=== PATIENT | female | born 1950 | race Two or more races ===

== ENCOUNTER → 2017-05-07 | Outpatient (CLI) | payer MEDICARE ==
[~2017-05-07] MED LIST: REGADENOSON 0.4 MG/5 ML DISP.SYRIN. IV ONE
--- NOTE | 2017-05-11 18:24 | RAD ---
APPROVED REPORT Test Type: Pharmacological Stress Nurse/Tech: Erica Jarquin R.N. Test Indications: CP Cardiac History: htn,dm Medications: See Electronic Medical Record Medical History: See Electronic Medical Record Resting ECG: SR w/ BBB -qrs=0.16 Resting Heart Rate: 69 bpm Resting Blood Pressure: 133/69mmHg Pretest Chest Pain: Typical angina Nurse/Tech Notes S1S2, lungs CTA, pt states that she is currently having slight stabbing c/p scale 3/10 Consent: The procedure was explained to the patient in lay terms. Informed consent was witnessed. Albino eout was entered into [facility]. History and Stress Test performed by RT Sabas (Gita) (N) Pharm. Details Pharmacologic stress testing was performed using 0.4mg per 5ml of regadenoson given intravenously ove r 7-10 seconds. Stress Symptoms queasiness, slight SOB, baseline chest pain resolved POST EXERCISE Reason for Termination: Infusion complete Max HR: 96 bpm Max Blood Pressure: 133/69mmHg Blood Pressure response to exercise: Normal blood pressure response during stress. Heart Rate response to exercise: wnl Chest Pain: No. Arrhythmia: No. ST Change: No. Imaging Protocol IMAGE PROTOCOL: Rest Tc-99m/stress Tc-99m 2 days Rest: Stress: Viability: Radiopharm.Tc99m [id number] Sestamibi Qsmr55lSv 33.5mCi Duration 15min. 10min. Img Date 05/07/2017 05/08/2017 Inj-Img [id number]. 60min. Rest Admin Site:IV - Right AntecubitalAdministrator:CURLY Goddard, ARRT (R)(N) Stress Admin Site: IV - Right AntecubitalAdministrator: RT Sabas (Gita)(N) STRESS DATA End Diast. Vol.43.0mlAv. Heart Rate73.0bpm End Syst. Vol.2.0mlCO Index BSA0.0L/min Myocardial Mass91.0gEject. Vumwimgu83.0% Stress Rates Pk. Fill Rate4.18EDV/secLVtime Pk. Fill 196.57msec Pk. Empty Rate6.02ESV/secLVtime Pk. Rznyd723.39msec 08/19 Pk. Fill1.88EDV/sec Stress Scores Regional WT0.00Summed WT2.00 Regional WM0.00Summed WM0.00 LV Perf. Quant 17 Seg. SSS0.00 17 Seg. SRS0.00 17 Seg. SDS0.00 Stress Defect Extent (% LAD)0.00Rest Defect Extent (% LAD)0.00Rev. Defect Extent (% LAD)0.00 Stress Defect Extent (% LCX) 0.00Rest Defect Extent (% LCX)0.00Rev. Defect Extent (% LCX)0.00 Stress Defect Extent (% RCA)0.00Rest Defect Extent (% RCA)0.00Rev. Defect Extent (% RCA)0.00 Stress Defect Extent (% AIMEE)0.00Rest Defect Extent (% AIMEE)0.00Rev. Defect Extent (% AIMEE)0.00 Conclusion 1. No electrocardiographic changes suggestive of myocardial ischemia with pharmacological stress. 2. No perfusion defects to suggest myocardial ischemia or scar. 3. Normal wall motion and wall thickening with an ejection fraction of more than 80%. 4. Scan indicates low risk for future cardiac events.
== END | disposition home or self-care (01) ==
LOC: NM 07:38
PROVIDERS: ATTEND Internal Medicine Cardiovascular Disease
DX: I49.5 Sick sinus syndrome (principal)
CPT/HCPCS: 78452; 96374; 96375; A9500; 93017; 96376; J2785

== ENCOUNTER 2019-03-02 12:33 | Inpatient (IN) | payer OTHER, MEDICARE ==
[~2019-03-02] VITALS: Ht 157.5 cm; Wt 83.1 kg
[2019-03-02 13:28] LABS: BILIRUBIN,URINE NEGATIVE (NEG); CLARITY,URINE CLEAR; COLOR,URINE YELLOW; NITRITE,URINE NEGATIVE (NEG); PH,URINE 6.5; PROTEIN,URINE NEGATIVE (NEG-TRACE)
[2019-03-02 13:48] LABS: BACTERIA,URINE FEW /HPF (0-FEW); SQUAMOUS EPITHELIAL CELL,UR MANY /LPF
[2019-03-02] MEDS ORDERED: IV NORMAL SALINE 1000ML BAG 1,000 ML IV ONE ×2 (14:00→16:30)
[2019-03-02 14:17] LABS: CALCIUM 8.9 mg/dL (8.5-10.1); GFR 55.1; POTASSIUM 3.8 mmol/L (3.5-5.1)
[2019-03-02 14:23] LABS: ALBUMIN 2.8 g/dL (3.4-5.0); ALBUMIN/GLOBULIN RATIO 0.7 (1.0-1.7); TOTAL BILIRUBIN 0.4 mg/dL (0.2-1.0)
[2019-03-02] MEDS ORDERED: ONDANSETRON PF 4 MG/2 ML VIAL. IV ONE (14:30)
[2019-03-02] MEDS ORDERED: MORPHINE SULFATE 4 MG/ML VIAL. IV ONE (14:30)
[2019-03-02 15:02] LABS: BASO % 1 % (0-3); EOS # 0.1 x10^3/uL (0.0-0.7); EOS % 2 % (0-3); HEMATOCRIT 36.7 % (36.0-47.0); HEMOGLOBIN 12.3 g/dL (12.0-15.5); LYMPH # 1.2 x10^3/uL (1.0-4.8); LYMPH % 35 % (24-48); MEAN CORPUSCULAR HEMOGLOBIN 29 pg (25-35); MEAN CORPUSCULAR HGB CONC 34 g/dL (31-37); MEAN CORPUSCULAR VOLUME 86 fL (79-100); MONO # 0.4 x10^3/uL (0.0-1.1); MONO % 12 % (0-9); NEUT # 1.8 x10^3/uL (1.8-7.7); NEUT % 51 % (31-73); PLATELET COUNT 45 x10^3/uL (140-400); RED BLOOD COUNT 4.25 x10^6/uL (3.50-5.40); RED CELL DISTRIBUTION WIDTH 16.6 % (11.5-14.5); WHITE BLOOD COUNT 3.4 x10^3/uL (4.0-11.0)
[2019-03-02] MEDS ORDERED: CONTRAST GIVEN. MC PRN (15:15)
[2019-03-02 15:32] LABS: PROTHROMBIN TIME PATIENT 14.5 SEC (11.7-14.0)
[2019-03-02] MEDS ORDERED: IOHEXOL 300 MG/ML 100ML VIAL. IV ONE (15:45)
[2019-03-02 15:48] LABS: PLT ESTIMATE DECREASED (ADEQUATE)
--- NOTE | 2019-03-02 15:59 | RAD ---
CT study of the abdomen and pelvis with contrast Clinical indications: Abdominal pain. TECHNIQUE: After IV infusion of 60 cc of Omnipaque 300, helical CT scanning of the abdomen and pelvis was performed. No GI contrast was administered. This may decrease the sensitivity to detect GI tract pathology. PQRS compliance Statement One or more of the following individualized dose reduction techniques were utilized for this study: 1. Automated exposure control 2. Adjustment of the mA and/or kV according to patient size 3. Use of iterative reconstruction technique COMPARISON: None available. FINDINGS: The liver is unremarkable. The spleen measures 13.2 cm in length which is at the upper limits of normal. There is diffuse enhancement of the pancreas. No pancreatic mass is seen. However, there is moderate peripancreatic edema around the head and neck and body of the pancreas and to a lesser extent the tail of the pancreas. Edema extends into the root of the mesentery. Edema extends into the anterior pararenal space around Gerota's fascia of both kidneys and into the right and left paracolic gutters. There is a small amount of ascites present within the right upper quadrant of the abdomen. No pseudocyst is seen. Findings are consistent with pancreatitis. The gallbladder is distended. There is mild gallbladder wall thickening. There is a gallstone within the gallbladder measuring 7 mm. Another smaller 3 mm stone is seen within the neck of the gallbladder. No extra hepatic biliary ductal dilatation is seen. No dilatation of the main pancreatic duct is evident. No adrenal mass is evident. Bilateral renal stones are seen. There is scarring of the upper pole of the right kidney consistent with chronic pyelonephritis. No hydronephrosis or hydroureter is evident on either side. Urinary bladder wall is smooth. No uterine mass or fibroid is evident. No dominant ovarian cyst or mass is evident. No focal aneurysmal dilatation of the abdominal aorta is seen. No enlarged abdominal or pelvic lymphadenopathy is seen. Sigmoid diverticulosis is seen without diverticulitis. Terminal ileum is unremarkable. The appendix is unremarkable. No obstructive bowel pattern is evident. There is wall thickening of stomach and duodenum which may be reactive secondary to the pancreatitis. No free air is evident. Mild bibasilar atelectasis is seen. No lytic process is seen. Impression: Pancreatitis. There is moderate amount of peripancreatic edema which extends into the root of the mesentery and extends to both sides of the abdomen. A small amount of pancreatic ascites is seen. The gallbladder is distended. Mild gallbladder wall thickening is seen. This may represent cholecystitis. Cholelithiasis is evident. No dilatation of the extra hepatic biliary duct is seen. Wall thickening of the stomach and duodenum most likely is reactive secondary to the pancreatitis. Electronically signed by: Yohannes Mercer MD (03/02/2019 3:56 PM) [facility]
--- NOTE | 2019-03-02 16:16 | PHYS DOC ---
Past Medical History Past Medical History: Diabetes-Type II, High Cholesterol, Hypertension, Other Additional Past Medical Histor: FATTY LIVER Past Surgical History: No Surgical History Alcohol Use: None Drug Use: None Adult General Chief Complaint Chief Complaint: FLANK PAIN HPI HPI Patient is a 68 year old female presented ER today for evaluation of mid abdominal pain, right flank pain that radiated across into her epigastric area off and on for 3 weeks. She also had problem with constipation. Patient went to [facility] last week for the same problem, they diagnosed her with UTI an d sent home with antibiotics however patient took the medication but did not get better so she came in here for evaluation. She denies any cough or fever, no chest pain, no trouble breathing. Review of Systems Review of Systems Constitutional: Denies fever or chills [] Eyes: Denies change in visual acuity, redness, or eye pain [] HENT: Denies nasal congestion or sore throat [] Respiratory: Denies cough or shortness of breath [] Cardiovascular: No additional information not addressed in HPI [] GI: Positive for abdominal pain, nausea, vomiting, NO bloody stools or diarrhea [] : Denies dysuria or hematuria [] Musculoskeletal: Positive for back pain NO joint pain [] Integument: Denies rash or skin lesions [] Neurologic: Denies headache, focal weakness or sensory changes [] Endocrine: Denies polyuria or polydipsia [] All other systems were reviewed and found to be within normal limits, except as documented in this note. Current Medications Current Medications Current Medications Medications (Trade) Dose Ordered Sig/Trent Start Time Stop Time Status Last Admin Dose Admin Fentanyl Citrate (Fentanyl 2ml Vial) 50 mcg PRN Q2HR PRN 03/02/19 17:00 03/03/19 16:59 Info (CONTRAST GIVEN -- Rx MONITORING) 1 each PRN DAILY PRN 03/02/19 15:15 03/04/19 15:14 Iohexol (Omnipaque 300 Mg/ml) 60 ml 1X ONCE 03/02/19 15:45 03/02/19 15:46 DC 03/02/19 15:24 60 ML Morphine Sulfate (Morphine Sulfate) 4 mg 1X ONCE 03/02/19 14:30 03/02/19 14:31 DC 03/02/19 14:14 4 MG Ondansetron HCl (Zofran) 4 mg PRN Q8HRS PRN 03/02/19 17:00 03/03/19 16:59 Piperacillin Sod/ Tazobactam Sod 3.375 gm/Sodium Chloride 50 ml @ 100 mls/hr 1X ONCE 03/02/19 17:00 03/02/19 17:29 03/02/19 16:26 100 MLS/HR Sodium Chloride 1,000 ml @ 100 mls/hr Q10H 03/02/19 16:48 03/03/19 16:47 Allergies Allergies Allergies Coded Allergies Type Severity Reaction Last Updated Verified No Known Drug Allergies 05/07/17 No Physical Exam Physical Exam Constitutional: Well developed, well nourished, no acute distress, non-toxic appearance. [] HENT: Normocephalic, atraumatic, bilateral external ears normal, oropharynx moist, no oral exudates, nose normal. [] Eyes: PERRLA, EOMI, conjunctiva normal, no discharge. [] Neck: Normal range of motion, no tenderness, supple, no stridor. [] Cardiovascular:Heart rate regular rhythm, no murmur [] Lungs & Thorax: Bilateral breath sounds clear to auscultation [] Abdomen: Bowel sounds normal, soft, There is tenderness in EPIGASTRIC, RUQ AR EA, no masses, no pulsatile masses. [] Skin: Warm, dry, no erythema, no rash. [] Back: No tenderness, no CVA tenderness. [] Extremities: No tenderness, no cyanosis, no clubbing, ROM intact, no edema. [] Neurologic: Alert and oriented X 3, normal motor function, normal sensory function, no focal deficits noted. [] Psychologic: Affect normal, judgement normal, mood normal. [] Current Patient Data Vital Signs Vital Signs Date Time Temp Pulse Resp B/P (MAP) Pulse Ox O2 Delivery O2 Flow Rate FiO2 03/02/19 14:00 18 138/65 (89) 96 Room Air 03/02/19 12:51 97.8 90 97.8 Lab Values Laboratory Tests Test 03/02/19 12:49 03/02/19 13:54 03/02/19 14:47 03/02/19 17:06 Urine Collection Type Unknown Urine Color Yellow Urine Clarity Clear Urine pH 6.5 Urine Specific [place] 1.015 Urine Protein Negative mg/dL (NEG-TRACE) Urine Glucose (UA) 500 mg/dL (NEG) Urine Ketones (Stick) Negative mg/dL (NEG) Urine Blood Trace (NEG) Urine Nitrite Negative (NEG) Urine Bilirubin Negative (NEG) Urine Urobilinogen Dipstick 1.0 mg/dL (0.2 mg/dL) Urine Leukocyte Esterase Small (NEG) Urine RBC 3-5 /HPF (0-2) Urine WBC 11-20 /HPF (0-4) Urine Squamous Epithelial Cells Many /LPF Urine Bacteria Few /HPF (0-FEW) Sodium Level 138 mmol/L (136-145) Potassium Level 3.8 mmol/L (3.5-5.1) Chloride Level 103 mmol/L (98-107) Carbon Dioxide Level 24 mmol/L (21-32) Anion Gap 11 (6-14) Blood Urea Nitrogen 11 mg/dL (7-20) Creatinine 1.0 mg/dL (0.6-1.0) Estimated GFR (Cockcroft-Gault) 55.1 BUN/Creatinine Ratio 11 (6-20) Glucose Level 295 mg/dL (70-99) H Calcium Level 8.9 mg/dL (8.5-10.1) Total Bilirubin 0.4 mg/dL (0.2-1.0) Aspartate Amino Transferase (AST) 61 U/L (15-37) H Alanine Aminotransferase (ALT) 90 U/L (14-59) H Alkaline Phosphatase 190 U/L (46-116) H Total Protein 7.0 g/dL (6.4-8.2) Albumin 2.8 g/dL (3.4-5.0) L Albumin/Globulin Ratio 0.7 (1.0-1.7) L Lipase 245 U/L (73-393) White Blood Count 3.4 x10^3/uL (4.0-11.0) L Red Blood Count 4.25 x10^6/uL (3.50-5.40) Hemoglobin 12.3 g/dL (12.0-15.5) Hematocrit 36.7 % (36.0-47.0) Mean Corpuscular Volume 86 fL (79-100) Mean Corpuscular Hemoglobin 29 pg (25-35) Mean Corpuscular Hemoglobin Concent 34 g/dL (31-37) Red Cell Distribution Width 16.6 % (11.5-14.5) H Platelet Count 45 x10^3/uL (140-400) L Neutrophils (%) (Auto) 51 % (31-73) Lymphocytes (%) (Auto) 35 % (24-48) Monocytes (%) (Auto) 12 % (0-9) H Eosinophils (%) (Auto) 2 % (0-3) Basophils (%) (Auto) 1 % (0-3) Neutrophils # (Auto) 1.8 x10^3/uL (1.8-7.7) Lymphocytes # (Auto) 1.2 x10^3/uL (1.0-4.8) Monocytes # (Auto) 0.4 x10^3/uL (0.0-1.1) Eosinophils # (Auto) 0.1 x10^3/uL (0.0-0.7) Basophils # (Auto) 0.0 x10^3/uL (0.0-0.2) Platelet Estimate Decreased (ADEQUATE) Prothrombin Time 14.5 SEC (11.7-14.0) H Prothrombin Time INR 1.2 (0.8-1.1) H PTT 30 SEC (24-38) Glucose (Fingerstick) 152 mg/dL (70-99) H Laboratory Tests 03/02/19 14:47 Laboratory Tests 03/02/19 13:54 EKG EKG [] Radiology/Procedures Radiology/Procedures [][facility] [address] [place] [address] IMAGING REPORT Signed PATIENT: JUAN LANE ACCOUNT: [id number] : 1950 LOCATION: ER AGE: 68 SEX: F EXAM STATUS: REG ER ORD. PHYSICIAN: LIZZETTE STEWART DO REASON: ABDOMINAL PAIN PROCEDURE: CT ABD PELV W/ IV CONTRST ONLY CT study of the abdomen and pelvis with contrast Clinical indications: Abdominal pain. TECHNIQUE: After IV infusion of 60 cc of Omnipaque 300, helical CT scanning of the abdomen and pelvis was performed. No GI contrast was administered. This may decrease the sensitivity to detect GI tract pathology. PQRS compliance Statement One or more of the following individualized dose reduction techniques were utilized for this study: 1. Automated exposure control 2. Adjustment of the mA and/or kV according to patient size 3. Use of iterative reconstruction technique COMPARISON: None available. FINDINGS: The liver is unremarkable. The spleen measures 13.2 cm in length which is at the upper limits of normal. There is diffuse enhancement of the pancreas. No pancreatic mass is seen. However, there is moderate peripancreatic edema around the head and neck and body of the pancreas and to a lesser extent the tail of the pancreas. Edema extends into the root of the mesentery. Edema extends into the anterior pararenal space around Gerota's fascia of both kidneys and into the right and left paracolic gutters. There is a small amount of ascites present within the right upper quadrant of the abdomen. No pseudocyst is seen. Findings are consistent with pancreatitis. The gallbladder is distended. There is mild gallbladder wall thickening. There is a gallstone within the gallbladder measuring 7 mm. Another smaller 3 mm stone is seen within the neck of the gallbladder. No extra hepatic biliary ductal dilatation is seen. No dilatation of the main pancreatic duct is evident. No adrenal mass is evident. Bilateral renal stones are seen. There is scarring of the upper pole of the right kidney consistent with chronic pyelonephritis. No hydronephrosis or hydroureter is evident on either side. Urinary bladder wall is smooth. No uterine mass or fibroid is evident. No dominant ovarian cyst or mass is evident. No focal aneurysmal dilatation of the abdominal aorta is seen. No enlarged abdominal or pelvic lymphadenopathy is seen. Sigmoid diverticulosis is seen without diverticulitis. Terminal ileum is unremarkable. The appendix is unremarkable. No obstructive bowel pattern is evident. There is wall thickening of stomach and duodenum which may be reactive secondary to the pancreatitis. No free air is evident. Mild bibasilar atelectasis is seen. No lytic process is seen. Impression: Pancreatitis. There is moderate amount of peripancreatic edema which extends into the root of the mesentery and extends to both sides of the abdomen. A small amount of pancreatic ascites is seen. The gallbladder is distended. Mild gallbladder wall thickening is seen. This may represent cholecystitis. Cholelithiasis is evident. No dilatation of the extra hepatic biliary duct is seen. Wall thickening of the stomach and duodenum most likely is reactive secondary to the pancreatitis. Electronically signed by: Smita Mercer MD (03/02/2019 3:56 PM) [place] [id number] DICTATED and SIGNED BY: SMITA MERCER MD DATE: 03/02/19 1556 [facility] [address] [place] [address] IMAGING REPORT Signed PATIENT: JUAN LANE ACCOUNT: [id number] : 1950 LOCATION: ER AGE: 68 SEX: F EXAM STATUS: REG ER ORD. PHYSICIAN: LIZZETTE STEWART DO REASON: RUQ ABDOMINAL PAIN PROCEDURE: ABDOMEN LTD ABDOMEN LTD History: Right upper quadrant abdominal pain. Comparison: CT March 02, 2019.. Technique: Transabdominal ultrasound images are obtained. Findings: Visualized pancreas is not well seen due to overlying bowel gas. See dedicated abdominal pelvic CT for further details. Liver is normal in echogenicity. Right hepatic lobe measures 13.4 cm. Portal flow is hepatopedal. Gallbladder: Cholelithiasis. Mild wall thickening measures 6 mm. No pericholecystic fluid. Common bile duct caliber is normal measuring 5 mm in diameter. The right kidney measures 9.8 x 5.3 x 4.3 cm in length and is without evidence of obstruction or stone. Visualized portions of the aorta and IVC have normal caliber. IMPRESSION: 1. Cholelithiasis with mild gallbladder wall thickening. Findings may represent acute cholecystitis. HIDA scan can further evaluate gallbladder function if clinically indicated. Electronically signed by: Mikey Yoon DO (03/02/2019 4:57 PM) [id number] DICTATED and SIGNED BY: MIKEY YOON DO DATE: 03/02/19 2299 Course & Med Decision Making Course & Med Decision Making Pertinent Labs and Imaging studies reviewed. (See chart for details) [] Dragon Disclaimer Dragon Disclaimer This electronic medical record was generated, in whole or in part, using a voice recognition dictation system. Departure Departure Impression: Primary Impression: Acute gallstone pancreatitis Additional Impressions: Cholecystitis Thrombocytopenia Disposition: 09 ADMITTED INPATIENT Admitting Physician: MARIBETH Condition: STABLE Referrals: KRISTI NARVAEZ MD (PCP) Problem Qualifiers LIZZETTE STEWART DO Mar 02, 2019 16:16
[2019-03-02] MEDS ORDERED: fentaNYL PF VIAL 100 MCG/2 ML VIAL IV ONE (16:45)
[2019-03-02] MEDS ORDERED: IV NORMAL SALINE 1000ML BAG 1,000 ML IV SCH (16:48)
[2019-03-02] MEDS ORDERED: fentaNYL PF VIAL 100 MCG/2 ML VIAL IV PRN (17:00)
[2019-03-02] MEDS ORDERED: PIPERACILLIN/TAZOBACTAM 3.375 GM in IV NORMAL SALINE 50ML 50 ML IV ONE (17:00)
[2019-03-02] MEDS ORDERED: ONDANSETRON PF 4 MG/2 ML VIAL. IV PRN (17:00)
--- NOTE | 2019-03-02 17:00 | RAD ---
ABDOMEN LTD History: Right upper quadrant abdominal pain. Comparison: CT March 02, 2019.. Technique: Transabdominal ultrasound images are obtained. Findings: Visualized pancreas is not well seen due to overlying bowel gas. See dedicated abdominal pelvic CT for further details. Liver is normal in echogenicity. Right hepatic lobe measures 13.4 cm. Portal flow is hepatopedal. Gallbladder: Cholelithiasis. Mild wall thickening measures 6 mm. No pericholecystic fluid. Common bile duct caliber is normal measuring 5 mm in diameter. The right kidney measures 9.8 x 5.3 x 4.3 cm in length and is without evidence of obstruction or stone. Visualized portions of the aorta and IVC have normal caliber. IMPRESSION: 1. Cholelithiasis with mild gallbladder wall thickening. Findings may represent acute cholecystitis. HIDA scan can further evaluate gallbladder function if clinically indicated. Electronically signed by: Mikey Yoon DO (03/02/2019 4:57 PM) [id number]
[2019-03-02] MEDS ORDERED: guaiFENesin ORAL 200 MG/10 ML LIQUID. PO PRN (19:45)
[2019-03-02] MEDS ORDERED: ACETAMINOPHEN 325 MG TABLET. PO PRN (19:45)
[2019-03-02] MEDS ORDERED: 0.9 % SODIUM CHLORIDE 10 ML DISP.SYRIN. IV PRN (19:45)
[2019-03-02] MEDS ORDERED: cloNIDine HCL 0.1 MG TABLET PO PRN (19:45)
[2019-03-02] MEDS ORDERED: LORazepam 0.5 MG TABLET PO PRN (19:45)
[2019-03-02] MEDS: IV NORMAL SALINE 1000ML BAG 1,000 ML IV SCH (20:50)
[2019-03-02 23:00] VITALS: BP 148/76
[2019-03-03] MEDS ORDERED: FERR325T14 PO (02:39)
[2019-03-03] MEDS ORDERED: GLIM2TAB2 PO (02:39)
[2019-03-03] MEDS ORDERED: PANT40TA77 PO (02:39)
[2019-03-03] MEDS ORDERED: CHOL10003 PO (02:39)
[2019-03-03] MEDS ORDERED: LOSA100T14 PO (02:39)
[2019-03-03] MEDS ORDERED: ATOR20TA58 PO (02:39)
[2019-03-03 03:40] VITALS: BP 161/70
[2019-03-03] MEDS: IV NORMAL SALINE 1000ML BAG 1,000 ML IV SCH ×2 (06:13→17:00)
[2019-03-03 07:00] VITALS: BP 139/66
--- NOTE | 2019-03-03 08:33 | PDOC2 ---
JOANNA MACDONALD HEARINGS REPORTER 03/03/19 0833: CONSULT Date of Consult Date of Consult DATE: 03/03/19 TIME: 08:26 Reason for Consult Reason for Consult: gallstone pancreatitis Referring Physician Referring Physician: ER Identification/Chief Complaint Chief Complaint abdominal pain Source Source: Chart review, Patient History of Present Illness Reason for Visit: 3 weeks of abdominal pain, upper abdomen and right flank. Reports some constipation. Treated for UTI, however did not improve. Reports low appetite, but not sure eating contributed to her pain. Denies any emesis. Past Medical History Cardiovascular: HTN, Hyperlipidemia Endocrine: Diabetes Past Surgical History Past Surgical History: No pertinent history Family History Family History: Other (noncontributory to current illness ) Social History No ALCOHOL: none Drugs: None Lives: with Family Current Problem List Problem List Problems Medical Problems: (1) Acute gallstone pancreatitis Status: Acute (2) Cholecystitis Status: Acute (3) Thrombocytopenia Status: Acute Current Medications Current Medications Current Medications Sodium Chloride 1,000 ml @ 1,000 mls/hr 1X ONCE IV Last administered on 03/02/19at 14:15; Start 03/02/19 at 14:00; Stop 03/02/19 at 14:59; Status DC Morphine Sulfate (Morphine Sulfate) 4 mg 1X ONCE IV Last administered on 03/02/19at 14:14; Start 03/02/19 at 14:30; Stop 03/02/19 at 14:31; Status DC Ondansetron HCl (Zofran) 4 mg 1X ONCE IV Last administered on 03/02/19at 14:13; Start 03/02/19 at 14:30; Stop 03/02/19 at 14:31; Status DC Iohexol (Omnipaque 300 Mg/ml) 60 ml 1X ONCE IV Last administered on 03/02/19at 15:24; Start 03/02/19 at 15:45; Stop 03/02/19 at 15:46; Status DC Info (CONTRAST GIVEN -- Rx MONITORING) 1 each PRN DAILY PRN MC SEE COMMENTS; Start 03/02/19 at 15:15; Stop 03/04/19 at 15:14 Fentanyl Citrate (Fentanyl 2ml Vial) 75 mcg 1X ONCE IV Last administered on 03/02/19at 16:19; Start 03/02/19 at 16:45; Stop 03/02/19 at 16:46; Status DC Piperacillin Sod/ Tazobactam Sod 3.375 gm/Sodium Chloride 50 ml @ 100 mls/hr 1X ONCE IV Last administered on 03/02/19at 16:26; Start 03/02/19 at 17:00; Stop 03/02/19 at 17:29; Status DC Sodium Chloride 1,000 ml @ 1,000 mls/hr 1X ONCE IV Last administered on 03/02/19at 16:31; Start 03/02/19 at 16:30; Stop 03/02/19 at 17:29; Status DC Ondansetron HCl (Zofran) 4 mg PRN Q8HRS PRN IV NAUSEA/VOMITING; Start 03/02/19 at 17:00; Stop 03/02/19 at 19:48; Status DC Fentanyl Citrate (Fentanyl 2ml Vial) 50 mcg PRN Q2HR PRN IV PAIN Last administered on 03/02/19at 20:51; Start 03/02/19 at 17:00; Stop 03/03/19 at 16:59 Sodium Chloride 1,000 ml @ 100 mls/hr Q10H IV ; Start 03/02/19 at 16:48; Stop 03/03/19 at 16:47; Status Cancel Sodium Chloride (Normal Saline Flush) 3 ml QSHIFT PRN IV AFTER MEDS AND BLOOD DRAWS; Start 03/02/19 at 19:45 Sodium Chloride 1,000 ml @ 100 mls/hr Q10H IV Last administered on 03/03/19at 06:13; Start 03/02/19 at 21:00 Ondansetron HCl (Zofran) 4 mg PRN Q4HRS PRN IV NAUSEA/VOMITING; Start 03/02/19 at 19:45 Acetaminophen (Tylenol) 650 mg PRN Q4HRS PRN PO TEMP OVER 100.4F OR MILD PAIN; Start 03/02/19 at 19:45 Clonidine HCl (Catapres) 0.1 mg PRN Q6HRS PRN PO SBP>160 OR DBP>90; Start 03/02/19 at 19:45 Guaifenesin (Robitussin) 200 mg PRN Q4HRS PRN PO COUGH; Start 03/02/19 at 19:45 Lorazepam (Ativan) 0.5 mg PRN Q4HRS PRN PO ANXIETY / AGITATION; Start 03/02/19 at 19:45 Hydromorphone HCl (Dilaudid) 1 mg PRN Q2HRS PRN IV SEVERE PAIN 7-10; Start 03/02/19 at 19:45 Enoxaparin Sodium (Lovenox 40mg Syringe) 40 mg DAILY SQ ; Start 03/03/19 at 09:00 Active Scripts Active Reported Vitamin D3 (Cholecalciferol (Vitamin D3)) 1,000 Unit Tablet 2,000 Unit PO DAILY Ferrous Sulfate 325 Mg Tablet 325 Mg PO DAILY Atorvastatin Calcium 20 Mg Tablet 20 Mg PO DAILY Glimepiride 2 Mg Tablet 2 Tab PO BID Losartan Potassium 100 Mg Tablet 100 Mg PO DAILY Protonix (Pantoprazole Sodium) 40 Mg Tablet.dr 40 Mg PO DAILYAC Allergies Allergies: Coded Allergies: No Known Drug Allergies (Unverified , 05/07/17) ROS General: No: Chills, Other (fevers ) PSYCHOLOGICAL ROS: No: Anxiety, Depression Eyes: No Blurry vision, No Double vision HEENT: No: Heacaches, Sore Throat Hematological and Lymphatic: No: Bleeding Problems, Blood Clots Respiratory: No: Cough, Shortness of breath Cardiovascular: No Chest Pain, No Palpitations Gastrointestinal: Yes Other (see hpi) Genitourinary: No Dysuria, No Hematuria Musculoskeletal: No Joint Stiffness, No Muscular Weakness Neurological: No Confusion, No Impaired Coord/balance Skin: No Pruritus, No Rash Physical Exam General: Alert, Oriented X3, Cooperative, No acute distress HEENT: PERRLA, Mucous membr. moist/pink Lungs: Clear to auscultation, Normal air movement Heart: Regular rate, Normal S1, Normal S2 Abdomen: Soft, Other (TTP across upper abdomen) Vitals VITALS Vital Signs Date Time Temp Pulse Resp B/P (MAP) Pulse Ox O2 Delivery O2 Flow Rate FiO2 03/03/19 03:40 98.0 62 17 161/70 (100) 97 Room Air 98.0 Labs Labs Laboratory Tests Test 03/02/19 12:49 03/02/19 13:54 03/02/19 14:47 03/02/19 17:06 Urine Collection Type Unknown Urine Color Yellow Urine Clarity Clear Urine pH 6.5 Urine Specific [place] 1.015 Urine Protein Negative mg/dL (NEG-TRACE) Urine Glucose (UA) 500 mg/dL (NEG) Urine Ketones (Stick) Negative mg/dL (NEG) Urine Blood Trace (NEG) Urine Nitrite Negative (NEG) Urine Bilirubin Negative (NEG) Urine Urobilinogen Dipstick 1.0 mg/dL (0.2 mg/dL) Urine Leukocyte Esterase Small (NEG) Urine RBC 3-5 /HPF (0-2) Urine WBC 11-20 /HPF (0-4) Urine Squamous Epithelial Cells Many /LPF Urine Bacteria Few /HPF (0-FEW) Sodium Level 138 mmol/L (136-145) Potassium Level 3.8 mmol/L (3.5-5.1) Chloride Level 103 mmol/L (98-107) Carbon Dioxide Level 24 mmol/L (21-32) Anion Gap 11 (6-14) Blood Urea Nitrogen 11 mg/dL (7-20) Creatinine 1.0 mg/dL (0.6-1.0) Estimated GFR (Cockcroft-Gault) 55.1 BUN/Creatinine Ratio 11 (6-20) Glucose Level 295 mg/dL (70-99) Calcium Level 8.9 mg/dL (8.5-10.1) Total Bilirubin 0.4 mg/dL (0.2-1.0) Aspartate Amino Transf (AST/SGOT) 61 U/L (15-37) Alanine Aminotransferase (ALT/SGPT) 90 U/L (14-59) Alkaline Phosphatase 190 U/L (46-116) Total Protein 7.0 g/dL (6.4-8.2) Albumin 2.8 g/dL (3.4-5.0) Albumin/Globulin Ratio 0.7 (1.0-1.7) Lipase 245 U/L (73-393) White Blood Count 3.4 x10^3/uL (4.0-11.0) Red Blood Count 4.25 x10^6/uL (3.50-5.40) Hemoglobin 12.3 g/dL (12.0-15.5) Hematocrit 36.7 % (36.0-47.0) Mean Corpuscular Volume 86 fL (79-100) Mean Corpuscular Hemoglobin 29 pg (25-35) Mean Corpuscular Hemoglobin Concent 34 g/dL (31-37) Red Cell Distribution Width 16.6 % (11.5-14.5) Platelet Count 45 x10^3/uL (140-400) Neutrophils (%) (Auto) 51 % (31-73) Lymphocytes (%) (Auto) 35 % (24-48) Monocytes (%) (Auto) 12 % (0-9) Eosinophils (%) (Auto) 2 % (0-3) Basophils (%) (Auto) 1 % (0-3) Neutrophils # (Auto) 1.8 x10^3/uL (1.8-7.7) Lymphocytes # (Auto) 1.2 x10^3/uL (1.0-4.8) Monocytes # (Auto) 0.4 x10^3/uL (0.0-1.1) Eosinophils # (Auto) 0.1 x10^3/uL (0.0-0.7) Basophils # (Auto) 0.0 x10^3/uL (0.0-0.2) Platelet Estimate Decreased (ADEQUATE) Prothrombin Time 14.5 SEC (11.7-14.0) Prothromb Time International Ratio 1.2 (0.8-1.1) Activated Partial Thromboplast Time 30 SEC (24-38) Glucose (Fingerstick) 152 mg/dL (70-99) Laboratory Tests Test 03/02/19 12:49 03/02/19 13:54 03/02/19 14:47 03/02/19 17:06 Urine Collection Type Unknown Urine Color Yellow Urine Clarity Clear Urine pH 6.5 Urine Specific [place] 1.015 Urine Protein Negative mg/dL (NEG-TRACE) Urine Glucose (UA) 500 mg/dL (NEG) Urine Ketones (Stick) Negative mg/dL (NEG) Urine Blood Trace (NEG) Urine Nitrite Negative (NEG) Urine Bilirubin Negative (NEG) Urine Urobilinogen Dipstick 1.0 mg/dL (0.2 mg/dL) Urine Leukocyte Esterase Small (NEG) Urine RBC 3-5 /HPF (0-2) Urine WBC 11-20 /HPF (0-4) Urine Squamous Epithelial Cells Many /LPF Urine Bacteria Few /HPF (0-FEW) Sodium Level 138 mmol/L (136-145) Potassium Level 3.8 mmol/L (3.5-5.1) Chloride Level 103 mmol/L (98-107) Carbon Dioxide Level 24 mmol/L (21-32) Anion Gap 11 (6-14) Blood Urea Nitrogen 11 mg/dL (7-20) Creatinine 1.0 mg/dL (0.6-1.0) Estimated GFR (Cockcroft-Gault) 55.1 BUN/Creatinine Ratio 11 (6-20) Glucose Level 295 mg/dL (70-99) Calcium Level 8.9 mg/dL (8.5-10.1) Total Bilirubin 0.4 mg/dL (0.2-1.0) Aspartate Amino Transf (AST/SGOT) 61 U/L (15-37) Alanine Aminotransferase (ALT/SGPT) 90 U/L (14-59) Alkaline Phosphatase 190 U/L (46-116) Total Protein 7.0 g/dL (6.4-8.2) Albumin 2.8 g/dL (3.4-5.0) Albumin/Globulin Ratio 0.7 (1.0-1.7) Lipase 245 U/L (73-393) White Blood Count 3.4 x10^3/uL (4.0-11.0) Red Blood Count 4.25 x10^6/uL (3.50-5.40) Hemoglobin 12.3 g/dL (12.0-15.5) Hematocrit 36.7 % (36.0-47.0) Mean Corpuscular Volume 86 fL (79-100) Mean Corpuscular Hemoglobin 29 pg (25-35) Mean Corpuscular Hemoglobin Concent 34 g/dL (31-37) Red Cell Distribution Width 16.6 % (11.5-14.5) Platelet Count 45 x10^3/uL (140-400) Neutrophils (%) (Auto) 51 % (31-73) Lymphocytes (%) (Auto) 35 % (24-48) Monocytes (%) (Auto) 12 % (0-9) Eosinophils (%) (Auto) 2 % (0-3) Basophils (%) (Auto) 1 % (0-3) Neutrophils # (Auto) 1.8 x10^3/uL (1.8-7.7) Lymphocytes # (Auto) 1.2 x10^3/uL (1.0-4.8) Monocytes # (Auto) 0.4 x10^3/uL (0.0-1.1) Eosinophils # (Auto) 0.1 x10^3/uL (0.0-0.7) Basophils # (Auto) 0.0 x10^3/uL (0.0-0.2) Platelet Estimate Decreased (ADEQUATE) Prothrombin Time 14.5 SEC (11.7-14.0) Prothromb Time International Ratio 1.2 (0.8-1.1) Activated Partial Thromboplast Time 30 SEC (24-38) Glucose (Fingerstick) 152 mg/dL (70-99) Assessment/Plan Assessment/Plan pancreatitis, cholelithiasis thrombocytopenia--plts 45--would rec holding lovenox bowel rest, hydration, pain control monitor plts? reactive allow resolution of pancreatitis prior to any cholecystectomy GEORGIA CHENG MD 03/03/19 1028: CONSULT Assessment/Plan Assessment/Plan pt seen, examined agree with above expectant treatment for GB follow platelets will follow Thanks for consult JOANNA MACDONALD APRN Mar 03, 2019 08:33 GEORGIA CHENG MD Mar 03, 2019 10:28
[2019-03-03] MEDS: ENOXAPARIN 40 MG/0.4 ML SYRINGE. SQ SCH (09:00)
[2019-03-03] MEDS: HYDROmorphone 2 MG/ML VIAL IV PRN (09:29)
--- NOTE | 2019-03-03 10:32 | PDOC2 ---
GI CONSULT Reason For Consult: Acute moni, gallstones, pancreatitis HPI: HPI: 68 y/o female, history difficult due to being in pain. Tells me abd pain "worse since last Thursday." Describes pain in lower abdomen and lower back. Constant. "Can't eat." H/o GERD on pantoprazole. No dysphagia. No hematemesis, hematochezia, melena, diarrhea, constipation. EGD and colonoscopy at last year w/ polyps. No GB or pancreas history. Re: liver, says "too much greasy." Takes Advil PRN. Chart indicates recent atbx treatment for UTI. PMH: PMH: HTN, HLD, DM, GERD, colon polyps, fatty liver FH: Family History: Other (difficult to obtain) Social History: Smoke: No ALCOHOL: none Drugs: None ROS: Difficult to obtain, per HPI. Vitals: Vitals: Vital Signs Date Time Temp Pulse Resp B/P (MAP) Pulse Ox O2 Delivery O2 Flow Rate FiO2 03/03/19 09:29 Room Air 03/03/19 03:40 98.0 62 17 161/70 (100) 97 98.0 Labs: Labs: Laboratory Tests Test 03/02/19 12:49 03/02/19 13:54 03/02/19 14:47 03/02/19 17:06 Urine Collection Type Unknown Urine Color Yellow Urine Clarity Clear Urine pH 6.5 Urine Specific [place] 1.015 Urine Protein Negative mg/dL (NEG-TRACE) Urine Glucose (UA) 500 mg/dL (NEG) Urine Ketones (Stick) Negative mg/dL (NEG) Urine Blood Trace (NEG) Urine Nitrite Negative (NEG) Urine Bilirubin Negative (NEG) Urine Urobilinogen Dipstick 1.0 mg/dL (0.2 mg/dL) Urine Leukocyte Esterase Small (NEG) Urine RBC 3-5 /HPF (0-2) Urine WBC 11-20 /HPF (0-4) Urine Squamous Epithelial Cells Many /LPF Urine Bacteria Few /HPF (0-FEW) Sodium Level 138 mmol/L (136-145) Potassium Level 3.8 mmol/L (3.5-5.1) Chloride Level 103 mmol/L (98-107) Carbon Dioxide Level 24 mmol/L (21-32) Anion Gap 11 (6-14) Blood Urea Nitrogen 11 mg/dL (7-20) Creatinine 1.0 mg/dL (0.6-1.0) Estimated GFR (Cockcroft-Gault) 55.1 BUN/Creatinine Ratio 11 (6-20) Glucose Level 295 mg/dL (70-99) Calcium Level 8.9 mg/dL (8.5-10.1) Total Bilirubin 0.4 mg/dL (0.2-1.0) Aspartate Amino Transf (AST/SGOT) 61 U/L (15-37) Alanine Aminotransferase (ALT/SGPT) 90 U/L (14-59) Alkaline Phosphatase 190 U/L (46-116) Total Protein 7.0 g/dL (6.4-8.2) Albumin 2.8 g/dL (3.4-5.0) Albumin/Globulin Ratio 0.7 (1.0-1.7) Lipase 245 U/L (73-393) White Blood Count 3.4 x10^3/uL (4.0-11.0) Red Blood Count 4.25 x10^6/uL (3.50-5.40) Hemoglobin 12.3 g/dL (12.0-15.5) Hematocrit 36.7 % (36.0-47.0) Mean Corpuscular Volume 86 fL (79-100) Mean Corpuscular Hemoglobin 29 pg (25-35) Mean Corpuscular Hemoglobin Concent 34 g/dL (31-37) Red Cell Distribution Width 16.6 % (11.5-14.5) Platelet Count 45 x10^3/uL (140-400) Neutrophils (%) (Auto) 51 % (31-73) Lymphocytes (%) (Auto) 35 % (24-48) Monocytes (%) (Auto) 12 % (0-9) Eosinophils (%) (Auto) 2 % (0-3) Basophils (%) (Auto) 1 % (0-3) Neutrophils # (Auto) 1.8 x10^3/uL (1.8-7.7) Lymphocytes # (Auto) 1.2 x10^3/uL (1.0-4.8) Monocytes # (Auto) 0.4 x10^3/uL (0.0-1.1) Eosinophils # (Auto) 0.1 x10^3/uL (0.0-0.7) Basophils # (Auto) 0.0 x10^3/uL (0.0-0.2) Platelet Estimate Decreased (ADEQUATE) Prothrombin Time 14.5 SEC (11.7-14.0) Prothromb Time International Ratio 1.2 (0.8-1.1) Activated Partial Thromboplast Time 30 SEC (24-38) Glucose (Fingerstick) 152 mg/dL (70-99) Allergies: Coded Allergies: No Known Drug Allergies (Unverified , 05/07/17) Medications: Current Medications Medications (Trade) Dose Ordered Sig/Trent Route PRN Reason Start Time Stop Time Status Last Admin Dose Admin Sodium Chloride 1,000 ml @ 1,000 mls/hr 1X ONCE IV 03/02/19 14:00 03/02/19 14:59 DC 03/02/19 14:15 Morphine Sulfate (Morphine Sulfate) 4 mg 1X ONCE IV 03/02/19 14:30 03/02/19 14:31 DC 03/02/19 14:14 Ondansetron HCl (Zofran) 4 mg 1X ONCE IV 03/02/19 14:30 03/02/19 14:31 DC 03/02/19 14:13 Iohexol (Omnipaque 300 Mg/ml) 60 ml 1X ONCE IV 03/02/19 15:45 03/02/19 15:46 DC 03/02/19 15:24 Fentanyl Citrate (Fentanyl 2ml Vial) 75 mcg 1X ONCE IV 03/02/19 16:45 03/02/19 16:46 DC 03/02/19 16:19 Piperacillin Sod/ Tazobactam Sod 3.375 gm/Sodium Chloride 50 ml @ 100 mls/hr 1X ONCE IV 03/02/19 17:00 03/02/19 17:29 DC 03/02/19 16:26 Sodium Chloride 1,000 ml @ 1,000 mls/hr 1X ONCE IV 03/02/19 16:30 03/02/19 17:29 DC 03/02/19 16:31 Fentanyl Citrate (Fentanyl 2ml Vial) 50 mcg PRN Q2HR PRN IV PAIN 03/02/19 17:00 03/03/19 16:59 03/02/19 20:51 Sodium Chloride 1,000 ml @ 100 mls/hr Q10H IV 03/02/19 21:00 03/03/19 06:13 Hydromorphone HCl (Dilaudid) 1 mg PRN Q2HRS PRN IV SEVERE PAIN 7-10 03/02/19 19:45 03/03/19 09:29 Imaging: Imaging: CT A/P Impression: Pancreatitis. There is moderate amount of peripancreatic edema which extends into the root of the mesentery and extends to both sides of the abdomen. A small amount of pancreatic ascites is seen. The gallbladder is distended. Mild gallbladder wall thickening is seen. This may represent cholecystitis. Cholelithiasis is evident. No dilatation of the extra hepatic biliary duct is seen. Wall thickening of the stomach and duodenum most likely is reactive secondary to the pancreatitis. Abd US IMPRESSION: 1. Cholelithiasis with mild gallbladder wall thickening. Findings may represent acute cholecystitis. HIDA scan can further evaluate gallbladder function if clinically indicated. CBD 5mm. PE: GEN: uncomfortable HEENT: Atraumatic LUNGS: CTAB HEART: RRR ABD: quiet, ?distended, tender to light touch EXTREMITY: No edema SKIN: No rashes, no jaundice NEURO/PSYCH: A & O �3 A/P: A/P: Abd pain Thrombocytopenia, mildly abnormal LFTs, h/o fatty liver - normal liver and CBD on US Pancreatitis, cholelithiasis, GB wall thickening GERD - on PPI, reports EGD last year @ [facility], h/o colon polyps - reports colonoscopy last year @ [facility] -- ?hematology consult NPO, supportive care. 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 Continue per surgery. SURJIT PALOMO Mar 03, 2019 10:32
[2019-03-03] MEDS: ONDANSETRON PF 4 MG/2 ML VIAL. IV PRN (10:59)
[2019-03-03 11:00] VITALS: BP 126/31
[2019-03-03] MEDS: METOCLOPRAMIDE HCL 10 MG/2 ML VIAL. IV PRN (12:26)
--- NOTE | 2019-03-03 12:53 | NUR ---
SS following for discharge planning. SS reviewed pt chart. Pt is from home and is currently on room air. No discharge needs noted at this time. SS will continue to follow for discharge planning.
--- NOTE | 2019-03-03 14:23 | HP ---
ADMIT DATE: CHIEF COMPLAINT: Abdominal pain. HISTORY OF PRESENT ILLNESS: The patient is a pleasant middle-aged female, presents with abdominal pain that has been occurring for several weeks. It starts in the epigastric region and goes to the right flank. We did some imaging in the emergency room. It shows gallstones, cholecystitis, and pancreatitis, and she also has incidental finding of leukopenia and thrombocytopenia. We are going to admit the patient and consult Gastroenterology, General Surgery, and Hematology/Oncology. PAST MEDICAL HISTORY: Diabetes, hypertension, hyperlipidemia, fatty liver. ALLERGIES: None. FAMILY HISTORY: Diabetes. SOCIAL HISTORY: She does not drink, smoke, or take drugs. MEDICATIONS: Reviewed, please refer to [facility]. REVIEW OF SYSTEMS: GENERAL: No history of weight change, weakness or fevers. SKIN: No bruising, hair changes or rashes. EYES: No blurred, double or loss of vision. NOSE AND THROAT: No history of nosebleeds, hoarseness or sore throat. HEART: No history of palpitations, chest pain or shortness of breath on exertion. LUNGS: Denies cough, hemoptysis, wheezing or shortness of breath. GASTROINTESTINAL: She complains of abdominal pain. GENITOURINARY: No history of frequency, urgency, hesitancy or nocturia. NEUROLOGIC: Denies history of numbness, tingling, tremor or weakness. PSYCHIATRIC: No history of panic, anxiety or depression. ENDOCRINE: No history of heat or cold intolerance, polyuria or polydipsia. EXTREMITIES: Denies muscle weakness, joint pain, pain on walking or stiffness. PHYSICAL EXAMINATION: VITALS: Within normal limits and are stable. GENERAL: No apparent distress. Alert and oriented. HEENT: Head is normocephalic, atraumatic, pupils were equally round and reactive to light and accommodation. NECK: Supple, no JVD, no thyromegaly was noted. LUNGS: Clear to auscultation in all lung sexton without rhonchi or wheezing. HEART: RRR, S1, S2 present. Peripheral pulses intact, no obvious murmurs were noted. ABDOMEN: Tender to palpation. EXTREMITIES: Without any cyanosis, clubbing, or edema. Pedal pulses intact, Homans sign is negative. NEUROLOGIC: Normal speech, normal tone. A & O x3, moves all extremities, no obvious focal deficits. PSYCHIATRIC: Normal affect, normal mood. Stable. SKIN: No ulcerations or rashes, good skin turgor, no jaundice. VASCULAR: Good capillary refill, neurovascular bundle appears to be intact. LABORATORY DATA: Electrolytes are normal. White count is low at 3.4. Platelets are low at 45. INR is 1.2. Urinalysis: Small amount of leukocyte esterase with 11-20 white cells. ASSESSMENT AND PLAN: Symptomatic gallstones with pancreatitis and cholecystitis and incidental findings of leukopenia, thrombocytopenia, and urinary tract infection. The patient has been admitted. We are consulting Hematology/Oncology, Gastroenterology, and Surgery. We will give her intravenous antibiotics for the urinary tract infection, as-needed narcotics, as-needed Zofran, intravenous fluids, home medications, deep vein thrombosis prophylaxis; full code. JAMEY NAVA DO DR: FIFI/fredrick JOB#: [id number] / [id number]
[2019-03-03 15:00] VITALS: BP 103/34
[2019-03-03 17:28] LABS: BASO % 0 % (0-3); EOS % 1 % (0-3); HEMATOCRIT 40.5 % (36.0-47.0); HEMOGLOBIN 13.3 g/dL (12.0-15.5); LYMPH # 1.1 x10^3/uL (1.0-4.8); LYMPH % 23 % (24-48); MEAN CORPUSCULAR HEMOGLOBIN 29 pg (25-35); MEAN CORPUSCULAR HGB CONC 33 g/dL (31-37); MEAN CORPUSCULAR VOLUME 88 fL (79-100); MONO # 0.4 x10^3/uL (0.0-1.1); MONO % 8 % (0-9); NEUT # 3.2 x10^3/uL (1.8-7.7); NEUT % 68 % (31-73); PLATELET COUNT 44 x10^3/uL (140-400); RED BLOOD COUNT 4.58 x10^6/uL (3.50-5.40); RED CELL DISTRIBUTION WIDTH 17.1 % (11.5-14.5); WHITE BLOOD COUNT 4.7 x10^3/uL (4.0-11.0)
[2019-03-03 19:00] VITALS: BP 123/38
[2019-03-03 23:00] VITALS: BP 149/74
--- NOTE | 2019-03-03 23:48 | CONS ---
DATE OF CONSULTATION: 03/03/2019 HEMATOLOGY-ONCOLOGY CONSULTATION REQUESTING PHYSICIAN: Jasmeet Woody MD REASON FOR CONSULTATION: Thrombocytopenia. HISTORY OF PRESENT ILLNESS: The patient is a 68-year-old female, who has a history of nonalcoholic steatohepatitis, cirrhosis of the liver, portal hypertension, splenomegaly, and chronic thrombocytopenia. She has had thrombocytopenia at least since 2005. CT scan of the abdomen on 09/16/2017 at [facility] revealed cirrhosis and portal hypertension with mild splenomegaly and no ascites. She has been following up with Hepatology for management of liver disease. Her last CBC as outpatient on 02/07/2019 had revealed platelet count of 59,000 with a normal WBC and hemoglobin level. [facility] with complaints of abdominal pain that was worse for about 2 days prior to admission. She denies hematemesis, melena and hematochezia. No hemoptysis or hematuria. She underwent further evaluation with a CT scan of the abdomen and pelvis on 03/02/2019, which revealed pancreatitis, possible cholecystitis. Ultrasound of the abdomen on 03/02/2019 revealed cholelithiasis and findings may represent acute cholecystitis. The patient's platelet count was noted to be worse at 44,000 on 03/03/2018 and hence I was consulted. PAST MEDICAL HISTORY: Diabetes, hypercholesterolemia, hypertension. FAMILY HISTORY: Positive for diabetes. SOCIAL HISTORY: She never smoked. REVIEW OF SYSTEMS: A 12-point review of system was performed. Pertinent positives are mentioned in the history of present illness. Rest of the system review is negative. PHYSICAL EXAMINATION: GENERAL APPEARANCE: The patient is a 68-year-old female, who is in no acute cardiorespiratory distress. VITAL SIGNS: Blood pressure 103/34, temperature 98.7. HEENT: Atraumatic, normocephalic. EYES: No icterus. NECK: Supple. CHEST: Bilaterally symmetrical. HEART: S1, S2 normal. ABDOMEN: Soft. No masses palpable. CENTRAL NERVOUS SYSTEM: No focal deficits. LYMPHATICS: No lymphadenopathy. SKIN: No rashes. PSYCHOLOGIC: Mood and affect are appropriate. LABORATORY DATA: WBC 4.7, hemoglobin 13.3, platelet count 44. IMPRESSION AND PLAN: 1. Thrombocytopenia, chronic, due to cirrhosis of the liver and portal hypertension and splenomegaly. Platelet count was worse at 44,000 on 03/03/2019. No signs of bleeding. I would continue to monitor and transfuse, if there is any evidence of bleeding or if surgical intervention is necessary. 2. Pancreatitis. Management per Gastroenterology. 3. Cholecystitis. Management per Gastroenterology. 4. Leukopenia due to splenomegaly. WBC was 3.4 on 03/02/2019 and it improved to 4.7 on 03/03/2019. Continue to monitor CBC. IONA PAREDES MD DR: FRANK/fredrick JOB#: [id number] / [id number] GENE
[2019-03-04 03:00] VITALS: BP 133/61
[2019-03-04] MEDS: IV NORMAL SALINE 1000ML BAG 1,000 ML IV SCH ×3 (03:00→22:47)
[2019-03-04 07:00] VITALS: BP 137/55
[2019-03-04] MEDS: ENOXAPARIN 40 MG/0.4 ML SYRINGE. SQ SCH (08:09)
--- NOTE | 2019-03-04 09:17 | PDOC ---
Subjective: Subjective: Back pain. Objective: Objective: Reviewed Dr. Wilson's note - h/o VALLE, cirrhosis, portal hypertension, splenomegaly, and chronic thrombocytopenia since at least 2005. Follows w/ Hepatology at . Vital Signs: Vital Signs Date Time Temp Pulse Resp B/P (MAP) Pulse Ox O2 Delivery O2 Flow Rate FiO2 03/04/19 03:00 97.7 76 16 133/61 (85) 98 Room Air 97.7 Labs: Laboratory Tests Test 03/03/19 12:30 White Blood Count 4.7 x10^3/uL Red Blood Count 4.58 x10^6/uL Hemoglobin 13.3 g/dL Hematocrit 40.5 % Mean Corpuscular Volume 88 fL Mean Corpuscular Hemoglobin 29 pg Mean Corpuscular Hemoglobin Concent 33 g/dL Red Cell Distribution Width 17.1 % Platelet Count 44 x10^3/uL Neutrophils (%) (Auto) 68 % Lymphocytes (%) (Auto) 23 % Monocytes (%) (Auto) 8 % Eosinophils (%) (Auto) 1 % Basophils (%) (Auto) 0 % Neutrophils # (Auto) 3.2 x10^3/uL Lymphocytes # (Auto) 1.1 x10^3/uL Monocytes # (Auto) 0.4 x10^3/uL Eosinophils # (Auto) 0.0 x10^3/uL Basophils # (Auto) 0.0 x10^3/uL PE: GEN: NAD, was sleeping LUNGS: room air HEART: RRR ABD: round, epigastric to periumbilical discomfort NEURO/PSYCH: A & O �3 A/P: Gallstone pancreatitis Cirrhosis (VALLE) w/ chronic thrombocytopenia -- Appreciate hematology note. Will recheck basic labs. 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 Continue supportive care. SURJIT PALOMO Mar 04, 2019 09:17
--- NOTE | 2019-03-04 10:00 | PDOC ---
JOANNA MACDONALD MERCHANDISER 03/04/19 1000: SURGICAL PROGRESS NOTE Subjective pain epigastric, LUQ, back Vital Signs Vital Signs Date Time Temp Pulse Resp B/P (MAP) Pulse Ox O2 Delivery O2 Flow Rate FiO2 03/04/19 07:00 99.3 71 17 137/55 (82) 95 Room Air 99.3 I&O l Intake and Output 03/04/19 07:00 # Voids 8 General: Alert, Oriented X3, Cooperative, No acute distress Abdomen: Soft, Other (ttp epigastric, LUQ) Labs Laboratory Tests Test 03/02/19 12:49 03/02/19 13:54 03/02/19 14:47 03/02/19 17:06 Urine Collection Type Unknown Urine Color Yellow Urine Clarity Clear Urine pH 6.5 Urine Specific [place] 1.015 Urine Protein Negative mg/dL (NEG-TRACE) Urine Glucose (UA) 500 mg/dL (NEG) Urine Ketones (Stick) Negative mg/dL (NEG) Urine Blood Trace (NEG) Urine Nitrite Negative (NEG) Urine Bilirubin Negative (NEG) Urine Urobilinogen Dipstick 1.0 mg/dL (0.2 mg/dL) Urine Leukocyte Esterase Small (NEG) Urine RBC 3-5 /HPF (0-2) Urine WBC 11-20 /HPF (0-4) Urine Squamous Epithelial Cells Many /LPF Urine Bacteria Few /HPF (0-FEW) Sodium Level 138 mmol/L (136-145) Potassium Level 3.8 mmol/L (3.5-5.1) Chloride Level 103 mmol/L (98-107) Carbon Dioxide Level 24 mmol/L (21-32) Anion Gap 11 (6-14) Blood Urea Nitrogen 11 mg/dL (7-20) Creatinine 1.0 mg/dL (0.6-1.0) Estimated GFR (Cockcroft-Gault) 55.1 BUN/Creatinine Ratio 11 (6-20) Glucose Level 295 mg/dL (70-99) Calcium Level 8.9 mg/dL (8.5-10.1) Total Bilirubin 0.4 mg/dL (0.2-1.0) Aspartate Amino Transf (AST/SGOT) 61 U/L (15-37) Alanine Aminotransferase (ALT/SGPT) 90 U/L (14-59) Alkaline Phosphatase 190 U/L (46-116) Total Protein 7.0 g/dL (6.4-8.2) Albumin 2.8 g/dL (3.4-5.0) Albumin/Globulin Ratio 0.7 (1.0-1.7) Lipase 245 U/L (73-393) White Blood Count 3.4 x10^3/uL (4.0-11.0) Red Blood Count 4.25 x10^6/uL (3.50-5.40) Hemoglobin 12.3 g/dL (12.0-15.5) Hematocrit 36.7 % (36.0-47.0) Mean Corpuscular Volume 86 fL (79-100) Mean Corpuscular Hemoglobin 29 pg (25-35) Mean Corpuscular Hemoglobin Concent 34 g/dL (31-37) Red Cell Distribution Width 16.6 % (11.5-14.5) Platelet Count 45 x10^3/uL (140-400) Neutrophils (%) (Auto) 51 % (31-73) Lymphocytes (%) (Auto) 35 % (24-48) Monocytes (%) (Auto) 12 % (0-9) Eosinophils (%) (Auto) 2 % (0-3) Basophils (%) (Auto) 1 % (0-3) Neutrophils # (Auto) 1.8 x10^3/uL (1.8-7.7) Lymphocytes # (Auto) 1.2 x10^3/uL (1.0-4.8) Monocytes # (Auto) 0.4 x10^3/uL (0.0-1.1) Eosinophils # (Auto) 0.1 x10^3/uL (0.0-0.7) Basophils # (Auto) 0.0 x10^3/uL (0.0-0.2) Platelet Estimate Decreased (ADEQUATE) Prothrombin Time 14.5 SEC (11.7-14.0) Prothromb Time International Ratio 1.2 (0.8-1.1) Activated Partial Thromboplast Time 30 SEC (24-38) Glucose (Fingerstick) 152 mg/dL (70-99) Test 03/03/19 12:30 White Blood Count 4.7 x10^3/uL (4.0-11.0) Red Blood Count 4.58 x10^6/uL (3.50-5.40) Hemoglobin 13.3 g/dL (12.0-15.5) Hematocrit 40.5 % (36.0-47.0) Mean Corpuscular Volume 88 fL (79-100) Mean Corpuscular Hemoglobin 29 pg (25-35) Mean Corpuscular Hemoglobin Concent 33 g/dL (31-37) Red Cell Distribution Width 17.1 % (11.5-14.5) Platelet Count 44 x10^3/uL (140-400) Neutrophils (%) (Auto) 68 % (31-73) Lymphocytes (%) (Auto) 23 % (24-48) Monocytes (%) (Auto) 8 % (0-9) Eosinophils (%) (Auto) 1 % (0-3) Basophils (%) (Auto) 0 % (0-3) Neutrophils # (Auto) 3.2 x10^3/uL (1.8-7.7) Lymphocytes # (Auto) 1.1 x10^3/uL (1.0-4.8) Monocytes # (Auto) 0.4 x10^3/uL (0.0-1.1) Eosinophils # (Auto) 0.0 x10^3/uL (0.0-0.7) Basophils # (Auto) 0.0 x10^3/uL (0.0-0.2) Laboratory Tests Test 03/03/19 12:30 White Blood Count 4.7 x10^3/uL (4.0-11.0) Red Blood Count 4.58 x10^6/uL (3.50-5.40) Hemoglobin 13.3 g/dL (12.0-15.5) Hematocrit 40.5 % (36.0-47.0) Mean Corpuscular Volume 88 fL (79-100) Mean Corpuscular Hemoglobin 29 pg (25-35) Mean Corpuscular Hemoglobin Concent 33 g/dL (31-37) Red Cell Distribution Width 17.1 % (11.5-14.5) Platelet Count 44 x10^3/uL (140-400) Neutrophils (%) (Auto) 68 % (31-73) Lymphocytes (%) (Auto) 23 % (24-48) Monocytes (%) (Auto) 8 % (0-9) Eosinophils (%) (Auto) 1 % (0-3) Basophils (%) (Auto) 0 % (0-3) Neutrophils # (Auto) 3.2 x10^3/uL (1.8-7.7) Lymphocytes # (Auto) 1.1 x10^3/uL (1.0-4.8) Monocytes # (Auto) 0.4 x10^3/uL (0.0-1.1) Eosinophils # (Auto) 0.0 x10^3/uL (0.0-0.7) Basophils # (Auto) 0.0 x10^3/uL (0.0-0.2) Problem List Problems Medical Problems: (1) Acute gallstone pancreatitis Status: Acute (2) Cholecystitis Status: Acute (3) Thrombocytopenia Status: Acute Assessment/Plan supportive measures for pancreatitis no current surgical plans GEORGIA CHENG MD 03/04/19 1250: SURGICAL PROGRESS NOTE Assessment/Plan pt seen as above Dr Welsh available over the weekend if needed JOANNA MACDONALD APRN Mar 04, 2019 10:00 GEORGIA CHENG MD Mar 04, 2019 12:50
[2019-03-04 10:25] LABS: HEMATOCRIT 39.1 % (36.0-47.0); RED BLOOD COUNT 4.49 x10^6/uL (3.50-5.40); RED CELL DISTRIBUTION WIDTH 16.1 % (11.5-14.5)
[2019-03-04 10:40] LABS: ALBUMIN 2.7 g/dL (3.4-5.0); ALBUMIN/GLOBULIN RATIO 0.7 (1.0-1.7); CALCIUM 8.4 mg/dL (8.5-10.1); CREATININE 0.8 mg/dL (0.6-1.0); GFR 71.3; POTASSIUM 3.8 mmol/L (3.5-5.1); TOTAL BILIRUBIN 0.7 mg/dL (0.2-1.0); TOTAL PROTEIN 6.6 g/dL (6.4-8.2)
[2019-03-04 11:00] VITALS: BP 125/56
[2019-03-04] MEDS: HYDROmorphone 2 MG/ML VIAL IV PRN (11:11)
[2019-03-04] MEDS: PANTOPRAZOLE IV PUSH 40 MG VIAL. IVP SCH (11:19)
[2019-03-04] MEDS: METOCLOPRAMIDE HCL 10 MG/2 ML VIAL. IV PRN (11:25)
--- NOTE | 2019-03-04 11:55 | PDOC ---
PROGRESS NOTES History of Present Illness History of Present Illness ASSESSMENT Symptomatic gallstones with pancreatitis and cholecystitis Mild gallbladder wall thickening is seen. may represent cholecystitis. Cholelithiasis is evident. No dilatation of the extra hepatic biliary duct is seen. Wall thickening of the stomach and duodenum most likely is reactive secondary to pancreatitis. leukopenia, urinary tract infection. Thrombocytopenia, chronic, due to cirrhosis of the liver and portal hypertension and splenomegaly. Platelet count was worse at 44,000 on 03/03/2019. No signs of bleeding. continue to monitor and transfuse, if there is any evidence of bleeding or if surgical intervention is necessary. plan admitted. consult Hematology/Oncology, consult Gastroenterology, consult Surgery. emperic intravenous antibiotics for urinary tract infection, prn iv narcotics, prn Zofran, intravenous fluid support, home medications, deep vein thrombosis prophylaxis; full code. continue to monitor and transfuse, if there is any evidence of bleeding or if surgical intervention is necessary. 39 min pt exam, chart review, > 50% of time spent with exam, chart review, pt care coordination Vitals Vitals Vital Signs Date Time Temp Pulse Resp B/P (MAP) Pulse Ox O2 Delivery O2 Flow Rate FiO2 03/04/19 11:11 Room Air 03/04/19 07:00 99.3 71 17 137/55 (82) 95 99.3 Physical Exam General: Alert, Oriented X3, Cooperative, No acute distress, mild distress Heart: Regular rate, Normal S1, Normal S2, No murmurs Lungs: Clear Abdomen: Normal bowel sounds, Soft, Other (ttp epigastric, LUQ) Extremities: No cyanosis Labs LABS CT study of the abdomen and pelvis with contrast Clinical indications: Abdominal pain. TECHNIQUE: After IV infusion of 60 cc of Omnipaque 300, helical CT scanning of the abdomen and pelvis was performed. No GI contrast was administered. This may decrease the sensitivity to detect GI tract pathology. PQRS compliance Statement One or more of the following individualized dose reduction techniques were utilized for this study: 1. Automated exposure control 2. Adjustment of the mA and/or kV according to patient size 3. Use of iterative reconstruction technique COMPARISON: None available. FINDINGS: The liver is unremarkable. The spleen measures 13.2 cm in length which is at the upper limits of normal. There is diffuse enhancement of the pancreas. No pancreatic mass is seen. However, there is moderate peripancreatic edema around the head and neck and body of the pancreas and to a lesser extent the tail of the pancreas. Edema extends into the root of the mesentery. Edema extends into the anterior pararenal space around Gerota's fascia of both kidneys and into the right and left paracolic gutters. There is a small amount of ascites present within the right upper quadrant of the abdomen. No pseudocyst is seen. Findings are consistent with pancreatitis. The gallbladder is distended. There is mild gallbladder wall thickening. There is a gallstone within the gallbladder measuring 7 mm. Another smaller 3 mm stone is seen within the neck of the gallbladder. No extra hepatic biliary ductal dilatation is seen. No dilatation of the main pancreatic duct is evident. No adrenal mass is evident. Bilateral renal stones are seen. There is scarring of the upper pole of the right kidney consistent with chronic pyelonephritis. No hydronephrosis or hydroureter is evident on either side. Urinary bladder wall is smooth. No uterine mass or fibroid is evident. No dominant ovarian cyst or mass is evident. No focal aneurysmal dilatation of the abdominal aorta is seen. No enlarged abdominal or pelvic lymphadenopathy is seen. Sigmoid diverticulosis is seen without diverticulitis. Terminal ileum is unremarkable. The appendix is unremarkable. No obstructive bowel pattern is evident. There is wall thickening of stomach and duodenum which may be reactive secondary to the pancreatitis. No free air is evident. Mild bibasilar atelectasis is seen. No lytic process is seen. Impression: Pancreatitis. There is moderate amount of peripancreatic edema which extends into the root of the mesentery and extends to both sides of the abdomen. A small amount of pancreatic ascites is seen. The gallbladder is distended. Mild gallbladder wall thickening is seen. This may represent cholecystitis. Cholelithiasis is evident. No dilatation of the extra hepatic biliary duct is seen. Wall thickening of the stomach and duodenum most likely is reactive secondary to the pancreatitis. Electronically signed by: Smita Mercer MD (03/02/2019 3:56 PM) [place] [id number] DICTATED and SIGNED BY: SMITA MERCER MD DATE: 03/02/19 1556 Laboratory Tests Test 03/03/19 12:30 03/04/19 10:13 White Blood Count 4.7 x10^3/uL (4.0-11.0) 5.0 x10^3/uL (4.0-11.0) Red Blood Count 4.58 x10^6/uL (3.50-5.40) 4.49 x10^6/uL (3.50-5.40) Hemoglobin 13.3 g/dL (12.0-15.5) 13.0 g/dL (12.0-15.5) Hematocrit 40.5 % (36.0-47.0) 39.1 % (36.0-47.0) Mean Corpuscular Volume 88 fL (79-100) 87 fL (79-100) Mean Corpuscular Hemoglobin 29 pg (25-35) 29 pg (25-35) Mean Corpuscular Hemoglobin Concent 33 g/dL (31-37) 33 g/dL (31-37) Red Cell Distribution Width 17.1 % (11.5-14.5) 16.1 % (11.5-14.5) Platelet Count 44 x10^3/uL (140-400) 48 x10^3/uL (140-400) Neutrophils (%) (Auto) 68 % (31-73) Lymphocytes (%) (Auto) 23 % (24-48) Monocytes (%) (Auto) 8 % (0-9) Eosinophils (%) (Auto) 1 % (0-3) Basophils (%) (Auto) 0 % (0-3) Neutrophils # (Auto) 3.2 x10^3/uL (1.8-7.7) Lymphocytes # (Auto) 1.1 x10^3/uL (1.0-4.8) Monocytes # (Auto) 0.4 x10^3/uL (0.0-1.1) Eosinophils # (Auto) 0.0 x10^3/uL (0.0-0.7) Basophils # (Auto) 0.0 x10^3/uL (0.0-0.2) Sodium Level 142 mmol/L (136-145) Potassium Level 3.8 mmol/L (3.5-5.1) Chloride Level 108 mmol/L (98-107) Carbon Dioxide Level 23 mmol/L (21-32) Anion Gap 11 (6-14) Blood Urea Nitrogen 12 mg/dL (7-20) Creatinine 0.8 mg/dL (0.6-1.0) Estimated GFR (Cockcroft-Gault) 71.3 BUN/Creatinine Ratio 15 (6-20) Glucose Level 138 mg/dL (70-99) Calcium Level 8.4 mg/dL (8.5-10.1) Total Bilirubin 0.7 mg/dL (0.2-1.0) Aspartate Amino Transf (AST/SGOT) 55 U/L (15-37) Alanine Aminotransferase (ALT/SGPT) 73 U/L (14-59) Alkaline Phosphatase 118 U/L (46-116) Total Protein 6.6 g/dL (6.4-8.2) Albumin 2.7 g/dL (3.4-5.0) Albumin/Globulin Ratio 0.7 (1.0-1.7) Lipase 167 U/L (73-393) Assessment and Plan Assessmemt and Plan Problems Medical Problems: (1) Acute gallstone pancreatitis Status: Acute (2) Cholecystitis Status: Acute (3) Thrombocytopenia Status: Acute Comment Review of Relevant I have reviewed the following items popeye (where applicable) has been applied. Labs Laboratory Tests Test 03/02/19 12:49 03/02/19 13:54 03/02/19 14:47 03/02/19 17:06 Urine Collection Type Unknown Urine Color Yellow Urine Clarity Clear Urine pH 6.5 Urine Specific [place] 1.015 Urine Protein Negative mg/dL (NEG-TRACE) Urine Glucose (UA) 500 mg/dL (NEG) Urine Ketones (Stick) Negative mg/dL (NEG) Urine Blood Trace (NEG) Urine Nitrite Negative (NEG) Urine Bilirubin Negative (NEG) Urine Urobilinogen Dipstick 1.0 mg/dL (0.2 mg/dL) Urine Leukocyte Esterase Small (NEG) Urine RBC 3-5 /HPF (0-2) Urine WBC 11-20 /HPF (0-4) Urine Squamous Epithelial Cells Many /LPF Urine Bacteria Few /HPF (0-FEW) Sodium Level 138 mmol/L (136-145) Potassium Level 3.8 mmol/L (3.5-5.1) Chloride Level 103 mmol/L (98-107) Carbon Dioxide Level 24 mmol/L (21-32) Anion Gap 11 (6-14) Blood Urea Nitrogen 11 mg/dL (7-20) Creatinine 1.0 mg/dL (0.6-1.0) Estimated GFR (Cockcroft-Gault) 55.1 BUN/Creatinine Ratio 11 (6-20) Glucose Level 295 mg/dL (70-99) Calcium Level 8.9 mg/dL (8.5-10.1) Total Bilirubin 0.4 mg/dL (0.2-1.0) Aspartate Amino Transf (AST/SGOT) 61 U/L (15-37) Alanine Aminotransferase (ALT/SGPT) 90 U/L (14-59) Alkaline Phosphatase 190 U/L (46-116) Total Protein 7.0 g/dL (6.4-8.2) Albumin 2.8 g/dL (3.4-5.0) Albumin/Globulin Ratio 0.7 (1.0-1.7) Lipase 245 U/L (73-393) White Blood Count 3.4 x10^3/uL (4.0-11.0) Red Blood Count 4.25 x10^6/uL (3.50-5.40) Hemoglobin 12.3 g/dL (12.0-15.5) Hematocrit 36.7 % (36.0-47.0) Mean Corpuscular Volume 86 fL (79-100) Mean Corpuscular Hemoglobin 29 pg (25-35) Mean Corpuscular Hemoglobin Concent 34 g/dL (31-37) Red Cell Distribution Width 16.6 % (11.5-14.5) Platelet Count 45 x10^3/uL (140-400) Neutrophils (%) (Auto) 51 % (31-73) Lymphocytes (%) (Auto) 35 % (24-48) Monocytes (%) (Auto) 12 % (0-9) Eosinophils (%) (Auto) 2 % (0-3) Basophils (%) (Auto) 1 % (0-3) Neutrophils # (Auto) 1.8 x10^3/uL (1.8-7.7) Lymphocytes # (Auto) 1.2 x10^3/uL (1.0-4.8) Monocytes # (Auto) 0.4 x10^3/uL (0.0-1.1) Eosinophils # (Auto) 0.1 x10^3/uL (0.0-0.7) Basophils # (Auto) 0.0 x10^3/uL (0.0-0.2) Platelet Estimate Decreased (ADEQUATE) Prothrombin Time 14.5 SEC (11.7-14.0) Prothromb Time International Ratio 1.2 (0.8-1.1) Activated Partial Thromboplast Time 30 SEC (24-38) Glucose (Fingerstick) 152 mg/dL (70-99) Test 03/03/19 12:30 03/04/19 10:13 White Blood Count 4.7 x10^3/uL (4.0-11.0) 5.0 x10^3/uL (4.0-11.0) Red Blood Count 4.58 x10^6/uL (3.50-5.40) 4.49 x10^6/uL (3.50-5.40) Hemoglobin 13.3 g/dL (12.0-15.5) 13.0 g/dL (12.0-15.5) Hematocrit 40.5 % (36.0-47.0) 39.1 % (36.0-47.0) Mean Corpuscular Volume 88 fL (79-100) 87 fL (79-100) Mean Corpuscular Hemoglobin 29 pg (25-35) 29 pg (25-35) Mean Corpuscular Hemoglobin Concent 33 g/dL (31-37) 33 g/dL (31-37) Red Cell Distribution Width 17.1 % (11.5-14.5) 16.1 % (11.5-14.5) Platelet Count 44 x10^3/uL (140-400) 48 x10^3/uL (140-400) Neutrophils (%) (Auto) 68 % (31-73) Lymphocytes (%) (Auto) 23 % (24-48) Monocytes (%) (Auto) 8 % (0-9) Eosinophils (%) (Auto) 1 % (0-3) Basophils (%) (Auto) 0 % (0-3) Neutrophils # (Auto) 3.2 x10^3/uL (1.8-7.7) Lymphocytes # (Auto) 1.1 x10^3/uL (1.0-4.8) Monocytes # (Auto) 0.4 x10^3/uL (0.0-1.1) Eosinophils # (Auto) 0.0 x10^3/uL (0.0-0.7) Basophils # (Auto) 0.0 x10^3/uL (0.0-0.2) Sodium Level 142 mmol/L (136-145) Potassium Level 3.8 mmol/L (3.5-5.1) Chloride Level 108 mmol/L (98-107) Carbon Dioxide Level 23 mmol/L (21-32) Anion Gap 11 (6-14) Blood Urea Nitrogen 12 mg/dL (7-20) Creatinine 0.8 mg/dL (0.6-1.0) Estimated GFR (Cockcroft-Gault) 71.3 BUN/Creatinine Ratio 15 (6-20) Glucose Level 138 mg/dL (70-99) Calcium Level 8.4 mg/dL (8.5-10.1) Total Bilirubin 0.7 mg/dL (0.2-1.0) Aspartate Amino Transf (AST/SGOT) 55 U/L (15-37) Alanine Aminotransferase (ALT/SGPT) 73 U/L (14-59) Alkaline Phosphatase 118 U/L (46-116) Total Protein 6.6 g/dL (6.4-8.2) Albumin 2.7 g/dL (3.4-5.0) Albumin/Globulin Ratio 0.7 (1.0-1.7) Lipase 167 U/L (73-393) Laboratory Tests Test 03/03/19 12:30 03/04/19 10:13 White Blood Count 4.7 x10^3/uL (4.0-11.0) 5.0 x10^3/uL (4.0-11.0) Red Blood Count 4.58 x10^6/uL (3.50-5.40) 4.49 x10^6/uL (3.50-5.40) Hemoglobin 13.3 g/dL (12.0-15.5) 13.0 g/dL (12.0-15.5) Hematocrit 40.5 % (36.0-47.0) 39.1 % (36.0-47.0) Mean Corpuscular Volume 88 fL (79-100) 87 fL (79-100) Mean Corpuscular Hemoglobin 29 pg (25-35) 29 pg (25-35) Mean Corpuscular Hemoglobin Concent 33 g/dL (31-37) 33 g/dL (31-37) Red Cell Distribution Width 17.1 % (11.5-14.5) 16.1 % (11.5-14.5) Platelet Count 44 x10^3/uL (140-400) 48 x10^3/uL (140-400) Neutrophils (%) (Auto) 68 % (31-73) Lymphocytes (%) (Auto) 23 % (24-48) Monocytes (%) (Auto) 8 % (0-9) Eosinophils (%) (Auto) 1 % (0-3) Basophils (%) (Auto) 0 % (0-3) Neutrophils # (Auto) 3.2 x10^3/uL (1.8-7.7) Lymphocytes # (Auto) 1.1 x10^3/uL (1.0-4.8) Monocytes # (Auto) 0.4 x10^3/uL (0.0-1.1) Eosinophils # (Auto) 0.0 x10^3/uL (0.0-0.7) Basophils # (Auto) 0.0 x10^3/uL (0.0-0.2) Sodium Level 142 mmol/L (136-145) Potassium Level 3.8 mmol/L (3.5-5.1) Chloride Level 108 mmol/L (98-107) Carbon Dioxide Level 23 mmol/L (21-32) Anion Gap 11 (6-14) Blood Urea Nitrogen 12 mg/dL (7-20) Creatinine 0.8 mg/dL (0.6-1.0) Estimated GFR (Cockcroft-Gault) 71.3 BUN/Creatinine Ratio 15 (6-20) Glucose Level 138 mg/dL (70-99) Calcium Level 8.4 mg/dL (8.5-10.1) Total Bilirubin 0.7 mg/dL (0.2-1.0) Aspartate Amino Transf (AST/SGOT) 55 U/L (15-37) Alanine Aminotransferase (ALT/SGPT) 73 U/L (14-59) Alkaline Phosphatase 118 U/L (46-116) Total Protein 6.6 g/dL (6.4-8.2) Albumin 2.7 g/dL (3.4-5.0) Albumin/Globulin Ratio 0.7 (1.0-1.7) Lipase 167 U/L (73-393) Medications Current Medications Sodium Chloride 1,000 ml @ 1,000 mls/hr 1X ONCE IV Last administered on 03/02/19at 14:15; Start 03/02/19 at 14:00; Stop 03/02/19 at 14:59; Status DC Morphine Sulfate (Morphine Sulfate) 4 mg 1X ONCE IV Last administered on 03/02/19at 14:14; Start 03/02/19 at 14:30; Stop 03/02/19 at 14:31; Status DC Ondansetron HCl (Zofran) 4 mg 1X ONCE IV Last administered on 03/02/19at 14:13; Start 03/02/19 at 14:30; Stop 03/02/19 at 14:31; Status DC Iohexol (Omnipaque 300 Mg/ml) 60 ml 1X ONCE IV Last administered on 03/02/19at 15:24; Start 03/02/19 at 15:45; Stop 03/02/19 at 15:46; Status DC Info (CONTRAST GIVEN -- Rx MONITORING) 1 each PRN DAILY PRN MC SEE COMMENTS; Start 03/02/19 at 15:15; Stop 03/04/19 at 15:14 Fentanyl Citrate (Fentanyl 2ml Vial) 75 mcg 1X ONCE IV Last administered on 03/02/19at 16:19; Start 03/02/19 at 16:45; Stop 03/02/19 at 16:46; Status DC Piperacillin Sod/ Tazobactam Sod 3.375 gm/Sodium Chloride 50 ml @ 100 mls/hr 1X ONCE IV Last administered on 03/02/19at 16:26; Start 03/02/19 at 17:00; Stop 03/02/19 at 17:29; Status DC Sodium Chloride 1,000 ml @ 1,000 mls/hr 1X ONCE IV Last administered on 03/02/19at 16:31; Start 03/02/19 at 16:30; Stop 03/02/19 at 17:29; Status DC Ondansetron HCl (Zofran) 4 mg PRN Q8HRS PRN IV NAUSEA/VOMITING; Start 03/02/19 at 17:00; Stop 03/02/19 at 19:48; Status DC Fentanyl Citrate (Fentanyl 2ml Vial) 50 mcg PRN Q2HR PRN IV PAIN Last administered on 03/02/19at 20:51; Start 03/02/19 at 17:00; Stop 03/03/19 at 16:59; Status DC Sodium Chloride 1,000 ml @ 100 mls/hr Q10H IV ; Start 03/02/19 at 16:48; Stop 03/03/19 at 16:47; Status Cancel Sodium Chloride (Normal Saline Flush) 3 ml QSHIFT PRN IV AFTER MEDS AND BLOOD DRAWS; Start 03/02/19 at 19:45 Sodium Chloride 1,000 ml @ 100 mls/hr Q10H IV Last administered on 03/04/19at 03:00; Start 03/02/19 at 21:00 Ondansetron HCl (Zofran) 4 mg PRN Q4HRS PRN IV NAUSEA/VOMITING, 1st CHOICE Last administered on 03/03/19at 10:59; Start 03/02/19 at 19:45 Acetaminophen (Tylenol) 650 mg PRN Q4HRS PRN PO TEMP OVER 100.4F OR MILD PAIN; Start 03/02/19 at 19:45 Clonidine HCl (Catapres) 0.1 mg PRN Q6HRS PRN PO SBP>160 OR DBP>90; Start 03/02/19 at 19:45 Guaifenesin (Robitussin) 200 mg PRN Q4HRS PRN PO COUGH; Start 03/02/19 at 19:45 Lorazepam (Ativan) 0.5 mg PRN Q4HRS PRN PO ANXIETY / AGITATION; Start 03/02/19 at 19:45 Hydromorphone HCl (Dilaudid) 1 mg PRN Q2HRS PRN IV SEVERE PAIN 7-10 Last administered on 03/04/19at 11:11; Start 03/02/19 at 19:45 Enoxaparin Sodium (Lovenox 40mg Syringe) 40 mg DAILY SQ ; Start 03/03/19 at 09:00 Metoclopramide HCl (Reglan Vial) 10 mg PRN Q6HRS PRN IV NAUSEA/VOMITING, 2nd CHOICE Last administered on 03/04/19at 11:25; Start 03/03/19 at 12:00 Pantoprazole Sodium (PROTONIX VIAL for IV PUSH) 40 mg DAILYAC IVP Last administered on 03/04/19at 11:19; Start 03/04/19 at 09:30 Active Scripts Active Reported Vitamin D3 (Cholecalciferol (Vitamin D3)) 1,000 Unit Tablet 2,000 Unit PO DAILY Ferrous Sulfate 325 Mg Tablet 325 Mg PO DAILY Atorvastatin Calcium 20 Mg Tablet 20 Mg PO DAILY Glimepiride 2 Mg Tablet 2 Tab PO BID Losartan Potassium 100 Mg Tablet 100 Mg PO DAILY Protonix (Pantoprazole Sodium) 40 Mg Tablet.dr 40 Mg PO DAILYAC Vitals/I & O Vital Sign - Last 24 Hours 03/03/19 03/03/19 03/03/19 03/03/19 15:00 19:00 20:00 23:00 Temp 98.7 99.8 99.1 98.7 99.8 99.1 Pulse 71 68 68 Resp 14 16 16 B/P (MAP) 103/34 (57) 123/38 (66) 149/74 (99) Pulse Ox 94 92 96 O2 Delivery Room Air Room Air Room Air Room Air 03/04/19 03/04/19 03/04/19 03:00 07:00 11:11 Temp 97.7 99.3 97.7 99.3 Pulse 76 71 Resp 16 17 B/P (MAP) 133/61 (85) 137/55 (82) Pulse Ox 98 95 O2 Delivery Room Air Room Air Room Air BEBO AARON MD Mar 04, 2019 11:55
--- NOTE | 2019-03-04 14:58 | PDOC ---
PROGRESS NOTES Subjective Subjective HPI - f/u of Thrombocytopenia ROS - had abd pain Objective Objective Vital Signs Date Time Temp Pulse Resp B/P (MAP) Pulse Ox O2 Delivery O2 Flow Rate FiO2 03/04/19 11:41 Room Air 03/04/19 11:00 98.4 76 17 125/56 (79) 95 98.4 Intake and Output 03/04/19 06:59 # Voids 8 Physical Exam Heart: Normal S1, Normal S2 General: Alert, Oriented X3, No acute distress Neuro: Normal speech Psych/Mental Status: Mental status NL Assessment Assessment Problems Medical Problems: (1) Acute gallstone pancreatitis Status: Acute (2) Cholecystitis Status: Acute (3) Thrombocytopenia Status: Acute IMPRESSION AND PLAN: 1. Thrombocytopenia, chronic, due to cirrhosis of the liver and portal hypertension and splenomegaly. Platelet count was worse at 44,000 on 03/03/2019. No signs of bleeding. I would continue to monitor and transfuse, if there is any evidence of bleeding or if surgical intervention is necessary. Plt 48. I d/w RN. 2. Pancreatitis. Management per Gastroenterology. 3. Cholecystitis. Management per Gastroenterology. 4. Leukopenia due to splenomegaly. WBC was 3.4 on 03/02/2019 and it improved to 4.7 on 03/03/2019. Continue to monitor CBC. Comment Review of Relevant I have reviewed the following items popeye (where applicable) has been applied. Labs Laboratory Tests Test 03/02/19 17:06 03/03/19 12:30 03/04/19 10:13 Glucose (Fingerstick) 152 mg/dL (70-99) White Blood Count 4.7 x10^3/uL (4.0-11.0) 5.0 x10^3/uL (4.0-11.0) Red Blood Count 4.58 x10^6/uL (3.50-5.40) 4.49 x10^6/uL (3.50-5.40) Hemoglobin 13.3 g/dL (12.0-15.5) 13.0 g/dL (12.0-15.5) Hematocrit 40.5 % (36.0-47.0) 39.1 % (36.0-47.0) Mean Corpuscular Volume 88 fL (79-100) 87 fL (79-100) Mean Corpuscular Hemoglobin 29 pg (25-35) 29 pg (25-35) Mean Corpuscular Hemoglobin Concent 33 g/dL (31-37) 33 g/dL (31-37) Red Cell Distribution Width 17.1 % (11.5-14.5) 16.1 % (11.5-14.5) Platelet Count 44 x10^3/uL (140-400) 48 x10^3/uL (140-400) Neutrophils (%) (Auto) 68 % (31-73) Lymphocytes (%) (Auto) 23 % (24-48) Monocytes (%) (Auto) 8 % (0-9) Eosinophils (%) (Auto) 1 % (0-3) Basophils (%) (Auto) 0 % (0-3) Neutrophils # (Auto) 3.2 x10^3/uL (1.8-7.7) Lymphocytes # (Auto) 1.1 x10^3/uL (1.0-4.8) Monocytes # (Auto) 0.4 x10^3/uL (0.0-1.1) Eosinophils # (Auto) 0.0 x10^3/uL (0.0-0.7) Basophils # (Auto) 0.0 x10^3/uL (0.0-0.2) Sodium Level 142 mmol/L (136-145) Potassium Level 3.8 mmol/L (3.5-5.1) Chloride Level 108 mmol/L (98-107) Carbon Dioxide Level 23 mmol/L (21-32) Anion Gap 11 (6-14) Blood Urea Nitrogen 12 mg/dL (7-20) Creatinine 0.8 mg/dL (0.6-1.0) Estimated GFR (Cockcroft-Gault) 71.3 BUN/Creatinine Ratio 15 (6-20) Glucose Level 138 mg/dL (70-99) Calcium Level 8.4 mg/dL (8.5-10.1) Total Bilirubin 0.7 mg/dL (0.2-1.0) Aspartate Amino Transf (AST/SGOT) 55 U/L (15-37) Alanine Aminotransferase (ALT/SGPT) 73 U/L (14-59) Alkaline Phosphatase 118 U/L (46-116) Total Protein 6.6 g/dL (6.4-8.2) Albumin 2.7 g/dL (3.4-5.0) Albumin/Globulin Ratio 0.7 (1.0-1.7) Lipase 167 U/L (73-393) Laboratory Tests Test 03/04/19 10:13 White Blood Count 5.0 x10^3/uL (4.0-11.0) Red Blood Count 4.49 x10^6/uL (3.50-5.40) Hemoglobin 13.0 g/dL (12.0-15.5) Hematocrit 39.1 % (36.0-47.0) Mean Corpuscular Volume 87 fL (79-100) Mean Corpuscular Hemoglobin 29 pg (25-35) Mean Corpuscular Hemoglobin Concent 33 g/dL (31-37) Red Cell Distribution Width 16.1 % (11.5-14.5) Platelet Count 48 x10^3/uL (140-400) Sodium Level 142 mmol/L (136-145) Potassium Level 3.8 mmol/L (3.5-5.1) Chloride Level 108 mmol/L (98-107) Carbon Dioxide Level 23 mmol/L (21-32) Anion Gap 11 (6-14) Blood Urea Nitrogen 12 mg/dL (7-20) Creatinine 0.8 mg/dL (0.6-1.0) Estimated GFR (Cockcroft-Gault) 71.3 BUN/Creatinine Ratio 15 (6-20) Glucose Level 138 mg/dL (70-99) Calcium Level 8.4 mg/dL (8.5-10.1) Total Bilirubin 0.7 mg/dL (0.2-1.0) Aspartate Amino Transf (AST/SGOT) 55 U/L (15-37) Alanine Aminotransferase (ALT/SGPT) 73 U/L (14-59) Alkaline Phosphatase 118 U/L (46-116) Total Protein 6.6 g/dL (6.4-8.2) Albumin 2.7 g/dL (3.4-5.0) Albumin/Globulin Ratio 0.7 (1.0-1.7) Lipase 167 U/L (73-393) Medications Current Medications Sodium Chloride 1,000 ml @ 1,000 mls/hr 1X ONCE IV Last administered on 03/02/19at 14:15; Start 03/02/19 at 14:00; Stop 03/02/19 at 14:59; Status DC Morphine Sulfate (Morphine Sulfate) 4 mg 1X ONCE IV Last administered on 03/02/19at 14:14; Start 03/02/19 at 14:30; Stop 03/02/19 at 14:31; Status DC Ondansetron HCl (Zofran) 4 mg 1X ONCE IV Last administered on 03/02/19at 14:13; Start 03/02/19 at 14:30; Stop 03/02/19 at 14:31; Status DC Iohexol (Omnipaque 300 Mg/ml) 60 ml 1X ONCE IV Last administered on 03/02/19at 15:24; Start 03/02/19 at 15:45; Stop 03/02/19 at 15:46; Status DC Info (CONTRAST GIVEN -- Rx MONITORING) 1 each PRN DAILY PRN MC SEE COMMENTS; Start 03/02/19 at 15:15; Stop 03/04/19 at 15:14 Fentanyl Citrate (Fentanyl 2ml Vial) 75 mcg 1X ONCE IV Last administered on 03/02/19at 16:19; Start 03/02/19 at 16:45; Stop 03/02/19 at 16:46; Status DC Piperacillin Sod/ Tazobactam Sod 3.375 gm/Sodium Chloride 50 ml @ 100 mls/hr 1X ONCE IV Last administered on 03/02/19at 16:26; Start 03/02/19 at 17:00; Stop 03/02/19 at 17:29; Status DC Sodium Chloride 1,000 ml @ 1,000 mls/hr 1X ONCE IV Last administered on 03/02/19at 16:31; Start 03/02/19 at 16:30; Stop 03/02/19 at 17:29; Status DC Ondansetron HCl (Zofran) 4 mg PRN Q8HRS PRN IV NAUSEA/VOMITING; Start 03/02/19 at 17:00; Stop 03/02/19 at 19:48; Status DC Fentanyl Citrate (Fentanyl 2ml Vial) 50 mcg PRN Q2HR PRN IV PAIN Last administered on 03/02/19at 20:51; Start 03/02/19 at 17:00; Stop 03/03/19 at 16:59; Status DC Sodium Chloride 1,000 ml @ 100 mls/hr Q10H IV ; Start 03/02/19 at 16:48; Stop 03/03/19 at 16:47; Status Cancel Sodium Chloride (Normal Saline Flush) 3 ml QSHIFT PRN IV AFTER MEDS AND BLOOD DRAWS; Start 03/02/19 at 19:45 Sodium Chloride 1,000 ml @ 100 mls/hr Q10H IV Last administered on 03/04/19at 12:20; Start 03/02/19 at 21:00 Ondansetron HCl (Zofran) 4 mg PRN Q4HRS PRN IV NAUSEA/VOMITING, 1st CHOICE Last administered on 03/03/19at 10:59; Start 03/02/19 at 19:45 Acetaminophen (Tylenol) 650 mg PRN Q4HRS PRN PO TEMP OVER 100.4F OR MILD PAIN; Start 03/02/19 at 19:45 Clonidine HCl (Catapres) 0.1 mg PRN Q6HRS PRN PO SBP>160 OR DBP>90; Start 03/02/19 at 19:45 Guaifenesin (Robitussin) 200 mg PRN Q4HRS PRN PO COUGH; Start 03/02/19 at 19:45 Lorazepam (Ativan) 0.5 mg PRN Q4HRS PRN PO ANXIETY / AGITATION; Start 03/02/19 at 19:45 Hydromorphone HCl (Dilaudid) 1 mg PRN Q2HRS PRN IV SEVERE PAIN 7-10 Last administered on 03/04/19at 11:11; Start 03/02/19 at 19:45 Enoxaparin Sodium (Lovenox 40mg Syringe) 40 mg DAILY SQ ; Start 03/03/19 at 09:00 Metoclopramide HCl (Reglan Vial) 10 mg PRN Q6HRS PRN IV NAUSEA/VOMITING, 2nd CHOICE Last administered on 03/04/19at 11:25; Start 03/03/19 at 12:00 Pantoprazole Sodium (PROTONIX VIAL for IV PUSH) 40 mg DAILYAC IVP Last administered on 03/04/19at 11:19; Start 03/04/19 at 09:30 Active Scripts Active Reported Vitamin D3 (Cholecalciferol (Vitamin D3)) 1,000 Unit Tablet 2,000 Unit PO DAILY Ferrous Sulfate 325 Mg Tablet 325 Mg PO DAILY Atorvastatin Calcium 20 Mg Tablet 20 Mg PO DAILY Glimepiride 2 Mg Tablet 2 Tab PO BID Losartan Potassium 100 Mg Tablet 100 Mg PO DAILY Protonix (Pantoprazole Sodium) 40 Mg Tablet.dr 40 Mg PO DAILYAC Vitals/I & O Vital Sign - Last 24 Hours 03/03/19 03/03/19 03/03/19 03/03/19 15:00 19:00 20:00 23:00 Temp 98.7 99.8 99.1 98.7 99.8 99.1 Pulse 71 68 68 Resp 14 16 16 B/P (MAP) 103/34 (57) 123/38 (66) 149/74 (99) Pulse Ox 94 92 96 O2 Delivery Room Air Room Air Room Air Room Air 03/04/19 03/04/19 03/04/19 03/04/19 03:00 07:00 11:00 11:11 Temp 97.7 99.3 98.4 97.7 99.3 98.4 Pulse 76 71 76 Resp 16 17 17 B/P (MAP) 133/61 (85) 137/55 (82) 125/56 (79) Pulse Ox 98 95 95 O2 Delivery Room Air Room Air Room Air Room Air 03/04/19 11:41 O2 Delivery Room Air IONA PAREDES MD Mar 04, 2019 14:58
[2019-03-04 15:00] VITALS: BP 130/63
[2019-03-04 19:00] VITALS: BP 118/36
[2019-03-04 23:00] VITALS: BP 148/60
[2019-03-05 03:00] VITALS: BP 135/43
[2019-03-05 05:35] LABS: BASO % 0 % (0-3); EOS # 0.1 x10^3/uL (0.0-0.7); EOS % 2 % (0-3); HEMATOCRIT 38.6 % (36.0-47.0); LYMPH # 1.6 x10^3/uL (1.0-4.8); LYMPH % 37 % (24-48); MEAN CORPUSCULAR HEMOGLOBIN 29 pg (25-35); MEAN CORPUSCULAR HGB CONC 34 g/dL (31-37); MEAN CORPUSCULAR VOLUME 87 fL (79-100); MONO # 0.4 x10^3/uL (0.0-1.1); MONO % 11 % (0-9); NEUT # 2.1 x10^3/uL (1.8-7.7); NEUT % 50 % (31-73); PLATELET COUNT 52 x10^3/uL (140-400); RED BLOOD COUNT 4.44 x10^6/uL (3.50-5.40); RED CELL DISTRIBUTION WIDTH 15.7 % (11.5-14.5); WHITE BLOOD COUNT 4.2 x10^3/uL (4.0-11.0)
[2019-03-05 05:58] LABS: ALBUMIN 2.7 g/dL (3.4-5.0); ALBUMIN/GLOBULIN RATIO 0.7 (1.0-1.7); CALCIUM 8.2 mg/dL (8.5-10.1); CREATININE 0.8 mg/dL (0.6-1.0); GFR 71.3; POTASSIUM 3.5 mmol/L (3.5-5.1); TOTAL BILIRUBIN 0.7 mg/dL (0.2-1.0); TOTAL PROTEIN 6.5 g/dL (6.4-8.2)
[2019-03-05 07:00] VITALS: BP 135/72
[2019-03-05] MEDS: IV NORMAL SALINE 1000ML BAG 1,000 ML IV SCH ×2 (09:00→19:00)
[2019-03-05] MEDS: ENOXAPARIN 40 MG/0.4 ML SYRINGE. SQ SCH (10:15)
[2019-03-05] MEDS: PANTOPRAZOLE IV PUSH 40 MG VIAL. IVP SCH (10:16)
--- NOTE | 2019-03-05 10:23 | PDOC ---
PROGRESS NOTES History of Present Illness History of Present Illness ASSESSMENT Symptomatic gallstones with pancreatitis and cholecystitis Mild gallbladder wall thickening is seen. may represent cholecystitis. Cholelithiasis is evident. No dilatation of the extra hepatic biliary duct is seen. Wall thickening of the stomach and duodenum most likely is reactive secondary to pancreatitis. leukopenia, urinary tract infection. Thrombocytopenia, chronic, due to cirrhosis of the liver and portal hypertension and splenomegaly. Platelet count was worse at 44,000 on 03/03/2019. No signs of bleeding. continue to monitor and transfuse, if there is any evidence of bleeding or if surgical intervention is necessary. plan admitted. consult Hematology/Oncology, consult Gastroenterology, consult Surgery. emperic intravenous antibiotics for urinary tract infection, prn iv narcotics, prn Zofran, intravenous fluid support, home medications, deep vein thrombosis prophylaxis; full code. continue to monitor and transfuse, if there is any evidence of bleeding or if surgical intervention is necessary. 27 min pt exam, chart review, > 50% of time spent with exam, chart review, pt care coordination Vitals Vitals Vital Signs Date Time Temp Pulse Resp B/P (MAP) Pulse Ox O2 Delivery O2 Flow Rate FiO2 03/05/19 07:00 97.7 60 18 135/72 (93) 95 Room Air 97.7 Physical Exam General: Alert, Oriented X3, Cooperative, No acute distress, mild distress Heart: Regular rate, Normal S1, Normal S2, No murmurs Lungs: Clear Abdomen: Normal bowel sounds, Soft, Other (ttp epigastric, LUQ) Extremities: No clubbing, No cyanosis, Normal pulses Skin: No significant lesion Labs LABS PEC #: [id number] SHAUNA: 03/02/19 STATUS: COMP REQ #: [id number] RECD: 03/02/[address]: LIZZETTE STEWART DO SOURCE: VOID ENTR: 03/02/[address]: KRISTI NARVAEZ MD [facility]: ORDERED: URINE CULTURE Procedure Result URINE CULTURE Final Final report URINE CULTURE RES 1 Final No growth Performed at: - [facility] [id number] [address], [place], [place] [id number] Nurse Sitter: ANNE Mcgowan MD, Phone: [phone] Clinical indications: Abdominal pain. TECHNIQUE: After IV infusion of 60 cc of Omnipaque 300, helical CT scanning of the abdomen and pelvis was performed. No GI contrast was administered. This may decrease the sensitivity to detect GI tract pathology. PQRS compliance Statement One or more of the following individualized dose reduction techniques were utilized for this study: 1. Automated exposure control 2. Adjustment of the mA and/or kV according to patient size 3. Use of iterative reconstruction technique COMPARISON: None available. FINDINGS: The liver is unremarkable. The spleen measures 13.2 cm in length which is at the upper limits of normal. There is diffuse enhancement of the pancreas. No pancreatic mass is seen. However, there is moderate peripancreatic edema around the head and neck and body of the pancreas and to a lesser extent the tail of the pancreas. Edema extends into the root of the mesentery. Edema extends into the anterior pararenal space around Gerota's fascia of both kidneys and into the right and left paracolic gutters. There is a small amount of ascites present within the right upper quadrant of the abdomen. No pseudocyst is seen. Findings are consistent with pancreatitis. The gallbladder is distended. There is mild gallbladder wall thickening. There is a gallstone within the gallbladder measuring 7 mm. Another smaller 3 mm stone is seen within the neck of the gallbladder. No extra hepatic biliary ductal dilatation is seen. No dilatation of the main pancreatic duct is evident. No adrenal mass is evident. Bilateral renal stones are seen. There is scarring of the upper pole of the right kidney consistent with chronic pyelonephritis. No hydronephrosis or hydroureter is evident on either side. Urinary bladder wall is smooth. No uterine mass or fibroid is evident. No dominant ovarian cyst or mass is evident. No focal aneurysmal dilatation of the abdominal aorta is seen. No enlarged abdominal or pelvic lymphadenopathy is seen. Sigmoid diverticulosis is seen without diverticulitis. Terminal ileum is unremarkable. The appendix is unremarkable. No obstructive bowel pattern is evident. There is wall thickening of stomach and duodenum which may be reactive secondary to the pancreatitis. No free air is evident. Mild bibasilar atelectasis is seen. No lytic process is seen. Impression: Pancreatitis. There is moderate amount of peripancreatic edema which extends into the root of the mesentery and extends to both sides of the abdomen. A small amount of pancreatic ascites is seen. The gallbladder is distended. Mild gallbladder wall thickening is seen. This may represent cholecystitis. Cholelithiasis is evident. No dilatation of the extra hepatic biliary duct is seen. Wall thickening of the stomach and duodenum most likely is reactive secondary to the pancreatitis. Electronically signed by: Smita Mercer MD (03/02/2019 3:56 PM) [place] [id number] DICTATED and SIGNED BY: SMITA MERCER MD DATE: 03/02/19 1556 Laboratory Tests Test 03/05/19 05:05 White Blood Count 4.2 x10^3/uL (4.0-11.0) Red Blood Count 4.44 x10^6/uL (3.50-5.40) Hemoglobin 13.0 g/dL (12.0-15.5) Hematocrit 38.6 % (36.0-47.0) Mean Corpuscular Volume 87 fL (79-100) Mean Corpuscular Hemoglobin 29 pg (25-35) Mean Corpuscular Hemoglobin Concent 34 g/dL (31-37) Red Cell Distribution Width 15.7 % (11.5-14.5) Platelet Count 52 x10^3/uL (140-400) Neutrophils (%) (Auto) 50 % (31-73) Lymphocytes (%) (Auto) 37 % (24-48) Monocytes (%) (Auto) 11 % (0-9) Eosinophils (%) (Auto) 2 % (0-3) Basophils (%) (Auto) 0 % (0-3) Neutrophils # (Auto) 2.1 x10^3/uL (1.8-7.7) Lymphocytes # (Auto) 1.6 x10^3/uL (1.0-4.8) Monocytes # (Auto) 0.4 x10^3/uL (0.0-1.1) Eosinophils # (Auto) 0.1 x10^3/uL (0.0-0.7) Basophils # (Auto) 0.0 x10^3/uL (0.0-0.2) Sodium Level 141 mmol/L (136-145) Potassium Level 3.5 mmol/L (3.5-5.1) Chloride Level 106 mmol/L (98-107) Carbon Dioxide Level 21 mmol/L (21-32) Anion Gap 14 (6-14) Blood Urea Nitrogen 12 mg/dL (7-20) Creatinine 0.8 mg/dL (0.6-1.0) Estimated GFR (Cockcroft-Gault) 71.3 BUN/Creatinine Ratio 15 (6-20) Glucose Level 92 mg/dL (70-99) Calcium Level 8.2 mg/dL (8.5-10.1) Total Bilirubin 0.7 mg/dL (0.2-1.0) Aspartate Amino Transf (AST/SGOT) 51 U/L (15-37) Alanine Aminotransferase (ALT/SGPT) 62 U/L (14-59) Alkaline Phosphatase 100 U/L (46-116) Total Protein 6.5 g/dL (6.4-8.2) Albumin 2.7 g/dL (3.4-5.0) Albumin/Globulin Ratio 0.7 (1.0-1.7) Assessment and Plan Assessmemt and Plan Problems Medical Problems: (1) Acute gallstone pancreatitis Status: Acute (2) Cholecystitis Status: Acute (3) Thrombocytopenia Status: Acute Comment Review of Relevant I have reviewed the following items popeye (where applicable) has been applied. Labs Laboratory Tests Test 03/03/19 12:30 03/04/19 10:13 03/05/19 05:05 White Blood Count 4.7 x10^3/uL (4.0-11.0) 5.0 x10^3/uL (4.0-11.0) 4.2 x10^3/uL (4.0-11.0) Red Blood Count 4.58 x10^6/uL (3.50-5.40) 4.49 x10^6/uL (3.50-5.40) 4.44 x10^6/uL (3.50-5.40) Hemoglobin 13.3 g/dL (12.0-15.5) 13.0 g/dL (12.0-15.5) 13.0 g/dL (12.0-15.5) Hematocrit 40.5 % (36.0-47.0) 39.1 % (36.0-47.0) 38.6 % (36.0-47.0) Mean Corpuscular Volume 88 fL (79-100) 87 fL (79-100) 87 fL (79-100) Mean Corpuscular Hemoglobin 29 pg (25-35) 29 pg (25-35) 29 pg (25-35) Mean Corpuscular Hemoglobin Concent 33 g/dL (31-37) 33 g/dL (31-37) 34 g/dL (31-37) Red Cell Distribution Width 17.1 % (11.5-14.5) 16.1 % (11.5-14.5) 15.7 % (11.5-14.5) Platelet Count 44 x10^3/uL (140-400) 48 x10^3/uL (140-400) 52 x10^3/uL (140-400) Neutrophils (%) (Auto) 68 % (31-73) 50 % (31-73) Lymphocytes (%) (Auto) 23 % (24-48) 37 % (24-48) Monocytes (%) (Auto) 8 % (0-9) 11 % (0-9) Eosinophils (%) (Auto) 1 % (0-3) 2 % (0-3) Basophils (%) (Auto) 0 % (0-3) 0 % (0-3) Neutrophils # (Auto) 3.2 x10^3/uL (1.8-7.7) 2.1 x10^3/uL (1.8-7.7) Lymphocytes # (Auto) 1.1 x10^3/uL (1.0-4.8) 1.6 x10^3/uL (1.0-4.8) Monocytes # (Auto) 0.4 x10^3/uL (0.0-1.1) 0.4 x10^3/uL (0.0-1.1) Eosinophils # (Auto) 0.0 x10^3/uL (0.0-0.7) 0.1 x10^3/uL (0.0-0.7) Basophils # (Auto) 0.0 x10^3/uL (0.0-0.2) 0.0 x10^3/uL (0.0-0.2) Sodium Level 142 mmol/L (136-145) 141 mmol/L (136-145) Potassium Level 3.8 mmol/L (3.5-5.1) 3.5 mmol/L (3.5-5.1) Chloride Level 108 mmol/L (98-107) 106 mmol/L (98-107) Carbon Dioxide Level 23 mmol/L (21-32) 21 mmol/L (21-32) Anion Gap 11 (6-14) 14 (6-14) Blood Urea Nitrogen 12 mg/dL (7-20) 12 mg/dL (7-20) Creatinine 0.8 mg/dL (0.6-1.0) 0.8 mg/dL (0.6-1.0) Estimated GFR (Cockcroft-Gault) 71.3 71.3 BUN/Creatinine Ratio 15 (6-20) 15 (6-20) Glucose Level 138 mg/dL (70-99) 92 mg/dL (70-99) Calcium Level 8.4 mg/dL (8.5-10.1) 8.2 mg/dL (8.5-10.1) Total Bilirubin 0.7 mg/dL (0.2-1.0) 0.7 mg/dL (0.2-1.0) Aspartate Amino Transf (AST/SGOT) 55 U/L (15-37) 51 U/L (15-37) Alanine Aminotransferase (ALT/SGPT) 73 U/L (14-59) 62 U/L (14-59) Alkaline Phosphatase 118 U/L (46-116) 100 U/L (46-116) Total Protein 6.6 g/dL (6.4-8.2) 6.5 g/dL (6.4-8.2) Albumin 2.7 g/dL (3.4-5.0) 2.7 g/dL (3.4-5.0) Albumin/Globulin Ratio 0.7 (1.0-1.7) 0.7 (1.0-1.7) Lipase 167 U/L (73-393) Laboratory Tests Test 03/05/19 05:05 White Blood Count 4.2 x10^3/uL (4.0-11.0) Red Blood Count 4.44 x10^6/uL (3.50-5.40) Hemoglobin 13.0 g/dL (12.0-15.5) Hematocrit 38.6 % (36.0-47.0) Mean Corpuscular Volume 87 fL (79-100) Mean Corpuscular Hemoglobin 29 pg (25-35) Mean Corpuscular Hemoglobin Concent 34 g/dL (31-37) Red Cell Distribution Width 15.7 % (11.5-14.5) Platelet Count 52 x10^3/uL (140-400) Neutrophils (%) (Auto) 50 % (31-73) Lymphocytes (%) (Auto) 37 % (24-48) Monocytes (%) (Auto) 11 % (0-9) Eosinophils (%) (Auto) 2 % (0-3) Basophils (%) (Auto) 0 % (0-3) Neutrophils # (Auto) 2.1 x10^3/uL (1.8-7.7) Lymphocytes # (Auto) 1.6 x10^3/uL (1.0-4.8) Monocytes # (Auto) 0.4 x10^3/uL (0.0-1.1) Eosinophils # (Auto) 0.1 x10^3/uL (0.0-0.7) Basophils # (Auto) 0.0 x10^3/uL (0.0-0.2) Sodium Level 141 mmol/L (136-145) Potassium Level 3.5 mmol/L (3.5-5.1) Chloride Level 106 mmol/L (98-107) Carbon Dioxide Level 21 mmol/L (21-32) Anion Gap 14 (6-14) Blood Urea Nitrogen 12 mg/dL (7-20) Creatinine 0.8 mg/dL (0.6-1.0) Estimated GFR (Cockcroft-Gault) 71.3 BUN/Creatinine Ratio 15 (6-20) Glucose Level 92 mg/dL (70-99) Calcium Level 8.2 mg/dL (8.5-10.1) Total Bilirubin 0.7 mg/dL (0.2-1.0) Aspartate Amino Transf (AST/SGOT) 51 U/L (15-37) Alanine Aminotransferase (ALT/SGPT) 62 U/L (14-59) Alkaline Phosphatase 100 U/L (46-116) Total Protein 6.5 g/dL (6.4-8.2) Albumin 2.7 g/dL (3.4-5.0) Albumin/Globulin Ratio 0.7 (1.0-1.7) Microbiology 03/02/19 Urine Culture - Final, Complete 03/02/19 Urine Culture Result 1 (DONNA) - Final, Complete Medications Current Medications Sodium Chloride 1,000 ml @ 1,000 mls/hr 1X ONCE IV Last administered on 03/02/19at 14:15; Start 03/02/19 at 14:00; Stop 03/02/19 at 14:59; Status DC Morphine Sulfate (Morphine Sulfate) 4 mg 1X ONCE IV Last administered on 03/02/19at 14:14; Start 03/02/19 at 14:30; Stop 03/02/19 at 14:31; Status DC Ondansetron HCl (Zofran) 4 mg 1X ONCE IV Last administered on 03/02/19at 14:13; Start 03/02/19 at 14:30; Stop 03/02/19 at 14:31; Status DC Iohexol (Omnipaque 300 Mg/ml) 60 ml 1X ONCE IV Last administered on 03/02/19at 15:24; Start 03/02/19 at 15:45; Stop 03/02/19 at 15:46; Status DC Info (CONTRAST GIVEN -- Rx MONITORING) 1 each PRN DAILY PRN MC SEE COMMENTS; Start 03/02/19 at 15:15; Stop 03/04/19 at 15:14; Status DC Fentanyl Citrate (Fentanyl 2ml Vial) 75 mcg 1X ONCE IV Last administered on 03/02/19at 16:19; Start 03/02/19 at 16:45; Stop 03/02/19 at 16:46; Status DC Piperacillin Sod/ Tazobactam Sod 3.375 gm/Sodium Chloride 50 ml @ 100 mls/hr 1X ONCE IV Last administered on 03/02/19at 16:26; Start 03/02/19 at 17:00; Stop 03/02/19 at 17:29; Status DC Sodium Chloride 1,000 ml @ 1,000 mls/hr 1X ONCE IV Last administered on 03/02/19at 16:31; Start 03/02/19 at 16:30; Stop 03/02/19 at 17:29; Status DC Ondansetron HCl (Zofran) 4 mg PRN Q8HRS PRN IV NAUSEA/VOMITING; Start 03/02/19 at 17:00; Stop 03/02/19 at 19:48; Status DC Fentanyl Citrate (Fentanyl 2ml Vial) 50 mcg PRN Q2HR PRN IV PAIN Last administered on 03/02/19at 20:51; Start 03/02/19 at 17:00; Stop 03/03/19 at 16:59; Status DC Sodium Chloride 1,000 ml @ 100 mls/hr Q10H IV ; Start 03/02/19 at 16:48; Stop 03/03/19 at 16:47; Status Cancel Sodium Chloride (Normal Saline Flush) 3 ml QSHIFT PRN IV AFTER MEDS AND BLOOD DRAWS; Start 03/02/19 at 19:45 Sodium Chloride 1,000 ml @ 100 mls/hr Q10H IV Last administered on 03/04/19at 22:47; Start 03/02/19 at 21:00 Ondansetron HCl (Zofran) 4 mg PRN Q4HRS PRN IV NAUSEA/VOMITING, 1st CHOICE Last administered on 03/03/19at 10:59; Start 03/02/19 at 19:45 Acetaminophen (Tylenol) 650 mg PRN Q4HRS PRN PO TEMP OVER 100.4F OR MILD PAIN; Start 03/02/19 at 19:45 Clonidine HCl (Catapres) 0.1 mg PRN Q6HRS PRN PO SBP>160 OR DBP>90; Start 03/02/19 at 19:45 Guaifenesin (Robitussin) 200 mg PRN Q4HRS PRN PO COUGH; Start 03/02/19 at 19:45 Lorazepam (Ativan) 0.5 mg PRN Q4HRS PRN PO ANXIETY / AGITATION; Start 03/02/19 at 19:45 Hydromorphone HCl (Dilaudid) 1 mg PRN Q2HRS PRN IV SEVERE PAIN 7-10 Last administered on 03/04/19at 11:11; Start 03/02/19 at 19:45 Enoxaparin Sodium (Lovenox 40mg Syringe) 40 mg DAILY SQ ; Start 03/03/19 at 09:00 Metoclopramide HCl (Reglan Vial) 10 mg PRN Q6HRS PRN IV NAUSEA/VOMITING, 2nd CHOICE Last administered on 03/04/19at 11:25; Start 03/03/19 at 12:00 Pantoprazole Sodium (PROTONIX VIAL for IV PUSH) 40 mg DAILYAC IVP Last administered on 03/04/19at 11:19; Start 03/04/19 at 09:30 Active Scripts Active Reported Vitamin D3 (Cholecalciferol (Vitamin D3)) 1,000 Unit Tablet 2,000 Unit PO DAILY Ferrous Sulfate 325 Mg Tablet 325 Mg PO DAILY Atorvastatin Calcium 20 Mg Tablet 20 Mg PO DAILY Glimepiride 2 Mg Tablet 2 Tab PO BID Losartan Potassium 100 Mg Tablet 100 Mg PO DAILY Protonix (Pantoprazole Sodium) 40 Mg Tablet.dr 40 Mg PO DAILYAC Vitals/I & O Vital Sign - Last 24 Hours 03/04/19 03/04/19 03/04/19 03/04/19 11:00 11:11 11:41 15:00 Temp 98.4 97.8 98.4 97.8 Pulse 76 62 Resp 17 17 B/P (MAP) 125/56 (79) 130/63 (85) Pulse Ox 95 94 O2 Delivery Room Air Room Air Room Air Room Air 03/04/19 03/04/19 03/04/19 03/05/19 19:00 20:00 23:00 03:00 Temp 98.8 98.4 98.1 98.8 98.4 98.1 Pulse 67 70 63 Resp 17 17 18 B/P (MAP) 118/36 (63) 148/60 (89) 135/43 (73) Pulse Ox 96 96 93 O2 Delivery Room Air Room Air Room Air Room Air 03/05/19 07:00 Temp 97.7 97.7 Pulse 60 Resp 18 B/P (MAP) 135/72 (93) Pulse Ox 95 O2 Delivery Room Air Intake and Output 03/04/19 03/04/19 03/05/19 14:59 22:59 06:59 Intake Total 120 ml Balance 120 ml BEBO AARON MD Mar 05, 2019 10:23
[2019-03-05 11:00] VITALS: BP 150/58
[2019-03-05] MEDS: HYDROmorphone 2 MG/ML VIAL IV PRN ×2 (12:42→13:55)
[2019-03-05 15:00] VITALS: BP 138/52
[2019-03-05] MEDS: ONDANSETRON PF 4 MG/2 ML VIAL. IV PRN (15:27)
[2019-03-05 19:00] VITALS: BP 169/60
[2019-03-05 23:00] VITALS: BP 130/50
[2019-03-06 03:00] VITALS: BP 115/64
[2019-03-06 05:29] LABS: BASO % 0 % (0-3); EOS # 0.1 x10^3/uL (0.0-0.7); EOS % 2 % (0-3); HEMATOCRIT 38.5 % (36.0-47.0); HEMOGLOBIN 12.7 g/dL (12.0-15.5); LYMPH # 1.4 x10^3/uL (1.0-4.8); LYMPH % 38 % (24-48); MEAN CORPUSCULAR HEMOGLOBIN 29 pg (25-35); MEAN CORPUSCULAR HGB CONC 33 g/dL (31-37); MEAN CORPUSCULAR VOLUME 87 fL (79-100); MONO # 0.4 x10^3/uL (0.0-1.1); MONO % 10 % (0-9); NEUT # 1.9 x10^3/uL (1.8-7.7); NEUT % 50 % (31-73); PLATELET COUNT 54 x10^3/uL (140-400); RED BLOOD COUNT 4.43 x10^6/uL (3.50-5.40); RED CELL DISTRIBUTION WIDTH 16.1 % (11.5-14.5); WHITE BLOOD COUNT 3.7 x10^3/uL (4.0-11.0)
[2019-03-06 05:43] LABS: ALBUMIN 2.5 g/dL (3.4-5.0); ALBUMIN/GLOBULIN RATIO 0.7 (1.0-1.7); CALCIUM 8.1 mg/dL (8.5-10.1); CREATININE 0.7 mg/dL (0.6-1.0); GFR 83.2; POTASSIUM 3.4 mmol/L (3.5-5.1); TOTAL BILIRUBIN 0.7 mg/dL (0.2-1.0); TOTAL PROTEIN 6.2 g/dL (6.4-8.2)
[2019-03-06] MEDS: IV NORMAL SALINE 1000ML BAG 1,000 ML IV SCH ×2 (06:10→15:00)
[2019-03-06] MEDS: PANTOPRAZOLE IV PUSH 40 MG VIAL. IVP SCH (06:10)
[2019-03-06 07:00] VITALS: BP 153/59
[2019-03-06] MEDS: ENOXAPARIN 40 MG/0.4 ML SYRINGE. SQ SCH (08:13)
--- NOTE | 2019-03-06 10:53 | PDOC ---
PROGRESS NOTES History of Present Illness History of Present Illness ASSESSMENT Symptomatic gallstones with pancreatitis and cholecystitis Mild gallbladder wall thickening is seen. may represent cholecystitis. Cholelithiasis is evident. No dilatation of the extra hepatic biliary duct is seen. Wall thickening of the stomach and duodenum most likely is reactive secondary to pancreatitis. leukopenia, urinary tract infection. Thrombocytopenia, chronic, due to cirrhosis of the liver and portal hypertension and splenomegaly. Platelet count was worse at 44,000 on 03/03/2019. No signs of bleeding. continue to monitor and transfuse, if there is any evidence of bleeding or if surgical intervention is necessary. hypokalemia 03/06 plan admitted. consult Hematology/Oncology, consult Gastroenterology, consult Surgery. emperic intravenous antibiotics for urinary tract infection, prn iv narcotics, prn Zofran, intravenous fluid support, home medications, deep vein thrombosis prophylaxis; full code. replete k iv continue to monitor and transfuse, if there is any evidence of bleeding or if surgical intervention is necessary. 27 min pt exam, chart review, > 50% of time spent with exam, chart review, pt care coordination Vitals Vitals Vital Signs Date Time Temp Pulse Resp B/P (MAP) Pulse Ox O2 Delivery O2 Flow Rate FiO2 03/06/19 08:00 Room Air 03/06/19 07:00 97.8 60 16 153/59 (90) 98 97.8 Physical Exam General: Alert, Oriented X3, Cooperative, No acute distress, mild distress Heart: Regular rate, Normal S1, Normal S2, No murmurs Lungs: Clear Abdomen: Normal bowel sounds, Soft, Other (ttp epigastric, LUQ) Extremities: No clubbing, No cyanosis, Normal pulses Skin: No significant lesion Labs LABS Laboratory Tests Test 03/05/19 15:52 03/05/19 20:21 03/06/19 04:35 03/06/19 08:09 Glucose (Fingerstick) 90 mg/dL (70-99) 117 mg/dL (70-99) 100 mg/dL (70-99) White Blood Count 3.7 x10^3/uL (4.0-11.0) Red Blood Count 4.43 x10^6/uL (3.50-5.40) Hemoglobin 12.7 g/dL (12.0-15.5) Hematocrit 38.5 % (36.0-47.0) Mean Corpuscular Volume 87 fL (79-100) Mean Corpuscular Hemoglobin 29 pg (25-35) Mean Corpuscular Hemoglobin Concent 33 g/dL (31-37) Red Cell Distribution Width 16.1 % (11.5-14.5) Platelet Count 54 x10^3/uL (140-400) Neutrophils (%) (Auto) 50 % (31-73) Lymphocytes (%) (Auto) 38 % (24-48) Monocytes (%) (Auto) 10 % (0-9) Eosinophils (%) (Auto) 2 % (0-3) Basophils (%) (Auto) 0 % (0-3) Neutrophils # (Auto) 1.9 x10^3/uL (1.8-7.7) Lymphocytes # (Auto) 1.4 x10^3/uL (1.0-4.8) Monocytes # (Auto) 0.4 x10^3/uL (0.0-1.1) Eosinophils # (Auto) 0.1 x10^3/uL (0.0-0.7) Basophils # (Auto) 0.0 x10^3/uL (0.0-0.2) Sodium Level 139 mmol/L (136-145) Potassium Level 3.4 mmol/L (3.5-5.1) Chloride Level 106 mmol/L (98-107) Carbon Dioxide Level 22 mmol/L (21-32) Anion Gap 11 (6-14) Blood Urea Nitrogen 10 mg/dL (7-20) Creatinine 0.7 mg/dL (0.6-1.0) Estimated GFR (Cockcroft-Gault) 83.2 BUN/Creatinine Ratio 14 (6-20) Glucose Level 95 mg/dL (70-99) Calcium Level 8.1 mg/dL (8.5-10.1) Total Bilirubin 0.7 mg/dL (0.2-1.0) Aspartate Amino Transf (AST/SGOT) 47 U/L (15-37) Alanine Aminotransferase (ALT/SGPT) 57 U/L (14-59) Alkaline Phosphatase 95 U/L (46-116) Total Protein 6.2 g/dL (6.4-8.2) Albumin 2.5 g/dL (3.4-5.0) Albumin/Globulin Ratio 0.7 (1.0-1.7) Assessment and Plan Assessmemt and Plan Problems Medical Problems: (1) Acute gallstone pancreatitis Status: Acute (2) Cholecystitis Status: Acute (3) Thrombocytopenia Status: Acute Comment Review of Relevant I have reviewed the following items popeye (where applicable) has been applied. Labs Laboratory Tests Test 03/05/19 05:05 03/05/19 15:52 03/05/19 20:21 03/06/19 04:35 White Blood Count 4.2 x10^3/uL (4.0-11.0) 3.7 x10^3/uL (4.0-11.0) Red Blood Count 4.44 x10^6/uL (3.50-5.40) 4.43 x10^6/uL (3.50-5.40) Hemoglobin 13.0 g/dL (12.0-15.5) 12.7 g/dL (12.0-15.5) Hematocrit 38.6 % (36.0-47.0) 38.5 % (36.0-47.0) Mean Corpuscular Volume 87 fL (79-100) 87 fL (79-100) Mean Corpuscular Hemoglobin 29 pg (25-35) 29 pg (25-35) Mean Corpuscular Hemoglobin Concent 34 g/dL (31-37) 33 g/dL (31-37) Red Cell Distribution Width 15.7 % (11.5-14.5) 16.1 % (11.5-14.5) Platelet Count 52 x10^3/uL (140-400) 54 x10^3/uL (140-400) Neutrophils (%) (Auto) 50 % (31-73) 50 % (31-73) Lymphocytes (%) (Auto) 37 % (24-48) 38 % (24-48) Monocytes (%) (Auto) 11 % (0-9) 10 % (0-9) Eosinophils (%) (Auto) 2 % (0-3) 2 % (0-3) Basophils (%) (Auto) 0 % (0-3) 0 % (0-3) Neutrophils # (Auto) 2.1 x10^3/uL (1.8-7.7) 1.9 x10^3/uL (1.8-7.7) Lymphocytes # (Auto) 1.6 x10^3/uL (1.0-4.8) 1.4 x10^3/uL (1.0-4.8) Monocytes # (Auto) 0.4 x10^3/uL (0.0-1.1) 0.4 x10^3/uL (0.0-1.1) Eosinophils # (Auto) 0.1 x10^3/uL (0.0-0.7) 0.1 x10^3/uL (0.0-0.7) Basophils # (Auto) 0.0 x10^3/uL (0.0-0.2) 0.0 x10^3/uL (0.0-0.2) Sodium Level 141 mmol/L (136-145) 139 mmol/L (136-145) Potassium Level 3.5 mmol/L (3.5-5.1) 3.4 mmol/L (3.5-5.1) Chloride Level 106 mmol/L (98-107) 106 mmol/L (98-107) Carbon Dioxide Level 21 mmol/L (21-32) 22 mmol/L (21-32) Anion Gap 14 (6-14) 11 (6-14) Blood Urea Nitrogen 12 mg/dL (7-20) 10 mg/dL (7-20) Creatinine 0.8 mg/dL (0.6-1.0) 0.7 mg/dL (0.6-1.0) Estimated GFR (Cockcroft-Gault) 71.3 83.2 BUN/Creatinine Ratio 15 (6-20) 14 (6-20) Glucose Level 92 mg/dL (70-99) 95 mg/dL (70-99) Calcium Level 8.2 mg/dL (8.5-10.1) 8.1 mg/dL (8.5-10.1) Total Bilirubin 0.7 mg/dL (0.2-1.0) 0.7 mg/dL (0.2-1.0) Aspartate Amino Transf (AST/SGOT) 51 U/L (15-37) 47 U/L (15-37) Alanine Aminotransferase (ALT/SGPT) 62 U/L (14-59) 57 U/L (14-59) Alkaline Phosphatase 100 U/L (46-116) 95 U/L (46-116) Total Protein 6.5 g/dL (6.4-8.2) 6.2 g/dL (6.4-8.2) Albumin 2.7 g/dL (3.4-5.0) 2.5 g/dL (3.4-5.0) Albumin/Globulin Ratio 0.7 (1.0-1.7) 0.7 (1.0-1.7) Glucose (Fingerstick) 90 mg/dL (70-99) 117 mg/dL (70-99) Test 03/06/19 08:09 Glucose (Fingerstick) 100 mg/dL (70-99) Laboratory Tests Test 03/05/19 15:52 03/05/19 20:21 03/06/19 04:35 03/06/19 08:09 Glucose (Fingerstick) 90 mg/dL (70-99) 117 mg/dL (70-99) 100 mg/dL (70-99) White Blood Count 3.7 x10^3/uL (4.0-11.0) Red Blood Count 4.43 x10^6/uL (3.50-5.40) Hemoglobin 12.7 g/dL (12.0-15.5) Hematocrit 38.5 % (36.0-47.0) Mean Corpuscular Volume 87 fL (79-100) Mean Corpuscular Hemoglobin 29 pg (25-35) Mean Corpuscular Hemoglobin Concent 33 g/dL (31-37) Red Cell Distribution Width 16.1 % (11.5-14.5) Platelet Count 54 x10^3/uL (140-400) Neutrophils (%) (Auto) 50 % (31-73) Lymphocytes (%) (Auto) 38 % (24-48) Monocytes (%) (Auto) 10 % (0-9) Eosinophils (%) (Auto) 2 % (0-3) Basophils (%) (Auto) 0 % (0-3) Neutrophils # (Auto) 1.9 x10^3/uL (1.8-7.7) Lymphocytes # (Auto) 1.4 x10^3/uL (1.0-4.8) Monocytes # (Auto) 0.4 x10^3/uL (0.0-1.1) Eosinophils # (Auto) 0.1 x10^3/uL (0.0-0.7) Basophils # (Auto) 0.0 x10^3/uL (0.0-0.2) Sodium Level 139 mmol/L (136-145) Potassium Level 3.4 mmol/L (3.5-5.1) Chloride Level 106 mmol/L (98-107) Carbon Dioxide Level 22 mmol/L (21-32) Anion Gap 11 (6-14) Blood Urea Nitrogen 10 mg/dL (7-20) Creatinine 0.7 mg/dL (0.6-1.0) Estimated GFR (Cockcroft-Gault) 83.2 BUN/Creatinine Ratio 14 (6-20) Glucose Level 95 mg/dL (70-99) Calcium Level 8.1 mg/dL (8.5-10.1) Total Bilirubin 0.7 mg/dL (0.2-1.0) Aspartate Amino Transf (AST/SGOT) 47 U/L (15-37) Alanine Aminotransferase (ALT/SGPT) 57 U/L (14-59) Alkaline Phosphatase 95 U/L (46-116) Total Protein 6.2 g/dL (6.4-8.2) Albumin 2.5 g/dL (3.4-5.0) Albumin/Globulin Ratio 0.7 (1.0-1.7) Microbiology 03/02/19 Urine Culture - Final, Complete 03/02/19 Urine Culture Result 1 (DONNA) - Final, Complete Medications Current Medications Sodium Chloride 1,000 ml @ 1,000 mls/hr 1X ONCE IV Last administered on 03/02/19at 14:15; Start 03/02/19 at 14:00; Stop 03/02/19 at 14:59; Status DC Morphine Sulfate (Morphine Sulfate) 4 mg 1X ONCE IV Last administered on 03/02/19at 14:14; Start 03/02/19 at 14:30; Stop 03/02/19 at 14:31; Status DC Ondansetron HCl (Zofran) 4 mg 1X ONCE IV Last administered on 03/02/19at 14:13; Start 03/02/19 at 14:30; Stop 03/02/19 at 14:31; Status DC Iohexol (Omnipaque 300 Mg/ml) 60 ml 1X ONCE IV Last administered on 03/02/19at 15:24; Start 03/02/19 at 15:45; Stop 03/02/19 at 15:46; Status DC Info (CONTRAST GIVEN -- Rx MONITORING) 1 each PRN DAILY PRN MC SEE COMMENTS; Start 03/02/19 at 15:15; Stop 03/04/19 at 15:14; Status DC Fentanyl Citrate (Fentanyl 2ml Vial) 75 mcg 1X ONCE IV Last administered on 03/02/19at 16:19; Start 03/02/19 at 16:45; Stop 03/02/19 at 16:46; Status DC Piperacillin Sod/ Tazobactam Sod 3.375 gm/Sodium Chloride 50 ml @ 100 mls/hr 1X ONCE IV Last administered on 03/02/19at 16:26; Start 03/02/19 at 17:00; Stop 03/02/19 at 17:29; Status DC Sodium Chloride 1,000 ml @ 1,000 mls/hr 1X ONCE IV Last administered on 03/02/19at 16:31; Start 03/02/19 at 16:30; Stop 03/02/19 at 17:29; Status DC Ondansetron HCl (Zofran) 4 mg PRN Q8HRS PRN IV NAUSEA/VOMITING; Start 03/02/19 at 17:00; Stop 03/02/19 at 19:48; Status DC Fentanyl Citrate (Fentanyl 2ml Vial) 50 mcg PRN Q2HR PRN IV PAIN Last administered on 03/02/19at 20:51; Start 03/02/19 at 17:00; Stop 03/03/19 at 16:59; Status DC Sodium Chloride 1,000 ml @ 100 mls/hr Q10H IV ; Start 03/02/19 at 16:48; Stop 03/03/19 at 16:47; Status Cancel Sodium Chloride (Normal Saline Flush) 3 ml QSHIFT PRN IV AFTER MEDS AND BLOOD DRAWS; Start 03/02/19 at 19:45 Sodium Chloride 1,000 ml @ 100 mls/hr Q10H IV Last administered on 03/06/19at 06:10; Start 03/02/19 at 21:00 Ondansetron HCl (Zofran) 4 mg PRN Q4HRS PRN IV NAUSEA/VOMITING, 1st CHOICE Last administered on 03/05/19at 15:27; Start 03/02/19 at 19:45 Acetaminophen (Tylenol) 650 mg PRN Q4HRS PRN PO TEMP OVER 100.4F OR MILD PAIN; Start 03/02/19 at 19:45 Clonidine HCl (Catapres) 0.1 mg PRN Q6HRS PRN PO SBP>160 OR DBP>90; Start 03/02/19 at 19:45 Guaifenesin (Robitussin) 200 mg PRN Q4HRS PRN PO COUGH; Start 03/02/19 at 19:45 Lorazepam (Ativan) 0.5 mg PRN Q4HRS PRN PO ANXIETY / AGITATION; Start 03/02/19 at 19:45 Hydromorphone HCl (Dilaudid) 1 mg PRN Q2HRS PRN IV SEVERE PAIN 7-10 Last administered on 03/05/19at 13:55; Start 03/02/19 at 19:45 Enoxaparin Sodium (Lovenox 40mg Syringe) 40 mg DAILY SQ Last administered on 03/06/19at 08:13; Start 03/03/19 at 09:00 Metoclopramide HCl (Reglan Vial) 10 mg PRN Q6HRS PRN IV NAUSEA/VOMITING, 2nd CHOICE Last administered on 03/04/19at 11:25; Start 03/03/19 at 12:00 Pantoprazole Sodium (PROTONIX VIAL for IV PUSH) 40 mg DAILYAC IVP Last administered on 03/06/19at 06:10; Start 03/04/19 at 09:30 Active Scripts Active Reported Vitamin D3 (Cholecalciferol (Vitamin D3)) 1,000 Unit Tablet 2,000 Unit PO DAILY Ferrous Sulfate 325 Mg Tablet 325 Mg PO DAILY Atorvastatin Calcium 20 Mg Tablet 20 Mg PO DAILY Glimepiride 2 Mg Tablet 2 Tab PO BID Losartan Potassium 100 Mg Tablet 100 Mg PO DAILY Protonix (Pantoprazole Sodium) 40 Mg Tablet.dr 40 Mg PO DAILYAC Vitals/I & O Vital Sign - Last 24 Hours 03/05/19 03/05/19 03/05/19 03/05/19 11:00 12:42 13:55 15:00 Temp 98.1 97.8 98.1 97.8 Pulse 66 67 Resp 18 18 B/P (MAP) 150/58 (88) 138/52 (80) Pulse Ox 96 96 96 94 O2 Delivery Room Air Room Air Room Air Room Air 03/05/19 03/05/19 03/05/19 03/05/19 15:27 19:00 19:35 23:00 Temp 98.0 98.7 98.0 98.7 Pulse 68 63 Resp 18 20 B/P (MAP) 169/60 (96) 130/50 (76) Pulse Ox 90 93 O2 Delivery Room Air Room Air Room Air Room Air 03/06/19 03/06/19 03/06/19 03:00 07:00 08:00 Temp 98.7 97.8 98.7 97.8 Pulse 63 60 Resp 18 16 B/P (MAP) 115/64 (81) 153/59 (90) Pulse Ox 94 98 O2 Delivery Room Air Room Air Room Air Intake and Output 03/05/19 03/05/19 03/06/19 15:00 23:00 07:00 Intake Total 200 ml Balance 200 ml BEBO AARON MD Mar 06, 2019 10:53
[2019-03-06 11:00] VITALS: BP 167/67
[2019-03-06] MEDS: HYDROmorphone 2 MG/ML VIAL IV PRN ×2 (13:00→17:53)
[2019-03-06] MEDS: POTASSIUM CHLORIDE 10MEQ 100 ML IV SCH ×4 (13:00→16:00)
[2019-03-06 15:00] VITALS: BP 142/82
[2019-03-06 19:00] VITALS: BP 155/53
[2019-03-06] MEDS: AMINO AC 3%/ELECTROLYTE/GLYCER 1,000 ML IV SCH (21:05)
[2019-03-06 23:00] VITALS: BP 159/47
[2019-03-06] MEDS: ONDANSETRON PF 4 MG/2 ML VIAL. IV PRN (23:37)
--- NOTE | 2019-03-06 23:42 | NUR ---
Pt has been feeling nauseous and vomited a small amount one time, pt was refusing zofran because she thought it was PO. RN informed patient that it would be through her IV and then pt accepted zofran at that time. RN will continue to monitor patient closely.
[2019-03-07] MEDS: IV NORMAL SALINE 1000ML BAG 1,000 ML IV SCH ×3 (01:00→21:00)
[2019-03-07 03:00] VITALS: BP 124/57
[2019-03-07] MEDS: PANTOPRAZOLE IV PUSH 40 MG VIAL. IVP SCH (06:12)
[2019-03-07 07:00] VITALS: BP 143/35
[2019-03-07 07:08] LABS: BASO % 0 % (0-3); EOS % 1 % (0-3); HEMATOCRIT 38.2 % (36.0-47.0); HEMOGLOBIN 12.7 g/dL (12.0-15.5); LYMPH # 1.3 x10^3/uL (1.0-4.8); LYMPH % 32 % (24-48); MEAN CORPUSCULAR HEMOGLOBIN 29 pg (25-35); MEAN CORPUSCULAR HGB CONC 33 g/dL (31-37); MEAN CORPUSCULAR VOLUME 87 fL (79-100); MONO # 0.4 x10^3/uL (0.0-1.1); MONO % 9 % (0-9); NEUT # 2.3 x10^3/uL (1.8-7.7); NEUT % 58 % (31-73); PLATELET COUNT 57 x10^3/uL (140-400); RED CELL DISTRIBUTION WIDTH 16.2 % (11.5-14.5)
[2019-03-07 07:24] LABS: ALBUMIN 2.6 g/dL (3.4-5.0); ALBUMIN/GLOBULIN RATIO 0.7 (1.0-1.7); CALCIUM 8.4 mg/dL (8.5-10.1); CREATININE 0.7 mg/dL (0.6-1.0); MAGNESIUM 1.7 mg/dL (1.8-2.4); POTASSIUM 4.1 mmol/L (3.5-5.1); TOTAL BILIRUBIN 0.6 mg/dL (0.2-1.0); TOTAL PROTEIN 6.2 g/dL (6.4-8.2)
--- NOTE | 2019-03-07 08:03 | PDOC ---
PROGRESS NOTES Chief Complaint Chief Complaint Symptomatic gallstones with pancreatitis and cholecystitis - Mild gallbladder wall thickening is seen. may represent cholecystitis. Cholelithiasis is evident. No dilatation of the extra hepatic biliary duct is seen. Wall thickening of the stomach and duodenum most likely is reactive secondary to pancreatitis. leukopenia, urinary tract infection. Thrombocytopenia, chronic, due to cirrhosis of the liver and portal hypertension and splenomegaly. Platelet count was worse at 44,000 on 03/03/2019. No signs of bleeding. continue to monitor and transfuse, if there is any evidence of bleeding or if surgical intervention is necessary. hypokalemia 03/06 UTI History of Present Illness History of Present Illness Admitted for intractable abdominal pain with pancreatitis consulted Hematology/Oncology for thrombocytopenia, consulted Gastroenterology and Surgery for pancreatitis She still c/o bilateral lower quadrant and LUQ pain today, nausea. Has been on PPN. It has been discussed with her a plan for central line placement and TPN. Plan: prn iv narcotics, prn Zofran, intravenous fluid support, home medications, deep vein thrombosis prophylaxis; full code. replete k iv and mag IV continue to monitor and transfuse, if there is any evidence of bleeding or if surgical intervention is necessary. Ok for PICC, IJ for TPN 27 min pt exam, chart review, > 50% of time spent with exam, chart review, pt care coordination Vitals Vitals Vital Signs Date Time Temp Pulse Resp B/P (MAP) Pulse Ox O2 Delivery O2 Flow Rate FiO2 03/07/19 03:00 98.1 77 18 124/57 (79) 94 Room Air 98.1 Physical Exam General: Alert, Oriented X3, Cooperative, No acute distress, mild distress Heart: Regular rate, Normal S1, Normal S2, No murmurs Lungs: Clear Abdomen: Normal bowel sounds, Soft, Other (ttp epigastric, LUQ) Extremities: No clubbing, No cyanosis, Normal pulses Skin: No significant lesion Labs LABS Laboratory Tests Test 03/06/19 08:09 03/06/19 15:59 03/06/19 20:52 03/07/19 05:30 Glucose (Fingerstick) 100 mg/dL (70-99) 109 mg/dL (70-99) 82 mg/dL (70-99) White Blood Count 4.0 x10^3/uL (4.0-11.0) Red Blood Count 4.40 x10^6/uL (3.50-5.40) Hemoglobin 12.7 g/dL (12.0-15.5) Hematocrit 38.2 % (36.0-47.0) Mean Corpuscular Volume 87 fL (79-100) Mean Corpuscular Hemoglobin 29 pg (25-35) Mean Corpuscular Hemoglobin Concent 33 g/dL (31-37) Red Cell Distribution Width 16.2 % (11.5-14.5) Platelet Count 57 x10^3/uL (140-400) Neutrophils (%) (Auto) 58 % (31-73) Lymphocytes (%) (Auto) 32 % (24-48) Monocytes (%) (Auto) 9 % (0-9) Eosinophils (%) (Auto) 1 % (0-3) Basophils (%) (Auto) 0 % (0-3) Neutrophils # (Auto) 2.3 x10^3/uL (1.8-7.7) Lymphocytes # (Auto) 1.3 x10^3/uL (1.0-4.8) Monocytes # (Auto) 0.4 x10^3/uL (0.0-1.1) Eosinophils # (Auto) 0.0 x10^3/uL (0.0-0.7) Basophils # (Auto) 0.0 x10^3/uL (0.0-0.2) Test 03/07/19 05:35 Sodium Level 136 mmol/L (136-145) Potassium Level 4.1 mmol/L (3.5-5.1) Chloride Level 104 mmol/L (98-107) Carbon Dioxide Level 22 mmol/L (21-32) Anion Gap 10 (6-14) Blood Urea Nitrogen 12 mg/dL (7-20) Creatinine 0.7 mg/dL (0.6-1.0) Estimated GFR (Cockcroft-Gault) 83.0 BUN/Creatinine Ratio 17 (6-20) Glucose Level 132 mg/dL (70-99) Calcium Level 8.4 mg/dL (8.5-10.1) Magnesium Level 1.7 mg/dL (1.8-2.4) Total Bilirubin 0.6 mg/dL (0.2-1.0) Aspartate Amino Transf (AST/SGOT) 45 U/L (15-37) Alanine Aminotransferase (ALT/SGPT) 52 U/L (14-59) Alkaline Phosphatase 83 U/L (46-116) Total Protein 6.2 g/dL (6.4-8.2) Albumin 2.6 g/dL (3.4-5.0) Albumin/Globulin Ratio 0.7 (1.0-1.7) Assessment and Plan Assessmemt and Plan Problems Medical Problems: (1) Acute gallstone pancreatitis Status: Acute (2) Cholecystitis Status: Acute (3) Thrombocytopenia Status: Acute Comment Review of Relevant I have reviewed the following items popeye (where applicable) has been applied. Labs Laboratory Tests Test 03/05/19 15:52 03/05/19 20:21 03/06/19 04:35 03/06/19 08:09 Glucose (Fingerstick) 90 mg/dL (70-99) 117 mg/dL (70-99) 100 mg/dL (70-99) White Blood Count 3.7 x10^3/uL (4.0-11.0) Red Blood Count 4.43 x10^6/uL (3.50-5.40) Hemoglobin 12.7 g/dL (12.0-15.5) Hematocrit 38.5 % (36.0-47.0) Mean Corpuscular Volume 87 fL (79-100) Mean Corpuscular Hemoglobin 29 pg (25-35) Mean Corpuscular Hemoglobin Concent 33 g/dL (31-37) Red Cell Distribution Width 16.1 % (11.5-14.5) Platelet Count 54 x10^3/uL (140-400) Neutrophils (%) (Auto) 50 % (31-73) Lymphocytes (%) (Auto) 38 % (24-48) Monocytes (%) (Auto) 10 % (0-9) Eosinophils (%) (Auto) 2 % (0-3) Basophils (%) (Auto) 0 % (0-3) Neutrophils # (Auto) 1.9 x10^3/uL (1.8-7.7) Lymphocytes # (Auto) 1.4 x10^3/uL (1.0-4.8) Monocytes # (Auto) 0.4 x10^3/uL (0.0-1.1) Eosinophils # (Auto) 0.1 x10^3/uL (0.0-0.7) Basophils # (Auto) 0.0 x10^3/uL (0.0-0.2) Sodium Level 139 mmol/L (136-145) Potassium Level 3.4 mmol/L (3.5-5.1) Chloride Level 106 mmol/L (98-107) Carbon Dioxide Level 22 mmol/L (21-32) Anion Gap 11 (6-14) Blood Urea Nitrogen 10 mg/dL (7-20) Creatinine 0.7 mg/dL (0.6-1.0) Estimated GFR (Cockcroft-Gault) 83.2 BUN/Creatinine Ratio 14 (6-20) Glucose Level 95 mg/dL (70-99) Calcium Level 8.1 mg/dL (8.5-10.1) Total Bilirubin 0.7 mg/dL (0.2-1.0) Aspartate Amino Transf (AST/SGOT) 47 U/L (15-37) Alanine Aminotransferase (ALT/SGPT) 57 U/L (14-59) Alkaline Phosphatase 95 U/L (46-116) Total Protein 6.2 g/dL (6.4-8.2) Albumin 2.5 g/dL (3.4-5.0) Albumin/Globulin Ratio 0.7 (1.0-1.7) Test 03/06/19 15:59 03/06/19 20:52 03/07/19 05:30 03/07/19 05:35 Glucose (Fingerstick) 109 mg/dL (70-99) 82 mg/dL (70-99) White Blood Count 4.0 x10^3/uL (4.0-11.0) Red Blood Count 4.40 x10^6/uL (3.50-5.40) Hemoglobin 12.7 g/dL (12.0-15.5) Hematocrit 38.2 % (36.0-47.0) Mean Corpuscular Volume 87 fL (79-100) Mean Corpuscular Hemoglobin 29 pg (25-35) Mean Corpuscular Hemoglobin Concent 33 g/dL (31-37) Red Cell Distribution Width 16.2 % (11.5-14.5) Platelet Count 57 x10^3/uL (140-400) Neutrophils (%) (Auto) 58 % (31-73) Lymphocytes (%) (Auto) 32 % (24-48) Monocytes (%) (Auto) 9 % (0-9) Eosinophils (%) (Auto) 1 % (0-3) Basophils (%) (Auto) 0 % (0-3) Neutrophils # (Auto) 2.3 x10^3/uL (1.8-7.7) Lymphocytes # (Auto) 1.3 x10^3/uL (1.0-4.8) Monocytes # (Auto) 0.4 x10^3/uL (0.0-1.1) Eosinophils # (Auto) 0.0 x10^3/uL (0.0-0.7) Basophils # (Auto) 0.0 x10^3/uL (0.0-0.2) Sodium Level 136 mmol/L (136-145) Potassium Level 4.1 mmol/L (3.5-5.1) Chloride Level 104 mmol/L (98-107) Carbon Dioxide Level 22 mmol/L (21-32) Anion Gap 10 (6-14) Blood Urea Nitrogen 12 mg/dL (7-20) Creatinine 0.7 mg/dL (0.6-1.0) Estimated GFR (Cockcroft-Gault) 83.0 BUN/Creatinine Ratio 17 (6-20) Glucose Level 132 mg/dL (70-99) Calcium Level 8.4 mg/dL (8.5-10.1) Magnesium Level 1.7 mg/dL (1.8-2.4) Total Bilirubin 0.6 mg/dL (0.2-1.0) Aspartate Amino Transf (AST/SGOT) 45 U/L (15-37) Alanine Aminotransferase (ALT/SGPT) 52 U/L (14-59) Alkaline Phosphatase 83 U/L (46-116) Total Protein 6.2 g/dL (6.4-8.2) Albumin 2.6 g/dL (3.4-5.0) Albumin/Globulin Ratio 0.7 (1.0-1.7) Laboratory Tests Test 03/06/19 08:09 03/06/19 15:59 03/06/19 20:52 03/07/19 05:30 Glucose (Fingerstick) 100 mg/dL (70-99) 109 mg/dL (70-99) 82 mg/dL (70-99) White Blood Count 4.0 x10^3/uL (4.0-11.0) Red Blood Count 4.40 x10^6/uL (3.50-5.40) Hemoglobin 12.7 g/dL (12.0-15.5) Hematocrit 38.2 % (36.0-47.0) Mean Corpuscular Volume 87 fL (79-100) Mean Corpuscular Hemoglobin 29 pg (25-35) Mean Corpuscular Hemoglobin Concent 33 g/dL (31-37) Red Cell Distribution Width 16.2 % (11.5-14.5) Platelet Count 57 x10^3/uL (140-400) Neutrophils (%) (Auto) 58 % (31-73) Lymphocytes (%) (Auto) 32 % (24-48) Monocytes (%) (Auto) 9 % (0-9) Eosinophils (%) (Auto) 1 % (0-3) Basophils (%) (Auto) 0 % (0-3) Neutrophils # (Auto) 2.3 x10^3/uL (1.8-7.7) Lymphocytes # (Auto) 1.3 x10^3/uL (1.0-4.8) Monocytes # (Auto) 0.4 x10^3/uL (0.0-1.1) Eosinophils # (Auto) 0.0 x10^3/uL (0.0-0.7) Basophils # (Auto) 0.0 x10^3/uL (0.0-0.2) Test 03/07/19 05:35 Sodium Level 136 mmol/L (136-145) Potassium Level 4.1 mmol/L (3.5-5.1) Chloride Level 104 mmol/L (98-107) Carbon Dioxide Level 22 mmol/L (21-32) Anion Gap 10 (6-14) Blood Urea Nitrogen 12 mg/dL (7-20) Creatinine 0.7 mg/dL (0.6-1.0) Estimated GFR (Cockcroft-Gault) 83.0 BUN/Creatinine Ratio 17 (6-20) Glucose Level 132 mg/dL (70-99) Calcium Level 8.4 mg/dL (8.5-10.1) Magnesium Level 1.7 mg/dL (1.8-2.4) Total Bilirubin 0.6 mg/dL (0.2-1.0) Aspartate Amino Transf (AST/SGOT) 45 U/L (15-37) Alanine Aminotransferase (ALT/SGPT) 52 U/L (14-59) Alkaline Phosphatase 83 U/L (46-116) Total Protein 6.2 g/dL (6.4-8.2) Albumin 2.6 g/dL (3.4-5.0) Albumin/Globulin Ratio 0.7 (1.0-1.7) Microbiology 03/02/19 Urine Culture - Final, Complete 03/02/19 Urine Culture Result 1 (DONNA) - Final, Complete Medications Current Medications Sodium Chloride 1,000 ml @ 1,000 mls/hr 1X ONCE IV Last administered on 03/02/19at 14:15; Start 03/02/19 at 14:00; Stop 03/02/19 at 14:59; Status DC Morphine Sulfate (Morphine Sulfate) 4 mg 1X ONCE IV Last administered on 03/02/19at 14:14; Start 03/02/19 at 14:30; Stop 03/02/19 at 14:31; Status DC Ondansetron HCl (Zofran) 4 mg 1X ONCE IV Last administered on 03/02/19at 14:13; Start 03/02/19 at 14:30; Stop 03/02/19 at 14:31; Status DC Iohexol (Omnipaque 300 Mg/ml) 60 ml 1X ONCE IV Last administered on 03/02/19at 15:24; Start 03/02/19 at 15:45; Stop 03/02/19 at 15:46; Status DC Info (CONTRAST GIVEN -- Rx MONITORING) 1 each PRN DAILY PRN MC SEE COMMENTS; Start 03/02/19 at 15:15; Stop 03/04/19 at 15:14; Status DC Fentanyl Citrate (Fentanyl 2ml Vial) 75 mcg 1X ONCE IV Last administered on 03/02/19at 16:19; Start 03/02/19 at 16:45; Stop 03/02/19 at 16:46; Status DC Piperacillin Sod/ Tazobactam Sod 3.375 gm/Sodium Chloride 50 ml @ 100 mls/hr 1X ONCE IV Last administered on 03/02/19at 16:26; Start 03/02/19 at 17:00; Stop 03/02/19 at 17:29; Status DC Sodium Chloride 1,000 ml @ 1,000 mls/hr 1X ONCE IV Last administered on 03/02/19at 16:31; Start 03/02/19 at 16:30; Stop 03/02/19 at 17:29; Status DC Ondansetron HCl (Zofran) 4 mg PRN Q8HRS PRN IV NAUSEA/VOMITING; Start 03/02/19 at 17:00; Stop 03/02/19 at 19:48; Status DC Fentanyl Citrate (Fentanyl 2ml Vial) 50 mcg PRN Q2HR PRN IV PAIN Last administered on 03/02/19at 20:51; Start 03/02/19 at 17:00; Stop 03/03/19 at 16:59; Status DC Sodium Chloride 1,000 ml @ 100 mls/hr Q10H IV ; Start 03/02/19 at 16:48; Stop 03/03/19 at 16:47; Status Cancel Sodium Chloride (Normal Saline Flush) 3 ml QSHIFT PRN IV AFTER MEDS AND BLOOD DRAWS; Start 03/02/19 at 19:45 Sodium Chloride 1,000 ml @ 100 mls/hr Q10H IV Last administered on 03/06/19at 15:00; Start 03/02/19 at 21:00 Ondansetron HCl (Zofran) 4 mg PRN Q4HRS PRN IV NAUSEA/VOMITING, 1st CHOICE Last administered on 03/06/19at 23:37; Start 03/02/19 at 19:45 Acetaminophen (Tylenol) 650 mg PRN Q4HRS PRN PO TEMP OVER 100.4F OR MILD PAIN; Start 03/02/19 at 19:45 Clonidine HCl (Catapres) 0.1 mg PRN Q6HRS PRN PO SBP>160 OR DBP>90; Start 03/02/19 at 19:45 Guaifenesin (Robitussin) 200 mg PRN Q4HRS PRN PO COUGH; Start 03/02/19 at 19:45 Lorazepam (Ativan) 0.5 mg PRN Q4HRS PRN PO ANXIETY / AGITATION; Start 03/02/19 at 19:45 Hydromorphone HCl (Dilaudid) 1 mg PRN Q2HRS PRN IV SEVERE PAIN 7-10 Last administered on 03/06/19at 17:53; Start 03/02/19 at 19:45 Enoxaparin Sodium (Lovenox 40mg Syringe) 40 mg DAILY SQ Last administered on 03/06/19at 08:13; Start 03/03/19 at 09:00 Metoclopramide HCl (Reglan Vial) 10 mg PRN Q6HRS PRN IV NAUSEA/VOMITING, 2nd CHOICE Last administered on 03/04/19at 11:25; Start 03/03/19 at 12:00 Pantoprazole Sodium (PROTONIX VIAL for IV PUSH) 40 mg DAILYAC IVP Last administered on 03/07/19at 06:12; Start 03/04/19 at 09:30 Potassium Chloride/Water 100 ml @ 100 mls/hr Q1H IV Last administered on 03/06/19at 16:00; Start 03/06/19 at 13:00; Stop 03/06/19 at 16:59; Status DC Amino Acids/ Glycerin/ Electrolytes 1,000 ml @ 80 mls/hr [id number] IV Last administered on 03/06/19at 21:05; Start 03/06/19 at 21:00 Magnesium Sulfate 50 ml @ 25 mls/hr 1X ONCE IV ; Start 03/07/19 at 08:00; Stop 03/07/19 at 09:59; Status UNV Active Scripts Active Reported Vitamin D3 (Cholecalciferol (Vitamin D3)) 1,000 Unit Tablet 2,000 Unit PO DAILY Ferrous Sulfate 325 Mg Tablet 325 Mg PO DAILY Atorvastatin Calcium 20 Mg Tablet 20 Mg PO DAILY Glimepiride 2 Mg Tablet 2 Tab PO BID Losartan Potassium 100 Mg Tablet 100 Mg PO DAILY Protonix (Pantoprazole Sodium) 40 Mg Tablet.dr 40 Mg PO DAILYAC Vitals/I & O Vital Sign - Last 24 Hours 03/06/19 03/06/19 03/06/19 03/06/19 11:00 13:00 14:21 15:00 Temp 97.7 98.1 97.7 98.1 Pulse 64 59 Resp 18 18 B/P (MAP) 167/67 (100) 142/82 (102) Pulse Ox 98 98 98 97 O2 Delivery Room Air Room Air Room Air Room Air 03/06/19 03/06/19 03/06/19 03/06/19 17:53 19:00 19:30 23:00 Temp 98.3 98.5 98.3 98.5 Pulse 67 83 Resp 18 18 B/P (MAP) 155/53 (87) 159/47 (84) Pulse Ox 97 95 95 O2 Delivery Room Air Room Air Room Air Room Air 03/07/19 03:00 Temp 98.1 98.1 Pulse 77 Resp 18 B/P (MAP) 124/57 (79) Pulse Ox 94 O2 Delivery Room Air WALT RM MD Mar 07, 2019 08:03
[2019-03-07] MEDS: ENOXAPARIN 40 MG/0.4 ML SYRINGE. SQ SCH (08:24)
[2019-03-07] MEDS: HYDROmorphone 2 MG/ML VIAL IV PRN (08:25)
[2019-03-07] MEDS: ONDANSETRON PF 4 MG/2 ML VIAL. IV PRN (08:25)
[2019-03-07] MEDS ORDERED: MAGNESIUM SULFATE 2GM 50 ML IV ONE (08:30)
--- NOTE | 2019-03-07 08:51 | PDOC ---
SURGICAL PROGRESS NOTE Subjective mostly pain to lower abdomen, more on right nausea yesterday evening Vital Signs Vital Signs Date Time Temp Pulse Resp B/P (MAP) Pulse Ox O2 Delivery O2 Flow Rate FiO2 03/07/19 08:25 Room Air 03/07/19 07:00 98.2 68 18 143/35 (71) 96 98.2 I&O Intake and Output 03/07/19 07:00 # Voids 6 General: Alert, Oriented X3, Cooperative, No acute distress Abdomen: Soft, Other (mild TTP lower abdomen) Labs Laboratory Tests Test 03/05/19 15:52 03/05/19 20:21 03/06/19 04:35 03/06/19 08:09 Glucose (Fingerstick) 90 mg/dL (70-99) 117 mg/dL (70-99) 100 mg/dL (70-99) White Blood Count 3.7 x10^3/uL (4.0-11.0) Red Blood Count 4.43 x10^6/uL (3.50-5.40) Hemoglobin 12.7 g/dL (12.0-15.5) Hematocrit 38.5 % (36.0-47.0) Mean Corpuscular Volume 87 fL (79-100) Mean Corpuscular Hemoglobin 29 pg (25-35) Mean Corpuscular Hemoglobin Concent 33 g/dL (31-37) Red Cell Distribution Width 16.1 % (11.5-14.5) Platelet Count 54 x10^3/uL (140-400) Neutrophils (%) (Auto) 50 % (31-73) Lymphocytes (%) (Auto) 38 % (24-48) Monocytes (%) (Auto) 10 % (0-9) Eosinophils (%) (Auto) 2 % (0-3) Basophils (%) (Auto) 0 % (0-3) Neutrophils # (Auto) 1.9 x10^3/uL (1.8-7.7) Lymphocytes # (Auto) 1.4 x10^3/uL (1.0-4.8) Monocytes # (Auto) 0.4 x10^3/uL (0.0-1.1) Eosinophils # (Auto) 0.1 x10^3/uL (0.0-0.7) Basophils # (Auto) 0.0 x10^3/uL (0.0-0.2) Sodium Level 139 mmol/L (136-145) Potassium Level 3.4 mmol/L (3.5-5.1) Chloride Level 106 mmol/L (98-107) Carbon Dioxide Level 22 mmol/L (21-32) Anion Gap 11 (6-14) Blood Urea Nitrogen 10 mg/dL (7-20) Creatinine 0.7 mg/dL (0.6-1.0) Estimated GFR (Cockcroft-Gault) 83.2 BUN/Creatinine Ratio 14 (6-20) Glucose Level 95 mg/dL (70-99) Calcium Level 8.1 mg/dL (8.5-10.1) Total Bilirubin 0.7 mg/dL (0.2-1.0) Aspartate Amino Transf (AST/SGOT) 47 U/L (15-37) Alanine Aminotransferase (ALT/SGPT) 57 U/L (14-59) Alkaline Phosphatase 95 U/L (46-116) Total Protein 6.2 g/dL (6.4-8.2) Albumin 2.5 g/dL (3.4-5.0) Albumin/Globulin Ratio 0.7 (1.0-1.7) Test 03/06/19 15:59 03/06/19 20:52 03/07/19 05:30 03/07/19 05:35 Glucose (Fingerstick) 109 mg/dL (70-99) 82 mg/dL (70-99) White Blood Count 4.0 x10^3/uL (4.0-11.0) Red Blood Count 4.40 x10^6/uL (3.50-5.40) Hemoglobin 12.7 g/dL (12.0-15.5) Hematocrit 38.2 % (36.0-47.0) Mean Corpuscular Volume 87 fL (79-100) Mean Corpuscular Hemoglobin 29 pg (25-35) Mean Corpuscular Hemoglobin Concent 33 g/dL (31-37) Red Cell Distribution Width 16.2 % (11.5-14.5) Platelet Count 57 x10^3/uL (140-400) Neutrophils (%) (Auto) 58 % (31-73) Lymphocytes (%) (Auto) 32 % (24-48) Monocytes (%) (Auto) 9 % (0-9) Eosinophils (%) (Auto) 1 % (0-3) Basophils (%) (Auto) 0 % (0-3) Neutrophils # (Auto) 2.3 x10^3/uL (1.8-7.7) Lymphocytes # (Auto) 1.3 x10^3/uL (1.0-4.8) Monocytes # (Auto) 0.4 x10^3/uL (0.0-1.1) Eosinophils # (Auto) 0.0 x10^3/uL (0.0-0.7) Basophils # (Auto) 0.0 x10^3/uL (0.0-0.2) Sodium Level 136 mmol/L (136-145) Potassium Level 4.1 mmol/L (3.5-5.1) Chloride Level 104 mmol/L (98-107) Carbon Dioxide Level 22 mmol/L (21-32) Anion Gap 10 (6-14) Blood Urea Nitrogen 12 mg/dL (7-20) Creatinine 0.7 mg/dL (0.6-1.0) Estimated GFR (Cockcroft-Gault) 83.0 BUN/Creatinine Ratio 17 (6-20) Glucose Level 132 mg/dL (70-99) Calcium Level 8.4 mg/dL (8.5-10.1) Magnesium Level 1.7 mg/dL (1.8-2.4) Total Bilirubin 0.6 mg/dL (0.2-1.0) Aspartate Amino Transf (AST/SGOT) 45 U/L (15-37) Alanine Aminotransferase (ALT/SGPT) 52 U/L (14-59) Alkaline Phosphatase 83 U/L (46-116) Total Protein 6.2 g/dL (6.4-8.2) Albumin 2.6 g/dL (3.4-5.0) Albumin/Globulin Ratio 0.7 (1.0-1.7) Laboratory Tests Test 03/06/19 15:59 03/06/19 20:52 03/07/19 05:30 03/07/19 05:35 Glucose (Fingerstick) 109 mg/dL (70-99) 82 mg/dL (70-99) White Blood Count 4.0 x10^3/uL (4.0-11.0) Red Blood Count 4.40 x10^6/uL (3.50-5.40) Hemoglobin 12.7 g/dL (12.0-15.5) Hematocrit 38.2 % (36.0-47.0) Mean Corpuscular Volume 87 fL (79-100) Mean Corpuscular Hemoglobin 29 pg (25-35) Mean Corpuscular Hemoglobin Concent 33 g/dL (31-37) Red Cell Distribution Width 16.2 % (11.5-14.5) Platelet Count 57 x10^3/uL (140-400) Neutrophils (%) (Auto) 58 % (31-73) Lymphocytes (%) (Auto) 32 % (24-48) Monocytes (%) (Auto) 9 % (0-9) Eosinophils (%) (Auto) 1 % (0-3) Basophils (%) (Auto) 0 % (0-3) Neutrophils # (Auto) 2.3 x10^3/uL (1.8-7.7) Lymphocytes # (Auto) 1.3 x10^3/uL (1.0-4.8) Monocytes # (Auto) 0.4 x10^3/uL (0.0-1.1) Eosinophils # (Auto) 0.0 x10^3/uL (0.0-0.7) Basophils # (Auto) 0.0 x10^3/uL (0.0-0.2) Sodium Level 136 mmol/L (136-145) Potassium Level 4.1 mmol/L (3.5-5.1) Chloride Level 104 mmol/L (98-107) Carbon Dioxide Level 22 mmol/L (21-32) Anion Gap 10 (6-14) Blood Urea Nitrogen 12 mg/dL (7-20) Creatinine 0.7 mg/dL (0.6-1.0) Estimated GFR (Cockcroft-Gault) 83.0 BUN/Creatinine Ratio 17 (6-20) Glucose Level 132 mg/dL (70-99) Calcium Level 8.4 mg/dL (8.5-10.1) Magnesium Level 1.7 mg/dL (1.8-2.4) Total Bilirubin 0.6 mg/dL (0.2-1.0) Aspartate Amino Transf (AST/SGOT) 45 U/L (15-37) Alanine Aminotransferase (ALT/SGPT) 52 U/L (14-59) Alkaline Phosphatase 83 U/L (46-116) Total Protein 6.2 g/dL (6.4-8.2) Albumin 2.6 g/dL (3.4-5.0) Albumin/Globulin Ratio 0.7 (1.0-1.7) Problem List Problems Medical Problems: (1) Acute gallstone pancreatitis Status: Acute (2) Cholecystitis Status: Acute (3) Thrombocytopenia Status: Acute Assessment/Plan supportive measures will review with JOANNA Quiles APRN Mar 07, 2019 08:51
[2019-03-07] MEDS: AMINO AC 3%/ELECTROLYTE/GLYCER 1,000 ML IV SCH ×2 (09:30→11:00)
--- NOTE | 2019-03-07 10:54 | NUR ---
SS following up with discharge planning. PT recommended home with assistance. Pt starting TPN. SS will continue to follow for discharge planning.
[2019-03-07 11:00] VITALS: BP 134/51
--- NOTE | 2019-03-07 12:27 | PDOC ---
PROGRESS NOTES Subjective Subjective HPI -f/u of Thrombocytopenia ROS - has abd pain, stable Objective Objective Vital Signs Date Time Temp Pulse Resp B/P (MAP) Pulse Ox O2 Delivery O2 Flow Rate FiO2 03/07/19 08:55 Room Air 03/07/19 07:00 98.2 68 18 143/35 (71) 96 98.2 Intake and Output 03/07/19 07:00 # Voids 6 Physical Exam Heart: Normal S1, Normal S2 General: Alert, Oriented X3 Lungs: Clear to auscultation Neuro: Normal speech Psych/Mental Status: Mental status NL Assessment Assessment Problems Medical Problems: (1) Acute gallstone pancreatitis Status: Acute (2) Cholecystitis Status: Acute (3) Thrombocytopenia Status: Acute IMPRESSION AND PLAN: 1. Thrombocytopenia, chronic, due to cirrhosis of the liver and portal hypertension and splenomegaly. Platelet count was worse at 44,000 on 03/03/2019. No signs of bleeding. I would continue to monitor and transfuse, if there is any evidence of bleeding or if surgical intervention is necessary. Plt 57. I d/w RN. 2. Pancreatitis. Management per Gastroenterology. 3. Cholecystitis. Management per Gastroenterology. 4. Leukopenia due to splenomegaly. WBC was 3.4 on 03/02/2019 and it improved to 4.7 on 03/03/2019. Continue to monitor CBC. Comment Review of Relevant I have reviewed the following items popeye (where applicable) has been applied. Labs Laboratory Tests Test 03/05/19 15:52 03/05/19 20:21 03/06/19 04:35 03/06/19 08:09 Glucose (Fingerstick) 90 mg/dL (70-99) 117 mg/dL (70-99) 100 mg/dL (70-99) White Blood Count 3.7 x10^3/uL (4.0-11.0) Red Blood Count 4.43 x10^6/uL (3.50-5.40) Hemoglobin 12.7 g/dL (12.0-15.5) Hematocrit 38.5 % (36.0-47.0) Mean Corpuscular Volume 87 fL (79-100) Mean Corpuscular Hemoglobin 29 pg (25-35) Mean Corpuscular Hemoglobin Concent 33 g/dL (31-37) Red Cell Distribution Width 16.1 % (11.5-14.5) Platelet Count 54 x10^3/uL (140-400) Neutrophils (%) (Auto) 50 % (31-73) Lymphocytes (%) (Auto) 38 % (24-48) Monocytes (%) (Auto) 10 % (0-9) Eosinophils (%) (Auto) 2 % (0-3) Basophils (%) (Auto) 0 % (0-3) Neutrophils # (Auto) 1.9 x10^3/uL (1.8-7.7) Lymphocytes # (Auto) 1.4 x10^3/uL (1.0-4.8) Monocytes # (Auto) 0.4 x10^3/uL (0.0-1.1) Eosinophils # (Auto) 0.1 x10^3/uL (0.0-0.7) Basophils # (Auto) 0.0 x10^3/uL (0.0-0.2) Sodium Level 139 mmol/L (136-145) Potassium Level 3.4 mmol/L (3.5-5.1) Chloride Level 106 mmol/L (98-107) Carbon Dioxide Level 22 mmol/L (21-32) Anion Gap 11 (6-14) Blood Urea Nitrogen 10 mg/dL (7-20) Creatinine 0.7 mg/dL (0.6-1.0) Estimated GFR (Cockcroft-Gault) 83.2 BUN/Creatinine Ratio 14 (6-20) Glucose Level 95 mg/dL (70-99) Calcium Level 8.1 mg/dL (8.5-10.1) Total Bilirubin 0.7 mg/dL (0.2-1.0) Aspartate Amino Transf (AST/SGOT) 47 U/L (15-37) Alanine Aminotransferase (ALT/SGPT) 57 U/L (14-59) Alkaline Phosphatase 95 U/L (46-116) Total Protein 6.2 g/dL (6.4-8.2) Albumin 2.5 g/dL (3.4-5.0) Albumin/Globulin Ratio 0.7 (1.0-1.7) Test 03/06/19 15:59 03/06/19 20:52 03/07/19 05:30 03/07/19 05:35 Glucose (Fingerstick) 109 mg/dL (70-99) 82 mg/dL (70-99) White Blood Count 4.0 x10^3/uL (4.0-11.0) Red Blood Count 4.40 x10^6/uL (3.50-5.40) Hemoglobin 12.7 g/dL (12.0-15.5) Hematocrit 38.2 % (36.0-47.0) Mean Corpuscular Volume 87 fL (79-100) Mean Corpuscular Hemoglobin 29 pg (25-35) Mean Corpuscular Hemoglobin Concent 33 g/dL (31-37) Red Cell Distribution Width 16.2 % (11.5-14.5) Platelet Count 57 x10^3/uL (140-400) Neutrophils (%) (Auto) 58 % (31-73) Lymphocytes (%) (Auto) 32 % (24-48) Monocytes (%) (Auto) 9 % (0-9) Eosinophils (%) (Auto) 1 % (0-3) Basophils (%) (Auto) 0 % (0-3) Neutrophils # (Auto) 2.3 x10^3/uL (1.8-7.7) Lymphocytes # (Auto) 1.3 x10^3/uL (1.0-4.8) Monocytes # (Auto) 0.4 x10^3/uL (0.0-1.1) Eosinophils # (Auto) 0.0 x10^3/uL (0.0-0.7) Basophils # (Auto) 0.0 x10^3/uL (0.0-0.2) Sodium Level 136 mmol/L (136-145) Potassium Level 4.1 mmol/L (3.5-5.1) Chloride Level 104 mmol/L (98-107) Carbon Dioxide Level 22 mmol/L (21-32) Anion Gap 10 (6-14) Blood Urea Nitrogen 12 mg/dL (7-20) Creatinine 0.7 mg/dL (0.6-1.0) Estimated GFR (Cockcroft-Gault) 83.0 BUN/Creatinine Ratio 17 (6-20) Glucose Level 132 mg/dL (70-99) Calcium Level 8.4 mg/dL (8.5-10.1) Magnesium Level 1.7 mg/dL (1.8-2.4) Total Bilirubin 0.6 mg/dL (0.2-1.0) Aspartate Amino Transf (AST/SGOT) 45 U/L (15-37) Alanine Aminotransferase (ALT/SGPT) 52 U/L (14-59) Alkaline Phosphatase 83 U/L (46-116) Total Protein 6.2 g/dL (6.4-8.2) Albumin 2.6 g/dL (3.4-5.0) Albumin/Globulin Ratio 0.7 (1.0-1.7) Test 03/07/19 07:35 03/07/19 11:02 Glucose (Fingerstick) 131 mg/dL (70-99) 131 mg/dL (70-99) Laboratory Tests Test 03/06/19 15:59 03/06/19 20:52 03/07/19 05:30 03/07/19 05:35 Glucose (Fingerstick) 109 mg/dL (70-99) 82 mg/dL (70-99) White Blood Count 4.0 x10^3/uL (4.0-11.0) Red Blood Count 4.40 x10^6/uL (3.50-5.40) Hemoglobin 12.7 g/dL (12.0-15.5) Hematocrit 38.2 % (36.0-47.0) Mean Corpuscular Volume 87 fL (79-100) Mean Corpuscular Hemoglobin 29 pg (25-35) Mean Corpuscular Hemoglobin Concent 33 g/dL (31-37) Red Cell Distribution Width 16.2 % (11.5-14.5) Platelet Count 57 x10^3/uL (140-400) Neutrophils (%) (Auto) 58 % (31-73) Lymphocytes (%) (Auto) 32 % (24-48) Monocytes (%) (Auto) 9 % (0-9) Eosinophils (%) (Auto) 1 % (0-3) Basophils (%) (Auto) 0 % (0-3) Neutrophils # (Auto) 2.3 x10^3/uL (1.8-7.7) Lymphocytes # (Auto) 1.3 x10^3/uL (1.0-4.8) Monocytes # (Auto) 0.4 x10^3/uL (0.0-1.1) Eosinophils # (Auto) 0.0 x10^3/uL (0.0-0.7) Basophils # (Auto) 0.0 x10^3/uL (0.0-0.2) Sodium Level 136 mmol/L (136-145) Potassium Level 4.1 mmol/L (3.5-5.1) Chloride Level 104 mmol/L (98-107) Carbon Dioxide Level 22 mmol/L (21-32) Anion Gap 10 (6-14) Blood Urea Nitrogen 12 mg/dL (7-20) Creatinine 0.7 mg/dL (0.6-1.0) Estimated GFR (Cockcroft-Gault) 83.0 BUN/Creatinine Ratio 17 (6-20) Glucose Level 132 mg/dL (70-99) Calcium Level 8.4 mg/dL (8.5-10.1) Magnesium Level 1.7 mg/dL (1.8-2.4) Total Bilirubin 0.6 mg/dL (0.2-1.0) Aspartate Amino Transf (AST/SGOT) 45 U/L (15-37) Alanine Aminotransferase (ALT/SGPT) 52 U/L (14-59) Alkaline Phosphatase 83 U/L (46-116) Total Protein 6.2 g/dL (6.4-8.2) Albumin 2.6 g/dL (3.4-5.0) Albumin/Globulin Ratio 0.7 (1.0-1.7) Test 03/07/19 07:35 03/07/19 11:02 Glucose (Fingerstick) 131 mg/dL (70-99) 131 mg/dL (70-99) Microbiology 03/02/19 Urine Culture - Final, Complete 03/02/19 Urine Culture Result 1 (DONNA) - Final, Complete Medications Current Medications Sodium Chloride 1,000 ml @ 1,000 mls/hr 1X ONCE IV Last administered on 03/02/19at 14:15; Start 03/02/19 at 14:00; Stop 03/02/19 at 14:59; Status DC Morphine Sulfate (Morphine Sulfate) 4 mg 1X ONCE IV Last administered on 03/02/19at 14:14; Start 03/02/19 at 14:30; Stop 03/02/19 at 14:31; Status DC Ondansetron HCl (Zofran) 4 mg 1X ONCE IV Last administered on 03/02/19at 14:13; Start 03/02/19 at 14:30; Stop 03/02/19 at 14:31; Status DC Iohexol (Omnipaque 300 Mg/ml) 60 ml 1X ONCE IV Last administered on 03/02/19at 15:24; Start 03/02/19 at 15:45; Stop 03/02/19 at 15:46; Status DC Info (CONTRAST GIVEN -- Rx MONITORING) 1 each PRN DAILY PRN MC SEE COMMENTS; Start 03/02/19 at 15:15; Stop 03/04/19 at 15:14; Status DC Fentanyl Citrate (Fentanyl 2ml Vial) 75 mcg 1X ONCE IV Last administered on 03/02/19at 16:19; Start 03/02/19 at 16:45; Stop 03/02/19 at 16:46; Status DC Piperacillin Sod/ Tazobactam Sod 3.375 gm/Sodium Chloride 50 ml @ 100 mls/hr 1X ONCE IV Last administered on 03/02/19at 16:26; Start 03/02/19 at 17:00; Stop 03/02/19 at 17:29; Status DC Sodium Chloride 1,000 ml @ 1,000 mls/hr 1X ONCE IV Last administered on 03/02/19at 16:31; Start 03/02/19 at 16:30; Stop 03/02/19 at 17:29; Status DC Ondansetron HCl (Zofran) 4 mg PRN Q8HRS PRN IV NAUSEA/VOMITING; Start 03/02/19 at 17:00; Stop 03/02/19 at 19:48; Status DC Fentanyl Citrate (Fentanyl 2ml Vial) 50 mcg PRN Q2HR PRN IV PAIN Last administered on 03/02/19at 20:51; Start 03/02/19 at 17:00; Stop 03/03/19 at 16:59; Status DC Sodium Chloride 1,000 ml @ 100 mls/hr Q10H IV ; Start 03/02/19 at 16:48; Stop 03/03/19 at 16:47; Status Cancel Sodium Chloride (Normal Saline Flush) 3 ml QSHIFT PRN IV AFTER MEDS AND BLOOD DRAWS; Start 03/02/19 at 19:45 Sodium Chloride 1,000 ml @ 100 mls/hr Q10H IV Last administered on 03/06/19at 15:00; Start 03/02/19 at 21:00 Ondansetron HCl (Zofran) 4 mg PRN Q4HRS PRN IV NAUSEA/VOMITING, 1st CHOICE Last administered on 03/07/19 08:25; Start 03/02/19 at 19:45 Acetaminophen (Tylenol) 650 mg PRN Q4HRS PRN PO TEMP OVER 100.4F OR MILD PAIN; Start 03/02/19 at 19:45 Clonidine HCl (Catapres) 0.1 mg PRN Q6HRS PRN PO SBP>160 OR DBP>90; Start 03/02/19 at 19:45 Guaifenesin (Robitussin) 200 mg PRN Q4HRS PRN PO COUGH; Start 03/02/19 at 19:45 Lorazepam (Ativan) 0.5 mg PRN Q4HRS PRN PO ANXIETY / AGITATION; Start 03/02/19 at 19:45 Hydromorphone HCl (Dilaudid) 1 mg PRN Q2HRS PRN IV SEVERE PAIN 7-10 Last administered on 03/07/19at 08:25; Start 03/02/19 at 19:45 Enoxaparin Sodium (Lovenox 40mg Syringe) 40 mg DAILY SQ Last administered on 03/07/19 08:24; Start 03/03/19 at 09:00 Metoclopramide HCl (Reglan Vial) 10 mg PRN Q6HRS PRN IV NAUSEA/VOMITING, 2nd CHOICE Last administered on 03/04/19at 11:25; Start 03/03/19 at 12:00 Pantoprazole Sodium (PROTONIX VIAL for IV PUSH) 40 mg DAILYAC IVP Last administered on 03/07/19at 06:12; Start 03/04/19 at 09:30 Potassium Chloride/Water 100 ml @ 100 mls/hr Q1H IV Last administered on 03/06/19at 16:00; Start 03/06/19 at 13:00; Stop 03/06/19 at 16:59; Status DC Amino Acids/ Glycerin/ Electrolytes 1,000 ml @ 80 mls/hr [id number] IV Last administered on 03/06/19at 21:05; Start 03/06/19 at 21:00 Magnesium Sulfate 50 ml @ 25 mls/hr 1X ONCE IV Last administered on 03/07/19at 08:24; Start 03/07/19 at 08:30; Stop 03/07/19 at 10:29; Status DC Active Scripts Active Reported Vitamin D3 (Cholecalciferol (Vitamin D3)) 1,000 Unit Tablet 2,000 Unit PO DAILY Ferrous Sulfate 325 Mg Tablet 325 Mg PO DAILY Atorvastatin Calcium 20 Mg Tablet 20 Mg PO DAILY Glimepiride 2 Mg Tablet 2 Tab PO BID Losartan Potassium 100 Mg Tablet 100 Mg PO DAILY Protonix (Pantoprazole Sodium) 40 Mg Tablet.dr 40 Mg PO DAILYAC Vitals/I & O Vital Sign - Last 24 Hours 03/06/19 03/06/19 03/06/19 03/06/19 13:00 14:21 15:00 17:53 Temp 98.1 98.1 Pulse 59 Resp 18 B/P (MAP) 142/82 (102) Pulse Ox 98 98 97 97 O2 Delivery Room Air Room Air Room Air 03/06/19 03/06/19 03/06/19 03/07/19 19:00 19:30 23:00 03:00 Temp 98.3 98.5 98.1 98.3 98.5 98.1 Pulse 67 83 77 Resp 18 18 18 B/P (MAP) 155/53 (87) 159/47 (84) 124/57 (79) Pulse Ox 95 95 94 O2 Delivery Room Air Room Air Room Air Room Air 03/07/19 03/07/19 03/07/19 03/07/19 07:00 08:00 08:25 08:55 Temp 98.2 98.2 Pulse 68 Resp 18 B/P (MAP) 143/35 (71) Pulse Ox 96 O2 Delivery Room Air Room Air Room Air Room Air IONA PAREDES MD Mar 07, 2019 12:27
--- NOTE | 2019-03-07 12:30 | PDOC ---
Subjective: Subjective: Lower abd pain, bloating, back pain. Family present with questions - they want to know if she's having surgery today or if there is a pill for gallstones. [birth year] today. Objective: Objective: D/w nurse - tried clears yesterday and vomited. ?plan for central line Family always has many questions. Has IV PPI and PPN, also IV Reglan. Vital Signs: Vital Signs Date Time Temp Pulse Resp B/P (MAP) Pulse Ox O2 Delivery O2 Flow Rate FiO2 03/07/19 08:55 Room Air 03/07/19 07:00 98.2 68 18 143/35 (71) 96 98.2 Labs: Laboratory Tests Test 03/06/19 15:59 03/06/19 20:52 03/07/19 05:30 03/07/19 05:35 Glucose (Fingerstick) 109 mg/dL 82 mg/dL White Blood Count 4.0 x10^3/uL Red Blood Count 4.40 x10^6/uL Hemoglobin 12.7 g/dL Hematocrit 38.2 % Mean Corpuscular Volume 87 fL Mean Corpuscular Hemoglobin 29 pg Mean Corpuscular Hemoglobin Concent 33 g/dL Red Cell Distribution Width 16.2 % Platelet Count 57 x10^3/uL Neutrophils (%) (Auto) 58 % Lymphocytes (%) (Auto) 32 % Monocytes (%) (Auto) 9 % Eosinophils (%) (Auto) 1 % Basophils (%) (Auto) 0 % Neutrophils # (Auto) 2.3 x10^3/uL Lymphocytes # (Auto) 1.3 x10^3/uL Monocytes # (Auto) 0.4 x10^3/uL Eosinophils # (Auto) 0.0 x10^3/uL Basophils # (Auto) 0.0 x10^3/uL Sodium Level 136 mmol/L Potassium Level 4.1 mmol/L Chloride Level 104 mmol/L Carbon Dioxide Level 22 mmol/L Anion Gap 10 Blood Urea Nitrogen 12 mg/dL Creatinine 0.7 mg/dL Estimated GFR (Cockcroft-Gault) 83.0 BUN/Creatinine Ratio 17 Glucose Level 132 mg/dL Calcium Level 8.4 mg/dL Magnesium Level 1.7 mg/dL Total Bilirubin 0.6 mg/dL Aspartate Amino Transf (AST/SGOT) 45 U/L Alanine Aminotransferase (ALT/SGPT) 52 U/L Alkaline Phosphatase 83 U/L Total Protein 6.2 g/dL Albumin 2.6 g/dL Albumin/Globulin Ratio 0.7 Test 03/07/19 07:35 03/07/19 11:02 Glucose (Fingerstick) 131 mg/dL 131 mg/dL PE: GEN: NAD LUNGS: CTAB HEART: RRR ABD: round, soft, not particularly tender NEURO/PSYCH: A & O �3 A/P: Gallstone pancreatitis Cirrhosis (VALLE) w/ chronic thrombocytopenia (stable) -- Spent significant time, answered family's questions to their satisfaction. Continue per surgery and hematology. SURJIT PALOMO Mar 07, 2019 12:30
[2019-03-07 15:00] VITALS: BP 136/56
[2019-03-07 19:00] VITALS: BP 133/67
[2019-03-07 23:00] VITALS: BP 135/82
[2019-03-08 03:00] VITALS: BP 133/66
[2019-03-08] MEDS: PANTOPRAZOLE IV PUSH 40 MG VIAL. IVP SCH (06:27)
[2019-03-08] MEDS: HYDROmorphone 2 MG/ML VIAL IV PRN ×2 (06:29→19:11)
[2019-03-08 07:00] VITALS: BP 160/70
[2019-03-08] MEDS: IV NORMAL SALINE 1000ML BAG 1,000 ML IV SCH (07:00)
--- NOTE | 2019-03-08 07:46 | PDOC ---
PROGRESS NOTES Chief Complaint Chief Complaint Symptomatic gallstones with pancreatitis and cholecystitis - Mild gallbladder wall thickening is seen. may represent cholecystitis. Cholelithiasis is evident. No dilatation of the extra hepatic biliary duct is seen. Wall thickening of the stomach and duodenum most likely is reactive secondary to pancreatitis. Leukopenia, Thrombocytopenia, chronic, due to cirrhosis of the liver and portal hypertension and splenomegaly. Platelet count was worse at 44,000 on 03/03/2019. No signs of bleeding. continue to monitor and transfuse, if there is any evidence of bleeding or if surgical intervention is necessary. Hypokalemia 03/06 History of Present Illness History of Present Illness Admitted for intractable abdominal pain with pancreatitis Consulted Hematology/Oncology for thrombocytopenia, consulted Gastroenterology and Surgery for pancreatitis She still c/o bilateral lower quadrant and LUQ pain today, nausea. Advanced to clear liquid diet yesterday evening. PICC inserted per IR this morning. Has been on PPN. TPN per surgery Plan: prn iv narcotics, prn Zofran, intravenous fluid support, home medications, deep vein thrombosis prophylaxis; full code. replete k iv and mag IV continue to monitor and transfuse, if there is any evidence of bleeding or if surgical intervention is necessary. Ok for PICC, IJ for TPN 27 min pt exam, chart review, > 50% of time spent with exam, chart review, pt care coordination Vitals Vitals Vital Signs Date Time Temp Pulse Resp B/P (MAP) Pulse Ox O2 Delivery O2 Flow Rate FiO2 03/08/19 06:29 96 Room Air 03/08/19 03:00 99.1 72 18 133/66 (88) 99.1 Physical Exam General: Alert, Oriented X3 Heart: Normal S1, Normal S2 Lungs: Clear Abdomen: Soft, Other (mild TTP lower abdomen) Extremities: No clubbing, No cyanosis, Normal pulses Skin: No significant lesion Labs LABS Laboratory Tests Test 03/07/19 11:02 03/07/19 15:32 03/07/19 20:42 Glucose (Fingerstick) 131 mg/dL (70-99) 128 mg/dL (70-99) 135 mg/dL (70-99) Assessment and Plan Assessmemt and Plan Problems Medical Problems: (1) Acute gallstone pancreatitis Status: Acute (2) Cholecystitis Status: Acute (3) Thrombocytopenia Status: Acute Comment Review of Relevant I have reviewed the following items popeye (where applicable) has been applied. Labs Laboratory Tests Test 03/06/19 08:09 03/06/19 15:59 03/06/19 20:52 03/07/19 05:30 Glucose (Fingerstick) 100 mg/dL (70-99) 109 mg/dL (70-99) 82 mg/dL (70-99) White Blood Count 4.0 x10^3/uL (4.0-11.0) Red Blood Count 4.40 x10^6/uL (3.50-5.40) Hemoglobin 12.7 g/dL (12.0-15.5) Hematocrit 38.2 % (36.0-47.0) Mean Corpuscular Volume 87 fL (79-100) Mean Corpuscular Hemoglobin 29 pg (25-35) Mean Corpuscular Hemoglobin Concent 33 g/dL (31-37) Red Cell Distribution Width 16.2 % (11.5-14.5) Platelet Count 57 x10^3/uL (140-400) Neutrophils (%) (Auto) 58 % (31-73) Lymphocytes (%) (Auto) 32 % (24-48) Monocytes (%) (Auto) 9 % (0-9) Eosinophils (%) (Auto) 1 % (0-3) Basophils (%) (Auto) 0 % (0-3) Neutrophils # (Auto) 2.3 x10^3/uL (1.8-7.7) Lymphocytes # (Auto) 1.3 x10^3/uL (1.0-4.8) Monocytes # (Auto) 0.4 x10^3/uL (0.0-1.1) Eosinophils # (Auto) 0.0 x10^3/uL (0.0-0.7) Basophils # (Auto) 0.0 x10^3/uL (0.0-0.2) Test 03/07/19 05:35 03/07/19 07:35 03/07/19 11:02 03/07/19 15:32 Sodium Level 136 mmol/L (136-145) Potassium Level 4.1 mmol/L (3.5-5.1) Chloride Level 104 mmol/L (98-107) Carbon Dioxide Level 22 mmol/L (21-32) Anion Gap 10 (6-14) Blood Urea Nitrogen 12 mg/dL (7-20) Creatinine 0.7 mg/dL (0.6-1.0) Estimated GFR (Cockcroft-Gault) 83.0 BUN/Creatinine Ratio 17 (6-20) Glucose Level 132 mg/dL (70-99) Calcium Level 8.4 mg/dL (8.5-10.1) Magnesium Level 1.7 mg/dL (1.8-2.4) Total Bilirubin 0.6 mg/dL (0.2-1.0) Aspartate Amino Transf (AST/SGOT) 45 U/L (15-37) Alanine Aminotransferase (ALT/SGPT) 52 U/L (14-59) Alkaline Phosphatase 83 U/L (46-116) Total Protein 6.2 g/dL (6.4-8.2) Albumin 2.6 g/dL (3.4-5.0) Albumin/Globulin Ratio 0.7 (1.0-1.7) Glucose (Fingerstick) 131 mg/dL (70-99) 131 mg/dL (70-99) 128 mg/dL (70-99) Test 03/07/19 20:42 Glucose (Fingerstick) 135 mg/dL (70-99) Laboratory Tests Test 03/07/19 11:02 03/07/19 15:32 03/07/19 20:42 Glucose (Fingerstick) 131 mg/dL (70-99) 128 mg/dL (70-99) 135 mg/dL (70-99) Microbiology 03/02/19 Urine Culture - Final, Complete 03/02/19 Urine Culture Result 1 (DONNA) - Final, Complete Medications Current Medications Sodium Chloride 1,000 ml @ 1,000 mls/hr 1X ONCE IV Last administered on 03/02/19at 14:15; Start 03/02/19 at 14:00; Stop 03/02/19 at 14:59; Status DC Morphine Sulfate (Morphine Sulfate) 4 mg 1X ONCE IV Last administered on 03/02/19at 14:14; Start 03/02/19 at 14:30; Stop 03/02/19 at 14:31; Status DC Ondansetron HCl (Zofran) 4 mg 1X ONCE IV Last administered on 03/02/19at 14:13; Start 03/02/19 at 14:30; Stop 03/02/19 at 14:31; Status DC Iohexol (Omnipaque 300 Mg/ml) 60 ml 1X ONCE IV Last administered on 03/02/19at 15:24; Start 03/02/19 at 15:45; Stop 03/02/19 at 15:46; Status DC Info (CONTRAST GIVEN -- Rx MONITORING) 1 each PRN DAILY PRN MC SEE COMMENTS; Start 03/02/19 at 15:15; Stop 03/04/19 at 15:14; Status DC Fentanyl Citrate (Fentanyl 2ml Vial) 75 mcg 1X ONCE IV Last administered on 03/02/19at 16:19; Start 03/02/19 at 16:45; Stop 03/02/19 at 16:46; Status DC Piperacillin Sod/ Tazobactam Sod 3.375 gm/Sodium Chloride 50 ml @ 100 mls/hr 1X ONCE IV Last administered on 03/02/19at 16:26; Start 03/02/19 at 17:00; Stop 03/02/19 at 17:29; Status DC Sodium Chloride 1,000 ml @ 1,000 mls/hr 1X ONCE IV Last administered on 03/02/19at 16:31; Start 03/02/19 at 16:30; Stop 03/02/19 at 17:29; Status DC Ondansetron HCl (Zofran) 4 mg PRN Q8HRS PRN IV NAUSEA/VOMITING; Start 03/02/19 at 17:00; Stop 03/02/19 at 19:48; Status DC Fentanyl Citrate (Fentanyl 2ml Vial) 50 mcg PRN Q2HR PRN IV PAIN Last administered on 03/02/19at 20:51; Start 03/02/19 at 17:00; Stop 03/03/19 at 16:59; Status DC Sodium Chloride 1,000 ml @ 100 mls/hr Q10H IV ; Start 03/02/19 at 16:48; Stop 03/03/19 at 16:47; Status Cancel Sodium Chloride (Normal Saline Flush) 3 ml QSHIFT PRN IV AFTER MEDS AND BLOOD DRAWS; Start 03/02/19 at 19:45 Sodium Chloride 1,000 ml @ 100 mls/hr Q10H IV Last administered on 03/06/19at 15:00; Start 03/02/19 at 21:00 Ondansetron HCl (Zofran) 4 mg PRN Q4HRS PRN IV NAUSEA/VOMITING, 1st CHOICE Last administered on 03/07/19 08:25; Start 03/02/19 at 19:45 Acetaminophen (Tylenol) 650 mg PRN Q4HRS PRN PO TEMP OVER 100.4F OR MILD PAIN; Start 03/02/19 at 19:45 Clonidine HCl (Catapres) 0.1 mg PRN Q6HRS PRN PO SBP>160 OR DBP>90; Start 03/02/19 at 19:45 Guaifenesin (Robitussin) 200 mg PRN Q4HRS PRN PO COUGH; Start 03/02/19 at 19:45 Lorazepam (Ativan) 0.5 mg PRN Q4HRS PRN PO ANXIETY / AGITATION; Start 03/02/19 at 19:45 Hydromorphone HCl (Dilaudid) 1 mg PRN Q2HRS PRN IV SEVERE PAIN 7-10 Last administered on 03/08/19at 06:29; Start 03/02/19 at 19:45 Enoxaparin Sodium (Lovenox 40mg Syringe) 40 mg DAILY SQ Last administered on 03/07/19 08:24; Start 03/03/19 at 09:00 Metoclopramide HCl (Reglan Vial) 10 mg PRN Q6HRS PRN IV NAUSEA/VOMITING, 2nd CHOICE Last administered on 03/04/19at 11:25; Start 03/03/19 at 12:00 Pantoprazole Sodium (PROTONIX VIAL for IV PUSH) 40 mg DAILYAC IVP Last administered on 03/08/19at 06:27; Start 03/04/19 at 09:30 Potassium Chloride/Water 100 ml @ 100 mls/hr Q1H IV Last administered on 03/06/19at 16:00; Start 03/06/19 at 13:00; Stop 03/06/19 at 16:59; Status DC Amino Acids/ Glycerin/ Electrolytes 1,000 ml @ 80 mls/hr [id number] IV Last administered on 03/06/19at 21:05; Start 03/06/19 at 21:00 Magnesium Sulfate 50 ml @ 25 mls/hr 1X ONCE IV Last administered on 03/07/19at 08:24; Start 03/07/19 at 08:30; Stop 03/07/19 at 10:29; Status DC Active Scripts Active Reported Vitamin D3 (Cholecalciferol (Vitamin D3)) 1,000 Unit Tablet 2,000 Unit PO DAILY Ferrous Sulfate 325 Mg Tablet 325 Mg PO DAILY Atorvastatin Calcium 20 Mg Tablet 20 Mg PO DAILY Glimepiride 2 Mg Tablet 2 Tab PO BID Losartan Potassium 100 Mg Tablet 100 Mg PO DAILY Protonix (Pantoprazole Sodium) 40 Mg Tablet.dr 40 Mg PO DAILYAC Vitals/I & O Vital Sign - Last 24 Hours 03/07/19 03/07/19 03/07/19 03/07/19 08:00 08:25 08:55 11:00 Temp 97.5 97.5 Pulse 64 Resp 18 B/P (MAP) 134/51 (78) Pulse Ox 93 O2 Delivery Room Air Room Air Room Air Room Air 03/07/19 03/07/19 03/07/19 03/07/19 15:00 19:00 19:30 23:00 Temp 98.2 98.6 98.9 98.2 98.6 98.9 Pulse 73 75 80 Resp 18 18 18 B/P (MAP) 136/56 (82) 133/67 (89) 135/82 (99) Pulse Ox 93 95 95 O2 Delivery Room Air Room Air Room Air Room Air 03/08/19 03/08/19 03:00 06:29 Temp 99.1 99.1 Pulse 72 Resp 18 B/P (MAP) 133/66 (88) Pulse Ox 96 96 O2 Delivery Room Air Room Air WALT RM MD Mar 08, 2019 07:45
--- NOTE | 2019-03-08 08:47 | PDOC ---
JOANNA MACDONALD SAFETY TRAINER 03/08/19 0847: SURGICAL PROGRESS NOTE Subjective some nausea asking about surgery pain is low back and rlq Vital Signs Vital Signs Date Time Temp Pulse Resp B/P (MAP) Pulse Ox O2 Delivery O2 Flow Rate FiO2 03/08/19 06:29 96 Room Air 03/08/19 03:00 99.1 72 18 133/66 (88) 99.1 General: Alert, Oriented X3, Cooperative, No acute distress Abdomen: Soft, Other (ND,NTTP on exam) Labs Laboratory Tests Test 03/06/19 15:59 03/06/19 20:52 03/07/19 05:30 03/07/19 05:35 Glucose (Fingerstick) 109 mg/dL (70-99) 82 mg/dL (70-99) White Blood Count 4.0 x10^3/uL (4.0-11.0) Red Blood Count 4.40 x10^6/uL (3.50-5.40) Hemoglobin 12.7 g/dL (12.0-15.5) Hematocrit 38.2 % (36.0-47.0) Mean Corpuscular Volume 87 fL (79-100) Mean Corpuscular Hemoglobin 29 pg (25-35) Mean Corpuscular Hemoglobin Concent 33 g/dL (31-37) Red Cell Distribution Width 16.2 % (11.5-14.5) Platelet Count 57 x10^3/uL (140-400) Neutrophils (%) (Auto) 58 % (31-73) Lymphocytes (%) (Auto) 32 % (24-48) Monocytes (%) (Auto) 9 % (0-9) Eosinophils (%) (Auto) 1 % (0-3) Basophils (%) (Auto) 0 % (0-3) Neutrophils # (Auto) 2.3 x10^3/uL (1.8-7.7) Lymphocytes # (Auto) 1.3 x10^3/uL (1.0-4.8) Monocytes # (Auto) 0.4 x10^3/uL (0.0-1.1) Eosinophils # (Auto) 0.0 x10^3/uL (0.0-0.7) Basophils # (Auto) 0.0 x10^3/uL (0.0-0.2) Sodium Level 136 mmol/L (136-145) Potassium Level 4.1 mmol/L (3.5-5.1) Chloride Level 104 mmol/L (98-107) Carbon Dioxide Level 22 mmol/L (21-32) Anion Gap 10 (6-14) Blood Urea Nitrogen 12 mg/dL (7-20) Creatinine 0.7 mg/dL (0.6-1.0) Estimated GFR (Cockcroft-Gault) 83.0 BUN/Creatinine Ratio 17 (6-20) Glucose Level 132 mg/dL (70-99) Calcium Level 8.4 mg/dL (8.5-10.1) Magnesium Level 1.7 mg/dL (1.8-2.4) Total Bilirubin 0.6 mg/dL (0.2-1.0) Aspartate Amino Transf (AST/SGOT) 45 U/L (15-37) Alanine Aminotransferase (ALT/SGPT) 52 U/L (14-59) Alkaline Phosphatase 83 U/L (46-116) Total Protein 6.2 g/dL (6.4-8.2) Albumin 2.6 g/dL (3.4-5.0) Albumin/Globulin Ratio 0.7 (1.0-1.7) Test 03/07/19 07:35 03/07/19 11:02 03/07/19 15:32 03/07/19 20:42 Glucose (Fingerstick) 131 mg/dL (70-99) 131 mg/dL (70-99) 128 mg/dL (70-99) 135 mg/dL (70-99) Test 03/08/19 07:36 Glucose (Fingerstick) 123 mg/dL (70-99) Laboratory Tests Test 03/07/19 11:02 03/07/19 15:32 03/07/19 20:42 03/08/19 07:36 Glucose (Fingerstick) 131 mg/dL (70-99) 128 mg/dL (70-99) 135 mg/dL (70-99) 123 mg/dL (70-99) Problem List Problems Medical Problems: (1) Acute gallstone pancreatitis Status: Acute (2) Cholecystitis Status: Acute (3) Thrombocytopenia Status: Acute Assessment/Plan poor surgical candidate with cirrhosis, thrombocytopenia clears today no current surgical plans--will review with GEORGIA Mejía MD 03/08/19 1330: SURGICAL PROGRESS NOTE Assessment/Plan pt seen and examined daughter at bedside explained to them the significant risk of surgery with her cirrhosis and thrombocytopenia should be managed non operatively questions answered JOANNA MACDONALD APRN Mar 08, 2019 08:47 GEORGIA CHENG MD Mar 08, 2019 13:30
[2019-03-08 08:57] LABS: CALCIUM 8.1 mg/dL (8.5-10.1); CREATININE 0.8 mg/dL (0.6-1.0); GFR 71.1; MAGNESIUM 1.8 mg/dL (1.8-2.4); PHOSPHORUS 3.5 mg/dL (2.6-4.7); POTASSIUM 3.8 mmol/L (3.5-5.1)
[2019-03-08] MEDS ORDERED: LIDOCAINE WITH 8.4% SOD BICARB 3 ML DISP.SYRIN. INJ ONE (09:30)
--- NOTE | 2019-03-08 09:52 | PDOC ---
PROGRESS NOTES Subjective Subjective HPI - f/u of Thrombocytopenia ROS - has abd pain Objective Objective Vital Signs Date Time Temp Pulse Resp B/P (MAP) Pulse Ox O2 Delivery O2 Flow Rate FiO2 03/08/19 07:00 97.9 75 14 160/70 (100) 97 Room Air 97.9 Intake and Output 03/08/19 06:59 # Voids 3 Physical Exam Heart: Normal S1, Normal S2 General: Alert, Oriented X3, No acute distress Lungs: Clear to auscultation Neuro: Normal speech Psych/Mental Status: Mental status NL Assessment Assessment Problems Medical Problems: (1) Acute gallstone pancreatitis Status: Acute (2) Cholecystitis Status: Acute (3) Thrombocytopenia Status: Acute IMPRESSION AND PLAN: 1. Thrombocytopenia, chronic, due to cirrhosis of the liver and portal hypertension and splenomegaly. Platelet count was worse at 44,000 on 03/03/2019. No signs of bleeding. I would continue to monitor and transfuse, if there is any evidence of bleeding or if surgical intervention is necessary. Plt 57. I d/w RN. 2. Pancreatitis. Management per Gastroenterology. 3. Cholecystitis. Management per Gastroenterology. 4. Leukopenia due to splenomegaly. WBC was 3.4 on 03/02/2019 and it improved to 4.7 on 03/03/2019. Continue to monitor CBC. wbc now 4.0. Comment Review of Relevant I have reviewed the following items popeye (where applicable) has been applied. Labs Laboratory Tests Test 03/06/19 15:59 03/06/19 20:52 03/07/19 05:30 03/07/19 05:35 Glucose (Fingerstick) 109 mg/dL (70-99) 82 mg/dL (70-99) White Blood Count 4.0 x10^3/uL (4.0-11.0) Red Blood Count 4.40 x10^6/uL (3.50-5.40) Hemoglobin 12.7 g/dL (12.0-15.5) Hematocrit 38.2 % (36.0-47.0) Mean Corpuscular Volume 87 fL (79-100) Mean Corpuscular Hemoglobin 29 pg (25-35) Mean Corpuscular Hemoglobin Concent 33 g/dL (31-37) Red Cell Distribution Width 16.2 % (11.5-14.5) Platelet Count 57 x10^3/uL (140-400) Neutrophils (%) (Auto) 58 % (31-73) Lymphocytes (%) (Auto) 32 % (24-48) Monocytes (%) (Auto) 9 % (0-9) Eosinophils (%) (Auto) 1 % (0-3) Basophils (%) (Auto) 0 % (0-3) Neutrophils # (Auto) 2.3 x10^3/uL (1.8-7.7) Lymphocytes # (Auto) 1.3 x10^3/uL (1.0-4.8) Monocytes # (Auto) 0.4 x10^3/uL (0.0-1.1) Eosinophils # (Auto) 0.0 x10^3/uL (0.0-0.7) Basophils # (Auto) 0.0 x10^3/uL (0.0-0.2) Sodium Level 136 mmol/L (136-145) Potassium Level 4.1 mmol/L (3.5-5.1) Chloride Level 104 mmol/L (98-107) Carbon Dioxide Level 22 mmol/L (21-32) Anion Gap 10 (6-14) Blood Urea Nitrogen 12 mg/dL (7-20) Creatinine 0.7 mg/dL (0.6-1.0) Estimated GFR (Cockcroft-Gault) 83.0 BUN/Creatinine Ratio 17 (6-20) Glucose Level 132 mg/dL (70-99) Calcium Level 8.4 mg/dL (8.5-10.1) Magnesium Level 1.7 mg/dL (1.8-2.4) Total Bilirubin 0.6 mg/dL (0.2-1.0) Aspartate Amino Transf (AST/SGOT) 45 U/L (15-37) Alanine Aminotransferase (ALT/SGPT) 52 U/L (14-59) Alkaline Phosphatase 83 U/L (46-116) Total Protein 6.2 g/dL (6.4-8.2) Albumin 2.6 g/dL (3.4-5.0) Albumin/Globulin Ratio 0.7 (1.0-1.7) Test 03/07/19 07:35 03/07/19 11:02 03/07/19 15:32 03/07/19 20:42 Glucose (Fingerstick) 131 mg/dL (70-99) 131 mg/dL (70-99) 128 mg/dL (70-99) 135 mg/dL (70-99) Test 03/08/19 07:36 03/08/19 08:30 Glucose (Fingerstick) 123 mg/dL (70-99) Sodium Level 142 mmol/L (136-145) Potassium Level 3.8 mmol/L (3.5-5.1) Chloride Level 106 mmol/L (98-107) Carbon Dioxide Level 24 mmol/L (21-32) Anion Gap 12 (6-14) Blood Urea Nitrogen 10 mg/dL (7-20) Creatinine 0.8 mg/dL (0.6-1.0) Estimated GFR (Cockcroft-Gault) 71.1 Glucose Level 126 mg/dL (70-99) Calcium Level 8.1 mg/dL (8.5-10.1) Phosphorus Level 3.5 mg/dL (2.6-4.7) Magnesium Level 1.8 mg/dL (1.8-2.4) Laboratory Tests Test 03/07/19 11:02 03/07/19 15:32 03/07/19 20:42 03/08/19 07:36 Glucose (Fingerstick) 131 mg/dL (70-99) 128 mg/dL (70-99) 135 mg/dL (70-99) 123 mg/dL (70-99) Test 03/08/19 08:30 Sodium Level 142 mmol/L (136-145) Potassium Level 3.8 mmol/L (3.5-5.1) Chloride Level 106 mmol/L (98-107) Carbon Dioxide Level 24 mmol/L (21-32) Anion Gap 12 (6-14) Blood Urea Nitrogen 10 mg/dL (7-20) Creatinine 0.8 mg/dL (0.6-1.0) Estimated GFR (Cockcroft-Gault) 71.1 Glucose Level 126 mg/dL (70-99) Calcium Level 8.1 mg/dL (8.5-10.1) Phosphorus Level 3.5 mg/dL (2.6-4.7) Magnesium Level 1.8 mg/dL (1.8-2.4) Microbiology 03/02/19 Urine Culture - Final, Complete 03/02/19 Urine Culture Result 1 (DONNA) - Final, Complete Medications Current Medications Sodium Chloride 1,000 ml @ 1,000 mls/hr 1X ONCE IV Last administered on 03/02/19at 14:15; Start 03/02/19 at 14:00; Stop 03/02/19 at 14:59; Status DC Morphine Sulfate (Morphine Sulfate) 4 mg 1X ONCE IV Last administered on 03/02/19at 14:14; Start 03/02/19 at 14:30; Stop 03/02/19 at 14:31; Status DC Ondansetron HCl (Zofran) 4 mg 1X ONCE IV Last administered on 03/02/19at 14:13; Start 03/02/19 at 14:30; Stop 03/02/19 at 14:31; Status DC Iohexol (Omnipaque 300 Mg/ml) 60 ml 1X ONCE IV Last administered on 03/02/19at 15:24; Start 03/02/19 at 15:45; Stop 03/02/19 at 15:46; Status DC Info (CONTRAST GIVEN -- Rx MONITORING) 1 each PRN DAILY PRN MC SEE COMMENTS; Start 03/02/19 at 15:15; Stop 03/04/19 at 15:14; Status DC Fentanyl Citrate (Fentanyl 2ml Vial) 75 mcg 1X ONCE IV Last administered on 03/02/19at 16:19; Start 03/02/19 at 16:45; Stop 03/02/19 at 16:46; Status DC Piperacillin Sod/ Tazobactam Sod 3.375 gm/Sodium Chloride 50 ml @ 100 mls/hr 1X ONCE IV Last administered on 03/02/19at 16:26; Start 03/02/19 at 17:00; Stop 03/02/19 at 17:29; Status DC Sodium Chloride 1,000 ml @ 1,000 mls/hr 1X ONCE IV Last administered on 03/02/19at 16:31; Start 03/02/19 at 16:30; Stop 03/02/19 at 17:29; Status DC Ondansetron HCl (Zofran) 4 mg PRN Q8HRS PRN IV NAUSEA/VOMITING; Start 03/02/19 at 17:00; Stop 03/02/19 at 19:48; Status DC Fentanyl Citrate (Fentanyl 2ml Vial) 50 mcg PRN Q2HR PRN IV PAIN Last administered on 03/02/19at 20:51; Start 03/02/19 at 17:00; Stop 03/03/19 at 16:5 9; Status DC Sodium Chloride 1,000 ml @ 100 mls/hr Q10H IV ; Start 03/02/19 at 16:48; Stop 03/03/19 at 16:47; Status Cancel Sodium Chloride (Normal Saline Flush) 3 ml QSHIFT PRN IV AFTER MEDS AND BLOOD DRAWS; Start 03/02/19 at 19:45 Sodium Chloride 1,000 ml @ 100 mls/hr Q10H IV Last administered on 03/06/19at 15:00; Start 03/02/19 at 21:00 Ondansetron HCl (Zofran) 4 mg PRN Q4HRS PRN IV NAUSEA/VOMITING, 1st CHOICE Last administered on 03/07/19at 08:25; Start 03/02/19 at 19:45 Acetaminophen (Tylenol) 650 mg PRN Q4HRS PRN PO TEMP OVER 100.4F OR MILD PAIN; Start 03/02/19 at 19:45 Clonidine HCl (Catapres) 0.1 mg PRN Q6HRS PRN PO SBP>160 OR DBP>90; Start 03/02/19 at 19:45 Guaifenesin (Robitussin) 200 mg PRN Q4HRS PRN PO COUGH; Start 03/02/19 at 19:45 Lorazepam (Ativan) 0.5 mg PRN Q4HRS PRN PO ANXIETY / AGITATION; Start 03/02/19 at 19:45 Hydromorphone HCl (Dilaudid) 1 mg PRN Q2HRS PRN IV SEVERE PAIN 7-10 Last administered on 03/08/19at 06:29; Start 03/02/19 at 19:45 Enoxaparin Sodium (Lovenox 40mg Syringe) 40 mg DAILY SQ Last administered on 03/07/19at 08:24; Start 03/03/19 at 09:00 Metoclopramide HCl (Reglan Vial) 10 mg PRN Q6HRS PRN IV NAUSEA/VOMITING, 2nd CHOICE Last administered on 03/04/19at 11:25; Start 03/03/19 at 12:00 Pantoprazole Sodium (PROTONIX VIAL for IV PUSH) 40 mg DAILYAC IVP Last administered on 7/23/19at 06:27; Start 03/04/19 at 09:30 Potassium Chloride/Water 100 ml @ 100 mls/hr Q1H IV Last administered on 03/06/19at 16:00; Start 03/06/19 at 13:00; Stop 03/06/19 at 16:59; Status DC Amino Acids/ Glycerin/ Electrolytes 1,000 ml @ 80 mls/hr [id number] IV Last administered on 03/06/19at 21:05; Start 03/06/19 at 21:00 Magnesium Sulfate 50 ml @ 25 mls/hr 1X ONCE IV Last administered on 03/07/19at 08:24; Start 03/07/19 at 08:30; Stop 03/07/19 at 10:29; Status DC Lidocaine/Sodium Bicarbonate (Buffered Lidocaine 1%) 3 ml 1X ONCE INJ ; Start 03/08/19 at 09:30; Stop 03/08/19 at 09:34; Status DC Active Scripts Active Reported Vitamin D3 (Cholecalciferol (Vitamin D3)) 1,000 Unit Tablet 2,000 Unit PO DAILY Ferrous Sulfate 325 Mg Tablet 325 Mg PO DAILY Atorvastatin Calcium 20 Mg Tablet 20 Mg PO DAILY Glimepiride 2 Mg Tablet 2 Tab PO BID Losartan Potassium 100 Mg Tablet 100 Mg PO DAILY Protonix (Pantoprazole Sodium) 40 Mg Tablet.dr 40 Mg PO DAILYAC Vitals/I & O Vital Sign - Last 24 Hours 03/07/19 03/07/19 03/07/19 03/07/19 11:00 15:00 19:00 19:30 Temp 97.5 98.2 98.6 97.5 98.2 98.6 Pulse 64 73 75 Resp 18 18 18 B/P (MAP) 134/51 (78) 136/56 (82) 133/67 (89) Pulse Ox 93 93 95 O2 Delivery Room Air Room Air Room Air Room Air 03/07/19 03/08/19 03/08/19 03/08/19 23:00 03:00 06:29 07:00 Temp 98.9 99.1 97.9 98.9 99.1 97.9 Pulse 80 72 75 Resp 18 18 14 B/P (MAP) 135/82 (99) 133/66 (88) 160/70 (100) Pulse Ox 95 96 96 97 O2 Delivery Room Air Room Air Room Air Room Air IONA PAREDES MD Mar 08, 2019 09:52
--- NOTE | 2019-03-08 09:59 | PDOC ---
Subjective: Subjective: Not good today, doesn't want to try clears. Back ache and headache. Objective: Vital Signs: Vital Signs Date Time Temp Pulse Resp B/P (MAP) Pulse Ox O2 Delivery O2 Flow Rate FiO2 03/08/19 07:00 97.9 75 14 160/70 (100) 97 Room Air 97.9 Labs: Laboratory Tests Test 03/07/19 11:02 03/07/19 15:32 03/07/19 20:42 03/08/19 07:36 Glucose (Fingerstick) 131 mg/dL (70-99) 128 mg/dL (70-99) 135 mg/dL (70-99) 123 mg/dL (70-99) PE: GEN: NAD - was asleep LUNGS: room air ABD: round, quiet BS, non-specifically uncomfortable NEURO/PSYCH: A & O �3 A/P: Gallstone pancreatitis Cirrhosis (VALLE) w/ chronic thrombocytopenia -- Not wanting to drink today. To have PICC placed? Follow surgical recs. SURJIT PALOMO Mar 08, 2019 09:59
--- NOTE | 2019-03-08 10:09 | RAD ---
Exam: Fluoroscopic and ultrasound guided right percutaneous inserted central venous catheter placement 03/08/2019 10:04 AM .Indication: TPN and fluids Technique: Informed oral and written consent were obtained. The right upper extremity was prepped and draped using sterile barrier technique. All elements of maximal sterile barrier technique including the use of a cap, mask, sterile gown, sterile gloves, large sterile sheet, appropriate hand hygiene, and 2% chlorhexidine for cutaneous antisepsis (or acceptable alternative antiseptic per current guidelines) were followed for this procedure.. Real-time ultrasound demonstrated a patent right basilic vein. The right upper extremity was prepped and draped in usual sterile fashion. 1% lidocaine used for local anesthesia. Using real-time ultrasound guidance the access needle percutaneously punctured the selected vein. Reference ultrasound images were saved to the medical record. A guidewire was advanced through the needle to the cavoatrial junction, and a peel-away sheath placed. The catheter was cut to length and inserted through the peel-away sheath. The final position of the catheter was confirmed by fluoroscopy, with tip at the cavoatrial junction. The wire and sheath were removed, and the catheter secured in place, and a sterile dressing was applied. Catheter was found to flush and aspirate normally. No immediate complications are identified. FLUORO TIME: 0.5 min DOSE AREA PRODUCT: 1 Gycm2 Impression: Ultrasound and fluoroscopically guided placement of a right upper extremity PICC line.
[2019-03-08] MEDS: AMINO AC 3%/ELECTROLYTE/GLYCER 1,000 ML IV SCH (10:30)
[2019-03-08 11:00] VITALS: BP 167/67
[2019-03-08] MEDS ORDERED: DEXTROSE 50% 25 GM / 50ML DISP.SYRIN. IV PRN (12:45)
[2019-03-08] MEDS: TPN PER PHARMACY MC PRN (13:42)
--- NOTE | 2019-03-08 13:44 | NUR ---
Pharmacy TPN Dosing Note S: JUAN LANE is a 68 year old F Currently receiving Central Continuous TPN started 03/08/19 B:Pertinent PMH: poor PO intake Height: 5 feet, 2 inches Weight: 83.1 kg Current diet: CLD LABS: Sodium: 142 Potassium: 3.8 Chloride: 106 Calcium: 8.1 Corrected Calcium: 9.22 Magnesium: 1.8 CO2: 24 SCr: 0.8 Glucose: 126, 219 Albumin: 2.6 AST: 45 ALT: 52 TPN FORMULA: TPN TYPE: Central Continuous AMINO ACIDS: 60 gm DEXTROSE: 195 gm LIPIDS: 20 gm SODIUM CHLORIDE: 90 mEq POTASSIUM CHLORIDE: 50 mEq POTASSIUM PHOSPHATE: 13.6 mmol MAGNESIUM: 10 mEq CALCIUM: 10 mEq MULTIPLE VITAMIN: 10 ml TRACE ELEMENTS: 1 ml TPN PLAN: -Start TPN with standard macros and electrolytes. -BMP, mag, phos, triglyceride tomorrow. R: Begin TPN @ 63 ml/hr and above formula. Will monitor electrolytes, glucose, and tolerance to TPN. SAMANTHA GILLETTE [facility], 03/08/19 [id number]
[2019-03-08] MEDS: ENOXAPARIN 40 MG/0.4 ML SYRINGE. SQ SCH (14:36)
[2019-03-08] MEDS: INSULIN LISPRO 300 UNITS/3 ML INSULN.PEN. SQ SCH ×2 (14:38→17:19)
[2019-03-08 15:00] VITALS: BP 150/77
[2019-03-08 19:25] VITALS: BP 153/72
[2019-03-08] MEDS ORDERED: HYDROmorphone 2 MG/ML VIAL IVP ONE (19:45)
[2019-03-08] MEDS ORDERED: LOPERAMIDE 2 MG CAPSULE PO ONE (19:45)
[2019-03-08] MEDS ORDERED: ACETAMINOPHEN 325 MG TABLET. PO ONE (19:45)
[2019-03-08] MEDS: ATORVASTATIN CALCIUM 20 MG TABLET PO SCH (21:06)
[2019-03-08] MEDS ORDERED: TOTAL PARENTERAL NUTRITION 1,424.9987 ML, AMINO ACID 15% 60 GM, DEXTROSE 70 % IN WATER ... IV SCH ×10 (22:00)
[2019-03-08 23:11] VITALS: BP 153/63
[2019-03-09 03:07] VITALS: BP 152/64
[2019-03-09 07:00] VITALS: BP 149/75
[2019-03-09] MEDS: PANTOPRAZOLE IV PUSH 40 MG VIAL. IVP SCH (08:23)
[2019-03-09] MEDS: LOSARTAN POTASSIUM 50 MG TABLET. PO SCH (08:24)
[2019-03-09] MEDS: INSULIN LISPRO 300 UNITS/3 ML INSULN.PEN. SQ SCH ×3 (08:32→18:01)
[2019-03-09] MEDS: ENOXAPARIN 40 MG/0.4 ML SYRINGE. SQ SCH (09:00)
--- NOTE | 2019-03-09 09:25 | PDOC ---
Subjective: Subjective: Lower back pain. No abd pain. Taking some clears. Objective: Objective: On TPN. Vital Signs: Vital Signs Date Time Temp Pulse Resp B/P (MAP) Pulse Ox O2 Delivery O2 Flow Rate FiO2 03/09/19 08:24 69 144/75 03/09/19 07:00 97.9 17 96 Room Air 97.9 Labs: Laboratory Tests Test 03/08/19 11:54 03/08/19 16:57 03/08/19 21:19 03/09/19 07:30 Glucose (Fingerstick) 219 mg/dL 182 mg/dL 174 mg/dL 240 mg/dL PE: GEN: NAD - talking on the phone, looks better today LUNGS: room air HEART: RRR ABD: NABS, round, non-tender NEURO/PSYCH: A & O �3 A/P: Gallstone pancreatitis - plans for non-operative management w/ h/o chronic thrombocytopenia (2/2 VALLE/cirrhosis) -- Continue same per GI. SURJIT PALOMO Mar 09, 2019 09:24
[2019-03-09] MEDS: HYDROmorphone 2 MG/ML VIAL IV PRN (10:10)
--- NOTE | 2019-03-09 10:28 | NUR ---
SS following up with discharge planning. Pt is currently on room air. PT/OT recommending home with home healthcare. Pt is currently requiring TPN. SS will continue to follow for discharge planning.
[2019-03-09 11:00] VITALS: BP 135/63
[2019-03-09 11:46] LABS: CALCIUM 8.4 mg/dL (8.5-10.1); CREATININE 0.8 mg/dL (0.6-1.0); GFR 71.1; MAGNESIUM 1.7 mg/dL (1.8-2.4); POTASSIUM 3.6 mmol/L (3.5-5.1)
--- NOTE | 2019-03-09 11:58 | PDOC ---
SURGICAL PROGRESS NOTE Subjective having a low fat full liquid lunch feels better Vital Signs Vital Signs Date Time Temp Pulse Resp B/P (MAP) Pulse Ox O2 Delivery O2 Flow Rate FiO2 03/09/19 10:10 18 96 Room Air 03/09/19 08:24 69 144/75 03/09/19 07:00 97.9 97.9 I&O Intake and Output 03/09/19 06:59 Intake Total 2820 ml Balance 2820 ml Intake Oral 820 ml IV Total 2000 ml # Voids 5 PATIENT HAS A ALBERT: No General: Alert Abdomen: Soft Labs Laboratory Tests Test 03/07/19 15:32 03/07/19 20:42 03/08/19 07:36 03/08/19 08:30 Glucose (Fingerstick) 128 mg/dL (70-99) 135 mg/dL (70-99) 123 mg/dL (70-99) Sodium Level 142 mmol/L (136-145) Potassium Level 3.8 mmol/L (3.5-5.1) Chloride Level 106 mmol/L (98-107) Carbon Dioxide Level 24 mmol/L (21-32) Anion Gap 12 (6-14) Blood Urea Nitrogen 10 mg/dL (7-20) Creatinine 0.8 mg/dL (0.6-1.0) Estimated GFR (Cockcroft-Gault) 71.1 Glucose Level 126 mg/dL (70-99) Calcium Level 8.1 mg/dL (8.5-10.1) Phosphorus Level 3.5 mg/dL (2.6-4.7) Magnesium Level 1.8 mg/dL (1.8-2.4) Test 03/08/19 11:54 03/08/19 16:57 03/08/19 21:19 03/09/19 07:30 Glucose (Fingerstick) 219 mg/dL (70-99) 182 mg/dL (70-99) 174 mg/dL (70-99) 240 mg/dL (70-99) Test 03/09/19 11:20 Sodium Level 139 mmol/L (136-145) Potassium Level 3.6 mmol/L (3.5-5.1) Chloride Level 104 mmol/L (98-107) Carbon Dioxide Level 28 mmol/L (21-32) Anion Gap 7 (6-14) Blood Urea Nitrogen 8 mg/dL (7-20) Creatinine 0.8 mg/dL (0.6-1.0) Estimated GFR (Cockcroft-Gault) 71.1 Glucose Level 269 mg/dL (70-99) Calcium Level 8.4 mg/dL (8.5-10.1) Phosphorus Level 3.0 mg/dL (2.6-4.7) Magnesium Level 1.7 mg/dL (1.8-2.4) Triglycerides Level 100 mg/dL (0-150) Laboratory Tests Test 03/08/19 16:57 03/08/19 21:19 03/09/19 07:30 03/09/19 11:20 Glucose (Fingerstick) 182 mg/dL (70-99) 174 mg/dL (70-99) 240 mg/dL (70-99) Sodium Level 139 mmol/L (136-145) Potassium Level 3.6 mmol/L (3.5-5.1) Chloride Level 104 mmol/L (98-107) Carbon Dioxide Level 28 mmol/L (21-32) Anion Gap 7 (6-14) Blood Urea Nitrogen 8 mg/dL (7-20) Creatinine 0.8 mg/dL (0.6-1.0) Estimated GFR (Cockcroft-Gault) 71.1 Glucose Level 269 mg/dL (70-99) Calcium Level 8.4 mg/dL (8.5-10.1) Phosphorus Level 3.0 mg/dL (2.6-4.7) Magnesium Level 1.7 mg/dL (1.8-2.4) Triglycerides Level 100 mg/dL (0-150) Problem List Problems Medical Problems: (1) Acute gallstone pancreatitis Status: Acute (2) Cholecystitis Status: Acute (3) Thrombocytopenia Status: Acute Assessment/Plan pancreatitis continue present care GEORGIA CHENG MD Mar 09, 2019 11:58
--- NOTE | 2019-03-09 12:24 | RAD ---
EXAM: Supine AP view of the abdomen DATE: 03/08/2019 8:45 PM INDICATION: Lower abdominal pain COMPARISON: CT abdomen and pelvis 03/02/2019 FINDINGS: Single small bowel loop in the left abdomen is borderline dilated. Otherwise no abnormal small bowel dilatation. Moderate colonic stool content. No abnormal soft tissue mass effect. Rounded calcifications projecting over the right upper quadrant and left upper quadrant are likely renal calculi, confirmed on prior CT. Evaluation for free intraperitoneal gas is limited on this supine exam. IMPRESSION: 1. Single dilated loop of small bowel may represent focal ileus, which may be seen with pancreatitis 2. No evidence for bowel obstruction 3. Renal calculi are seen. Electronically signed by: David Gagnon MD (03/09/2019 12:21 PM) [facility]
--- NOTE | 2019-03-09 12:54 | PDOC ---
[employer] PROGRESS NOTE Chief Complaint Chief Complaint gallstone pancreatitis thrombocytopenia leukopenia pain Diabetes hypertension hyperlipidemia fatty liver History of Present Illness History of Present Illness patient seen and examined DW RN reviewed KUB ordered dilaudid reviewed chart Vitals/I&O Vitals/I&O: Vital Signs Date Time Temp Pulse Resp B/P (MAP) Pulse Ox O2 Delivery O2 Flow Rate FiO2 03/09/19 10:40 96 Room Air 03/09/19 10:10 18 03/09/19 08:24 69 144/75 03/09/19 07:00 97.9 97.9 I & O 03/08/19 03/08/19 03/09/19 14:59 22:59 06:59 Intake Total 340 ml 2480 ml Balance 340 ml 2480 ml Physical Exam General: Alert, Oriented X3, mild distress Heart: Normal S1, Normal S2 Lungs: Clear Abdomen: Soft, Other (distended with hyperactive bowel sounds) Extremities: No clubbing, No cyanosis, Normal pulses Skin: No rashes, No breakdown, No significant lesion Labs Labs: Laboratory Tests Test 03/08/19 16:57 03/08/19 21:19 03/09/19 07:30 03/09/19 11:20 Glucose (Fingerstick) 182 mg/dL (70-99) 174 mg/dL (70-99) 240 mg/dL (70-99) Sodium Level 139 mmol/L (136-145) Potassium Level 3.6 mmol/L (3.5-5.1) Chloride Level 104 mmol/L (98-107) Carbon Dioxide Level 28 mmol/L (21-32) Anion Gap 7 (6-14) Blood Urea Nitrogen 8 mg/dL (7-20) Creatinine 0.8 mg/dL (0.6-1.0) Estimated GFR (Cockcroft-Gault) 71.1 Glucose Level 269 mg/dL (70-99) Calcium Level 8.4 mg/dL (8.5-10.1) Phosphorus Level 3.0 mg/dL (2.6-4.7) Magnesium Level 1.7 mg/dL (1.8-2.4) Triglycerides Level 100 mg/dL (0-150) Test 03/09/19 11:43 Glucose (Fingerstick) 254 mg/dL (70-99) Review of Systems Review of Systems: CO pain CO nausea Assessment and Plan Assessmemt and Plan Problems Medical Problems: (1) Acute gallstone pancreatitis Status: Acute (2) Cholecystitis Status: Acute (3) Thrombocytopenia Status: Acute gallstone pancreatitis thrombocytopenia leukopenia pain Diabetes hypertension hyperlipidemia fatty liver Plan: TPN bowel rest follow labs appreciate subspecialist input prn iv narcotics, prn Zofran, intravenous fluid support, home medications, deep vein thrombosis prophylaxis; full code. replete k iv and mag IV continue to monitor and transfuse, if there is any evidence of bleeding or if surgical intervention is necessary. Ok for PICC, IJ for TPN 27 min pt exam, chart review, > 50% of time spent with exam, chart review, pt care coordination Comment Review of Relevant I have reviewed the following items popeye (where applicable) has been applied. Medications: Current Medications Medications (Trade) Dose Ordered Sig/Trent Route PRN Reason Start Time Stop Time Status Last Admin Dose Admin Atorvastatin Calcium (Lipitor) 20 mg QHS PO 03/08/19 21:00 03/08/19 21:06 Losartan Potassium (Cozaar) 100 mg DAILY PO 03/09/19 09:00 03/09/19 08:24 Insulin Human Lispro (HumaLOG) 0-5 UNITS TIDWMEALS SQ 03/08/19 13:00 03/09/19 12:17 Info (Tpn Per Pharmacy) 1 each PRN DAILY PRN MC SEE COMMENTS 03/08/19 13:45 03/08/19 13:42 Sodium Chloride 90 meq/Potassium Chloride 50 meq/ Potassium Phosphate 13.6 mmol/Magnesium Sulfate 10 meq/ Calcium Gluconate 10 meq/ Multivitamins 10 ml/Chromium/ Copper/Manganese/ Seleni/Zn 1 ml/ Total Parenteral Nutrition/Amino Acids/Dextrose/ Fat Emulsion Intravenous 1,512 ml @ 63 mls/hr TPN CONT IV 03/08/19 22:00 03/09/19 21:59 03/08/19 22:22 Loperamide HCl (Imodium) 2 mg 1X ONCE PO 03/08/19 19:45 03/08/19 19:46 DC 03/08/19 21:06 JAMEY NAVA III DO Mar 09, 2019 12:54
[2019-03-09] MEDS: TPN PER PHARMACY MC PRN (13:47)
--- NOTE | 2019-03-09 13:48 | NUR ---
Pharmacy TPN Dosing Note S: JUAN LANE is a 68 year old F Currently receiving Central Continuous TPN started 03/08/19 B:Pertinent PMH: poor PO intake Height: 5 feet, 2 inches Weight: 83.093103 kg Current diet: CLD LABS: Sodium: 139 Potassium: 3.6 Chloride: 104 Calcium: 8.4 Corrected Calcium: 9.52 Magnesium: 1.7 CO2: 28 SCr: 0.8 Glucose: 254 Albumin: 2.6 AST: 45 ALT: 52 TPN FORMULA: TPN TYPE: Central Continuous AMINO ACIDS: 60 gm DEXTROSE: 195 gm LIPIDS: 20 gm SODIUM CHLORIDE: 90 mEq SODIUM ACETATE: mEq SODIUM PHOSPHATE: mmol POTASSIUM CHLORIDE: 50 mEq POTASSIUM ACETATE: mEq POTASSIUM PHOSPHATE: 13.6 mmol MAGNESIUM: 12 mEq CALCIUM: 10 mEq INSULIN: - units MULTIPLE VITAMIN: 10 ml TRACE ELEMENTS: 1 ml(s) TPN PLAN: pt tolerated full liquid diet today. dr Flores want tpn another day.. R: Continue TPN at 63ml/hr Will monitor electrolytes, glucose, and tolerance to TPN. ZELDA LERMA [facility], 03/09/19 [id number]
[2019-03-09 15:00] VITALS: BP 149/71
[2019-03-09 19:00] VITALS: BP 133/76
[2019-03-09] MEDS ORDERED: TOTAL PARENTERAL NUTRITION IV SCH ×10 (22:00)
[2019-03-09] MEDS ORDERED: [UNRECOGNIZED DRUG - OTHER] IV SCH ×10 (22:00)
[2019-03-09] MEDS ORDERED: DEXTROSE 70% IV SCH ×10 (22:00)
[2019-03-09] MEDS ORDERED: AMINO ACID IV SCH ×10 (22:00)
[2019-03-09] MEDS: ATORVASTATIN CALCIUM 20 MG TABLET PO SCH (22:05)
[2019-03-09 23:00] VITALS: BP 140/61
[2019-03-10 03:00] VITALS: BP 123/43
[2019-03-10 06:38] LABS: CALCIUM 8.6 mg/dL (8.5-10.1); CREATININE 0.8 mg/dL (0.6-1.0); GFR 71.1; MAGNESIUM 1.9 mg/dL (1.8-2.4); POTASSIUM 3.9 mmol/L (3.5-5.1)
[2019-03-10] MEDS: PANTOPRAZOLE 40 MG TABLET.DR. PO SCH (07:22)
[2019-03-10 07:50] VITALS: BP 151/61
[2019-03-10] MEDS: LOSARTAN POTASSIUM 50 MG TABLET. PO SCH (08:39)
[2019-03-10] MEDS: ENOXAPARIN 40 MG/0.4 ML SYRINGE. SQ SCH (09:00)
[2019-03-10] MEDS ORDERED: INSULIN LISPRO 300 UNITS/3 ML INSULN.PEN. SQ STA (09:24)
[2019-03-10] MEDS ORDERED: SIMETHICONE 80 MG TAB.CHEW PO PRN (09:30)
[2019-03-10] MEDS ORDERED: POLYETHYLENE GLYCOL 3350 17 GM PACKET. PO PRN (09:30)
[2019-03-10] MEDS ORDERED: BISACODYL 5 MG TABLET.DR. PO ONE (09:30)
--- NOTE | 2019-03-10 09:33 | PDOC ---
Subjective: Subjective: Gas pains on both sides of abdomen. Had a little stool a couple days ago. Not too hungry this morning but has been eating a little. No n/v. Objective: Objective: On TPN. Vital Signs: Vital Signs Date Time Temp Pulse Resp B/P (MAP) Pulse Ox O2 Delivery O2 Flow Rate FiO2 03/10/19 08:39 69 151/61 03/10/19 07:50 98.0 18 94 Room Air 98.0 Labs: Laboratory Tests Test 03/09/19 11:43 03/09/19 16:37 03/09/19 20:40 03/10/19 03:33 Glucose (Fingerstick) 254 mg/dL (70-99) 335 mg/dL (70-99) 284 mg/dL (70-99) 285 mg/dL (70-99) Test 03/10/19 07:48 Glucose (Fingerstick) 360 mg/dL (70-99) PE: GEN: NAD - looks worse today - has washcloth covering eyes LUNGS: CTAB HEART: RRR ABD: round, vague discomfort, NABS NEURO/PSYCH: A & O �3 A/P: Gallstone pancreatitis Chronic thrombocytopenia (2/2 VALLE/cirrhosis) -- Check hemogram - nurse wonders about Lovenox. Continue PPI. Has bowel sounds but more pain today - will check x-ray. Can try Miralax, etc. SURJIT PALOMO Mar 10, 2019 09:33
--- NOTE | 2019-03-10 09:36 | PDOC ---
[employer] PROGRESS NOTE Chief Complaint Chief Complaint gallstone pancreatitis thrombocytopenia leukopenia pain Diabetes hypertension hyperlipidemia fatty liver History of Present Illness History of Present Illness patient seen and examined DW RN reviewed KUB ordered dilaudid reviewed chart 03/10 patient seen and examined discussed liver test results continue to wait for swelling to reduce Vitals/I&O Vitals/I&O: Vital Signs Date Time Temp Pulse Resp B/P (MAP) Pulse Ox O2 Delivery O2 Flow Rate FiO2 03/10/19 08:39 69 151/61 03/10/19 07:50 98.0 18 94 Room Air 98.0 I & O 03/09/19 03/09/19 03/10/19 15:00 23:00 07:00 Intake Total 540 ml 300 ml Balance 540 ml 300 ml Physical Exam General: Alert, Oriented X3, mild distress Heart: Normal S1, Normal S2 Lungs: Clear Abdomen: Soft, Other (distended with hyperactive bowel sounds) Extremities: No clubbing, No cyanosis, Normal pulses Skin: No rashes, No breakdown, No significant lesion Labs Labs: Laboratory Tests Test 03/09/19 11:20 03/09/19 11:43 03/09/19 16:37 03/09/19 20:40 Sodium Level 139 mmol/L (136-145) Potassium Level 3.6 mmol/L (3.5-5.1) Chloride Level 104 mmol/L (98-107) Carbon Dioxide Level 28 mmol/L (21-32) Anion Gap 7 (6-14) Blood Urea Nitrogen 8 mg/dL (7-20) Creatinine 0.8 mg/dL (0.6-1.0) Estimated GFR (Cockcroft-Gault) 71.1 Glucose Level 269 mg/dL (70-99) Calcium Level 8.4 mg/dL (8.5-10.1) Phosphorus Level 3.0 mg/dL (2.6-4.7) Magnesium Level 1.7 mg/dL (1.8-2.4) Triglycerides Level 100 mg/dL (0-150) Glucose (Fingerstick) 254 mg/dL (70-99) 335 mg/dL (70-99) 284 mg/dL (70-99) Test 03/10/19 03:33 03/10/19 05:55 03/10/19 07:48 Glucose (Fingerstick) 285 mg/dL (70-99) 360 mg/dL (70-99) Sodium Level 139 mmol/L (136-145) Potassium Level 3.9 mmol/L (3.5-5.1) Chloride Level 106 mmol/L (98-107) Carbon Dioxide Level 26 mmol/L (21-32) Anion Gap 7 (6-14) Blood Urea Nitrogen 8 mg/dL (7-20) Creatinine 0.8 mg/dL (0.6-1.0) Estimated GFR (Cockcroft-Gault) 71.1 Glucose Level 341 mg/dL (70-99) Calcium Level 8.6 mg/dL (8.5-10.1) Phosphorus Level 3.0 mg/dL (2.6-4.7) Magnesium Level 1.9 mg/dL (1.8-2.4) Review of Systems Review of Systems: denies headache denies fever or chills co abd pain Assessment and Plan Assessmemt and Plan Problems Medical Problems: (1) Acute gallstone pancreatitis Status: Acute (2) Cholecystitis Status: Acute (3) Thrombocytopenia Status: Acute gallstone pancreatitis thrombocytopenia leukopenia pain Diabetes hypertension hyperlipidemia fatty liver Plan ordered increase in sliding scale insulin TPN Labs full liquid diet DVT prophylaxis PT and OT Comment Review of Relevant I have reviewed the following items popeye (where applicable) has been applied. Medications: Current Medications Medications (Trade) Dose Ordered Sig/Rtent Route PRN Reason Start Time Stop Time Status Last Admin Dose Admin Pantoprazole Sodium (Protonix) 40 mg DAILYAC PO 03/10/19 07:30 03/10/19 07:22 Sodium Chloride 90 meq/Potassium Chloride 50 meq/ Potassium Phosphate 13.6 mmol/Magnesium Sulfate 12 meq/ Calcium Gluconate 10 meq/ Multivitamins 10 ml/Chromium/ Copper/Manganese/ Seleni/Zn 1 ml/ Total Parenteral Nutrition/Amino Acids/Dextrose/ Fat Emulsion Intravenous 1,512 ml @ 63 mls/hr TPN CONT IV 03/09/19 22:00 03/10/19 21:59 03/10/19 03:21 JAMEY NAVA III DO Mar 10, 2019 09:36
--- NOTE | 2019-03-10 09:40 | PDOC ---
JOANNA MACDONALD YARDER BOSS 03/10/19 0940: SURGICAL PROGRESS NOTE Subjective feels full, tight denies nausea no n/v denies any flatus or stool Vital Signs Vital Signs Date Time Temp Pulse Resp B/P (MAP) Pulse Ox O2 Delivery O2 Flow Rate FiO2 03/10/19 08:39 69 151/61 03/10/19 07:50 98.0 18 94 Room Air 98.0 I&O Intake and Output 03/10/19 07:00 Intake Total 840 ml Balance 840 ml Intake Oral 840 ml # Voids 7 General: Alert, Oriented X3, Cooperative, No acute distress Abdomen: Soft, Other (ttp right abdomen, distended ) Labs Laboratory Tests Test 03/08/19 11:54 03/08/19 16:57 03/08/19 21:19 03/09/19 07:30 Glucose (Fingerstick) 219 mg/dL (70-99) 182 mg/dL (70-99) 174 mg/dL (70-99) 240 mg/dL (70-99) Test 03/09/19 11:20 03/09/19 11:43 03/09/19 16:37 03/09/19 20:40 Sodium Level 139 mmol/L (136-145) Potassium Level 3.6 mmol/L (3.5-5.1) Chloride Level 104 mmol/L (98-107) Carbon Dioxide Level 28 mmol/L (21-32) Anion Gap 7 (6-14) Blood Urea Nitrogen 8 mg/dL (7-20) Creatinine 0.8 mg/dL (0.6-1.0) Estimated GFR (Cockcroft-Gault) 71.1 Glucose Level 269 mg/dL (70-99) Calcium Level 8.4 mg/dL (8.5-10.1) Phosphorus Level 3.0 mg/dL (2.6-4.7) Magnesium Level 1.7 mg/dL (1.8-2.4) Triglycerides Level 100 mg/dL (0-150) Glucose (Fingerstick) 254 mg/dL (70-99) 335 mg/dL (70-99) 284 mg/dL (70-99) Test 03/10/19 03:33 03/10/19 05:55 03/10/19 07:48 Glucose (Fingerstick) 285 mg/dL (70-99) 360 mg/dL (70-99) Sodium Level 139 mmol/L (136-145) Potassium Level 3.9 mmol/L (3.5-5.1) Chloride Level 106 mmol/L (98-107) Carbon Dioxide Level 26 mmol/L (21-32) Anion Gap 7 (6-14) Blood Urea Nitrogen 8 mg/dL (7-20) Creatinine 0.8 mg/dL (0.6-1.0) Estimated GFR (Cockcroft-Gault) 71.1 Glucose Level 341 mg/dL (70-99) Calcium Level 8.6 mg/dL (8.5-10.1) Phosphorus Level 3.0 mg/dL (2.6-4.7) Magnesium Level 1.9 mg/dL (1.8-2.4) Laboratory Tests Test 03/09/19 11:20 03/09/19 11:43 03/09/19 16:37 03/09/19 20:40 Sodium Level 139 mmol/L (136-145) Potassium Level 3.6 mmol/L (3.5-5.1) Chloride Level 104 mmol/L (98-107) Carbon Dioxide Level 28 mmol/L (21-32) Anion Gap 7 (6-14) Blood Urea Nitrogen 8 mg/dL (7-20) Creatinine 0.8 mg/dL (0.6-1.0) Estimated GFR (Cockcroft-Gault) 71.1 Glucose Level 269 mg/dL (70-99) Calcium Level 8.4 mg/dL (8.5-10.1) Phosphorus Level 3.0 mg/dL (2.6-4.7) Magnesium Level 1.7 mg/dL (1.8-2.4) Triglycerides Level 100 mg/dL (0-150) Glucose (Fingerstick) 254 mg/dL (70-99) 335 mg/dL (70-99) 284 mg/dL (70-99) Test 03/10/19 03:33 03/10/19 05:55 03/10/19 07:48 Glucose (Fingerstick) 285 mg/dL (70-99) 360 mg/dL (70-99) Sodium Level 139 mmol/L (136-145) Potassium Level 3.9 mmol/L (3.5-5.1) Chloride Level 106 mmol/L (98-107) Carbon Dioxide Level 26 mmol/L (21-32) Anion Gap 7 (6-14) Blood Urea Nitrogen 8 mg/dL (7-20) Creatinine 0.8 mg/dL (0.6-1.0) Estimated GFR (Cockcroft-Gault) 71.1 Glucose Level 341 mg/dL (70-99) Calcium Level 8.6 mg/dL (8.5-10.1) Phosphorus Level 3.0 mg/dL (2.6-4.7) Magnesium Level 1.9 mg/dL (1.8-2.4) Problem List Problems Medical Problems: (1) Acute gallstone pancreatitis Status: Acute (2) Cholecystitis Status: Acute (3) Thrombocytopenia Status: Acute Assessment/Plan xrays from 03/08 with ileus she has some xrays pending today GEORGIA CHENG MD 03/10/19 1555: SURGICAL PROGRESS NOTE Assessment/Plan pt seen up to chair has belly pain on TPN rec gut rest, TPN, follow up CT at some point JOANNA MACDONALD APRN Mar 10, 2019 09:40 GEORGIA CHENG MD Mar 10, 2019 15:55
[2019-03-10 09:49] LABS: HEMATOCRIT 35.7 % (36.0-47.0); HEMOGLOBIN 11.8 g/dL (12.0-15.5); RED BLOOD COUNT 4.06 x10^6/uL (3.50-5.40); RED CELL DISTRIBUTION WIDTH 16.1 % (11.5-14.5); WHITE BLOOD COUNT 5.2 x10^3/uL (4.0-11.0)
[2019-03-10] MEDS ORDERED: ALTEPLASE 1MG SYRINGE. INT CAT ONE (10:30)
[2019-03-10] MEDS ORDERED: ONDANSETRON ODT 4 MG TAB.RAPDIS. PO ONE (10:45)
[2019-03-10 11:12] VITALS: BP 152/83
[2019-03-10] MEDS ORDERED: INSULIN LISPRO 300 UNITS/3 ML INSULN.PEN. SQ SCH ×2 (12:00→17:15)
[2019-03-10] MEDS: TPN PER PHARMACY MC PRN (13:08)
--- NOTE | 2019-03-10 13:12 | NUR ---
Pharmacy TPN Dosing Note S: JUAN LANE is a 68 year old F Currently receiving Central Continuous TPN started 03/08/19 B:Pertinent PMH: poor PO intake Height: 5 feet, 2 inches Weight: 83.704064 kg Current diet: CLD LABS: Sodium: 139 Potassium: 3.9 Chloride: 106 Calcium: 8.4 Corrected Calcium: 9.52 Magnesium: 1.9 CO2: 26 SCr: 0.8 Glucose: 341 Albumin: 2.6 AST: 45 ALT: 52 TPN FORMULA: TPN TYPE: Central Continuous AMINO ACIDS: 60 gm DEXTROSE: 195 gm LIPIDS: 20 gm SODIUM CHLORIDE: 90 mEq SODIUM ACETATE: mEq SODIUM PHOSPHATE: mmol POTASSIUM CHLORIDE: 50 mEq POTASSIUM ACETATE: mEq POTASSIUM PHOSPHATE: 13.6 mmol MAGNESIUM: 12 mEq CALCIUM: 10 mEq INSULIN: - units MULTIPLE VITAMIN: 10 ml TRACE ELEMENTS: 1 ml(s) TPN PLAN: still on full liq diet, not taking enough, 14 units insulin in last 24hrs, start higher insulin ss. R: Continue TPN at 63ml/hr Will monitor electrolytes, glucose, and tolerance to TPN. ZELDA LERMA FORMERLY [facility] [place], 03/10/19 [id number]
--- NOTE | 2019-03-10 13:41 | PDOC ---
PROGRESS NOTES Subjective Subjective HPI - f/u of Thrombocytopenia ROS - no n/v Objective Objective Vital Signs Date Time Temp Pulse Resp B/P (MAP) Pulse Ox O2 Delivery O2 Flow Rate FiO2 03/10/19 08:39 69 151/61 03/10/19 07:50 98.0 18 94 Room Air 98.0 Intake and Output 03/10/19 06:59 Intake Total 840 ml Balance 840 ml Intake Oral 840 ml # Voids 7 Physical Exam Heart: Normal S1, Normal S2 General: Alert, Oriented X3 Lungs: Clear to auscultation Neuro: Normal speech Psych/Mental Status: Mental status NL Assessment Assessment Problems Medical Problems: (1) Acute gallstone pancreatitis Status: Acute (2) Cholecystitis Status: Acute (3) Thrombocytopenia Status: Acute IMPRESSION AND PLAN: 1. Thrombocytopenia, chronic, due to cirrhosis of the liver and portal hypertension and splenomegaly. Platelet count was worse at 44,000 on 03/03/2019. No signs of bleeding. I would continue to monitor and transfuse, if there is any evidence of bleeding or if surgical intervention is necessary. Plt 57. I d/w RN. 2. Pancreatitis. Management per Gastroenterology. 3. Cholecystitis. Management per Gastroenterology. 4. Leukopenia due to splenomegaly. WBC was 3.4 on 03/02/2019 and it improved to 4.7 on 03/03/2019. Continue to monitor CBC. wbc now 5.2. Comment Review of Relevant I have reviewed the following items popeye (where applicable) has been applied. Labs Laboratory Tests Test 03/08/19 16:57 03/08/19 21:19 03/09/19 07:30 03/09/19 11:20 Glucose (Fingerstick) 182 mg/dL (70-99) 174 mg/dL (70-99) 240 mg/dL (70-99) Sodium Level 139 mmol/L (136-145) Potassium Level 3.6 mmol/L (3.5-5.1) Chloride Level 104 mmol/L (98-107) Carbon Dioxide Level 28 mmol/L (21-32) Anion Gap 7 (6-14) Blood Urea Nitrogen 8 mg/dL (7-20) Creatinine 0.8 mg/dL (0.6-1.0) Estimated GFR (Cockcroft-Gault) 71.1 Glucose Level 269 mg/dL (70-99) Calcium Level 8.4 mg/dL (8.5-10.1) Phosphorus Level 3.0 mg/dL (2.6-4.7) Magnesium Level 1.7 mg/dL (1.8-2.4) Triglycerides Level 100 mg/dL (0-150) Test 03/09/19 11:43 03/09/19 16:37 03/09/19 20:40 03/10/19 03:33 Glucose (Fingerstick) 254 mg/dL (70-99) 335 mg/dL (70-99) 284 mg/dL (70-99) 285 mg/dL (70-99) Test 03/10/19 05:55 03/10/19 07:48 03/10/19 11:17 White Blood Count 5.2 x10^3/uL (4.0-11.0) Red Blood Count 4.06 x10^6/uL (3.50-5.40) Hemoglobin 11.8 g/dL (12.0-15.5) Hematocrit 35.7 % (36.0-47.0) Mean Corpuscular Volume 88 fL (79-100) Mean Corpuscular Hemoglobin 29 pg (25-35) Mean Corpuscular Hemoglobin Concent 33 g/dL (31-37) Red Cell Distribution Width 16.1 % (11.5-14.5) Platelet Count 57 x10^3/uL (140-400) Sodium Level 139 mmol/L (136-145) Potassium Level 3.9 mmol/L (3.5-5.1) Chloride Level 106 mmol/L (98-107) Carbon Dioxide Level 26 mmol/L (21-32) Anion Gap 7 (6-14) Blood Urea Nitrogen 8 mg/dL (7-20) Creatinine 0.8 mg/dL (0.6-1.0) Estimated GFR (Cockcroft-Gault) 71.1 Glucose Level 341 mg/dL (70-99) Calcium Level 8.6 mg/dL (8.5-10.1) Phosphorus Level 3.0 mg/dL (2.6-4.7) Magnesium Level 1.9 mg/dL (1.8-2.4) Glucose (Fingerstick) 360 mg/dL (70-99) 333 mg/dL (70-99) Laboratory Tests Test 03/09/19 16:37 03/09/19 20:40 03/10/19 03:33 03/10/19 05:55 Glucose (Fingerstick) 335 mg/dL (70-99) 284 mg/dL (70-99) 285 mg/dL (70-99) White Blood Count 5.2 x10^3/uL (4.0-11.0) Red Blood Count 4.06 x10^6/uL (3.50-5.40) Hemoglobin 11.8 g/dL (12.0-15.5) Hematocrit 35.7 % (36.0-47.0) Mean Corpuscular Volume 88 fL (79-100) Mean Corpuscular Hemoglobin 29 pg (25-35) Mean Corpuscular Hemoglobin Concent 33 g/dL (31-37) Red Cell Distribution Width 16.1 % (11.5-14.5) Platelet Count 57 x10^3/uL (140-400) Sodium Level 139 mmol/L (136-145) Potassium Level 3.9 mmol/L (3.5-5.1) Chloride Level 106 mmol/L (98-107) Carbon Dioxide Level 26 mmol/L (21-32) Anion Gap 7 (6-14) Blood Urea Nitrogen 8 mg/dL (7-20) Creatinine 0.8 mg/dL (0.6-1.0) Estimated GFR (Cockcroft-Gault) 71.1 Glucose Level 341 mg/dL (70-99) Calcium Level 8.6 mg/dL (8.5-10.1) Phosphorus Level 3.0 mg/dL (2.6-4.7) Magnesium Level 1.9 mg/dL (1.8-2.4) Test 03/10/19 07:48 03/10/19 11:17 Glucose (Fingerstick) 360 mg/dL (70-99) 333 mg/dL (70-99) Microbiology 03/02/19 Urine Culture - Final, Complete 03/02/19 Urine Culture Result 1 (DONNA) - Final, Complete Medications Current Medications Sodium Chloride 1,000 ml @ 1,000 mls/hr 1X ONCE IV Last administered on 03/02/19at 14:15; Start 03/02/19 at 14:00; Stop 03/02/19 at 14:59; Status DC Morphine Sulfate (Morphine Sulfate) 4 mg 1X ONCE IV Last administered on 03/02/19at 14:14; Start 03/02/19 at 14:30; Stop 03/02/19 at 14:31; Status DC Ondansetron HCl (Zofran) 4 mg 1X ONCE IV Last administered on 03/02/19at 14:13; Start 03/02/19 at 14:30; Stop 03/02/19 at 14:31; Status DC Iohexol (Omnipaque 300 Mg/ml) 60 ml 1X ONCE IV Last administered on 03/02/19at 15:24; Start 03/02/19 at 15:45; Stop 03/02/19 at 15:46; Status DC Info (CONTRAST GIVEN -- Rx MONITORING) 1 each PRN DAILY PRN MC SEE COMMENTS; Start 03/02/19 at 15:15; Stop 03/04/19 at 15:14; Status DC Fentanyl Citrate (Fentanyl 2ml Vial) 75 mcg 1X ONCE IV Last administered on 03/02/19at 16:19; Start 03/02/19 at 16:45; Stop 03/02/19 at 16:46; Status DC Piperacillin Sod/ Tazobactam Sod 3.375 gm/Sodium Chloride 50 ml @ 100 mls/hr 1X ONCE IV Last administered on 03/02/19at 16:26; Start 03/02/19 at 17:00; Stop 03/02/19 at 17:29; Status DC Sodium Chloride 1,000 ml @ 1,000 mls/hr 1X ONCE IV Last administered on 03/02/19at 16:31; Start 03/02/19 at 16:30; Stop 03/02/19 at 17:29; Status DC Ondansetron HCl (Zofran) 4 mg PRN Q8HRS PRN IV NAUSEA/VOMITING; Start 03/02/19 at 17:00; Stop 03/02/19 at 19:48; Status DC Fentanyl Citrate (Fentanyl 2ml Vial) 50 mcg PRN Q2HR PRN IV PAIN Last administered on 03/02/19at 20:51; Start 03/02/19 at 17:00; Stop 03/03/19 at 16:59; Status DC Sodium Chloride 1,000 ml @ 100 mls/hr Q10H IV ; Start 03/02/19 at 16:48; Stop 03/03/19 at 16:47; Status Cancel Sodium Chloride (Normal Saline Flush) 3 ml QSHIFT PRN IV AFTER MEDS AND BLOOD DRAWS; Start 03/02/19 at 19:45 Sodium Chloride 1,000 ml @ 100 mls/hr Q10H IV Last administered on 03/06/19at 15:00; Start 03/02/19 at 21:00; Stop 03/08/19 at 13:48; Status DC Ondansetron HCl (Zofran) 4 mg PRN Q4HRS PRN IV NAUSEA/VOMITING, 1st CHOICE Last administered on 03/07/19at 08:25; Start 03/02/19 at 19:45 Acetaminophen (Tylenol) 650 mg PRN Q4HRS PRN PO TEMP OVER 100.4F OR MILD PAIN; Start 03/02/19 at 19:45; Stop 03/09/19 at 09:57; Status DC Clonidine HCl (Catapres) 0.1 mg PRN Q6HRS PRN PO SBP>160 OR DBP>90; Start 03/02/19 at 19:45 Guaifenesin (Robitussin) 200 mg PRN Q4HRS PRN PO COUGH; Start 03/02/19 at 19:45 Lorazepam (Ativan) 0.5 mg PRN Q4HRS PRN PO ANXIETY / AGITATION; Start 03/02/19 at 19:45 Hydromorphone HCl (Dilaudid) 1 mg PRN Q2HRS PRN IV SEVERE PAIN 7-10 Last administered on 03/09/19at 10:10; Start 03/02/19 at 19:45 Enoxaparin Sodium (Lovenox 40mg Syringe) 40 mg DAILY SQ Last administered on 03/09/19at 09:00; Start 03/03/19 at 09:00 Metoclopramide HCl (Reglan Vial) 10 mg PRN Q6HRS PRN IV NAUSEA/VOMITING, 2nd CHOICE Last administered on 03/04/19at 11:25; Start 03/03/19 at 12:00 Pantoprazole Sodium (PROTONIX VIAL for IV PUSH) 40 mg DAILYAC IVP Last administered on 03/09/19 08:23; Start 03/04/19 at 09:30; Stop 03/09/19 at 09:26; Status DC Potassium Chloride/Water 100 ml @ 100 mls/hr Q1H IV Last administered on 03/06/19at 16:00; Start 03/06/19 at 13:00; Stop 03/06/19 at 16:59; Status DC Amino Acids/ Glycerin/ Electrolytes 1,000 ml @ 80 mls/hr [id number] IV Last administered on 03/07/19at 11:00; Start 03/06/19 at 21:00; Stop 03/08/19 at 21:59; Status DC Magnesium Sulfate 50 ml @ 25 mls/hr 1X ONCE IV Last administered on 03/07/19at 08:24; Start 03/07/19 at 08:30; Stop 03/07/19 at 10:29; Status DC Lidocaine/Sodium Bicarbonate (Buffered Lidocaine 1%) 3 ml 1X ONCE INJ Last administered on 03/08/19at 09:55; Start 03/08/19 at 09:30; Stop 03/08/19 at 09:34; Status DC Atorvastatin Calcium (Lipitor) 20 mg QHS PO Last administered on 03/09/19at 22:05; Start 03/08/19 at 21:00 Losartan Potassium (Cozaar) 100 mg DAILY PO Last administered on 03/10/19at 08:39; Start 03/09/19 at 09:00 Insulin Human Lispro (HumaLOG) 0-5 UNITS TIDWMEALS SQ Last administered on 03/09/19at 18:01; Start 03/08/19 at 13:00; Stop 03/10/19 at 09:25; Status DC Dextrose (Dextrose 50%-Water Syringe) 12.5 gm PRN Q15MIN PRN IV SEE COMMENTS; Start 03/08/19 at 12:45 Info (Tpn Per Pharmacy) 1 each PRN DAILY PRN MC SEE COMMENTS Last administered on 03/10/19at 13:08; Start 03/08/19 at 13:45 Sodium Chloride 90 meq/Potassium Chloride 50 meq/ Potassium Phosphate 13.6 mmol/Magnesium Sulfate 10 meq/ Calcium Gluconate 10 meq/ Multivitamins 10 ml/Chromium/ Copper/Manganese/ Seleni/Zn 1 ml/ Total Parenteral Nutrition/Amino Acids/Dextrose/ Fat Emulsion Intravenous 1,512 ml @ 63 mls/hr TPN CONT IV Last administered on 03/08/19at 22:22; Start 03/08/19 at 22:00; Stop 03/09/19 at 21:59; Status DC Loperamide HCl (Imodium) 2 mg 1X ONCE PO Last administered on 03/08/19at 21:06; Start 03/08/19 at 19:45; Stop 03/08/19 at 19:46; Status DC Acetaminophen (Tylenol) 650 mg 1X ONCE PO ; Start 03/08/19 at 19:45; Stop 03/08/19 at 19:46; Status DC Hydromorphone HCl (Dilaudid) 1 mg 1X ONCE IVP ; Start 03/08/19 at 19:45; Stop 03/08/19 at 19:46; Status DC Pantoprazole Sodium (Protonix) 40 mg DAILYAC PO Last administered on 03/10/19at 07:22; Start 03/10/19 at 07:30 Sodium Chloride 90 meq/Potassium Chloride 50 meq/ Potassium Phosphate 13.6 mmol/Magnesium Sulfate 12 meq/ Calcium Gluconate 10 meq/ Multivitamins 10 ml/Chromium/ Copper/Manganese/ Seleni/Zn 1 ml/ Total Parenteral Nutrition/Amino Acids/Dextrose/ Fat Emulsion Intravenous 1,512 ml @ 63 mls/hr TPN CONT IV Last administered on 03/10/19at 03:21; Start 03/09/19 at 22:00; Stop 03/10/19 at 21:59 Insulin Human Lispro (HumaLOG) 0-7 UNITS TIDWMEALS SQ Last administered on 03/10/19at 12:32; Start 03/10/19 at 12:00 Insulin Human Lispro (HumaLOG) 10 units 1X STAT SQ Last administered on 03/10/19at 09:50; Start 03/10/19 at 09:24; Stop 03/10/19 at 09:29; Status DC Simethicone (Gas-X) 80 mg PRN AFTMEALHC PRN PO GAS / BLOATING; Start 03/10/19 at 09:30 Polyethylene Glycol (miraLAX PACKET) 17 gm DAILY PO ; Start 03/11/19 at 09:00 Polyethylene Glycol (miraLAX PACKET) 17 gm PRN DAILY PRN PO CONSTIPATION; Start 03/10/19 at 09:30 Bisacodyl (Dulcolax Tab) 5 mg 1X ONCE PO Last administered on 03/10/19at 09:48; Start 03/10/19 at 09:30; Stop 03/10/19 at 09:34; Status DC Alteplase, Recombinant (Cathflo For Central Catheter Clearance) 1 mg 1X ONCE INT CAT Last administered on 03/10/19at 10:29; Start 03/10/19 at 10:30; Stop 03/10/19 at 10:31; Status DC Ondansetron HCl (Zofran Odt) 4 mg 1X ONCE PO Last administered on 03/10/19at 10:47; Start 03/10/19 at 10:45; Stop 03/10/19 at 10:46; Status DC Sodium Chloride 90 meq/Potassium Chloride 50 meq/ Potassium Phosphate 13.6 mmol/Magnesium Sulfate 12 meq/ Calcium Gluconate 10 meq/ Multivitamins 10 ml/Chromium/ Copper/Manganese/ Seleni/Zn 1 ml/ Total Parenteral Nutrition/Amino Acids/Dextrose/ Fat Emulsion Intravenous 1,512 ml @ 63 mls/hr TPN CONT IV ; Start 03/10/19 at 22:00; Stop 03/11/19 at 21:59 Active Scripts Active Reported Vitamin D3 (Cholecalciferol (Vitamin D3)) 1,000 Unit Tablet 2,000 Unit PO DAILY Ferrous Sulfate 325 Mg Tablet 325 Mg PO DAILY Atorvastatin Calcium 20 Mg Tablet 20 Mg PO DAILY Glimepiride 2 Mg Tablet 2 Tab PO BID Losartan Potassium 100 Mg Tablet 100 Mg PO DAILY Protonix (Pantoprazole Sodium) 40 Mg Tablet.dr 40 Mg PO DAILYAC Vitals/I & O Vital Sign - Last 24 Hours 03/09/19 03/09/19 03/09/19 03/09/19 15:00 19:00 20:00 23:00 Temp 98.4 98.8 98.0 98.4 98.8 98.0 Pulse 72 76 78 Resp 16 18 18 B/P (MAP) 149/71 (97) 133/76 (95) 140/61 (87) Pulse Ox 94 95 96 O2 Delivery Room Air Room Air Room Air Room Air 03/10/19 03/10/19 03/10/19 03/10/19 03:00 07:35 07:50 08:39 Temp 98.1 98.0 98.1 98.0 Pulse 79 69 69 Resp 18 18 B/P (MAP) 123/43 (69) 151/61 (91) 151/61 Pulse Ox 92 94 O2 Delivery Room Air Room Air Room Air Intake and Output 03/09/19 03/09/19 03/10/19 14:59 22:59 06:59 Intake Total 540 ml 300 ml Balance 540 ml 300 ml IONA PAREDES MD Mar 10, 2019 13:41
[2019-03-10 15:27] VITALS: BP 140/85
--- NOTE | 2019-03-10 16:18 | RAD ---
EXAM: Frontal view of the chest, AP views of the abdomen in upright and supine positions. CLINICAL INDICATION: Abdominal pain COMPARISON: None. FINDINGS and IMPRESSION: Exam is somewhat limited given suboptimal radiographic penetration. Right upper extremity PICC tip projects over the distal SVC/cavoatrial junction The heart is not enlarged. Mediastinal and hilar contours are normal. No focal parenchymal airspace opacity. No pleural effusion or pneumothorax. No abnormal small or large bowel dilatation. Moderate colonic stool content. No abnormal soft tissue mass effect. Right upper quadrant pain densities may represent calcified gallstones are noted calculi. No free intraperitoneal gas. Electronically signed by: David Gagnon MD (03/10/2019 4:15 PM) [facility]
[2019-03-10] MEDS: INSULIN LISPRO 300 UNITS/3 ML INSULN.PEN. SQ SCH ×2 (17:27→21:33)
[2019-03-10] MEDS ORDERED: INSULIN LISPRO 300 UNITS/3 ML INSULN.PEN. SQ ONE (17:45)
[2019-03-10 19:20] VITALS: BP 145/94
[2019-03-10] MEDS: ATORVASTATIN CALCIUM 20 MG TABLET PO SCH (21:28)
[2019-03-10] MEDS ORDERED: AMINO ACID IV SCH ×10 (22:00)
[2019-03-10] MEDS ORDERED: [UNRECOGNIZED DRUG - OTHER] IV SCH ×10 (22:00)
[2019-03-10] MEDS ORDERED: DEXTROSE 70% IV SCH ×10 (22:00)
[2019-03-10] MEDS ORDERED: TOTAL PARENTERAL NUTRITION IV SCH ×10 (22:00)
[2019-03-10 23:27] VITALS: BP 153/74
[2019-03-11] VITALS (7 sets, daily range): BP systolic 83–171; BP diastolic 56–80
[2019-03-11] MEDS: POLYETHYLENE GLYCOL 3350 17 GM PACKET. PO SCH (08:49)
[2019-03-11] MEDS: PANTOPRAZOLE 40 MG TABLET.DR. PO SCH (08:49)
[2019-03-11] MEDS: LOSARTAN POTASSIUM 50 MG TABLET. PO SCH (08:50)
--- NOTE | 2019-03-11 08:55 | PDOC ---
JOANNA MACDONALD [employer] 03/11/19 0855: SURGICAL PROGRESS NOTE Subjective feels a little better today she had small stool yesterday Vital Signs Vital Signs Date Time Temp Pulse Resp B/P (MAP) Pulse Ox O2 Delivery O2 Flow Rate FiO2 03/11/19 08:50 70 171/79 03/11/19 07:00 98.4 18 98 Room Air 98.4 I&O Intake and Output 03/11/19 06:59 Intake Total 360 ml Balance 360 ml Intake Oral 360 ml # Voids 1 General: Alert, Oriented X3, Cooperative Abdomen: Soft, Other (mild ttp upper abdomen ) Labs Laboratory Tests Test 03/09/19 11:20 03/09/19 11:43 03/09/19 16:37 03/09/19 20:40 Sodium Level 139 mmol/L (136-145) Potassium Level 3.6 mmol/L (3.5-5.1) Chloride Level 104 mmol/L (98-107) Carbon Dioxide Level 28 mmol/L (21-32) Anion Gap 7 (6-14) Blood Urea Nitrogen 8 mg/dL (7-20) Creatinine 0.8 mg/dL (0.6-1.0) Estimated GFR (Cockcroft-Gault) 71.1 Glucose Level 269 mg/dL (70-99) Calcium Level 8.4 mg/dL (8.5-10.1) Phosphorus Level 3.0 mg/dL (2.6-4.7) Magnesium Level 1.7 mg/dL (1.8-2.4) Triglycerides Level 100 mg/dL (0-150) Glucose (Fingerstick) 254 mg/dL (70-99) 335 mg/dL (70-99) 284 mg/dL (70-99) Test 03/10/19 03:33 03/10/19 05:55 03/10/19 07:48 03/10/19 11:17 Glucose (Fingerstick) 285 mg/dL (70-99) 360 mg/dL (70-99) 333 mg/dL (70-99) White Blood Count 5.2 x10^3/uL (4.0-11.0) Red Blood Count 4.06 x10^6/uL (3.50-5.40) Hemoglobin 11.8 g/dL (12.0-15.5) Hematocrit 35.7 % (36.0-47.0) Mean Corpuscular Volume 88 fL (79-100) Mean Corpuscular Hemoglobin 29 pg (25-35) Mean Corpuscular Hemoglobin Concent 33 g/dL (31-37) Red Cell Distribution Width 16.1 % (11.5-14.5) Platelet Count 57 x10^3/uL (140-400) Sodium Level 139 mmol/L (136-145) Potassium Level 3.9 mmol/L (3.5-5.1) Chloride Level 106 mmol/L (98-107) Carbon Dioxide Level 26 mmol/L (21-32) Anion Gap 7 (6-14) Blood Urea Nitrogen 8 mg/dL (7-20) Creatinine 0.8 mg/dL (0.6-1.0) Estimated GFR (Cockcroft-Gault) 71.1 Glucose Level 341 mg/dL (70-99) Calcium Level 8.6 mg/dL (8.5-10.1) Phosphorus Level 3.0 mg/dL (2.6-4.7) Magnesium Level 1.9 mg/dL (1.8-2.4) Test 03/10/19 16:50 03/10/19 20:50 03/11/19 01:13 03/11/19 06:41 Glucose (Fingerstick) 386 mg/dL (70-99) 316 mg/dL (70-99) 262 mg/dL (70-99) 336 mg/dL (70-99) Laboratory Tests Test 03/10/19 11:17 03/10/19 16:50 03/10/19 20:50 03/11/19 01:13 Glucose (Fingerstick) 333 mg/dL (70-99) 386 mg/dL (70-99) 316 mg/dL (70-99) 262 mg/dL (70-99) Test 03/11/19 06:41 Glucose (Fingerstick) 336 mg/dL (70-99) Problem List Problems Medical Problems: (1) Acute gallstone pancreatitis Status: Acute (2) Cholecystitis Status: Acute (3) Thrombocytopenia Status: Acute Assessment/Plan supportive measures GEORGIA CHENG MD 03/11/19 1410: SURGICAL PROGRESS NOTE Assessment/Plan pt seen agree with above would not advance diet yet repeat CT Thursday continue TPN Dr Ascencio available over the weekend if needed JOANNA MACDONALD APRN Mar 11, 2019 08:55 GEORGIA CHENG MD Mar 11, 2019 14:10
[2019-03-11] MEDS: ENOXAPARIN 40 MG/0.4 ML SYRINGE. SQ SCH (09:00)
[2019-03-11 09:01] LABS: BASO % 1 % (0-3); EOS # 0.1 x10^3/uL (0.0-0.7); EOS % 2 % (0-3); HEMATOCRIT 37.1 % (36.0-47.0); HEMOGLOBIN 12.3 g/dL (12.0-15.5); LYMPH # 1.5 x10^3/uL (1.0-4.8); LYMPH % 36 % (24-48); MEAN CORPUSCULAR HEMOGLOBIN 29 pg (25-35); MEAN CORPUSCULAR HGB CONC 33 g/dL (31-37); MEAN CORPUSCULAR VOLUME 87 fL (79-100); MONO # 0.5 x10^3/uL (0.0-1.1); MONO % 12 % (0-9); NEUT % 49 % (31-73); PLATELET COUNT 42 x10^3/uL (140-400); RED BLOOD COUNT 4.24 x10^6/uL (3.50-5.40); RED CELL DISTRIBUTION WIDTH 15.8 % (11.5-14.5)
[2019-03-11 09:19] LABS: CALCIUM 8.6 mg/dL (8.5-10.1); CREATININE 0.8 mg/dL (0.6-1.0); GFR 71.1; MAGNESIUM 1.8 mg/dL (1.8-2.4); POTASSIUM 4.2 mmol/L (3.5-5.1)
[2019-03-11] MEDS: INSULIN LISPRO 300 UNITS/3 ML INSULN.PEN. SQ SCH ×5 (10:25→17:42)
--- NOTE | 2019-03-11 11:44 | PDOC ---
[facility] [facility] PROGRESS NOTE Chief Complaint Chief Complaint Gallstone pancreatitis Thrombocytopenia Leukopenia Pain Diabetes Hypertension Hyperlipidemia Fatty liver History of Present Illness History of Present Illness 03/09/19 Patient seen and examined DW RN Reviewed KUB Ordered dilaudid Reviewed chart 03/10/19 patient seen and examined discussed liver test results continue to wait for swelling to reduce 03/11/19 Patient seen and examined Disussed glucose management with RN Patient was sitting up in bed and appears to improve Vitals/I&O Vitals/I&O: Vital Signs Date Time Temp Pulse Resp B/P (MAP) Pulse Ox O2 Delivery O2 Flow Rate FiO2 03/11/19 10:42 98.7 91 18 83/58 (66) 97 Room Air 98.7 I & O 03/10/19 03/10/19 03/11/19 14:59 22:59 06:59 Intake Total 360 ml Balance 360 ml Physical Exam General: Alert, Oriented X3, Cooperative Heart: Normal S1, Normal S2 Lungs: Clear Abdomen: Soft, Other (mild ttp upper abdomen ) Extremities: No clubbing, No cyanosis, Normal pulses Skin: No rashes, No breakdown, No significant lesion Labs Labs: Laboratory Tests Test 03/10/19 16:50 03/10/19 20:50 03/11/19 01:13 03/11/19 06:41 Glucose (Fingerstick) 386 mg/dL (70-99) 316 mg/dL (70-99) 262 mg/dL (70-99) 336 mg/dL (70-99) Test 03/11/19 08:55 White Blood Count 4.0 x10^3/uL (4.0-11.0) Red Blood Count 4.24 x10^6/uL (3.50-5.40) Hemoglobin 12.3 g/dL (12.0-15.5) Hematocrit 37.1 % (36.0-47.0) Mean Corpuscular Volume 87 fL (79-100) Mean Corpuscular Hemoglobin 29 pg (25-35) Mean Corpuscular Hemoglobin Concent 33 g/dL (31-37) Red Cell Distribution Width 15.8 % (11.5-14.5) Platelet Count 42 x10^3/uL (140-400) Neutrophils (%) (Auto) 49 % (31-73) Lymphocytes (%) (Auto) 36 % (24-48) Monocytes (%) (Auto) 12 % (0-9) Eosinophils (%) (Auto) 2 % (0-3) Basophils (%) (Auto) 1 % (0-3) Neutrophils # (Auto) 2.0 x10^3/uL (1.8-7.7) Lymphocytes # (Auto) 1.5 x10^3/uL (1.0-4.8) Monocytes # (Auto) 0.5 x10^3/uL (0.0-1.1) Eosinophils # (Auto) 0.1 x10^3/uL (0.0-0.7) Basophils # (Auto) 0.0 x10^3/uL (0.0-0.2) Sodium Level 138 mmol/L (136-145) Potassium Level 4.2 mmol/L (3.5-5.1) Chloride Level 106 mmol/L (98-107) Carbon Dioxide Level 26 mmol/L (21-32) Anion Gap 6 (6-14) Blood Urea Nitrogen 9 mg/dL (7-20) Creatinine 0.8 mg/dL (0.6-1.0) Estimated GFR (Cockcroft-Gault) 71.1 Glucose Level 344 mg/dL (70-99) Calcium Level 8.6 mg/dL (8.5-10.1) Phosphorus Level 3.0 mg/dL (2.6-4.7) Magnesium Level 1.8 mg/dL (1.8-2.4) Review of Systems Review of Systems: 03/11 Denies constipation Denies weakness Assessment and Plan Assessmemt and Plan Problems Medical Problems: (1) Acute gallstone pancreatitis Status: Acute (2) Cholecystitis Status: Acute (3) Thrombocytopenia Status: Acute 03/11 Assessment Gallstone pancreatitis Thrombocytopenia Leukopenia Pain Diabetes Hypertension Hyperlipidemia Fatty liver Plan 10 units TID with novalog with meals 20 units of Lantus at night Continue SS insulin TPN Encourage PO intake Meds Labs PTOT DVT prophylaxis Comment Review of Relevant I have reviewed the following items popeye (where applicable) has been applied. Medications: Current Medications Medications (Trade) Dose Ordered Sig/Trent Route PRN Reason Start Time Stop Time Status Last Admin Dose Admin Insulin Human Lispro (HumaLOG) 0-7 UNITS TIDWMEALS SQ 03/10/19 12:00 03/10/19 17:02 DC 7/25/19 12:32 Polyethylene Glycol (miraLAX PACKET) 17 gm DAILY PO 03/11/19 09:00 03/11/19 08:49 Sodium Chloride 90 meq/Potassium Chloride 50 meq/ Potassium Phosphate 13.6 mmol/Magnesium Sulfate 12 meq/ Calcium Gluconate 10 meq/ Multivitamins 10 ml/Chromium/ Copper/Manganese/ Seleni/Zn 1 ml/ Total Parenteral Nutrition/Amino Acids/Dextrose/ Fat Emulsion Intravenous 1,512 ml @ 63 mls/hr TPN CONT IV 03/10/19 22:00 03/11/19 21:59 03/11/19 06:31 Insulin Human Lispro (HumaLOG) 0-9 UNITS TIDWMEALS SQ 03/10/19 17:00 03/10/19 21:33 Insulin Human Lispro (HumaLOG) 4 units 1X ONCE SQ 03/10/19 17:45 03/10/19 17:46 DC 03/10/19 17:27 Insulin Human Lispro (HumaLOG) 10 units TIDAC SQ 03/11/19 09:40 03/11/19 10:25 JAMEY NAVA III DO Mar 11, 2019 11:44
--- NOTE | 2019-03-11 11:45 | PDOC ---
Subjective: Subjective: Less pain today, stooled some. Objective: Objective: D/w nurse - ?discharge plans Vital Signs: Vital Signs Date Time Temp Pulse Resp B/P (MAP) Pulse Ox O2 Delivery O2 Flow Rate FiO2 03/11/19 10:42 98.7 91 18 83/58 (66) 97 Room Air 98.7 Labs: Laboratory Tests Test 03/10/19 16:50 03/10/19 20:50 03/11/19 01:13 03/11/19 06:41 Glucose (Fingerstick) 386 mg/dL 316 mg/dL 262 mg/dL 336 mg/dL Test 03/11/19 08:55 White Blood Count 4.0 x10^3/uL Red Blood Count 4.24 x10^6/uL Hemoglobin 12.3 g/dL Hematocrit 37.1 % Mean Corpuscular Volume 87 fL Mean Corpuscular Hemoglobin 29 pg Mean Corpuscular Hemoglobin Concent 33 g/dL Red Cell Distribution Width 15.8 % Platelet Count 42 x10^3/uL Neutrophils (%) (Auto) 49 % Lymphocytes (%) (Auto) 36 % Monocytes (%) (Auto) 12 % Eosinophils (%) (Auto) 2 % Basophils (%) (Auto) 1 % Neutrophils # (Auto) 2.0 x10^3/uL Lymphocytes # (Auto) 1.5 x10^3/uL Monocytes # (Auto) 0.5 x10^3/uL Eosinophils # (Auto) 0.1 x10^3/uL Basophils # (Auto) 0.0 x10^3/uL Sodium Level 138 mmol/L Potassium Level 4.2 mmol/L Chloride Level 106 mmol/L Carbon Dioxide Level 26 mmol/L Anion Gap 6 Blood Urea Nitrogen 9 mg/dL Creatinine 0.8 mg/dL Estimated GFR (Cockcroft-Gault) 71.1 Glucose Level 344 mg/dL Calcium Level 8.6 mg/dL Phosphorus Level 3.0 mg/dL Magnesium Level 1.8 mg/dL Imaging: AAS 03/10 IMPRESSION: Exam is somewhat limited given suboptimal radiographic penetration.Right upper extremity PICC tip projects over the distal SVC/cavoatrial junction The heart is not enlarged. Mediastinal and hilar contours are normal. No focal parenchymal airspace opacity. No pleural effusion or pneumothorax. No abnormal small or large bowel dilatation. Moderate colonic stool content. No abnormal soft tissue mass effect. Right upper quadrant pain densities may represent calcified gallstones are noted calculi. No free intraperitoneal gas. PE: GEN: NAD LUNGS: CTAB HEART: RRR ABD: round, non-tender NEURO/PSYCH: A & O �3 A/P: Gallstone pancreatitis - no surgery plans Chronic thrombocytopenia, cirrhosis/VALLE -- Better today. Tolerating full liquids, on TPN. Diet per surgery. SURJIT PALOMO Mar 11, 2019 11:45
[2019-03-11] MEDS: TPN PER PHARMACY MC PRN ×2 (12:49→13:58)
[2019-03-11] MEDS ORDERED: INSULIN LISPRO 300 UNITS/3 ML INSULN.PEN. SQ ONE (13:00)
--- NOTE | 2019-03-11 13:35 | PDOC ---
PROGRESS NOTES Subjective Subjective HPI - f/u of Thrombocytopenia ROS - abd pain better Objective Objective Vital Signs Date Time Temp Pulse Resp B/P (MAP) Pulse Ox O2 Delivery O2 Flow Rate FiO2 03/11/19 13:04 71 148/60 (89) 03/11/19 10:42 98.7 18 97 Room Air 98.7 Intake and Output 03/11/19 06:59 Intake Total 360 ml Balance 360 ml Intake Oral 360 ml # Voids 1 Physical Exam General: Alert, No acute distress Neuro: Normal speech Assessment Assessment Problems Medical Problems: (1) Acute gallstone pancreatitis Status: Acute (2) Cholecystitis Status: Acute (3) Thrombocytopenia Status: Acute IMPRESSION AND PLAN: 1. Thrombocytopenia, chronic, due to cirrhosis of the liver and portal hypertension and splenomegaly. Platelet count was worse at 44,000 on 03/03/2019. No signs of bleeding. I would continue to monitor and transfuse, if there is any evidence of bleeding or if surgical intervention is necessary. Plt 42. 2. Pancreatitis. Management per Gastroenterology. 3. Cholecystitis. Management per Gastroenterology. 4. Leukopenia due to splenomegaly. WBC was 3.4 on 03/02/2019 and it improved to 4.7 on 03/03/2019. Continue to monitor CBC. wbc now 5.2. Comment Review of Relevant I have reviewed the following items popeye (where applicable) has been applied. Labs Laboratory Tests Test 03/09/19 16:37 03/09/19 20:40 03/10/19 03:33 03/10/19 05:55 Glucose (Fingerstick) 335 mg/dL (70-99) 284 mg/dL (70-99) 285 mg/dL (70-99) White Blood Count 5.2 x10^3/uL (4.0-11.0) Red Blood Count 4.06 x10^6/uL (3.50-5.40) Hemoglobin 11.8 g/dL (12.0-15.5) Hematocrit 35.7 % (36.0-47.0) Mean Corpuscular Volume 88 fL (79-100) Mean Corpuscular Hemoglobin 29 pg (25-35) Mean Corpuscular Hemoglobin Concent 33 g/dL (31-37) Red Cell Distribution Width 16.1 % (11.5-14.5) Platelet Count 57 x10^3/uL (140-400) Sodium Level 139 mmol/L (136-145) Potassium Level 3.9 mmol/L (3.5-5.1) Chloride Level 106 mmol/L (98-107) Carbon Dioxide Level 26 mmol/L (21-32) Anion Gap 7 (6-14) Blood Urea Nitrogen 8 mg/dL (7-20) Creatinine 0.8 mg/dL (0.6-1.0) Estimated GFR (Cockcroft-Gault) 71.1 Glucose Level 341 mg/dL (70-99) Calcium Level 8.6 mg/dL (8.5-10.1) Phosphorus Level 3.0 mg/dL (2.6-4.7) Magnesium Level 1.9 mg/dL (1.8-2.4) Test 03/10/19 07:48 03/10/19 11:17 03/10/19 16:50 03/10/19 20:50 Glucose (Fingerstick) 360 mg/dL (70-99) 333 mg/dL (70-99) 386 mg/dL (70-99) 316 mg/dL (70-99) Test 03/11/19 01:13 03/11/19 06:41 03/11/19 08:55 03/11/19 12:20 Glucose (Fingerstick) 262 mg/dL (70-99) 336 mg/dL (70-99) 461 mg/dL (70-99) White Blood Count 4.0 x10^3/uL (4.0-11.0) Red Blood Count 4.24 x10^6/uL (3.50-5.40) Hemoglobin 12.3 g/dL (12.0-15.5) Hematocrit 37.1 % (36.0-47.0) Mean Corpuscular Volume 87 fL (79-100) Mean Corpuscular Hemoglobin 29 pg (25-35) Mean Corpuscular Hemoglobin Concent 33 g/dL (31-37) Red Cell Distribution Width 15.8 % (11.5-14.5) Platelet Count 42 x10^3/uL (140-400) Neutrophils (%) (Auto) 49 % (31-73) Lymphocytes (%) (Auto) 36 % (24-48) Monocytes (%) (Auto) 12 % (0-9) Eosinophils (%) (Auto) 2 % (0-3) Basophils (%) (Auto) 1 % (0-3) Neutrophils # (Auto) 2.0 x10^3/uL (1.8-7.7) Lymphocytes # (Auto) 1.5 x10^3/uL (1.0-4.8) Monocytes # (Auto) 0.5 x10^3/uL (0.0-1.1) Eosinophils # (Auto) 0.1 x10^3/uL (0.0-0.7) Basophils # (Auto) 0.0 x10^3/uL (0.0-0.2) Sodium Level 138 mmol/L (136-145) Potassium Level 4.2 mmol/L (3.5-5.1) Chloride Level 106 mmol/L (98-107) Carbon Dioxide Level 26 mmol/L (21-32) Anion Gap 6 (6-14) Blood Urea Nitrogen 9 mg/dL (7-20) Creatinine 0.8 mg/dL (0.6-1.0) Estimated GFR (Cockcroft-Gault) 71.1 Glucose Level 344 mg/dL (70-99) Calcium Level 8.6 mg/dL (8.5-10.1) Phosphorus Level 3.0 mg/dL (2.6-4.7) Magnesium Level 1.8 mg/dL (1.8-2.4) Laboratory Tests Test 03/10/19 16:50 03/10/19 20:50 03/11/19 01:13 03/11/19 06:41 Glucose (Fingerstick) 386 mg/dL (70-99) 316 mg/dL (70-99) 262 mg/dL (70-99) 336 mg/dL (70-99) Test 03/11/19 08:55 03/11/19 12:20 White Blood Count 4.0 x10^3/uL (4.0-11.0) Red Blood Count 4.24 x10^6/uL (3.50-5.40) Hemoglobin 12.3 g/dL (12.0-15.5) Hematocrit 37.1 % (36.0-47.0) Mean Corpuscular Volume 87 fL (79-100) Mean Corpuscular Hemoglobin 29 pg (25-35) Mean Corpuscular Hemoglobin Concent 33 g/dL (31-37) Red Cell Distribution Width 15.8 % (11.5-14.5) Platelet Count 42 x10^3/uL (140-400) Neutrophils (%) (Auto) 49 % (31-73) Lymphocytes (%) (Auto) 36 % (24-48) Monocytes (%) (Auto) 12 % (0-9) Eosinophils (%) (Auto) 2 % (0-3) Basophils (%) (Auto) 1 % (0-3) Neutrophils # (Auto) 2.0 x10^3/uL (1.8-7.7) Lymphocytes # (Auto) 1.5 x10^3/uL (1.0-4.8) Monocytes # (Auto) 0.5 x10^3/uL (0.0-1.1) Eosinophils # (Auto) 0.1 x10^3/uL (0.0-0.7) Basophils # (Auto) 0.0 x10^3/uL (0.0-0.2) Sodium Level 138 mmol/L (136-145) Potassium Level 4.2 mmol/L (3.5-5.1) Chloride Level 106 mmol/L (98-107) Carbon Dioxide Level 26 mmol/L (21-32) Anion Gap 6 (6-14) Blood Urea Nitrogen 9 mg/dL (7-20) Creatinine 0.8 mg/dL (0.6-1.0) Estimated GFR (Cockcroft-Gault) 71.1 Glucose Level 344 mg/dL (70-99) Calcium Level 8.6 mg/dL (8.5-10.1) Phosphorus Level 3.0 mg/dL (2.6-4.7) Magnesium Level 1.8 mg/dL (1.8-2.4) Glucose (Fingerstick) 461 mg/dL (70-99) Microbiology 03/02/19 Urine Culture - Final, Complete 03/02/19 Urine Culture Result 1 (DONNA) - Final, Complete Medications Current Medications Sodium Chloride 1,000 ml @ 1,000 mls/hr 1X ONCE IV Last administered on 03/02/19at 14:15; Start 03/02/19 at 14:00; Stop 03/02/19 at 14:59; Status DC Morphine Sulfate (Morphine Sulfate) 4 mg 1X ONCE IV Last administered on 03/02/19at 14:14; Start 03/02/19 at 14:30; Stop 03/02/19 at 14:31; Status DC Ondansetron HCl (Zofran) 4 mg 1X ONCE IV Last administered on 03/02/19at 14:13; Start 03/02/19 at 14:30; Stop 03/02/19 at 14:31; Status DC Iohexol (Omnipaque 300 Mg/ml) 60 ml 1X ONCE IV Last administered on 03/02/19at 15:24; Start 03/02/19 at 15:45; Stop 03/02/19 at 15:46; Status DC Info (CONTRAST GIVEN -- Rx MONITORING) 1 each PRN DAILY PRN MC SEE COMMENTS; Start 03/02/19 at 15:15; Stop 03/04/19 at 15:14; Status DC Fentanyl Citrate (Fentanyl 2ml Vial) 75 mcg 1X ONCE IV Last administered on 03/02/19at 16:19; Start 03/02/19 at 16:45; Stop 03/02/19 at 16:46; Status DC Piperacillin Sod/ Tazobactam Sod 3.375 gm/Sodium Chloride 50 ml @ 100 mls/hr 1X ONCE IV Last administered on 03/02/19at 16:26; Start 03/02/19 at 17:00; Stop 03/02/19 at 17:29; Status DC Sodium Chloride 1,000 ml @ 1,000 mls/hr 1X ONCE IV Last administered on 03/02/19at 16:31; Start 03/02/19 at 16:30; Stop 03/02/19 at 17:29; Status DC Ondansetron HCl (Zofran) 4 mg PRN Q8HRS PRN IV NAUSEA/VOMITING; Start 03/02/19 at 17:00; Stop 03/02/19 at 19:48; Status DC Fentanyl Citrate (Fentanyl 2ml Vial) 50 mcg PRN Q2HR PRN IV PAIN Last administered on 03/02/19at 20:51; Start 03/02/19 at 17:00; Stop 03/03/19 at 16:59; Status DC Sodium Chloride 1,000 ml @ 100 mls/hr Q10H IV ; Start 03/02/19 at 16:48; Stop 03/03/19 at 16:47; Status Cancel Sodium Chloride (Normal Saline Flush) 3 ml QSHIFT PRN IV AFTER MEDS AND BLOOD DRAWS; Start 03/02/19 at 19:45 Sodium Chloride 1,000 ml @ 100 mls/hr Q10H IV Last administered on 03/06/19at 15:00; Start 03/02/19 at 21:00; Stop 03/08/19 at 13:48; Status DC Ondansetron HCl (Zofran) 4 mg PRN Q4HRS PRN IV NAUSEA/VOMITING, 1st CHOICE Last administered on 03/07/19at 08:25; Start 03/02/19 at 19:45 Acetaminophen (Tylenol) 650 mg PRN Q4HRS PRN PO TEMP OVER 100.4F OR MILD PAIN; Start 03/02/19 at 19:45; Stop 03/09/19 at 09:57; Status DC Clonidine HCl (Catapres) 0.1 mg PRN Q6HRS PRN PO SBP>160 OR DBP>90; Start 03/02/19 at 19:45 Guaifenesin (Robitussin) 200 mg PRN Q4HRS PRN PO COUGH; Start 03/02/19 at 19:45 Lorazepam (Ativan) 0.5 mg PRN Q4HRS PRN PO ANXIETY / AGITATION; Start 03/02/19 at 19:45 Hydromorphone HCl (Dilaudid) 1 mg PRN Q2HRS PRN IV SEVERE PAIN 7-10 Last administered on 03/09/19at 10:10; Start 03/02/19 at 19:45 Enoxaparin Sodium (Lovenox 40mg Syringe) 40 mg DAILY SQ Last administered on 03/09/19at 09:00; Start 03/03/19 at 09:00 Metoclopramide HCl (Reglan Vial) 10 mg PRN Q6HRS PRN IV NAUSEA/VOMITING, 2nd CHOICE Last administered on 03/04/19at 11:25; Start 03/03/19 at 12:00 Pantoprazole Sodium (PROTONIX VIAL for IV PUSH) 40 mg DAILYAC IVP Last adm inistered on 03/09/19at 08:23; Start 03/04/19 at 09:30; Stop 03/09/19 at 09:26; Status DC Potassium Chloride/Water 100 ml @ 100 mls/hr Q1H IV Last administered on 03/06/19 16:00; Start 03/06/19 at 13:00; Stop 03/06/19 at 16:59; Status DC Amino Acids/ Glycerin/ Electrolytes 1,000 ml @ 80 mls/hr [id number] IV Last administered on 03/07/19at 11:00; Start 03/06/19 at 21:00; Stop 03/08/19 at 21:59; Status DC Magnesium Sulfate 50 ml @ 25 mls/hr 1X ONCE IV Last administered on 03/07/19at 08:24; Start 03/07/19 at 08:30; Stop 03/07/19 at 10:29; Status DC Lidocaine/Sodium Bicarbonate (Buffered Lidocaine 1%) 3 ml 1X ONCE INJ Last administered on 03/08/19 09:55; Start 03/08/19 at 09:30; Stop 03/08/19 at 09:34; Status DC Atorvastatin Calcium (Lipitor) 20 mg QHS PO Last administered on 03/10/19at 21:28; Start 03/08/19 at 21:00 Losartan Potassium (Cozaar) 100 mg DAILY PO Last administered on 03/11/19at 08:50; Start 03/09/19 at 09:00 Insulin Human Lispro (HumaLOG) 0-5 UNITS TIDWMEALS SQ Last administered on 03/09/19 18:01; Start 03/08/19 at 13:00; Stop 03/10/19 at 09:25; Status DC Dextrose (Dextrose 50%-Water Syringe) 12.5 gm PRN Q15MIN PRN IV SEE COMMENTS; Start 03/08/19 at 12:45 Info (Tpn Per Pharmacy) 1 each PRN DAILY PRN MC SEE COMMENTS Last administered on 03/11/19at 12:49; Start 03/08/19 at 13:45 Sodium Chloride 90 meq/Potassium Chloride 50 meq/ Potassium Phosphate 13.6 mmol/Magnesium Sulfate 10 meq/ Calcium Gluconate 10 meq/ Multivitamins 10 ml/Chromium/ Copper/Manganese/ Seleni/Zn 1 ml/ Total Parenteral Nutrition/Amino Acids/Dextrose/ Fat Emulsion Intravenous 1,512 ml @ 63 mls/hr TPN CONT IV Last administered on 03/08/19at 22:22; Start 03/08/19 at 22:00; Stop 03/09/19 at 21:59; Status DC Loperamide HCl (Imodium) 2 mg 1X ONCE PO Last administered on 03/08/19at 21:06; Start 03/08/19 at 19:45; Stop 03/08/19 at 19:46; Status DC Acetaminophen (Tylenol) 650 mg 1X ONCE PO ; Start 03/08/19 at 19:45; Stop 03/08/19 at 19:46; Status DC Hydromorphone HCl (Dilaudid) 1 mg 1X ONCE IVP ; Start 03/08/19 at 19:45; Stop 03/08/19 at 19:46; Status DC Pantoprazole Sodium (Protonix) 40 mg DAILYAC PO Last administered on 03/11/19at 08:49; Start 03/10/19 at 07:30 Sodium Chloride 90 meq/Potassium Chloride 50 meq/ Potassium Phosphate 13.6 mmol/Magnesium Sulfate 12 meq/ Calcium Gluconate 10 meq/ Multivitamins 10 ml/Chromium/ Copper/Manganese/ Seleni/Zn 1 ml/ Total Parenteral Nutrition/Amino Acids/Dextrose/ Fat Emulsion Intravenous 1,512 ml @ 63 mls/hr TPN CONT IV Last administered on 03/10/19at 03:21; Start 03/09/19 at 22:00; Stop 03/10/19 at 21:59; Status DC Insulin Human Lispro (HumaLOG) 0-7 UNITS TIDWMEALS SQ Last administered on 03/10/19at 12:32; Start 03/10/19 at 12:00; Stop 03/10/19 at 17:02; Status DC Insulin Human Lispro (HumaLOG) 10 units 1X STAT SQ Last administered on 03/10/19at 09:50; Start 03/10/19 at 09:24; Stop 03/10/19 at 09:29; Status DC Simethicone (Gas-X) 80 mg PRN AFTMEALHC PRN PO GAS / BLOATING; Start 03/10/19 at 09:30 Polyethylene Glycol (miraLAX PACKET) 17 gm DAILY PO Last administered on 03/11/19at 08:49; Start 03/11/19 at 09:00 Polyethylene Glycol (miraLAX PACKET) 17 gm PRN DAILY PRN PO CONSTIPATION; Start 03/10/19 at 09:30 Bisacodyl (Dulcolax Tab) 5 mg 1X ONCE PO Last administered on 03/10/19at 09:48; Start 03/10/19 at 09:30; Stop 03/10/19 at 09:34; Status DC Alteplase, Recombinant (Cathflo For Central Catheter Clearance) 1 mg 1X ONCE INT CAT Last administered on 03/10/19at 10:29; Start 03/10/19 at 10:30; Stop 03/10/19 at 10:31; Status DC Ondansetron HCl (Zofran Odt) 4 mg 1X ONCE PO Last administered on 03/10/19at 10:47; Start 03/10/19 at 10:45; Stop 03/10/19 at 10:46; Status DC Sodium Chloride 90 meq/Potassium Chloride 50 meq/ Potassium Phosphate 13.6 mmol/Magnesium Sulfate 12 meq/ Calcium Gluconate 10 meq/ Multivitamins 10 ml/Chromium/ Copper/Manganese/ Seleni/Zn 1 ml/ Total Parenteral Nutrition/Amino Acids/Dextrose/ Fat Emulsion Intravenous 1,512 ml @ 63 mls/hr TPN CONT IV Last administered on 03/11/19at 06:31; Start 03/10/19 at 22:00; Stop 03/11/19 at 21:59 Insulin Human Lispro (HumaLOG) 0-9 UNITS TIDWMEALS SQ Last administered on 03/11/19at 12:52; Start 03/10/19 at 17:00 Insulin Human Lispro (HumaLOG) 4 units STAT SQ ; Start 03/10/19 at 17:15; Stop 03/10/19 at 17:32; Status DC Insulin Human Lispro (HumaLOG) 4 units 1X ONCE SQ Last administered on 03/10/19at 17:27; Start 03/10/19 at 17:45; Stop 03/10/19 at 17:46; Status DC Insulin Human Lispro (HumaLOG) 10 units TIDAC SQ Last administered on 03/11/19at 12:50; Start 03/11/19 at 09:40 Sodium Chloride 90 meq/Potassium Chloride 50 meq/ Potassium Phosphate 13.6 mmol/Magnesium Sulfate 12 meq/ Calcium Gluconate 10 meq/ Multivitamins 10 ml/Chromium/ Copper/Manganese/ Seleni/Zn 1 ml/ Total Parenteral Nutrition/Amino Acids/Dextrose/ Fat Emulsion Intravenous 1,512 ml @ 63 mls/hr TPN CONT IV ; Start 03/11/19 at 22:00; Stop 03/12/19 at 21:59 Insulin Glargine (Lantus) 20 units QHS SQ ; Start 03/11/19 at 21:00 Insulin Human Lispro (HumaLOG) 6 units 1X ONCE SQ Last administered on 03/11/19at 13:00; Start 03/11/19 at 13:00; Stop 03/11/19 at 13:01; Status DC Active Scripts Active Reported Vitamin D3 (Cholecalciferol (Vitamin D3)) 1,000 Unit Tablet 2,000 Unit PO DAILY Ferrous Sulfate 325 Mg Tablet 325 Mg PO DAILY Atorvastatin Calcium 20 Mg Tablet 20 Mg PO DAILY Glimepiride 2 Mg Tablet 2 Tab PO BID Losartan Potassium 100 Mg Tablet 100 Mg PO DAILY Protonix (Pantoprazole Sodium) 40 Mg Tablet.dr 40 Mg PO DAILYAC Vitals/I & O Vital Sign - Last 24 Hours 03/10/19 03/10/19 03/10/19 03/10/19 15:27 19:20 20:00 23:27 Temp 98.7 98.8 98.9 98.7 98.8 98.9 Pulse 105 77 84 Resp 18 18 18 B/P (MAP) 140/85 (103) 145/94 (111) 153/74 (100) Pulse Ox 95 96 96 O2 Delivery Room Air Room Air Room Air Room Air 03/11/19 03/11/19 03/11/19 03/11/19 03:22 07:00 08:00 08:50 Temp 98.7 98.4 98.7 98.4 Pulse 77 70 70 Resp 18 18 B/P (MAP) 147/80 (102) 171/79 (109) 171/79 Pulse Ox 96 98 O2 Delivery Room Air Room Air Room Air 03/11/19 03/11/19 10:42 13:04 Temp 98.7 98.7 Pulse 91 71 Resp 18 B/P (MAP) 83/58 (66) 148/60 (89) Pulse Ox 97 O2 Delivery Room Air Intake and Output 03/10/19 03/10/19 03/11/19 14:59 22:59 06:59 Intake Total 360 ml Balance 360 ml IONA PAREDES MD Mar 11, 2019 13:35
--- NOTE | 2019-03-11 14:03 | NUR ---
Pharmacy TPN Dosing Note S: JUAN LANE is a 68 year old F Currently receiving Central Continuous TPN started 03/08/19 B:Pertinent PMH: gallstone pancreatitis Height: 5 feet, 2 inches Weight: 83.694078 kg Current diet: FLD LABS: Sodium: 138 Potassium: 4.2 Chloride: 106 Calcium: 8.6 Corrected Calcium: 9.72 Magnesium: 1.8 CO2: 26 SCr: 0.8 Glucose: 262-461 Albumin: 2.6 AST: 45 ALT: 52 TPN FORMULA: TPN TYPE: Central Continuous AMINO ACIDS: 60 gm DEXTROSE: 195 gm LIPIDS: 20 gm SODIUM CHLORIDE: 90 mEq SODIUM ACETATE: mEq SODIUM PHOSPHATE: mmol POTASSIUM CHLORIDE: 50 mEq POTASSIUM ACETATE: mEq POTASSIUM PHOSPHATE: 13.6 mmol MAGNESIUM: 12 mEq CALCIUM: 10 mEq INSULIN: - units MULTIPLE VITAMIN: 10 ml TRACE ELEMENTS: 1 ml(s) TPN PLAN: Pt on FLD. Labs stable except BG excursions, BG 261-461 since last TPN bag hung. Dr. Flores added meal dose insulin 10 units and 20 units long-acting insulin QHS. Per RN pt taking about 50% of meals. BMP in AM. R: Continue TPN ABOVE. Will monitor electrolytes, glucose, and tolerance to TPN. CASI CALIXTO [facility], 03/11/19 [id number]
[2019-03-11] MEDS ORDERED: INSULIN GLARGINE 300 UNITS/3 ML INSULN.PEN. SQ SCH (21:00)
[2019-03-11] MEDS: ATORVASTATIN CALCIUM 20 MG TABLET PO SCH (21:30)
[2019-03-11] MEDS ORDERED: AMINO ACID IV SCH ×10 (22:00)
[2019-03-11] MEDS ORDERED: DEXTROSE 70% IV SCH ×10 (22:00)
[2019-03-11] MEDS ORDERED: TOTAL PARENTERAL NUTRITION IV SCH ×10 (22:00)
[2019-03-11] MEDS ORDERED: [UNRECOGNIZED DRUG - OTHER] IV SCH ×10 (22:00)
[2019-03-12 02:56] VITALS: BP 134/68
[2019-03-12 04:55] LABS: BASO % 0 % (0-3); EOS # 0.1 x10^3/uL (0.0-0.7); EOS % 2 % (0-3); HEMATOCRIT 35.4 % (36.0-47.0); HEMOGLOBIN 11.8 g/dL (12.0-15.5); LYMPH # 1.5 x10^3/uL (1.0-4.8); LYMPH % 37 % (24-48); MEAN CORPUSCULAR HEMOGLOBIN 29 pg (25-35); MEAN CORPUSCULAR HGB CONC 34 g/dL (31-37); MEAN CORPUSCULAR VOLUME 87 fL (79-100); MONO # 0.5 x10^3/uL (0.0-1.1); MONO % 13 % (0-9); NEUT # 1.9 x10^3/uL (1.8-7.7); NEUT % 48 % (31-73); PLATELET COUNT 43 x10^3/uL (140-400); RED BLOOD COUNT 4.06 x10^6/uL (3.50-5.40)
[2019-03-12 05:37] LABS: CALCIUM 8.4 mg/dL (8.5-10.1); CREATININE 0.8 mg/dL (0.6-1.0); GFR 71.1; POTASSIUM 4.3 mmol/L (3.5-5.1)
[2019-03-12 07:00] VITALS: BP 107/47
[2019-03-12] MEDS: ENOXAPARIN 40 MG/0.4 ML SYRINGE. SQ SCH (08:18)
[2019-03-12] MEDS: POLYETHYLENE GLYCOL 3350 17 GM PACKET. PO SCH (08:30)
[2019-03-12] MEDS: PANTOPRAZOLE 40 MG TABLET.DR. PO SCH (08:30)
[2019-03-12] MEDS: LOSARTAN POTASSIUM 50 MG TABLET. PO SCH (08:32)
[2019-03-12] MEDS: INSULIN LISPRO 300 UNITS/3 ML INSULN.PEN. SQ SCH ×6 (08:35→16:46)
--- NOTE | 2019-03-12 08:55 | PDOC ---
PROGRESS NOTES Chief Complaint Chief Complaint Gallstone pancreatitis Thrombocytopenia Leukopenia Pain Diabetes Hypertension Hyperlipidemia Fatty liver History of Present Illness History of Present Illness Seen and examined today, c/o leg cramping, abdominal pain improved. Still with little appetite. Glycemic control has been extremely poor in the 300s and 400s. Plan: Add lantus 20u QAM Mag oxide for cramps, can trial voltaren. 03/09/19 Patient seen and examined DW RN Reviewed KUB Ordered dilaudid Reviewed chart 03/10/19 patient seen and examined discussed liver test results continue to wait for swelling to reduce 03/11/19 Patient seen and examined Disussed glucose management with RN Patient was sitting up in bed and appears to improve Vitals Vitals Vital Signs Date Time Temp Pulse Resp B/P (MAP) Pulse Ox O2 Delivery O2 Flow Rate FiO2 03/12/19 08:32 74 107/47 03/12/19 07:54 Room Air 03/12/19 07:00 98.1 16 95 98.1 Physical Exam General: Alert, No acute distress Heart: Normal S1, Normal S2 Lungs: Clear Abdomen: Soft, Other (mild ttp upper abdomen ) Extremities: No clubbing, No cyanosis, Normal pulses Skin: No rashes, No breakdown, No significant lesion Labs LABS Laboratory Tests Test 03/11/19 08:55 03/11/19 12:20 03/11/19 13:50 03/11/19 16:29 White Blood Count 4.0 x10^3/uL (4.0-11.0) Red Blood Count 4.24 x10^6/uL (3.50-5.40) Hemoglobin 12.3 g/dL (12.0-15.5) Hematocrit 37.1 % (36.0-47.0) Mean Corpuscular Volume 87 fL (79-100) Mean Corpuscular Hemoglobin 29 pg (25-35) Mean Corpuscular Hemoglobin Concent 33 g/dL (31-37) Red Cell Distribution Width 15.8 % (11.5-14.5) Platelet Count 42 x10^3/uL (140-400) Neutrophils (%) (Auto) 49 % (31-73) Lymphocytes (%) (Auto) 36 % (24-48) Monocytes (%) (Auto) 12 % (0-9) Eosinophils (%) (Auto) 2 % (0-3) Basophils (%) (Auto) 1 % (0-3) Neutrophils # (Auto) 2.0 x10^3/uL (1.8-7.7) Lymphocytes # (Auto) 1.5 x10^3/uL (1.0-4.8) Monocytes # (Auto) 0.5 x10^3/uL (0.0-1.1) Eosinophils # (Auto) 0.1 x10^3/uL (0.0-0.7) Basophils # (Auto) 0.0 x10^3/uL (0.0-0.2) Sodium Level 138 mmol/L (136-145) Potassium Level 4.2 mmol/L (3.5-5.1) Chloride Level 106 mmol/L (98-107) Carbon Dioxide Level 26 mmol/L (21-32) Anion Gap 6 (6-14) Blood Urea Nitrogen 9 mg/dL (7-20) Creatinine 0.8 mg/dL (0.6-1.0) Estimated GFR (Cockcroft-Gault) 71.1 Glucose Level 344 mg/dL (70-99) Calcium Level 8.6 mg/dL (8.5-10.1) Phosphorus Level 3.0 mg/dL (2.6-4.7) Magnesium Level 1.8 mg/dL (1.8-2.4) Glucose (Fingerstick) 461 mg/dL (70-99) 399 mg/dL (70-99) 386 mg/dL (70-99) Test 03/11/19 21:23 03/12/19 04:20 03/12/19 07:31 Glucose (Fingerstick) 343 mg/dL (70-99) 402 mg/dL (70-99) White Blood Count 4.0 x10^3/uL (4.0-11.0) Red Blood Count 4.06 x10^6/uL (3.50-5.40) Hemoglobin 11.8 g/dL (12.0-15.5) Hematocrit 35.4 % (36.0-47.0) Mean Corpuscular Volume 87 fL (79-100) Mean Corpuscular Hemoglobin 29 pg (25-35) Mean Corpuscular Hemoglobin Concent 34 g/dL (31-37) Red Cell Distribution Width 16.0 % (11.5-14.5) Platelet Count 43 x10^3/uL (140-400) Neutrophils (%) (Auto) 48 % (31-73) Lymphocytes (%) (Auto) 37 % (24-48) Monocytes (%) (Auto) 13 % (0-9) Eosinophils (%) (Auto) 2 % (0-3) Basophils (%) (Auto) 0 % (0-3) Neutrophils # (Auto) 1.9 x10^3/uL (1.8-7.7) Lymphocytes # (Auto) 1.5 x10^3/uL (1.0-4.8) Monocytes # (Auto) 0.5 x10^3/uL (0.0-1.1) Eosinophils # (Auto) 0.1 x10^3/uL (0.0-0.7) Basophils # (Auto) 0.0 x10^3/uL (0.0-0.2) Sodium Level 138 mmol/L (136-145) Potassium Level 4.3 mmol/L (3.5-5.1) Chloride Level 104 mmol/L (98-107) Carbon Dioxide Level 27 mmol/L (21-32) Anion Gap 7 (6-14) Blood Urea Nitrogen 10 mg/dL (7-20) Creatinine 0.8 mg/dL (0.6-1.0) Estimated GFR (Cockcroft-Gault) 71.1 Glucose Level 368 mg/dL (70-99) Calcium Level 8.4 mg/dL (8.5-10.1) Assessment and Plan Assessmemt and Plan Problems Medical Problems: (1) Acute gallstone pancreatitis Status: Acute (2) Cholecystitis Status: Acute (3) Thrombocytopenia Status: Acute Comment Review of Relevant I have reviewed the following items popeye (where applicable) has been applied. Labs Laboratory Tests Test 03/10/19 11:17 03/10/19 16:50 03/10/19 20:50 03/11/19 01:13 Glucose (Fingerstick) 333 mg/dL (70-99) 386 mg/dL (70-99) 316 mg/dL (70-99) 262 mg/dL (70-99) Test 03/11/19 06:41 03/11/19 08:55 03/11/19 12:20 03/11/19 13:50 Glucose (Fingerstick) 336 mg/dL (70-99) 461 mg/dL (70-99) 399 mg/dL (70-99) White Blood Count 4.0 x10^3/uL (4.0-11.0) Red Blood Count 4.24 x10^6/uL (3.50-5.40) Hemoglobin 12.3 g/dL (12.0-15.5) Hematocrit 37.1 % (36.0-47.0) Mean Corpuscular Volume 87 fL (79-100) Mean Corpuscular Hemoglobin 29 pg (25-35) Mean Corpuscular Hemoglobin Concent 33 g/dL (31-37) Red Cell Distribution Width 15.8 % (11.5-14.5) Platelet Count 42 x10^3/uL (140-400) Neutrophils (%) (Auto) 49 % (31-73) Lymphocytes (%) (Auto) 36 % (24-48) Monocytes (%) (Auto) 12 % (0-9) Eosinophils (%) (Auto) 2 % (0-3) Basophils (%) (Auto) 1 % (0-3) Neutrophils # (Auto) 2.0 x10^3/uL (1.8-7.7) Lymphocytes # (Auto) 1.5 x10^3/uL (1.0-4.8) Monocytes # (Auto) 0.5 x10^3/uL (0.0-1.1) Eosinophils # (Auto) 0.1 x10^3/uL (0.0-0.7) Basophils # (Auto) 0.0 x10^3/uL (0.0-0.2) Sodium Level 138 mmol/L (136-145) Potassium Level 4.2 mmol/L (3.5-5.1) Chloride Level 106 mmol/L (98-107) Carbon Dioxide Level 26 mmol/L (21-32) Anion Gap 6 (6-14) Blood Urea Nitrogen 9 mg/dL (7-20) Creatinine 0.8 mg/dL (0.6-1.0) Estimated GFR (Cockcroft-Gault) 71.1 Glucose Level 344 mg/dL (70-99) Calcium Level 8.6 mg/dL (8.5-10.1) Phosphorus Level 3.0 mg/dL (2.6-4.7) Magnesium Level 1.8 mg/dL (1.8-2.4) Test 03/11/19 16:29 03/11/19 21:23 03/12/19 04:20 03/12/19 07:31 Glucose (Fingerstick) 386 mg/dL (70-99) 343 mg/dL (70-99) 402 mg/dL (70-99) White Blood Count 4.0 x10^3/uL (4.0-11.0) Red Blood Count 4.06 x10^6/uL (3.50-5.40) Hemoglobin 11.8 g/dL (12.0-15.5) Hematocrit 35.4 % (36.0-47.0) Mean Corpuscular Volume 87 fL (79-100) Mean Corpuscular Hemoglobin 29 pg (25-35) Mean Corpuscular Hemoglobin Concent 34 g/dL (31-37) Red Cell Distribution Width 16.0 % (11.5-14.5) Platelet Count 43 x10^3/uL (140-400) Neutrophils (%) (Auto) 48 % (31-73) Lymphocytes (%) (Auto) 37 % (24-48) Monocytes (%) (Auto) 13 % (0-9) Eosinophils (%) (Auto) 2 % (0-3) Basophils (%) (Auto) 0 % (0-3) Neutrophils # (Auto) 1.9 x10^3/uL (1.8-7.7) Lymphocytes # (Auto) 1.5 x10^3/uL (1.0-4.8) Monocytes # (Auto) 0.5 x10^3/uL (0.0-1.1) Eosinophils # (Auto) 0.1 x10^3/uL (0.0-0.7) Basophils # (Auto) 0.0 x10^3/uL (0.0-0.2) Sodium Level 138 mmol/L (136-145) Potassium Level 4.3 mmol/L (3.5-5.1) Chloride Level 104 mmol/L (98-107) Carbon Dioxide Level 27 mmol/L (21-32) Anion Gap 7 (6-14) Blood Urea Nitrogen 10 mg/dL (7-20) Creatinine 0.8 mg/dL (0.6-1.0) Estimated GFR (Cockcroft-Gault) 71.1 Glucose Level 368 mg/dL (70-99) Calcium Level 8.4 mg/dL (8.5-10.1) Laboratory Tests Test 03/11/19 12:20 03/11/19 13:50 03/11/19 16:29 03/11/19 21:23 Glucose (Fingerstick) 461 mg/dL (70-99) 399 mg/dL (70-99) 386 mg/dL (70-99) 343 mg/dL (70-99) Test 03/12/19 04:20 03/12/19 07:31 White Blood Count 4.0 x10^3/uL (4.0-11.0) Red Blood Count 4.06 x10^6/uL (3.50-5.40) Hemoglobin 11.8 g/dL (12.0-15.5) Hematocrit 35.4 % (36.0-47.0) Mean Corpuscular Volume 87 fL (79-100) Mean Corpuscular Hemoglobin 29 pg (25-35) Mean Corpuscular Hemoglobin Concent 34 g/dL (31-37) Red Cell Distribution Width 16.0 % (11.5-14.5) Platelet Count 43 x10^3/uL (140-400) Neutrophils (%) (Auto) 48 % (31-73) Lymphocytes (%) (Auto) 37 % (24-48) Monocytes (%) (Auto) 13 % (0-9) Eosinophils (%) (Auto) 2 % (0-3) Basophils (%) (Auto) 0 % (0-3) Neutrophils # (Auto) 1.9 x10^3/uL (1.8-7.7) Lymphocytes # (Auto) 1.5 x10^3/uL (1.0-4.8) Monocytes # (Auto) 0.5 x10^3/uL (0.0-1.1) Eosinophils # (Auto) 0.1 x10^3/uL (0.0-0.7) Basophils # (Auto) 0.0 x10^3/uL (0.0-0.2) Sodium Level 138 mmol/L (136-145) Potassium Level 4.3 mmol/L (3.5-5.1) Chloride Level 104 mmol/L (98-107) Carbon Dioxide Level 27 mmol/L (21-32) Anion Gap 7 (6-14) Blood Urea Nitrogen 10 mg/dL (7-20) Creatinine 0.8 mg/dL (0.6-1.0) Estimated GFR (Cockcroft-Gault) 71.1 Glucose Level 368 mg/dL (70-99) Calcium Level 8.4 mg/dL (8.5-10.1) Glucose (Fingerstick) 402 mg/dL (70-99) Microbiology 03/02/19 Urine Culture - Final, Complete 03/02/19 Urine Culture Result 1 (DONNA) - Final, Complete Medications Current Medications Sodium Chloride 1,000 ml @ 1,000 mls/hr 1X ONCE IV Last administered on 03/02/19at 14:15; Start 03/02/19 at 14:00; Stop 03/02/19 at 14:59; Status DC Morphine Sulfate (Morphine Sulfate) 4 mg 1X ONCE IV Last administered on 03/02/19at 14:14; Start 03/02/19 at 14:30; Stop 03/02/19 at 14:31; Status DC Ondansetron HCl (Zofran) 4 mg 1X ONCE IV Last administered on 03/02/19at 14:13; Start 03/02/19 at 14:30; Stop 03/02/19 at 14:31; Status DC Iohexol (Omnipaque 300 Mg/ml) 60 ml 1X ONCE IV Last administered on 03/02/19at 15:24; Start 03/02/19 at 15:45; Stop 03/02/19 at 15:46; Status DC Info (CONTRAST GIVEN -- Rx MONITORING) 1 each PRN DAILY PRN MC SEE COMMENTS; Start 03/02/19 at 15:15; Stop 03/04/19 at 15:14; Status DC Fentanyl Citrate (Fentanyl 2ml Vial) 75 mcg 1X ONCE IV Last administered on 03/02/19at 16:19; Start 03/02/19 at 16:45; Stop 03/02/19 at 16:46; Status DC Piperacillin Sod/ Tazobactam Sod 3.375 gm/Sodium Chloride 50 ml @ 100 mls/hr 1X ONCE IV Last administered on 03/02/19at 16:26; Start 03/02/19 at 17:00; Stop 03/02/19 at 17:29; Status DC Sodium Chloride 1,000 ml @ 1,000 mls/hr 1X ONCE IV Last administered on 03/02/19at 16:31; Start 03/02/19 at 16:30; Stop 03/02/19 at 17:29; Status DC Ondansetron HCl (Zofran) 4 mg PRN Q8HRS PRN IV NAUSEA/VOMITING; Start 03/02/19 at 17:00; Stop 03/02/19 at 19:48; Status DC Fentanyl Citrate (Fentanyl 2ml Vial) 50 mcg PRN Q2HR PRN IV PAIN Last administered on 03/02/19at 20:51; Start 03/02/19 at 17:00; Stop 03/03/19 at 16:59; Status DC Sodium Chloride 1,000 ml @ 100 mls/hr Q10H IV ; Start 03/02/19 at 16:48; Stop 03/03/19 at 16:47; Status Cancel Sodium Chloride (Normal Saline Flush) 3 ml QSHIFT PRN IV AFTER MEDS AND BLOOD DRAWS; Start 03/02/19 at 19:45 Sodium Chloride 1,000 ml @ 100 mls/hr Q10H IV Last administered on 03/06/19at 15:00; Start 03/02/19 at 21:00; Stop 03/08/19 at 13:48; Status DC Ondansetron HCl (Zofran) 4 mg PRN Q4HRS PRN IV NAUSEA/VOMITING, 1st CHOICE Last administered on 03/07/19at 08:25; Start 03/02/19 at 19:45 Acetaminophen (Tylenol) 650 mg PRN Q4HRS PRN PO TEMP OVER 100.4F OR MILD PAIN; Start 03/02/19 at 19:45; Stop 03/09/19 at 09:57; Status DC Clonidine HCl (Catapres) 0.1 mg PRN Q6HRS PRN PO SBP>160 OR DBP>90; Start 03/02/19 at 19:45 Guaifenesin (Robitussin) 200 mg PRN Q4HRS PRN PO COUGH; Start 03/02/19 at 19:45 Lorazepam (Ativan) 0.5 mg PRN Q4HRS PRN PO ANXIETY / AGITATION; Start 03/02/19 at 19:45 Hydromorphone HCl (Dilaudid) 1 mg PRN Q2HRS PRN IV SEVERE PAIN 7-10 Last administered on 03/09/19 10:10; Start 03/02/19 at 19:45 Enoxaparin Sodium (Lovenox 40mg Syringe) 40 mg DAILY SQ Last administered on 03/09/19 09:00; Start 03/03/19 at 09:00 Metoclopramide HCl (Reglan Vial) 10 mg PRN Q6HRS PRN IV NAUSEA/VOMITING, 2nd CHOICE Last administered on 03/04/19 11:25; Start 03/03/19 at 12:00 Pantoprazole Sodium (PROTONIX VIAL for IV PUSH) 40 mg DAILYAC IVP Last administered on 03/09/19 08:23; Start 03/04/19 at 09:30; Stop 03/09/19 at 09:26; Status DC Potassium Chloride/Water 100 ml @ 100 mls/hr Q1H IV Last administered on 03/06/19 16:00; Start 03/06/19 at 13:00; Stop 03/06/19 at 16:59; Status DC Amino Acids/ Glycerin/ Electrolytes 1,000 ml @ 80 mls/hr [id number] IV Last administered on 03/07/19 11:00; Start 03/06/19 at 21:00; Stop 03/08/19 at 21:59; Status DC Magnesium Sulfate 50 ml @ 25 mls/hr 1X ONCE IV Last administered on 03/07/19 08:24; Start 03/07/19 at 08:30; Stop 03/07/19 at 10:29; Status DC Lidocaine/Sodium Bicarbonate (Buffered Lidocaine 1%) 3 ml 1X ONCE INJ Last administered on 03/08/19at 09:55; Start 03/08/19 at 09:30; Stop 03/08/19 at 09:34; Status DC Atorvastatin Calcium (Lipitor) 20 mg QHS PO Last administered on 03/11/19at 21:30; Start 03/08/19 at 21:00 Losartan Potassium (Cozaar) 100 mg DAILY PO Last administered on 03/12/19 08:32; Start 03/09/19 at 09:00 Insulin Human Lispro (HumaLOG) 0-5 UNITS TIDWMEALS SQ Last administered on 03/09/19at 18:01; Start 03/08/19 at 13:00; Stop 03/10/19 at 09:25; Status DC Dextrose (Dextrose 50%-Water Syringe) 12.5 gm PRN Q15MIN PRN IV SEE COMMENTS; Start 03/08/19 at 12:45 Info (Tpn Per Pharmacy) 1 each PRN DAILY PRN MC SEE COMMENTS Last administered on 03/11/19at 13:58; Start 03/08/19 at 13:45 Sodium Chloride 90 meq/Potassium Chloride 50 meq/ Potassium Phosphate 13.6 mmol/Magnesium Sulfate 10 meq/ Calcium Gluconate 10 meq/ Multivitamins 10 ml/Chromium/ Copper/Manganese/ Seleni/Zn 1 ml/ Total Parenteral Nutrition/Amino Acids/Dextrose/ Fat Emulsion Intravenous 1,512 ml @ 63 mls/hr TPN CONT IV Last administered on 03/08/19at 22:22; Start 03/08/19 at 22:00; Stop 03/09/19 at 21:59; Status DC Loperamide HCl (Imodium) 2 mg 1X ONCE PO Last administered on 03/08/19at 21:06; Start 03/08/19 at 19:45; Stop 03/08/19 at 19:46; Status DC Acetaminophen (Tylenol) 650 mg 1X ONCE PO ; Start 03/08/19 at 19:45; Stop 03/08/19 at 19:46; Status DC Hydromorphone HCl (Dilaudid) 1 mg 1X ONCE IVP ; Start 03/08/19 at 19:45; Stop 03/08/19 at 19:46; Status DC Pantoprazole Sodium (Protonix) 40 mg DAILYAC PO Last administered on 03/12/19at 08:30; Start 03/10/19 at 07:30 Sodium Chloride 90 meq/Potassium Chloride 50 meq/ Potassium Phosphate 13.6 mmol/Magnesium Sulfate 12 meq/ Calcium Gluconate 10 meq/ Multivitamins 10 ml/Chromium/ Copper/Manganese/ Seleni/Zn 1 ml/ Total Parenteral Nutrition/Amino Acids/Dextrose/ Fat Emulsion Intravenous 1,512 ml @ 63 mls/hr TPN CONT IV Last administered on 03/10/19at 03:21; Start 03/09/19 at 22:00; Stop 03/10/19 at 21:59; Status DC Insulin Human Lispro (HumaLOG) 0-7 UNITS TIDWMEALS SQ Last administered on 03/10/19at 12:32; Start 03/10/19 at 12:00; Stop 03/10/19 at 17:02; Status DC Insulin Human Lispro (HumaLOG) 10 units 1X STAT SQ Last administered on 03/10/19at 09:50; Start 03/10/19 at 09:24; Stop 03/10/19 at 09:29; Status DC Simethicone (Gas-X) 80 mg PRN AFTMEALHC PRN PO GAS / BLOATING; Start 03/10/19 at 09:30 Polyethylene Glycol (miraLAX PACKET) 17 gm DAILY PO Last administered on 03/12/19at 08:30; Start 03/11/19 at 09:00 Polyethylene Glycol (miraLAX PACKET) 17 gm PRN DAILY PRN PO CONSTIPATION; Start 03/10/19 at 09:30 Bisacodyl (Dulcolax Tab) 5 mg 1X ONCE PO Last administered on 03/10/19at 09:48; Start 03/10/19 at 09:30; Stop 03/10/19 at 09:34; Status DC Alteplase, Recombinant (Cathflo For Central Catheter Clearance) 1 mg 1X ONCE INT CAT Last administered on 03/10/19at 10:29; Start 03/10/19 at 10:30; Stop 03/10/19 at 10:31; Status DC Ondansetron HCl (Zofran Odt) 4 mg 1X ONCE PO Last administered on 03/10/19at 10:47; Start 03/10/19 at 10:45; Stop 03/10/19 at 10:46; Status DC Sodium Chloride 90 meq/Potassium Chloride 50 meq/ Potassium Phosphate 13.6 mmol/Magnesium Sulfate 12 meq/ Calcium Gluconate 10 meq/ Multivitamins 10 ml/Chromium/ Copper/Manganese/ Seleni/Zn 1 ml/ Total Parenteral Nutrition/Amino Acids/Dextrose/ Fat Emulsion Intravenous 1,512 ml @ 63 mls/hr TPN CONT IV Last administered on 03/11/19at 06:31; Start 03/10/19 at 22:00; Stop 03/11/19 at 21:59; Status DC Insulin Human Lispro (HumaLOG) 0-9 UNITS TIDWMEALS SQ Last administered on 03/12/19at 08:36; Start 03/10/19 at 17:00 Insulin Human Lispro (HumaLOG) 4 units STAT SQ ; Start 03/10/19 at 17:15; Stop 03/10/19 at 17:32; Status DC Insulin Human Lispro (HumaLOG) 4 units 1X ONCE SQ Last administered on 03/10/19at 17:27; Start 03/10/19 at 17:45; Stop 03/10/19 at 17:46; Status DC Insulin Human Lispro (HumaLOG) 10 units TIDAC SQ Last administered on 03/11/19at 12:50; Start 03/11/19 at 09:40; Stop 03/11/19 at 17:25; Status DC Sodium Chloride 90 meq/Potassium Chloride 50 meq/ Potassium Phosphate 13.6 mmol/Magnesium Sulfate 12 meq/ Calcium Gluconate 10 meq/ Multivitamins 10 ml/Chromium/ Copper/Manganese/ Seleni/Zn 1 ml/ Total Parenteral Nutrition/Amino Acids/Dextrose/ Fat Emulsion Intravenous 1,512 ml @ 63 mls/hr TPN CONT IV Last administered on 03/11/19at 22:00; Start 03/11/19 at 22:00; Stop 03/12/19 at 21:59 Insulin Glargine (Lantus) 20 units QHS SQ Last administered on 03/11/19at 21:33; Start 03/11/19 at 21:00 Insulin Human Lispro (HumaLOG) 6 units 1X ONCE SQ Last administered on 03/11/19at 13:00; Start 03/11/19 at 13:00; Stop 03/11/19 at 13:01; Status DC Insulin Human Lispro (HumaLOG) 15 units TIDAC SQ Last administered on 03/12/19at 08:35; Start 03/11/19 at 17:23 Active Scripts Active Reported Vitamin D3 (Cholecalciferol (Vitamin D3)) 1,000 Unit Tablet 2,000 Unit PO DAILY Ferrous Sulfate 325 Mg Tablet 325 Mg PO DAILY Atorvastatin Calcium 20 Mg Tablet 20 Mg PO DAILY Glimepiride 2 Mg Tablet 2 Tab PO BID Losartan Potassium 100 Mg Tablet 100 Mg PO DAILY Protonix (Pantoprazole Sodium) 40 Mg Tablet.dr 40 Mg PO DAILYAC Vitals/I & O Vital Sign - Last 24 Hours 03/11/19 03/11/19 03/11/19 7/26/19 10:42 13:04 15:00 19:00 Temp 98.7 98.5 98.2 98.7 98.5 98.2 Pulse 91 71 81 94 Resp 18 20 18 B/P (MAP) 83/58 (66) 148/60 (89) 147/56 (86) 145/62 (89) Pulse Ox 97 98 93 O2 Delivery Room Air Room Air Room Air 03/11/19 03/12/19 03/12/19 03/12/19 23:00 02:56 07:00 07:54 Temp 97.7 98.4 98.1 97.7 98.4 98.1 Pulse 86 78 74 Resp 16 16 16 B/P (MAP) 164/80 (108) 134/68 (90) 107/47 (67) Pulse Ox 97 92 95 O2 Delivery Room Air Room Air Room Air Room Air 03/12/19 08:32 Pulse 74 B/P (MAP) 107/47 Intake and Output 03/11/19 03/11/19 03/12/19 15:00 23:00 07:00 Intake Total 180 ml 180 ml 2145 ml Balance 180 ml 180 ml 2145 ml WALT RM MD Mar 12, 2019 08:55
[2019-03-12] MEDS: INSULIN GLARGINE 300 UNITS/3 ML INSULN.PEN. SQ SCH ×2 (09:11→20:59)
[2019-03-12 11:00] VITALS: BP 150/67
--- NOTE | 2019-03-12 12:04 | PDOC ---
PROGRESS NOTES Subjective Subjective HPI - f/u of Thrombocytopenia, ROS - no fever Objective Objective Vital Signs Date Time Temp Pulse Resp B/P (MAP) Pulse Ox O2 Delivery O2 Flow Rate FiO2 03/12/19 11:00 98.2 67 18 150/67 (94) 97 Room Air 98.2 Intake and Output 03/12/19 07:00 Intake Total 2505 ml Balance 2505 ml Intake Oral 560 ml Blood Product IV Normal Saline Flush 1945 ml # Voids 2 Physical Exam General: Alert, No acute distress Neuro: Normal speech Psych/Mental Status: Mental status NL Assessment Assessment Problems Medical Problems: (1) Acute gallstone pancreatitis Status: Acute (2) Cholecystitis Status: Acute (3) Thrombocytopenia Status: Acute IMPRESSION AND PLAN: 1. Thrombocytopenia, chronic, due to cirrhosis of the liver and portal hypertension and splenomegaly. Platelet count was worse at 44,000 on 03/03/2019. No signs of bleeding. I would continue to monitor and transfuse, if there is any evidence of bleeding or if surgical intervention is necessary. Plt 43. 2. Pancreatitis. Management per Gastroenterology. 3. Cholecystitis. Management per Gastroenterology. 4. Leukopenia due to splenomegaly. WBC was 3.4 on 03/02/2019 and it improved to 4.7 on 03/03/2019. Continue to monitor CBC. wbc now 5.2. Comment Review of Relevant I have reviewed the following items popeye (where applicable) has been applied. Labs Laboratory Tests Test 03/10/19 16:50 03/10/19 20:50 03/11/19 01:13 03/11/19 06:41 Glucose (Fingerstick) 386 mg/dL (70-99) 316 mg/dL (70-99) 262 mg/dL (70-99) 336 mg/dL (70-99) Test 03/11/19 08:55 03/11/19 12:20 03/11/19 13:50 03/11/19 16:29 White Blood Count 4.0 x10^3/uL (4.0-11.0) Red Blood Count 4.24 x10^6/uL (3.50-5.40) Hemoglobin 12.3 g/dL (12.0-15.5) Hematocrit 37.1 % (36.0-47.0) Mean Corpuscular Volume 87 fL (79-100) Mean Corpuscular Hemoglobin 29 pg (25-35) Mean Corpuscular Hemoglobin Concent 33 g/dL (31-37) Red Cell Distribution Width 15.8 % (11.5-14.5) Platelet Count 42 x10^3/uL (140-400) Neutrophils (%) (Auto) 49 % (31-73) Lymphocytes (%) (Auto) 36 % (24-48) Monocytes (%) (Auto) 12 % (0-9) Eosinophils (%) (Auto) 2 % (0-3) Basophils (%) (Auto) 1 % (0-3) Neutrophils # (Auto) 2.0 x10^3/uL (1.8-7.7) Lymphocytes # (Auto) 1.5 x10^3/uL (1.0-4.8) Monocytes # (Auto) 0.5 x10^3/uL (0.0-1.1) Eosinophils # (Auto) 0.1 x10^3/uL (0.0-0.7) Basophils # (Auto) 0.0 x10^3/uL (0.0-0.2) Sodium Level 138 mmol/L (136-145) Potassium Level 4.2 mmol/L (3.5-5.1) Chloride Level 106 mmol/L (98-107) Carbon Dioxide Level 26 mmol/L (21-32) Anion Gap 6 (6-14) Blood Urea Nitrogen 9 mg/dL (7-20) Creatinine 0.8 mg/dL (0.6-1.0) Estimated GFR (Cockcroft-Gault) 71.1 Glucose Level 344 mg/dL (70-99) Calcium Level 8.6 mg/dL (8.5-10.1) Phosphorus Level 3.0 mg/dL (2.6-4.7) Magnesium Level 1.8 mg/dL (1.8-2.4) Glucose (Fingerstick) 461 mg/dL (70-99) 399 mg/dL (70-99) 386 mg/dL (70-99) Test 03/11/19 21:23 03/12/19 04:20 03/12/19 07:31 Glucose (Fingerstick) 343 mg/dL (70-99) 402 mg/dL (70-99) White Blood Count 4.0 x10^3/uL (4.0-11.0) Red Blood Count 4.06 x10^6/uL (3.50-5.40) Hemoglobin 11.8 g/dL (12.0-15.5) Hematocrit 35.4 % (36.0-47.0) Mean Corpuscular Volume 87 fL (79-100) Mean Corpuscular Hemoglobin 29 pg (25-35) Mean Corpuscular Hemoglobin Concent 34 g/dL (31-37) Red Cell Distribution Width 16.0 % (11.5-14.5) Platelet Count 43 x10^3/uL (140-400) Neutrophils (%) (Auto) 48 % (31-73) Lymphocytes (%) (Auto) 37 % (24-48) Monocytes (%) (Auto) 13 % (0-9) Eosinophils (%) (Auto) 2 % (0-3) Basophils (%) (Auto) 0 % (0-3) Neutrophils # (Auto) 1.9 x10^3/uL (1.8-7.7) Lymphocytes # (Auto) 1.5 x10^3/uL (1.0-4.8) Monocytes # (Auto) 0.5 x10^3/uL (0.0-1.1) Eosinophils # (Auto) 0.1 x10^3/uL (0.0-0.7) Basophils # (Auto) 0.0 x10^3/uL (0.0-0.2) Sodium Level 138 mmol/L (136-145) Potassium Level 4.3 mmol/L (3.5-5.1) Chloride Level 104 mmol/L (98-107) Carbon Dioxide Level 27 mmol/L (21-32) Anion Gap 7 (6-14) Blood Urea Nitrogen 10 mg/dL (7-20) Creatinine 0.8 mg/dL (0.6-1.0) Estimated GFR (Cockcroft-Gault) 71.1 Glucose Level 368 mg/dL (70-99) Calcium Level 8.4 mg/dL (8.5-10.1) Laboratory Tests Test 03/11/19 12:20 03/11/19 13:50 03/11/19 16:29 03/11/19 21:23 Glucose (Fingerstick) 461 mg/dL (70-99) 399 mg/dL (70-99) 386 mg/dL (70-99) 343 mg/dL (70-99) Test 03/12/19 04:20 03/12/19 07:31 White Blood Count 4.0 x10^3/uL (4.0-11.0) Red Blood Count 4.06 x10^6/uL (3.50-5.40) Hemoglobin 11.8 g/dL (12.0-15.5) Hematocrit 35.4 % (36.0-47.0) Mean Corpuscular Volume 87 fL (79-100) Mean Corpuscular Hemoglobin 29 pg (25-35) Mean Corpuscular Hemoglobin Concent 34 g/dL (31-37) Red Cell Distribution Width 16.0 % (11.5-14.5) Platelet Count 43 x10^3/uL (140-400) Neutrophils (%) (Auto) 48 % (31-73) Lymphocytes (%) (Auto) 37 % (24-48) Monocytes (%) (Auto) 13 % (0-9) Eosinophils (%) (Auto) 2 % (0-3) Basophils (%) (Auto) 0 % (0-3) Neutrophils # (Auto) 1.9 x10^3/uL (1.8-7.7) Lymphocytes # (Auto) 1.5 x10^3/uL (1.0-4.8) Monocytes # (Auto) 0.5 x10^3/uL (0.0-1.1) Eosinophils # (Auto) 0.1 x10^3/uL (0.0-0.7) Basophils # (Auto) 0.0 x10^3/uL (0.0-0.2) Sodium Level 138 mmol/L (136-145) Potassium Level 4.3 mmol/L (3.5-5.1) Chloride Level 104 mmol/L (98-107) Carbon Dioxide Level 27 mmol/L (21-32) Anion Gap 7 (6-14) Blood Urea Nitrogen 10 mg/dL (7-20) Creatinine 0.8 mg/dL (0.6-1.0) Estimated GFR (Cockcroft-Gault) 71.1 Glucose Level 368 mg/dL (70-99) Calcium Level 8.4 mg/dL (8.5-10.1) Glucose (Fingerstick) 402 mg/dL (70-99) Microbiology 03/02/19 Urine Culture - Final, Complete 03/02/19 Urine Culture Result 1 (DONNA) - Final, Complete Medications Current Medications Sodium Chloride 1,000 ml @ 1,000 mls/hr 1X ONCE IV Last administered on 03/02/19at 14:15; Start 03/02/19 at 14:00; Stop 03/02/19 at 14:59; Status DC Morphine Sulfate (Morphine Sulfate) 4 mg 1X ONCE IV Last administered on 03/02/19at 14:14; Start 03/02/19 at 14:30; Stop 03/02/19 at 14:31; Status DC Ondansetron HCl (Zofran) 4 mg 1X ONCE IV Last administered on 03/02/19at 14:13; Start 03/02/19 at 14:30; Stop 03/02/19 at 14:31; Status DC Iohexol (Omnipaque 300 Mg/ml) 60 ml 1X ONCE IV Last administered on 03/02/19at 15:24; Start 03/02/19 at 15:45; Stop 03/02/19 at 15:46; Status DC Info (CONTRAST GIVEN -- Rx MONITORING) 1 each PRN DAILY PRN MC SEE COMMENTS; Start 03/02/19 at 15:15; Stop 03/04/19 at 15:14; Status DC Fentanyl Citrate (Fentanyl 2ml Vial) 75 mcg 1X ONCE IV Last administered on 03/02/19at 16:19; Start 03/02/19 at 16:45; Stop 03/02/19 at 16:46; Status DC Piperacillin Sod/ Tazobactam Sod 3.375 gm/Sodium Chloride 50 ml @ 100 mls/hr 1X ONCE IV Last administered on 03/02/19at 16:26; Start 03/02/19 at 17:00; Stop 03/02/19 at 17:29; Status DC Sodium Chloride 1,000 ml @ 1,000 mls/hr 1X ONCE IV Last administered on 03/02/19at 16:31; Start 03/02/19 at 16:30; Stop 03/02/19 at 17:29; Status DC Ondansetron HCl (Zofran) 4 mg PRN Q8HRS PRN IV NAUSEA/VOMITING; Start 03/02/19 at 17:00; Stop 03/02/19 at 19:48; Status DC Fentanyl Citrate (Fentanyl 2ml Vial) 50 mcg PRN Q2HR PRN IV PAIN Last administered on 03/02/19at 20:51; Start 03/02/19 at 17:00; Stop 03/03/19 at 16:59; Status DC Sodium Chloride 1,000 ml @ 100 mls/hr Q10H IV ; Start 03/02/19 at 16:48; Stop 03/03/19 at 16:47; Status Cancel Sodium Chloride (Normal Saline Flush) 3 ml QSHIFT PRN IV AFTER MEDS AND BLOOD DRAWS; Start 03/02/19 at 19:45 Sodium Chloride 1,000 ml @ 100 mls/hr Q10H IV Last administered on 03/06/19at 15:00; Start 03/02/19 at 21:00; Stop 03/08/19 at 13:48; Status DC Ondansetron HCl (Zofran) 4 mg PRN Q4HRS PRN IV NAUSEA/VOMITING, 1st CHOICE Last administered on 03/07/19at 08:25; Start 03/02/19 at 19:45 Acetaminophen (Tylenol) 650 mg PRN Q4HRS PRN PO TEMP OVER 100.4F OR MILD PAIN; Start 03/02/19 at 19:45; Stop 03/09/19 at 09:57; Status DC Clonidine HCl (Catapres) 0.1 mg PRN Q6HRS PRN PO SBP>160 OR DBP>90; Start 03/02/19 at 19:45 Guaifenesin (Robitussin) 200 mg PRN Q4HRS PRN PO COUGH; Start 03/02/19 at 19:45 Lorazepam (Ativan) 0.5 mg PRN Q4HRS PRN PO ANXIETY / AGITATION; Start 03/02/19 at 19:45 Hydromorphone HCl (Dilaudid) 1 mg PRN Q2HRS PRN IV SEVERE PAIN 7-10 Last administered on 03/09/19at 10:10; Start 03/02/19 at 19:45 Enoxaparin Sodium (Lovenox 40mg Syringe) 40 mg DAILY SQ Last administered on 03/09/19at 09:00; Start 03/03/19 at 09:00 Metoclopramide HCl (Reglan Vial) 10 mg PRN Q6HRS PRN IV NAUSEA/VOMITING, 2nd CHOICE Last administered on 03/04/19 11:25; Start 03/03/19 at 12:00 Pantoprazole Sodium (PROTONIX VIAL for IV PUSH) 40 mg DAILYAC IVP Last administered on 03/09/19 08:23; Start 03/04/19 at 09:30; Stop 03/09/19 at 09:26; Status DC Potassium Chloride/Water 100 ml @ 100 mls/hr Q1H IV Last administered on 03/06/19 16:00; Start 03/06/19 at 13:00; Stop 03/06/19 at 16:59; Status DC Amino Acids/ Glycerin/ Electrolytes 1,000 ml @ 80 mls/hr [id number] IV Last administered on 03/07/19 11:00; Start 03/06/19 at 21:00; Stop 03/08/19 at 21:59; Status DC Magnesium Sulfate 50 ml @ 25 mls/hr 1X ONCE IV Last administered on 03/07/19 08:24; Start 03/07/19 at 08:30; Stop 03/07/19 at 10:29; Status DC Lidocaine/Sodium Bicarbonate (Buffered Lidocaine 1%) 3 ml 1X ONCE INJ Last administered on 03/08/19 09:55; Start 03/08/19 at 09:30; Stop 03/08/19 at 09:34; Status DC Atorvastatin Calcium (Lipitor) 20 mg QHS PO Last administered on 03/11/19 21:30; Start 03/08/19 at 21:00 Losartan Potassium (Cozaar) 100 mg DAILY PO Last administered on 03/12/19 08:32; Start 03/09/19 at 09:00 Insulin Human Lispro (HumaLOG) 0-5 UNITS TIDWMEALS SQ Last administered on 03/09/19 18:01; Start 03/08/19 at 13:00; Stop 03/10/19 at 09:25; Status DC Dextrose (Dextrose 50%-Water Syringe) 12.5 gm PRN Q15MIN PRN IV SEE COMMENTS; Start 03/08/19 at 12:45 Info (Tpn Per Pharmacy) 1 each PRN DAILY PRN MC SEE COMMENTS Last administered on 03/11/19 13:58; Start 03/08/19 at 13:45 Sodium Chloride 90 meq/Potassium Chloride 50 meq/ Potassium Phosphate 13.6 mmol/Magnesium Sulfate 10 meq/ Calcium Gluconate 10 meq/ Multivitamins 10 ml/Chromium/ Copper/Manganese/ Seleni/Zn 1 ml/ Total Parenteral Nutrition/Amino Acids/Dextrose/ Fat Emulsion Intravenous 1,512 ml @ 63 mls/hr TPN CONT IV Last administered on 03/08/19at 22:22; Start 03/08/19 at 22:00; Stop 03/09/19 at 21:59; Status DC Loperamide HCl (Imodium) 2 mg 1X ONCE PO Last administered on 03/08/19at 21:06; Start 03/08/19 at 19:45; Stop 03/08/19 at 19:46; Status DC Acetaminophen (Tylenol) 650 mg 1X ONCE PO ; Start 03/08/19 at 19:45; Stop 03/08/19 at 19:46; Status DC Hydromorphone HCl (Dilaudid) 1 mg 1X ONCE IVP ; Start 03/08/19 at 19:45; Stop 03/08/19 at 19:46; Status DC Pantoprazole Sodium (Protonix) 40 mg DAILYAC PO Last administered on 03/12/19at 08:30; Start 03/10/19 at 07:30 Sodium Chloride 90 meq/Potassium Chloride 50 meq/ Potassium Phosphate 13.6 mmol/Magnesium Sulfate 12 meq/ Calcium Gluconate 10 meq/ Multivitamins 10 ml/Chromium/ Copper/Manganese/ Seleni/Zn 1 ml/ Total Parenteral Nutrition/Amino Acids/Dextrose/ Fat Emulsion Intravenous 1,512 ml @ 63 mls/hr TPN CONT IV Last administered on 03/10/19at 03:21; Start 03/09/19 at 22:00; Stop 03/10/19 at 21:59; Status DC Insulin Human Lispro (HumaLOG) 0-7 UNITS TIDWMEALS SQ Last administered on 03/10/19at 12:32; Start 03/10/19 at 12:00; Stop 03/10/19 at 17:02; Status DC Insulin Human Lispro (HumaLOG) 10 units 1X STAT SQ Last administered on 03/10/19at 09:50; Start 03/10/19 at 09:24; Stop 03/10/19 at 09:29; Status DC Simethicone (Gas-X) 80 mg PRN AFTMEALHC PRN PO GAS / BLOATING; Start 03/10/19 at 09:30 Polyethylene Glycol (miraLAX PACKET) 17 gm DAILY PO Last administered on 03/12/19at 08:30; Start 03/11/19 at 09:00 Polyethylene Glycol (miraLAX PACKET) 17 gm PRN DAILY PRN PO CONSTIPATION; Start 03/10/19 at 09:30 Bisacodyl (Dulcolax Tab) 5 mg 1X ONCE PO Last administered on 03/10/19at 09:48; Start 03/10/19 at 09:30; Stop 03/10/19 at 09:34; Status DC Alteplase, Recombinant (Cathflo For Central Catheter Clearance) 1 mg 1X ONCE INT CAT Last administered on 03/10/19at 10:29; Start 03/10/19 at 10:30; Stop 03/10/19 at 10:31; Status DC Ondansetron HCl (Zofran Odt) 4 mg 1X ONCE PO Last administered on 03/10/19at 10:47; Start 03/10/19 at 10:45; Stop 03/10/19 at 10:46; Status DC Sodium Chloride 90 meq/Potassium Chloride 50 meq/ Potassium Phosphate 13.6 mmol/Magnesium Sulfate 12 meq/ Calcium Gluconate 10 meq/ Multivitamins 10 ml/Chromium/ Copper/Manganese/ Seleni/Zn 1 ml/ Total Parenteral Nutrition/Amino Acids/Dextrose/ Fat Emulsion Intravenous 1,512 ml @ 63 mls/hr TPN CONT IV Last administered on 03/11/19at 06:31; Start 03/10/19 at 22:00; Stop 03/11/19 at 21:59; Status DC Insulin Human Lispro (HumaLOG) 0-9 UNITS TIDWMEALS SQ Last administered on 03/12/19at 11:18; Start 03/10/19 at 17:00 Insulin Human Lispro (HumaLOG) 4 units STAT SQ ; Start 03/10/19 at 17:15; Stop 03/10/19 at 17:32; Status DC Insulin Human Lispro (HumaLOG) 4 units 1X ONCE SQ Last administered on 03/10/19at 17:27; Start 03/10/19 at 17:45; Stop 03/10/19 at 17:46; Status DC Insulin Human Lispro (HumaLOG) 10 units TIDAC SQ Last administered on 03/11/19at 12:50; Start 03/11/19 at 09:40; Stop 03/11/19 at 17:25; Status DC Sodium Chloride 90 meq/Potassium Chloride 50 meq/ Potassium Phosphate 13.6 mmol/Magnesium Sulfate 12 meq/ Calcium Gluconate 10 meq/ Multivitamins 10 ml/Chromium/ Copper/Manganese/ Seleni/Zn 1 ml/ Total Parenteral Nutrition/Amino Acids/Dextrose/ Fat Emulsion Intravenous 1,512 ml @ 63 mls/hr TPN CONT IV Last administered on 03/11/19at 22:00; Start 03/11/19 at 22:00; Stop 03/12/19 at 21:59 Insulin Glargine (Lantus) 20 units QHS SQ Last administered on 03/11/19at 21:33; Start 03/11/19 at 21:00; Stop 03/12/19 at 08:54; Status DC Insulin Human Lispro (HumaLOG) 6 units 1X ONCE SQ Last administered on 03/11/19at 13:00; Start 03/11/19 at 13:00; Stop 03/11/19 at 13:01; Status DC Insulin Human Lispro (HumaLOG) 15 units TIDAC SQ Last administered on 03/12/19at 11:17; Start 03/11/19 at 17:23 Insulin Glargine (Lantus) 20 units BID SQ Last administered on 03/12/19at 09:11; Start 03/12/19 at 09:30 Active Scripts Active Reported Vitamin D3 (Cholecalciferol (Vitamin D3)) 1,000 Unit Tablet 2,000 Unit PO DAILY Ferrous Sulfate 325 Mg Tablet 325 Mg PO DAILY Atorvastatin Calcium 20 Mg Tablet 20 Mg PO DAILY Glimepiride 2 Mg Tablet 2 Tab PO BID Losartan Potassium 100 Mg Tablet 100 Mg PO DAILY Protonix (Pantoprazole Sodium) 40 Mg Tablet.dr 40 Mg PO DAILYAC Vitals/I & O Vital Sign - Last 24 Hours 03/11/19 03/11/19 03/11/19 03/11/19 13:04 15:00 19:00 23:00 Temp 98.5 98.2 97.7 98.5 98.2 97.7 Pulse 71 81 94 86 Resp 20 18 16 B/P (MAP) 148/60 (89) 147/56 (86) 145/62 (89) 164/80 (108) Pulse Ox 98 93 97 O2 Delivery Room Air Room Air Room Air 03/12/19 03/12/19 03/12/19 03/12/19 02:56 07:00 07:54 08:32 Temp 98.4 98.1 98.4 98.1 Pulse 78 74 74 Resp 16 16 B/P (MAP) 134/68 (90) 107/47 (67) 107/47 Pulse Ox 92 95 O2 Delivery Room Air Room Air Room Air 03/12/19 11:00 Temp 98.2 98.2 Pulse 67 Resp 18 B/P (MAP) 150/67 (94) Pulse Ox 97 O2 Delivery Room Air Intake and Output 03/11/19 03/11/19 03/12/19 15:00 23:00 07:00 Intake Total 180 ml 180 ml 2145 ml Balance 180 ml 180 ml 2145 ml IONA PAREDES MD Mar 12, 2019 12:04
[2019-03-12] MEDS: MAGNESIUM OXIDE 400 MG TABLET PO SCH (13:01)
[2019-03-12] MEDS: DICLOFENAC SODIUM 1% TOPICAL GEL 100GM TUBE. TP SCH ×2 (13:02→20:47)
[2019-03-12] MEDS: TPN PER PHARMACY MC PRN (14:36)
--- NOTE | 2019-03-12 14:39 | NUR ---
Pharmacy TPN Dosing Note S: JUAN LANE is a 68 year old F Currently receiving Central Continuous TPN started 03/08/19 B:Pertinent PMH: gallstone pancreatitis Height: 5 feet, 2 inches Weight: 83.1 kg Current diet: FLD LABS: Sodium: 138 Potassium: 4.2 Chloride: 104 Calcium: 8.4 Corrected Calcium: 9.52 Magnesium: 1.8 CO2: 27 SCr: 0.8 Glucose: 343-402 Albumin: 2.6 AST: 45 ALT: 52 TPN FORMULA: TPN TYPE: Central Continuous AMINO ACIDS: 60 gm DEXTROSE: 195 gm LIPIDS: 20 gm SODIUM CHLORIDE: 90 mEq POTASSIUM CHLORIDE: 50 mEq POTASSIUM PHOSPHATE: 13.6 mmol MAGNESIUM: 12 mEq CALCIUM: 10 mEq MULTIPLE VITAMIN: 10 ml TRACE ELEMENTS: 1 ml TPN PLAN: Lantus increased to BID per MD. No changes to TPN. R: Continue TPN Will monitor electrolytes, glucose, and tolerance to TPN. Cortney Oakley [facility], 03/12/19 [id number]
[2019-03-12 14:52] VITALS: BP 143/66
[2019-03-12 19:00] VITALS: BP 143/60
[2019-03-12] MEDS: ATORVASTATIN CALCIUM 20 MG TABLET PO SCH (20:47)
[2019-03-12] MEDS ORDERED: [UNRECOGNIZED DRUG - OTHER] IV SCH ×10 (22:00)
[2019-03-12] MEDS ORDERED: DEXTROSE 70% IV SCH ×10 (22:00)
[2019-03-12] MEDS ORDERED: TOTAL PARENTERAL NUTRITION IV SCH ×10 (22:00)
[2019-03-12] MEDS ORDERED: AMINO ACID IV SCH ×10 (22:00)
[2019-03-12 23:00] VITALS: BP 124/47
[2019-03-13 03:00] VITALS: BP 140/53
[2019-03-13 06:40] LABS: BASO % 1 % (0-3); EOS # 0.1 x10^3/uL (0.0-0.7); EOS % 2 % (0-3); HEMATOCRIT 36.3 % (36.0-47.0); LYMPH # 1.6 x10^3/uL (1.0-4.8); LYMPH % 34 % (24-48); MEAN CORPUSCULAR HEMOGLOBIN 29 pg (25-35); MEAN CORPUSCULAR HGB CONC 33 g/dL (31-37); MEAN CORPUSCULAR VOLUME 88 fL (79-100); MONO # 0.6 x10^3/uL (0.0-1.1); MONO % 12 % (0-9); NEUT # 2.4 x10^3/uL (1.8-7.7); NEUT % 51 % (31-73); PLATELET COUNT 36 x10^3/uL (140-400); RED BLOOD COUNT 4.13 x10^6/uL (3.50-5.40); RED CELL DISTRIBUTION WIDTH 15.7 % (11.5-14.5); WHITE BLOOD COUNT 4.7 x10^3/uL (4.0-11.0)
[2019-03-13 07:00] VITALS: BP 139/73
[2019-03-13 07:09] LABS: MAGNESIUM 1.9 mg/dL (1.8-2.4); PHOSPHORUS 3.9 mg/dL (2.6-4.7)
[2019-03-13 07:24] LABS: CALCIUM 8.6 mg/dL (8.5-10.1); CREATININE 0.8 mg/dL (0.6-1.0); GFR 71.1; POTASSIUM 4.5 mmol/L (3.5-5.1)
[2019-03-13] MEDS: POLYETHYLENE GLYCOL 3350 17 GM PACKET. PO SCH (08:40)
[2019-03-13] MEDS: ENOXAPARIN 40 MG/0.4 ML SYRINGE. SQ SCH (08:40)
[2019-03-13] MEDS: LOSARTAN POTASSIUM 50 MG TABLET. PO SCH (08:40)
[2019-03-13] MEDS: MAGNESIUM OXIDE 400 MG TABLET PO SCH (08:40)
[2019-03-13] MEDS: PANTOPRAZOLE 40 MG TABLET.DR. PO SCH (08:40)
--- NOTE | 2019-03-13 08:44 | PDOC ---
PROGRESS NOTES Chief Complaint Chief Complaint Gallstone pancreatitis - not a great candidate for actigall given radiolucent stone presence and pancreatitis at initial presentation. Not a good surgical candidate given her clinical cirrhosis appearance and unremitting thrombocytopenia Thrombocytopenia Leukopenia Pain Diabetes Hypertension Hyperlipidemia Fatty liver History of Present Illness History of Present Illness Seen and examined today, c/o leg cramping, abdominal pain improved. Still with little appetite. Glycemic control has been extremely poor in the 300s and 400s. Advancing diet today. Unfortunately she does have cookies, butter and gravy with mashed potatoes despite low fat diet. Plan: Add lantus 20u QAM Mag oxide for cramps, can trial voltaren. 03/09/19 Patient seen and examined DW RN Reviewed KUB Ordered dilaudid Reviewed chart 03/10/19 patient seen and examined discussed liver test results continue to wait for swelling to reduce 03/11/19 Patient seen and examined Disussed glucose management with RN Patient was sitting up in bed and appears to improve Vitals Vitals Vital Signs Date Time Temp Pulse Resp B/P (MAP) Pulse Ox O2 Delivery O2 Flow Rate FiO2 03/13/19 07:00 98.1 77 16 139/73 (95) 95 Room Air 98.1 Physical Exam General: Alert, No acute distress Heart: Normal S1, Normal S2 Lungs: Clear Abdomen: Soft, Other (mild ttp upper abdomen ) Extremities: No clubbing, No cyanosis, Normal pulses Skin: No rashes, No breakdown, No significant lesion Labs LABS Laboratory Tests Test 03/12/19 10:58 03/12/19 16:41 03/12/19 20:45 03/13/19 06:25 Glucose (Fingerstick) 342 mg/dL (70-99) 294 mg/dL (70-99) 276 mg/dL (70-99) White Blood Count 4.7 x10^3/uL (4.0-11.0) Red Blood Count 4.13 x10^6/uL (3.50-5.40) Hemoglobin 12.0 g/dL (12.0-15.5) Hematocrit 36.3 % (36.0-47.0) Mean Corpuscular Volume 88 fL (79-100) Mean Corpuscular Hemoglobin 29 pg (25-35) Mean Corpuscular Hemoglobin Concent 33 g/dL (31-37) Red Cell Distribution Width 15.7 % (11.5-14.5) Platelet Count 36 x10^3/uL (140-400) Neutrophils (%) (Auto) 51 % (31-73) Lymphocytes (%) (Auto) 34 % (24-48) Monocytes (%) (Auto) 12 % (0-9) Eosinophils (%) (Auto) 2 % (0-3) Basophils (%) (Auto) 1 % (0-3) Neutrophils # (Auto) 2.4 x10^3/uL (1.8-7.7) Lymphocytes # (Auto) 1.6 x10^3/uL (1.0-4.8) Monocytes # (Auto) 0.6 x10^3/uL (0.0-1.1) Eosinophils # (Auto) 0.1 x10^3/uL (0.0-0.7) Basophils # (Auto) 0.0 x10^3/uL (0.0-0.2) Sodium Level 135 mmol/L (136-145) Potassium Level 4.5 mmol/L (3.5-5.1) Chloride Level 102 mmol/L (98-107) Carbon Dioxide Level 26 mmol/L (21-32) Anion Gap 7 (6-14) Blood Urea Nitrogen 10 mg/dL (7-20) Creatinine 0.8 mg/dL (0.6-1.0) Estimated GFR (Cockcroft-Gault) 71.1 Glucose Level 346 mg/dL (70-99) Calcium Level 8.6 mg/dL (8.5-10.1) Phosphorus Level 3.9 mg/dL (2.6-4.7) Magnesium Level 1.9 mg/dL (1.8-2.4) Test 03/13/19 07:30 Glucose (Fingerstick) 368 mg/dL (70-99) Assessment and Plan Assessmemt and Plan Problems Medical Problems: (1) Acute gallstone pancreatitis Status: Acute (2) Cholecystitis Status: Acute (3) Thrombocytopenia Status: Acute Comment Review of Relevant I have reviewed the following items popeye (where applicable) has been applied. Labs Laboratory Tests Test 03/11/19 08:55 03/11/19 12:20 03/11/19 13:50 03/11/19 16:29 White Blood Count 4.0 x10^3/uL (4.0-11.0) Red Blood Count 4.24 x10^6/uL (3.50-5.40) Hemoglobin 12.3 g/dL (12.0-15.5) Hematocrit 37.1 % (36.0-47.0) Mean Corpuscular Volume 87 fL (79-100) Mean Corpuscular Hemoglobin 29 pg (25-35) Mean Corpuscular Hemoglobin Concent 33 g/dL (31-37) Red Cell Distribution Width 15.8 % (11.5-14.5) Platelet Count 42 x10^3/uL (140-400) Neutrophils (%) (Auto) 49 % (31-73) Lymphocytes (%) (Auto) 36 % (24-48) Monocytes (%) (Auto) 12 % (0-9) Eosinophils (%) (Auto) 2 % (0-3) Basophils (%) (Auto) 1 % (0-3) Neutrophils # (Auto) 2.0 x10^3/uL (1.8-7.7) Lymphocytes # (Auto) 1.5 x10^3/uL (1.0-4.8) Monocytes # (Auto) 0.5 x10^3/uL (0.0-1.1) Eosinophils # (Auto) 0.1 x10^3/uL (0.0-0.7) Basophils # (Auto) 0.0 x10^3/uL (0.0-0.2) Sodium Level 138 mmol/L (136-145) Potassium Level 4.2 mmol/L (3.5-5.1) Chloride Level 106 mmol/L (98-107) Carbon Dioxide Level 26 mmol/L (21-32) Anion Gap 6 (6-14) Blood Urea Nitrogen 9 mg/dL (7-20) Creatinine 0.8 mg/dL (0.6-1.0) Estimated GFR (Cockcroft-Gault) 71.1 Glucose Level 344 mg/dL (70-99) Calcium Level 8.6 mg/dL (8.5-10.1) Phosphorus Level 3.0 mg/dL (2.6-4.7) Magnesium Level 1.8 mg/dL (1.8-2.4) Glucose (Fingerstick) 461 mg/dL (70-99) 399 mg/dL (70-99) 386 mg/dL (70-99) Test 03/11/19 21:23 03/12/19 04:20 03/12/19 07:31 03/12/19 10:58 Glucose (Fingerstick) 343 mg/dL (70-99) 402 mg/dL (70-99) 342 mg/dL (70-99) White Blood Count 4.0 x10^3/uL (4.0-11.0) Red Blood Count 4.06 x10^6/uL (3.50-5.40) Hemoglobin 11.8 g/dL (12.0-15.5) Hematocrit 35.4 % (36.0-47.0) Mean Corpuscular Volume 87 fL (79-100) Mean Corpuscular Hemoglobin 29 pg (25-35) Mean Corpuscular Hemoglobin Concent 34 g/dL (31-37) Red Cell Distribution Width 16.0 % (11.5-14.5) Platelet Count 43 x10^3/uL (140-400) Neutrophils (%) (Auto) 48 % (31-73) Lymphocytes (%) (Auto) 37 % (24-48) Monocytes (%) (Auto) 13 % (0-9) Eosinophils (%) (Auto) 2 % (0-3) Basophils (%) (Auto) 0 % (0-3) Neutrophils # (Auto) 1.9 x10^3/uL (1.8-7.7) Lymphocytes # (Auto) 1.5 x10^3/uL (1.0-4.8) Monocytes # (Auto) 0.5 x10^3/uL (0.0-1.1) Eosinophils # (Auto) 0.1 x10^3/uL (0.0-0.7) Basophils # (Auto) 0.0 x10^3/uL (0.0-0.2) Sodium Level 138 mmol/L (136-145) Potassium Level 4.3 mmol/L (3.5-5.1) Chloride Level 104 mmol/L (98-107) Carbon Dioxide Level 27 mmol/L (21-32) Anion Gap 7 (6-14) Blood Urea Nitrogen 10 mg/dL (7-20) Creatinine 0.8 mg/dL (0.6-1.0) Estimated GFR (Cockcroft-Gault) 71.1 Glucose Level 368 mg/dL (70-99) Calcium Level 8.4 mg/dL (8.5-10.1) Test 03/12/19 16:41 03/12/19 20:45 03/13/19 06:25 03/13/19 07:30 Glucose (Fingerstick) 294 mg/dL (70-99) 276 mg/dL (70-99) 368 mg/dL (70-99) White Blood Count 4.7 x10^3/uL (4.0-11.0) Red Blood Count 4.13 x10^6/uL (3.50-5.40) Hemoglobin 12.0 g/dL (12.0-15.5) Hematocrit 36.3 % (36.0-47.0) Mean Corpuscular Volume 88 fL (79-100) Mean Corpuscular Hemoglobin 29 pg (25-35) Mean Corpuscular Hemoglobin Concent 33 g/dL (31-37) Red Cell Distribution Width 15.7 % (11.5-14.5) Platelet Count 36 x10^3/uL (140-400) Neutrophils (%) (Auto) 51 % (31-73) Lymphocytes (%) (Auto) 34 % (24-48) Monocytes (%) (Auto) 12 % (0-9) Eosinophils (%) (Auto) 2 % (0-3) Basophils (%) (Auto) 1 % (0-3) Neutrophils # (Auto) 2.4 x10^3/uL (1.8-7.7) Lymphocytes # (Auto) 1.6 x10^3/uL (1.0-4.8) Monocytes # (Auto) 0.6 x10^3/uL (0.0-1.1) Eosinophils # (Auto) 0.1 x10^3/uL (0.0-0.7) Basophils # (Auto) 0.0 x10^3/uL (0.0-0.2) Sodium Level 135 mmol/L (136-145) Potassium Level 4.5 mmol/L (3.5-5.1) Chloride Level 102 mmol/L (98-107) Carbon Dioxide Level 26 mmol/L (21-32) Anion Gap 7 (6-14) Blood Urea Nitrogen 10 mg/dL (7-20) Creatinine 0.8 mg/dL (0.6-1.0) Estimated GFR (Cockcroft-Gault) 71.1 Glucose Level 346 mg/dL (70-99) Calcium Level 8.6 mg/dL (8.5-10.1) Phosphorus Level 3.9 mg/dL (2.6-4.7) Magnesium Level 1.9 mg/dL (1.8-2.4) Laboratory Tests Test 03/12/19 10:58 03/12/19 16:41 03/12/19 20:45 03/13/19 06:25 Glucose (Fingerstick) 342 mg/dL (70-99) 294 mg/dL (70-99) 276 mg/dL (70-99) White Blood Count 4.7 x10^3/uL (4.0-11.0) Red Blood Count 4.13 x10^6/uL (3.50-5.40) Hemoglobin 12.0 g/dL (12.0-15.5) Hematocrit 36.3 % (36.0-47.0) Mean Corpuscular Volume 88 fL (79-100) Mean Corpuscular Hemoglobin 29 pg (25-35) Mean Corpuscular Hemoglobin Concent 33 g/dL (31-37) Red Cell Distribution Width 15.7 % (11.5-14.5) Platelet Count 36 x10^3/uL (140-400) Neutrophils (%) (Auto) 51 % (31-73) Lymphocytes (%) (Auto) 34 % (24-48) Monocytes (%) (Auto) 12 % (0-9) Eosinophils (%) (Auto) 2 % (0-3) Basophils (%) (Auto) 1 % (0-3) Neutrophils # (Auto) 2.4 x10^3/uL (1.8-7.7) Lymphocytes # (Auto) 1.6 x10^3/uL (1.0-4.8) Monocytes # (Auto) 0.6 x10^3/uL (0.0-1.1) Eosinophils # (Auto) 0.1 x10^3/uL (0.0-0.7) Basophils # (Auto) 0.0 x10^3/uL (0.0-0.2) Sodium Level 135 mmol/L (136-145) Potassium Level 4.5 mmol/L (3.5-5.1) Chloride Level 102 mmol/L (98-107) Carbon Dioxide Level 26 mmol/L (21-32) Anion Gap 7 (6-14) Blood Urea Nitrogen 10 mg/dL (7-20) Creatinine 0.8 mg/dL (0.6-1.0) Estimated GFR (Cockcroft-Gault) 71.1 Glucose Level 346 mg/dL (70-99) Calcium Level 8.6 mg/dL (8.5-10.1) Phosphorus Level 3.9 mg/dL (2.6-4.7) Magnesium Level 1.9 mg/dL (1.8-2.4) Test 03/13/19 07:30 Glucose (Fingerstick) 368 mg/dL (70-99) Microbiology 03/02/19 Urine Culture - Final, Complete 03/02/19 Urine Culture Result 1 (DONNA) - Final, Complete Medications Current Medications Sodium Chloride 1,000 ml @ 1,000 mls/hr 1X ONCE IV Last administered on 03/02/19at 14:15; Start 03/02/19 at 14:00; Stop 03/02/19 at 14:59; Status DC Morphine Sulfate (Morphine Sulfate) 4 mg 1X ONCE IV Last administered on 03/02/19at 14:14; Start 03/02/19 at 14:30; Stop 03/02/19 at 14:31; Status DC Ondansetron HCl (Zofran) 4 mg 1X ONCE IV Last administered on 03/02/19at 14:13; Start 03/02/19 at 14:30; Stop 03/02/19 at 14:31; Status DC Iohexol (Omnipaque 300 Mg/ml) 60 ml 1X ONCE IV Last administered on 03/02/19at 15:24; Start 03/02/19 at 15:45; Stop 03/02/19 at 15:46; Status DC Info (CONTRAST GIVEN -- Rx MONITORING) 1 each PRN DAILY PRN MC SEE COMMENTS; Start 03/02/19 at 15:15; Stop 03/04/19 at 15:14; Status DC Fentanyl Citrate (Fentanyl 2ml Vial) 75 mcg 1X ONCE IV Last administered on 03/02/19at 16:19; Start 03/02/19 at 16:45; Stop 03/02/19 at 16:46; Status DC Piperacillin Sod/ Tazobactam Sod 3.375 gm/Sodium Chloride 50 ml @ 100 mls/hr 1X ONCE IV Last administered on 03/02/19at 16:26; Start 03/02/19 at 17:00; Stop 03/02/19 at 17:29; Status DC Sodium Chloride 1,000 ml @ 1,000 mls/hr 1X ONCE IV Last administered on 03/02/19at 16:31; Start 03/02/19 at 16:30; Stop 03/02/19 at 17:29; Status DC Ondansetron HCl (Zofran) 4 mg PRN Q8HRS PRN IV NAUSEA/VOMITING; Start 03/02/19 at 17:00; Stop 03/02/19 at 19:48; Status DC Fentanyl Citrate (Fentanyl 2ml Vial) 50 mcg PRN Q2HR PRN IV PAIN Last administered on 03/02/19at 20:51; Start 03/02/19 at 17:00; Stop 03/03/19 at 16:59; Status DC Sodium Chloride 1,000 ml @ 100 mls/hr Q10H IV ; Start 03/02/19 at 16:48; Stop 03/03/19 at 16:47; Status Cancel Sodium Chloride (Normal Saline Flush) 3 ml QSHIFT PRN IV AFTER MEDS AND BLOOD DRAWS; Start 03/02/19 at 19:45 Sodium Chloride 1,000 ml @ 100 mls/hr Q10H IV Last administered on 03/06/19at 15:00; Start 03/02/19 at 21:00; Stop 03/08/19 at 13:48; Status DC Ondansetron HCl (Zofran) 4 mg PRN Q4HRS PRN IV NAUSEA/VOMITING, 1st CHOICE Last administered on 03/07/19at 08:25; Start 03/02/19 at 19:45 Acetaminophen (Tylenol) 650 mg PRN Q4HRS PRN PO TEMP OVER 100.4F OR MILD PAIN; Start 03/02/19 at 19:45; Stop 03/09/19 at 09:57; Status DC Clonidine HCl (Catapres) 0.1 mg PRN Q6HRS PRN PO SBP>160 OR DBP>90; Start 03/02/19 at 19:45 Guaifenesin (Robitussin) 200 mg PRN Q4HRS PRN PO COUGH; Start 03/02/19 at 19:45 Lorazepam (Ativan) 0.5 mg PRN Q4HRS PRN PO ANXIETY / AGITATION; Start 03/02/19 at 19:45 Hydromorphone HCl (Dilaudid) 1 mg PRN Q2HRS PRN IV SEVERE PAIN 7-10 Last administered on 03/09/19at 10:10; Start 03/02/19 at 19:45 Enoxaparin Sodium (Lovenox 40mg Syringe) 40 mg DAILY SQ Last administered on 03/09/19 09:00; Start 03/03/19 at 09:00 Metoclopramide HCl (Reglan Vial) 10 mg PRN Q6HRS PRN IV NAUSEA/VOMITING, 2nd CHOICE Last administered on 03/04/19at 11:25; Start 03/03/19 at 12:00 Pantoprazole Sodium (PROTONIX VIAL for IV PUSH) 40 mg DAILYAC IVP Last administered on 03/09/19 08:23; Start 03/04/19 at 09:30; Stop 03/09/19 at 09:26; Status DC Potassium Chloride/Water 100 ml @ 100 mls/hr Q1H IV Last administered on 03/06/19 16:00; Start 03/06/19 at 13:00; Stop 03/06/19 at 16:59; Status DC Amino Acids/ Glycerin/ Electrolytes 1,000 ml @ 80 mls/hr [id number] IV Last administered on 03/07/19at 11:00; Start 03/06/19 at 21:00; Stop 03/08/19 at 21:59; Status DC Magnesium Sulfate 50 ml @ 25 mls/hr 1X ONCE IV Last administered on 03/07/19 08:24; Start 03/07/19 at 08:30; Stop 03/07/19 at 10:29; Status DC Lidocaine/Sodium Bicarbonate (Buffered Lidocaine 1%) 3 ml 1X ONCE INJ Last administered on 03/08/19at 09:55; Start 03/08/19 at 09:30; Stop 03/08/19 at 09:34; Status DC Atorvastatin Calcium (Lipitor) 20 mg QHS PO Last administered on 03/12/19at 20:47; Start 03/08/19 at 21:00 Losartan Potassium (Cozaar) 100 mg DAILY PO Last administered on 03/12/19at 08:32; Start 03/09/19 at 09:00 Insulin Human Lispro (HumaLOG) 0-5 UNITS TIDWMEALS SQ Last administered on 03/09/19at 18:01; Start 03/08/19 at 13:00; Stop 03/10/19 at 09:25; Status DC Dextrose (Dextrose 50%-Water Syringe) 12.5 gm PRN Q15MIN PRN IV SEE COMMENTS; Start 03/08/19 at 12:45 Info (Tpn Per Pharmacy) 1 each PRN DAILY PRN MC SEE COMMENTS Last administered on 03/12/19at 14:36; Start 03/08/19 at 13:45 Sodium Chloride 90 meq/Potassium Chloride 50 meq/ Potassium Phosphate 13.6 mmol/Magnesium Sulfate 10 meq/ Calcium Gluconate 10 meq/ Multivitamins 10 ml/Chromium/ Copper/Manganese/ Seleni/Zn 1 ml/ Total Parenteral Nutrition/Amino Acids/Dextrose/ Fat Emulsion Intravenous 1,512 ml @ 63 mls/hr TPN CONT IV Last administered on 03/08/19at 22:22; Start 03/08/19 at 22:00; Stop 03/09/19 at 21:59; Status DC Loperamide HCl (Imodium) 2 mg 1X ONCE PO Last administered on 03/08/19at 21:06; Start 03/08/19 at 19:45; Stop 03/08/19 at 19:46; Status DC Acetaminophen (Tylenol) 650 mg 1X ONCE PO ; Start 03/08/19 at 19:45; Stop 03/08/19 at 19:46; Status DC Hydromorphone HCl (Dilaudid) 1 mg 1X ONCE IVP ; Start 03/08/19 at 19:45; Stop 03/08/19 at 19:46; Status DC Pantoprazole Sodium (Protonix) 40 mg DAILYAC PO Last administered on 03/12/19at 08:30; Start 03/10/19 at 07:30 Sodium Chloride 90 meq/Potassium Chloride 50 meq/ Potassium Phosphate 13.6 mmol/Magnesium Sulfate 12 meq/ Calcium Gluconate 10 meq/ Multivitamins 10 ml/Chromium/ Copper/Manganese/ Seleni/Zn 1 ml/ Total Parenteral Nutrition/Amino Acids/Dextrose/ Fat Emulsion Intravenous 1,512 ml @ 63 mls/hr TPN CONT IV Last administered on 03/10/19at 03:21; Start 03/09/19 at 22:00; Stop 03/10/19 at 21:59; Status DC Insulin Human Lispro (HumaLOG) 0-7 UNITS TIDWMEALS SQ Last administered on 03/10/19at 12:32; Start 03/10/19 at 12:00; Stop 03/10/19 at 17:02; Status DC Insulin Human Lispro (HumaLOG) 10 units 1X STAT SQ Last administered on 03/10/19at 09:50; Start 03/10/19 at 09:24; Stop 03/10/19 at 09:29; Status DC Simethicone (Gas-X) 80 mg PRN AFTMEALHC PRN PO GAS / BLOATING; Start 03/10/19 at 09:30 Polyethylene Glycol (miraLAX PACKET) 17 gm DAILY PO Last administered on 03/12/19at 08:30; Start 03/11/19 at 09:00 Polyethylene Glycol (miraLAX PACKET) 17 gm PRN DAILY PRN PO CONSTIPATION; Start 03/10/19 at 09:30 Bisacodyl (Dulcolax Tab) 5 mg 1X ONCE PO Last administered on 03/10/19at 09:48; Start 03/10/19 at 09:30; Stop 03/10/19 at 09:34; Status DC Alteplase, Recombinant (Cathflo For Central Catheter Clearance) 1 mg 1X ONCE INT CAT Last administered on 03/10/19at 10:29; Start 03/10/19 at 10:30; Stop 03/10/19 at 10:31; Status DC Ondansetron HCl (Zofran Odt) 4 mg 1X ONCE PO Last administered on 03/10/19at 10:47; Start 03/10/19 at 10:45; Stop 03/10/19 at 10:46; Status DC Sodium Chloride 90 meq/Potassium Chloride 50 meq/ Potassium Phosphate 13.6 mmol/Magnesium Sulfate 12 meq/ Calcium Gluconate 10 meq/ Multivitamins 10 ml/Chromium/ Copper/Manganese/ Seleni/Zn 1 ml/ Total Parenteral Nutrition/Amino Acids/Dextrose/ Fat Emulsion Intravenous 1,512 ml @ 63 mls/hr TPN CONT IV Last administered on 03/11/19at 06:31; Start 03/10/19 at 22:00; Stop 03/11/19 at 21:59; Status DC Insulin Human Lispro (HumaLOG) 0-9 UNITS TIDWMEALS SQ Last administered on 03/12/19at 16:46; Start 03/10/19 at 17:00 Insulin Human Lispro (HumaLOG) 4 units STAT SQ ; Start 03/10/19 at 17:15; Stop 03/10/19 at 17:32; Status DC Insulin Human Lispro (HumaLOG) 4 units 1X ONCE SQ Last administered on 03/10/19at 17:27; Start 03/10/19 at 17:45; Stop 03/10/19 at 17:46; Status DC Insulin Human Lispro (HumaLOG) 10 units TIDAC SQ Last administered on 03/11/19at 12:50; Start 03/11/19 at 09:40; Stop 03/11/19 at 17:25; Status DC Sodium Chloride 90 meq/Potassium Chloride 50 meq/ Potassium Phosphate 13.6 mmol/Magnesium Sulfate 12 meq/ Calcium Gluconate 10 meq/ Multivitamins 10 ml/Chromium/ Copper/Manganese/ Seleni/Zn 1 ml/ Total Parenteral Nutrition/Amino Acids/Dextrose/ Fat Emulsion Intravenous 1,512 ml @ 63 mls/hr TPN CONT IV Last administered on 03/11/19at 22:00; Start 03/11/19 at 22:00; Stop 03/12/19 at 21:59; Status DC Insulin Glargine (Lantus) 20 units QHS SQ Last administered on 03/11/19at 21:33; Start 03/11/19 at 21:00; Stop 03/12/19 at 08:54; Status DC Insulin Human Lispro (HumaLOG) 6 units 1X ONCE SQ Last administered on 03/11/19at 13:00; Start 03/11/19 at 13:00; Stop 03/11/19 at 13:01; Status DC Insulin Human Lispro (HumaLOG) 15 units TIDAC SQ Last administered on 03/12/19at 16:45; Start 03/11/19 at 17:23 Insulin Glargine (Lantus) 20 units BID SQ Last administered on 03/12/19at 20:59; Start 03/12/19 at 09:30 Diclofenac Sodium (Voltaren) 1 idania BID TP Last administered on 03/12/19at 20:47; Start 03/12/19 at 13:00 Magnesium Oxide (Magnesium Oxide) 400 mg DAILY PO Last administered on 03/12/19at 13:01; Start 03/12/19 at 13:00 Sodium Chloride 90 meq/Potassium Chloride 50 meq/ Potassium Phosphate 13.6 mmol/Magnesium Sulfate 12 meq/ Calcium Gluconate 10 meq/ Multivitamins 10 ml/Chromium/ Copper/Manganese/ Seleni/Zn 1 ml/ Total Parenteral Nutrition/Amino Acids/Dextrose/ Fat Emulsion Intravenous 1,512 ml @ 63 mls/hr TPN CONT IV Last administered on 03/12/19at 20:49; Start 03/12/19 at 22:00; Stop 03/13/19 at 21:59 Active Scripts Active Reported Vitamin D3 (Cholecalciferol (Vitamin D3)) 1,000 Unit Tablet 2,000 Unit PO DAILY Ferrous Sulfate 325 Mg Tablet 325 Mg PO DAILY Atorvastatin Calcium 20 Mg Tablet 20 Mg PO DAILY Glimepiride 2 Mg Tablet 2 Tab PO BID Losartan Potassium 100 Mg Tablet 100 Mg PO DAILY Protonix (Pantoprazole Sodium) 40 Mg Tablet.dr 40 Mg PO DAILYAC Vitals/I & O Vital Sign - Last 24 Hours 03/12/19 03/12/19 03/12/19 03/12/19 11:00 14:52 19:00 20:09 Temp 98.2 98.2 98.1 98.2 98.2 98.1 Pulse 67 89 96 Resp 18 18 18 B/P (MAP) 150/67 (94) 143/66 (91) 143/60 (87) Pulse Ox 97 100 93 O2 Delivery Room Air Room Air Room Air Room Air 03/12/19 03/13/19 03/13/19 23:00 03:00 07:00 Temp 99.1 98.4 98.1 99.1 98.4 98.1 Pulse 96 87 77 Resp 18 18 16 B/P (MAP) 124/47 (72) 140/53 (82) 139/73 (95) Pulse Ox 98 95 95 O2 Delivery Room Air Room Air Room Air Intake and Output 03/12/19 03/12/19 03/13/19 14:59 22:59 06:59 Intake Total 120 ml 240 ml Balance 120 ml 240 ml WALT RM MD Mar 13, 2019 08:44
[2019-03-13] MEDS: INSULIN GLARGINE 300 UNITS/3 ML INSULN.PEN. SQ SCH ×2 (08:45→21:48)
[2019-03-13] MEDS: INSULIN LISPRO 300 UNITS/3 ML INSULN.PEN. SQ SCH ×5 (08:46→18:16)
[2019-03-13] MEDS: DICLOFENAC SODIUM 1% TOPICAL GEL 100GM TUBE. TP SCH ×2 (08:48→21:40)
[2019-03-13 11:00] VITALS: BP 120/55
[2019-03-13] MEDS: TPN PER PHARMACY MC PRN ×2 (11:14→11:15)
--- NOTE | 2019-03-13 11:19 | PDOC ---
PROGRESS NOTES Subjective Subjective HPI - f/u of Thrombocytopenia ROS - abd pain better Objective Objective Vital Signs Date Time Temp Pulse Resp B/P (MAP) Pulse Ox O2 Delivery O2 Flow Rate FiO2 03/13/19 11:00 98.7 81 16 120/55 (76) 96 Room Air 98.7 Intake and Output 03/13/19 06:59 Intake Total 360 ml Balance 360 ml Intake Oral 360 ml # Voids 1 Physical Exam Heart: Normal S1, Normal S2 General: Alert, Oriented X3, No acute distress Lungs: Clear to auscultation, Normal air movement Psych/Mental Status: Mental status NL Assessment Assessment Problems Medical Problems: (1) Acute gallstone pancreatitis Status: Acute (2) Cholecystitis Status: Acute (3) Thrombocytopenia Status: Acute IMPRESSION AND PLAN: 1. Thrombocytopenia, chronic, due to cirrhosis of the liver and portal hypertension and splenomegaly. Platelet count was worse at 44,000 on 03/03/2019. No signs of bleeding. I would continue to monitor and transfuse, if there is any evidence of bleeding or if surgical intervention is necessary. Plt worse at 36 on 03/13/19, plan BM bx to eval for primary bone marrow disorders. I reviwed risks and benefits and she agrees. 2. Pancreatitis. Management per Gastroenterology. 3. Cholecystitis. Management per Gastroenterology. 4. Leukopenia due to splenomegaly. WBC was 3.4 on 03/02/2019 and it improved to 4.7 on 03/03/2019. Continue to monitor CBC. wbc now 5.2. Comment Review of Relevant I have reviewed the following items popeye (where applicable) has been applied. Labs Laboratory Tests Test 03/11/19 12:20 03/11/19 13:50 03/11/19 16:29 03/11/19 21:23 Glucose (Fingerstick) 461 mg/dL (70-99) 399 mg/dL (70-99) 386 mg/dL (70-99) 343 mg/dL (70-99) Test 03/12/19 04:20 03/12/19 07:31 03/12/19 10:58 03/12/19 16:41 White Blood Count 4.0 x10^3/uL (4.0-11.0) Red Blood Count 4.06 x10^6/uL (3.50-5.40) Hemoglobin 11.8 g/dL (12.0-15.5) Hematocrit 35.4 % (36.0-47.0) Mean Corpuscular Volume 87 fL (79-100) Mean Corpuscular Hemoglobin 29 pg (25-35) Mean Corpuscular Hemoglobin Concent 34 g/dL (31-37) Red Cell Distribution Width 16.0 % (11.5-14.5) Platelet Count 43 x10^3/uL (140-400) Neutrophils (%) (Auto) 48 % (31-73) Lymphocytes (%) (Auto) 37 % (24-48) Monocytes (%) (Auto) 13 % (0-9) Eosinophils (%) (Auto) 2 % (0-3) Basophils (%) (Auto) 0 % (0-3) Neutrophils # (Auto) 1.9 x10^3/uL (1.8-7.7) Lymphocytes # (Auto) 1.5 x10^3/uL (1.0-4.8) Monocytes # (Auto) 0.5 x10^3/uL (0.0-1.1) Eosinophils # (Auto) 0.1 x10^3/uL (0.0-0.7) Basophils # (Auto) 0.0 x10^3/uL (0.0-0.2) Sodium Level 138 mmol/L (136-145) Potassium Level 4.3 mmol/L (3.5-5.1) Chloride Level 104 mmol/L (98-107) Carbon Dioxide Level 27 mmol/L (21-32) Anion Gap 7 (6-14) Blood Urea Nitrogen 10 mg/dL (7-20) Creatinine 0.8 mg/dL (0.6-1.0) Estimated GFR (Cockcroft-Gault) 71.1 Glucose Level 368 mg/dL (70-99) Calcium Level 8.4 mg/dL (8.5-10.1) Glucose (Fingerstick) 402 mg/dL (70-99) 342 mg/dL (70-99) 294 mg/dL (70-99) Test 03/12/19 20:45 03/13/19 06:25 03/13/19 07:30 Glucose (Fingerstick) 276 mg/dL (70-99) 368 mg/dL (70-99) White Blood Count 4.7 x10^3/uL (4.0-11.0) Red Blood Count 4.13 x10^6/uL (3.50-5.40) Hemoglobin 12.0 g/dL (12.0-15.5) Hematocrit 36.3 % (36.0-47.0) Mean Corpuscular Volume 88 fL (79-100) Mean Corpuscular Hemoglobin 29 pg (25-35) Mean Corpuscular Hemoglobin Concent 33 g/dL (31-37) Red Cell Distribution Width 15.7 % (11.5-14.5) Platelet Count 36 x10^3/uL (140-400) Neutrophils (%) (Auto) 51 % (31-73) Lymphocytes (%) (Auto) 34 % (24-48) Monocytes (%) (Auto) 12 % (0-9) Eosinophils (%) (Auto) 2 % (0-3) Basophils (%) (Auto) 1 % (0-3) Neutrophils # (Auto) 2.4 x10^3/uL (1.8-7.7) Lymphocytes # (Auto) 1.6 x10^3/uL (1.0-4.8) Monocytes # (Auto) 0.6 x10^3/uL (0.0-1.1) Eosinophils # (Auto) 0.1 x10^3/uL (0.0-0.7) Basophils # (Auto) 0.0 x10^3/uL (0.0-0.2) Sodium Level 135 mmol/L (136-145) Potassium Level 4.5 mmol/L (3.5-5.1) Chloride Level 102 mmol/L (98-107) Carbon Dioxide Level 26 mmol/L (21-32) Anion Gap 7 (6-14) Blood Urea Nitrogen 10 mg/dL (7-20) Creatinine 0.8 mg/dL (0.6-1.0) Estimated GFR (Cockcroft-Gault) 71.1 Glucose Level 346 mg/dL (70-99) Calcium Level 8.6 mg/dL (8.5-10.1) Phosphorus Level 3.9 mg/dL (2.6-4.7) Magnesium Level 1.9 mg/dL (1.8-2.4) Laboratory Tests Test 03/12/19 16:41 03/12/19 20:45 03/13/19 06:25 03/13/19 07:30 Glucose (Fingerstick) 294 mg/dL (70-99) 276 mg/dL (70-99) 368 mg/dL (70-99) White Blood Count 4.7 x10^3/uL (4.0-11.0) Red Blood Count 4.13 x10^6/uL (3.50-5.40) Hemoglobin 12.0 g/dL (12.0-15.5) Hematocrit 36.3 % (36.0-47.0) Mean Corpuscular Volume 88 fL (79-100) Mean Corpuscular Hemoglobin 29 pg (25-35) Mean Corpuscular Hemoglobin Concent 33 g/dL (31-37) Red Cell Distribution Width 15.7 % (11.5-14.5) Platelet Count 36 x10^3/uL (140-400) Neutrophils (%) (Auto) 51 % (31-73) Lymphocytes (%) (Auto) 34 % (24-48) Monocytes (%) (Auto) 12 % (0-9) Eosinophils (%) (Auto) 2 % (0-3) Basophils (%) (Auto) 1 % (0-3) Neutrophils # (Auto) 2.4 x10^3/uL (1.8-7.7) Lymphocytes # (Auto) 1.6 x10^3/uL (1.0-4.8) Monocytes # (Auto) 0.6 x10^3/uL (0.0-1.1) Eosinophils # (Auto) 0.1 x10^3/uL (0.0-0.7) Basophils # (Auto) 0.0 x10^3/uL (0.0-0.2) Sodium Level 135 mmol/L (136-145) Potassium Level 4.5 mmol/L (3.5-5.1) Chloride Level 102 mmol/L (98-107) Carbon Dioxide Level 26 mmol/L (21-32) Anion Gap 7 (6-14) Blood Urea Nitrogen 10 mg/dL (7-20) Creatinine 0.8 mg/dL (0.6-1.0) Estimated GFR (Cockcroft-Gault) 71.1 Glucose Level 346 mg/dL (70-99) Calcium Level 8.6 mg/dL (8.5-10.1) Phosphorus Level 3.9 mg/dL (2.6-4.7) Magnesium Level 1.9 mg/dL (1.8-2.4) Microbiology 03/02/19 Urine Culture - Final, Complete 03/02/19 Urine Culture Result 1 (DONNA) - Final, Complete Medications Current Medications Sodium Chloride 1,000 ml @ 1,000 mls/hr 1X ONCE IV Last administered on 03/02/19at 14:15; Start 03/02/19 at 14:00; Stop 03/02/19 at 14:59; Status DC Morphine Sulfate (Morphine Sulfate) 4 mg 1X ONCE IV Last administered on 03/02/19at 14:14; Start 03/02/19 at 14:30; Stop 03/02/19 at 14:31; Status DC Ondansetron HCl (Zofran) 4 mg 1X ONCE IV Last administered on 03/02/19at 14:13; Start 03/02/19 at 14:30; Stop 03/02/19 at 14:31; Status DC Iohexol (Omnipaque 300 Mg/ml) 60 ml 1X ONCE IV Last administered on 03/02/19at 15:24; Start 03/02/19 at 15:45; Stop 03/02/19 at 15:46; Status DC Info (CONTRAST GIVEN -- Rx MONITORING) 1 each PRN DAILY PRN MC SEE COMMENTS; Start 03/02/19 at 15:15; Stop 03/04/19 at 15:14; Status DC Fentanyl Citrate (Fentanyl 2ml Vial) 75 mcg 1X ONCE IV Last administered on 03/02/19at 16:19; Start 03/02/19 at 16:45; Stop 03/02/19 at 16:46; Status DC Piperacillin Sod/ Tazobactam Sod 3.375 gm/Sodium Chloride 50 ml @ 100 mls/hr 1X ONCE IV Last administered on 03/02/19at 16:26; Start 03/02/19 at 17:00; Stop 03/02/19 at 17:29; Status DC Sodium Chloride 1,000 ml @ 1,000 mls/hr 1X ONCE IV Last administered on 03/02/19at 16:31; Start 03/02/19 at 16:30; Stop 03/02/19 at 17:29; Status DC Ondansetron HCl (Zofran) 4 mg PRN Q8HRS PRN IV NAUSEA/VOMITING; Start 03/02/19 at 17:00; Stop 03/02/19 at 19:48; Status DC Fentanyl Citrate (Fentanyl 2ml Vial) 50 mcg PRN Q2HR PRN IV PAIN Last administered on 03/02/19at 20:51; Start 03/02/19 at 17:00; Stop 03/03/19 at 16:59; Status DC Sodium Chloride 1,000 ml @ 100 mls/hr Q10H IV ; Start 03/02/19 at 16:48; Stop 03/03/19 at 16:47; Status Cancel Sodium Chloride (Normal Saline Flush) 3 ml QSHIFT PRN IV AFTER MEDS AND BLOOD DRAWS; Start 03/02/19 at 19:45 Sodium Chloride 1,000 ml @ 100 mls/hr Q10H IV Last administered on 03/06/19at 15:00; Start 03/02/19 at 21:00; Stop 03/08/19 at 13:48; Status DC Ondansetron HCl (Zofran) 4 mg PRN Q4HRS PRN IV NAUSEA/VOMITING, 1st CHOICE Last administered on 03/07/19at 08:25; Start 03/02/19 at 19:45 Acetaminophen (Tylenol) 650 mg PRN Q4HRS PRN PO TEMP OVER 100.4F OR MILD PAIN; Start 03/02/19 at 19:45; Stop 03/09/19 at 09:57; Status DC Clonidine HCl (Catapres) 0.1 mg PRN Q6HRS PRN PO SBP>160 OR DBP>90; Start 03/02/19 at 19:45 Guaifenesin (Robitussin) 200 mg PRN Q4HRS PRN PO COUGH; Start 03/02/19 at 19:45 Lorazepam (Ativan) 0.5 mg PRN Q4HRS PRN PO ANXIETY / AGITATION; Start 03/02/19 at 19:45 Hydromorphone HCl (Dilaudid) 1 mg PRN Q2HRS PRN IV SEVERE PAIN 7-10 Last administered on 03/09/19at 10:10; Start 03/02/19 at 19:45 Enoxaparin Sodium (Lovenox 40mg Syringe) 40 mg DAILY SQ Last administered on 03/09/19 09:00; Start 03/03/19 at 09:00 Metoclopramide HCl (Reglan Vial) 10 mg PRN Q6HRS PRN IV NAUSEA/VOMITING, 2nd CHOICE Last administered on 03/04/19 11:25; Start 03/03/19 at 12:00 Pantoprazole Sodium (PROTONIX VIAL for IV PUSH) 40 mg DAILYAC IVP Last administered on 03/09/19 08:23; Start 03/04/19 at 09:30; Stop 03/09/19 at 09:26; Status DC Potassium Chloride/Water 100 ml @ 100 mls/hr Q1H IV Last administered on 03/06/19 16:00; Start 03/06/19 at 13:00; Stop 03/06/19 at 16:59; Status DC Amino Acids/ Glycerin/ Electrolytes 1,000 ml @ 80 mls/hr [id number] IV Last administered on 03/07/19 11:00; Start 03/06/19 at 21:00; Stop 03/08/19 at 21:59; Status DC Magnesium Sulfate 50 ml @ 25 mls/hr 1X ONCE IV Last administered on 03/07/19 08:24; Start 03/07/19 at 08:30; Stop 03/07/19 at 10:29; Status DC Lidocaine/Sodium Bicarbonate (Buffered Lidocaine 1%) 3 ml 1X ONCE INJ Last administered on 03/08/19 09:55; Start 03/08/19 at 09:30; Stop 03/08/19 at 09:34; Status DC Atorvastatin Calcium (Lipitor) 20 mg QHS PO Last administered on 03/12/19 20:47; Start 03/08/19 at 21:00 Losartan Potassium (Cozaar) 100 mg DAILY PO Last administered on 03/13/19 08:4 0; Start 03/09/19 at 09:00 Insulin Human Lispro (HumaLOG) 0-5 UNITS TIDWMEALS SQ Last administered on 03/09/19 18:01; Start 03/08/19 at 13:00; Stop 03/10/19 at 09:25; Status DC Dextrose (Dextrose 50%-Water Syringe) 12.5 gm PRN Q15MIN PRN IV SEE COMMENTS; Start 03/08/19 at 12:45 Info (Tpn Per Pharmacy) 1 each PRN DAILY PRN MC SEE COMMENTS Last administered on 03/13/19at 11:15; Start 03/08/19 at 13:45 Sodium Chloride 90 meq/Potassium Chloride 50 meq/ Potassium Phosphate 13.6 mmol/Magnesium Sulfate 10 meq/ Calcium Gluconate 10 meq/ Multivitamins 10 ml/Chromium/ Copper/Manganese/ Seleni/Zn 1 ml/ Total Parenteral Nutrition/Amino Acids/Dextrose/ Fat Emulsion Intravenous 1,512 ml @ 63 mls/hr TPN CONT IV Last administered on 03/08/19at 22:22; Start 03/08/19 at 22:00; Stop 03/09/19 at 21:59; Status DC Loperamide HCl (Imodium) 2 mg 1X ONCE PO Last administered on 03/08/19at 21:06; Start 03/08/19 at 19:45; Stop 03/08/19 at 19:46; Status DC Acetaminophen (Tylenol) 650 mg 1X ONCE PO ; Start 03/08/19 at 19:45; Stop 03/08/19 at 19:46; Status DC Hydromorphone HCl (Dilaudid) 1 mg 1X ONCE IVP ; Start 03/08/19 at 19:45; Stop 03/08/19 at 19:46; Status DC Pantoprazole Sodium (Protonix) 40 mg DAILYAC PO Last administered on 03/13/19at 08:40; Start 03/10/19 at 07:30 Sodium Chloride 90 meq/Potassium Chloride 50 meq/ Potassium Phosphate 13.6 mmol/Magnesium Sulfate 12 meq/ Calcium Gluconate 10 meq/ Multivitamins 10 ml/Chromium/ Copper/Manganese/ Seleni/Zn 1 ml/ Total Parenteral Nutrition/Amino Acids/Dextrose/ Fat Emulsion Intravenous 1,512 ml @ 63 mls/hr TPN CONT IV Last administered on 03/10/19at 03:21; Start 03/09/19 at 22:00; Stop 03/10/19 at 21:59; Status DC Insulin Human Lispro (HumaLOG) 0-7 UNITS TIDWMEALS SQ Last administered on 03/10/19at 12:32; Start 03/10/19 at 12:00; Stop 03/10/19 at 17:02; Status DC Insulin Human Lispro (HumaLOG) 10 units 1X STAT SQ Last administered on 03/10/19at 09:50; Start 03/10/19 at 09:24; Stop 03/10/19 at 09:29; Status DC Simethicone (Gas-X) 80 mg PRN AFTMEALHC PRN PO GAS / BLOATING; Start 03/10/19 at 09:30 Polyethylene Glycol (miraLAX PACKET) 17 gm DAILY PO Last administered on 03/13/19at 08:40; Start 03/11/19 at 09:00 Polyethylene Glycol (miraLAX PACKET) 17 gm PRN DAILY PRN PO CONSTIPATION; Start 03/10/19 at 09:30 Bisacodyl (Dulcolax Tab) 5 mg 1X ONCE PO Last administered on 03/10/19at 09:48; Start 03/10/19 at 09:30; Stop 03/10/19 at 09:34; Status DC Alteplase, Recombinant (Cathflo For Central Catheter Clearance) 1 mg 1X ONCE INT CAT Last administered on 03/10/19at 10:29; Start 03/10/19 at 10:30; Stop 03/10/19 at 10:31; Status DC Ondansetron HCl (Zofran Odt) 4 mg 1X ONCE PO Last administered on 03/10/19at 10:47; Start 03/10/19 at 10:45; Stop 03/10/19 at 10:46; Status DC Sodium Chloride 90 meq/Potassium Chloride 50 meq/ Potassium Phosphate 13.6 mmol/Magnesium Sulfate 12 meq/ Calcium Gluconate 10 meq/ Multivitamins 10 ml/Chromium/ Copper/Manganese/ Seleni/Zn 1 ml/ Total Parenteral Nutrition/Amino Acids/Dextrose/ Fat Emulsion Intravenous 1,512 ml @ 63 mls/hr TPN CONT IV Last administered on 03/11/19at 06:31; Start 03/10/19 at 22:00; Stop 03/11/19 at 21:59; Status DC Insulin Human Lispro (HumaLOG) 0-9 UNITS TIDWMEALS SQ Last administered on 03/13/19at 08:46; Start 03/10/19 at 17:00 Insulin Human Lispro (HumaLOG) 4 units STAT SQ ; Start 03/10/19 at 17:15; Stop 03/10/19 at 17:32; Status DC Insulin Human Lispro (HumaLOG) 4 units 1X ONCE SQ Last administered on 03/10/19at 17:27; Start 03/10/19 at 17:45; Stop 03/10/19 at 17:46; Status DC Insulin Human Lispro (HumaLOG) 10 units TIDAC SQ Last administered on 03/11/19at 12:50; Start 03/11/19 at 09:40; Stop 03/11/19 at 17:25; Status DC Sodium Chloride 90 meq/Potassium Chloride 50 meq/ Potassium Phosphate 13.6 mmol/Magnesium Sulfate 12 meq/ Calcium Gluconate 10 meq/ Multivitamins 10 ml/Ch romium/ Copper/Manganese/ Seleni/Zn 1 ml/ Total Parenteral Nutrition/Amino Acids/Dextrose/ Fat Emulsion Intravenous 1,512 ml @ 63 mls/hr TPN CONT IV Last administered on 03/11/19at 22:00; Start 03/11/19 at 22:00; Stop 03/12/19 at 21:59; Status DC Insulin Glargine (Lantus) 20 units QHS SQ Last administered on 03/11/19at 21:33; Start 03/11/19 at 21:00; Stop 03/12/19 at 08:54; Status DC Insulin Human Lispro (HumaLOG) 6 units 1X ONCE SQ Last administered on 03/11/19at 13:00; Start 03/11/19 at 13:00; Stop 03/11/19 at 13:01; Status DC Insulin Human Lispro (HumaLOG) 15 units TIDAC SQ Last administered on 03/12/19at 16:45; Start 03/11/19 at 17:23; Stop 03/13/19 at 08:44; Status DC Insulin Glargine (Lantus) 20 units BID SQ Last administered on 03/13/19at 08:45; Start 03/12/19 at 09:30 Diclofenac Sodium (Voltaren) 1 idania BID TP Last administered on 03/13/19at 08:48; Start 03/12/19 at 13:00 Magnesium Oxide (Magnesium Oxide) 400 mg DAILY PO Last administered on 03/13/19at 08:40; Start 03/12/19 at 13:00 Sodium Chloride 90 meq/Potassium Chloride 50 meq/ Potassium Phosphate 13.6 mmol/Magnesium Sulfate 12 meq/ Calcium Gluconate 10 meq/ Multivitamins 10 ml/Chromium/ Copper/Manganese/ Seleni/Zn 1 ml/ Total Parenteral Nutrition/Amino Acids/Dextrose/ Fat Emulsion Intravenous 1,512 ml @ 63 mls/hr TPN CONT IV Last administered on 03/12/19at 20:49; Start 03/12/19 at 22:00; Stop 03/13/19 at 21:59 Insulin Human Lispro (HumaLOG) 20 units TIDAC SQ ; Start 03/13/19 at 11:30 Sodium Chloride 90 meq/Potassium Chloride 50 meq/ Potassium Phosphate 13.6 mmol/Magnesium Sulfate 12 meq/ Calcium Gluconate 10 meq/ Multivitamins 10 ml/Chromium/ Copper/Manganese/ Seleni/Zn 1 ml/ Insulin Human Regular 15 unit/ Total Parenteral Nutrition/Amino Acids/Dextrose/ Fat Emuls... 1,512 ml @ 63 mls/hr TPN CONT IV ; Start 03/13/19 at 22:00; Stop 03/14/19 at 21:59 Active Scripts Active Reported Vitamin D3 (Cholecalciferol (Vitamin D3)) 1,000 Unit Tablet 2,000 Unit PO DAILY Ferrous Sulfate 325 Mg Tablet 325 Mg PO DAILY Atorvastatin Calcium 20 Mg Tablet 20 Mg PO DAILY Glimepiride 2 Mg Tablet 2 Tab PO BID Losartan Potassium 100 Mg Tablet 100 Mg PO DAILY Protonix (Pantoprazole Sodium) 40 Mg Tablet.dr 40 Mg PO DAILYAC Vitals/I & O Vital Sign - Last 24 Hours 03/12/19 03/12/19 03/12/19 03/12/19 14:52 19:00 20:09 23:00 Temp 98.2 98.1 99.1 98.2 98.1 99.1 Pulse 89 96 96 Resp 18 18 18 B/P (MAP) 143/66 (91) 143/60 (87) 124/47 (72) Pulse Ox 100 93 98 O2 Delivery Room Air Room Air Room Air Room Air 03/13/19 03/13/19 03/13/19 03/13/19 03:00 07:00 08:00 08:40 Temp 98.4 98.1 98.4 98.1 Pulse 87 77 77 Resp 18 16 B/P (MAP) 140/53 (82) 139/73 (95) 139/73 Pulse Ox 95 95 O2 Delivery Room Air Room Air Room Air 03/13/19 11:00 Temp 98.7 98.7 Pulse 81 Resp 16 B/P (MAP) 120/55 (76) Pulse Ox 96 O2 Delivery Room Air Intake and Output 03/12/19 03/12/19 03/13/19 14:59 22:59 06:59 Intake Total 120 ml 240 ml Balance 120 ml 240 ml IONA PAREDES MD Mar 13, 2019 11:19
--- NOTE | 2019-03-13 11:22 | NUR ---
Pharmacy TPN Dosing Note S: JUAN LANE is a 68 year old F Currently receiving Central Continuous TPN started 03/08/19 B:Pertinent PMH: gallstone pancreatitis Height: 5 feet, 2 inches Weight: 83.148172 kg Current diet: FLD LABS: Sodium: 135 Potassium: 4.5 Chloride: 102 Calcium: 8.6 Corrected Calcium: 9.72 Magnesium: 1.9 CO2: 26 SCr: 0.8 Glucose: 346 Albumin: 2.6 AST: 45 ALT: 52 TPN FORMULA: TPN TYPE: Central Continuous AMINO ACIDS: 60 gm DEXTROSE: 195 gm LIPIDS: 20 gm SODIUM CHLORIDE: 90 mEq SODIUM ACETATE: mEq SODIUM PHOSPHATE: mmol POTASSIUM CHLORIDE: 50 mEq POTASSIUM ACETATE: mEq POTASSIUM PHOSPHATE: 13.6 mmol MAGNESIUM: 12 mEq CALCIUM: 10 mEq INSULIN: - units MULTIPLE VITAMIN: 10 ml TRACE ELEMENTS: 1 ml(s) TPN PLAN: Lantus increased to BID per MD. No changes to TPN. R: Continue TPN at 63ml/hr Will monitor electrolytes, glucose, and tolerance to TPN. ZELDA LERMA [facility], 03/13/19 1127
[2019-03-13 15:00] VITALS: BP 157/77
[2019-03-13 19:00] VITALS: BP 155/74
[2019-03-13] MEDS: ATORVASTATIN CALCIUM 20 MG TABLET PO SCH (21:40)
[2019-03-13] MEDS ORDERED: INSULIN LISPRO 300 UNITS/3 ML INSULN.PEN. SQ ONE (22:00)
[2019-03-13] MEDS ORDERED: [UNRECOGNIZED DRUG - OTHER] IV SCH ×10 (22:00)
[2019-03-13] MEDS ORDERED: TOTAL PARENTERAL NUTRITION IV SCH ×21 (22:00)
[2019-03-13] MEDS ORDERED: [UNRECOGNIZED DRUG - OTHER] IV SCH ×11 (22:00)
[2019-03-13] MEDS ORDERED: AMINO ACID IV SCH ×21 (22:00)
[2019-03-13] MEDS ORDERED: DEXTROSE 70% IV SCH ×21 (22:00)
[2019-03-13 23:00] VITALS: BP 191/83
[2019-03-14] VITALS (17 sets, daily range): BP systolic 110–158; BP diastolic 50–91
[2019-03-14 05:43] LABS: BASO % 1 % (0-3); EOS # 0.1 x10^3/uL (0.0-0.7); EOS % 2 % (0-3); HEMATOCRIT 34.8 % (36.0-47.0); HEMOGLOBIN 11.8 g/dL (12.0-15.5); LYMPH # 1.6 x10^3/uL (1.0-4.8); LYMPH % 35 % (24-48); MEAN CORPUSCULAR HEMOGLOBIN 29 pg (25-35); MEAN CORPUSCULAR HGB CONC 34 g/dL (31-37); MEAN CORPUSCULAR VOLUME 87 fL (79-100); MONO # 0.6 x10^3/uL (0.0-1.1); MONO % 14 % (0-9); NEUT # 2.2 x10^3/uL (1.8-7.7); NEUT % 49 % (31-73); PLATELET COUNT 40 x10^3/uL (140-400); RED BLOOD COUNT 4.01 x10^6/uL (3.50-5.40); WHITE BLOOD COUNT 4.6 x10^3/uL (4.0-11.0)
[2019-03-14 05:57] LABS: CALCIUM 8.8 mg/dL (8.5-10.1); CREATININE 0.8 mg/dL (0.6-1.0); GFR 71.1; POTASSIUM 4.2 mmol/L (3.5-5.1)
[2019-03-14] MEDS ORDERED: LIDOCAINE WITH 8.4% SOD BICARB 3 ML DISP.SYRIN. ONE (07:39)
[2019-03-14] MEDS: INSULIN LISPRO 300 UNITS/3 ML INSULN.PEN. SQ SCH ×6 (08:00→16:57)
[2019-03-14] MEDS ORDERED: NALOXONE 0.4 MG/ML VIAL. ONE (08:05)
[2019-03-14] MEDS ORDERED: MIDAZOLAM HCL/PF 2 MG/2 ML VIAL. ONE (08:05)
[2019-03-14] MEDS ORDERED: FLUMAZENIL 0.5 MG/5 ML VIAL. IV ONE (08:05)
[2019-03-14] MEDS ORDERED: fentaNYL PF VIAL 100 MCG/2 ML VIAL ONE (08:05)
[2019-03-14] MEDS: INSULIN GLARGINE 300 UNITS/3 ML INSULN.PEN. SQ SCH ×2 (08:09→22:21)
[2019-03-14] MEDS ORDERED: fentaNYL PF VIAL 100 MCG/2 ML VIAL IV ONE (08:15)
[2019-03-14] MEDS ORDERED: LIDOCAINE WITH 8.4% SOD BICARB 3 ML DISP.SYRIN. IJ ONE (08:15)
[2019-03-14] MEDS ORDERED: MIDAZOLAM HCL/PF 2 MG/2 ML VIAL. IV ONE (08:15)
[2019-03-14] MEDS: ENOXAPARIN 40 MG/0.4 ML SYRINGE. SQ SCH (08:39)
--- NOTE | 2019-03-14 08:57 | PDOC ---
JOANNA MACDONALD [employer] 03/14/19 0857: SURGICAL PROGRESS NOTE Subjective down for BM bx CT planned will follow Vital Signs Vital Signs Date Time Temp Pulse Resp B/P (MAP) Pulse Ox O2 Delivery O2 Flow Rate FiO2 03/14/19 08:47 85 13 98 Nasal Cannula 2.0 03/14/19 08:43 133/80 (97) 03/14/19 07:00 98.3 98.3 I&O Intake and Output 03/14/19 06:59 Intake Total 845 ml Balance 845 ml Intake Oral 845 ml # Voids 3 # Bowel Movements 1 Labs Laboratory Tests Test 03/12/19 10:58 03/12/19 16:41 03/12/19 20:45 03/13/19 06:25 Glucose (Fingerstick) 342 mg/dL (70-99) 294 mg/dL (70-99) 276 mg/dL (70-99) White Blood Count 4.7 x10^3/uL (4.0-11.0) Red Blood Count 4.13 x10^6/uL (3.50-5.40) Hemoglobin 12.0 g/dL (12.0-15.5) Hematocrit 36.3 % (36.0-47.0) Mean Corpuscular Volume 88 fL (79-100) Mean Corpuscular Hemoglobin 29 pg (25-35) Mean Corpuscular Hemoglobin Concent 33 g/dL (31-37) Red Cell Distribution Width 15.7 % (11.5-14.5) Platelet Count 36 x10^3/uL (140-400) Neutrophils (%) (Auto) 51 % (31-73) Lymphocytes (%) (Auto) 34 % (24-48) Monocytes (%) (Auto) 12 % (0-9) Eosinophils (%) (Auto) 2 % (0-3) Basophils (%) (Auto) 1 % (0-3) Neutrophils # (Auto) 2.4 x10^3/uL (1.8-7.7) Lymphocytes # (Auto) 1.6 x10^3/uL (1.0-4.8) Monocytes # (Auto) 0.6 x10^3/uL (0.0-1.1) Eosinophils # (Auto) 0.1 x10^3/uL (0.0-0.7) Basophils # (Auto) 0.0 x10^3/uL (0.0-0.2) Sodium Level 135 mmol/L (136-145) Potassium Level 4.5 mmol/L (3.5-5.1) Chloride Level 102 mmol/L (98-107) Carbon Dioxide Level 26 mmol/L (21-32) Anion Gap 7 (6-14) Blood Urea Nitrogen 10 mg/dL (7-20) Creatinine 0.8 mg/dL (0.6-1.0) Estimated GFR (Cockcroft-Gault) 71.1 Glucose Level 346 mg/dL (70-99) Calcium Level 8.6 mg/dL (8.5-10.1) Phosphorus Level 3.9 mg/dL (2.6-4.7) Magnesium Level 1.9 mg/dL (1.8-2.4) Test 03/13/19 07:30 03/13/19 11:37 03/13/19 16:46 03/13/19 20:57 Glucose (Fingerstick) 368 mg/dL (70-99) 365 mg/dL (70-99) 410 mg/dL (70-99) 413 mg/dL (70-99) Test 03/14/19 05:30 03/14/19 07:25 White Blood Count 4.6 x10^3/uL (4.0-11.0) Red Blood Count 4.01 x10^6/uL (3.50-5.40) Hemoglobin 11.8 g/dL (12.0-15.5) Hematocrit 34.8 % (36.0-47.0) Mean Corpuscular Volume 87 fL (79-100) Mean Corpuscular Hemoglobin 29 pg (25-35) Mean Corpuscular Hemoglobin Concent 34 g/dL (31-37) Red Cell Distribution Width 15.0 % (11.5-14.5) Platelet Count 40 x10^3/uL (140-400) Neutrophils (%) (Auto) 49 % (31-73) Lymphocytes (%) (Auto) 35 % (24-48) Monocytes (%) (Auto) 14 % (0-9) Eosinophils (%) (Auto) 2 % (0-3) Basophils (%) (Auto) 1 % (0-3) Neutrophils # (Auto) 2.2 x10^3/uL (1.8-7.7) Lymphocytes # (Auto) 1.6 x10^3/uL (1.0-4.8) Monocytes # (Auto) 0.6 x10^3/uL (0.0-1.1) Eosinophils # (Auto) 0.1 x10^3/uL (0.0-0.7) Basophils # (Auto) 0.0 x10^3/uL (0.0-0.2) Sodium Level 138 mmol/L (136-145) Potassium Level 4.2 mmol/L (3.5-5.1) Chloride Level 104 mmol/L (98-107) Carbon Dioxide Level 26 mmol/L (21-32) Anion Gap 8 (6-14) Blood Urea Nitrogen 11 mg/dL (7-20) Creatinine 0.8 mg/dL (0.6-1.0) Estimated GFR (Cockcroft-Gault) 71.1 Glucose Level 245 mg/dL (70-99) Calcium Level 8.8 mg/dL (8.5-10.1) Glucose (Fingerstick) 278 mg/dL (70-99) Laboratory Tests Test 03/13/19 11:37 03/13/19 16:46 03/13/19 20:57 03/14/19 05:30 Glucose (Fingerstick) 365 mg/dL (70-99) 410 mg/dL (70-99) 413 mg/dL (70-99) White Blood Count 4.6 x10^3/uL (4.0-11.0) Red Blood Count 4.01 x10^6/uL (3.50-5.40) Hemoglobin 11.8 g/dL (12.0-15.5) Hematocrit 34.8 % (36.0-47.0) Mean Corpuscular Volume 87 fL (79-100) Mean Corpuscular Hemoglobin 29 pg (25-35) Mean Corpuscular Hemoglobin Concent 34 g/dL (31-37) Red Cell Distribution Width 15.0 % (11.5-14.5) Platelet Count 40 x10^3/uL (140-400) Neutrophils (%) (Auto) 49 % (31-73) Lymphocytes (%) (Auto) 35 % (24-48) Monocytes (%) (Auto) 14 % (0-9) Eosinophils (%) (Auto) 2 % (0-3) Basophils (%) (Auto) 1 % (0-3) Neutrophils # (Auto) 2.2 x10^3/uL (1.8-7.7) Lymphocytes # (Auto) 1.6 x10^3/uL (1.0-4.8) Monocytes # (Auto) 0.6 x10^3/uL (0.0-1.1) Eosinophils # (Auto) 0.1 x10^3/uL (0.0-0.7) Basophils # (Auto) 0.0 x10^3/uL (0.0-0.2) Sodium Level 138 mmol/L (136-145) Potassium Level 4.2 mmol/L (3.5-5.1) Chloride Level 104 mmol/L (98-107) Carbon Dioxide Level 26 mmol/L (21-32) Anion Gap 8 (6-14) Blood Urea Nitrogen 11 mg/dL (7-20) Creatinine 0.8 mg/dL (0.6-1.0) Estimated GFR (Cockcroft-Gault) 71.1 Glucose Level 245 mg/dL (70-99) Calcium Level 8.8 mg/dL (8.5-10.1) Test 03/14/19 07:25 Glucose (Fingerstick) 278 mg/dL (70-99) Problem List Problems Medical Problems: (1) Acute gallstone pancreatitis Status: Acute (2) Cholecystitis Status: Acute (3) Thrombocytopenia Status: Acute GEORGIA CHENG MD 03/14/19 1640: SURGICAL PROGRESS NOTE Assessment/Plan CT shows persistent pancreatitis without pseudocyst or evidence of necrosis no new surgical recs JOANNA MACDONALD B[employer] MANAGER Mar 14, 2019 08:57 GEORGIA CHENG MD Mar 14, 2019 16:40
[2019-03-14] MEDS: POLYETHYLENE GLYCOL 3350 17 GM PACKET. PO SCH (09:00)
[2019-03-14] MEDS: PANTOPRAZOLE 40 MG TABLET.DR. PO SCH (11:42)
[2019-03-14] MEDS: LOSARTAN POTASSIUM 50 MG TABLET. PO SCH (11:43)
[2019-03-14] MEDS: MAGNESIUM OXIDE 400 MG TABLET PO SCH (11:43)
[2019-03-14] MEDS: DICLOFENAC SODIUM 1% TOPICAL GEL 100GM TUBE. TP SCH ×2 (11:43→22:22)
--- NOTE | 2019-03-14 11:50 | PDOC ---
PROGRESS NOTES Subjective Subjective HPI - f/u of Thrombocytopenia ROS - no CP Objective Objective Vital Signs Date Time Temp Pulse Resp B/P (MAP) Pulse Ox O2 Delivery O2 Flow Rate FiO2 03/14/19 08:47 85 13 98 Nasal Cannula 2.0 03/14/19 08:43 133/80 (97) 03/14/19 07:00 98.3 98.3 Intake and Output 03/14/19 07:00 Intake Total 845 ml Balance 845 ml Intake Oral 845 ml # Voids 3 # Bowel Movements 1 Physical Exam Heart: Normal S1, Normal S2 General: No acute distress Lungs: Clear to auscultation Neck: No JVD Assessment Assessment Problems Medical Problems: (1) Acute gallstone pancreatitis Status: Acute (2) Cholecystitis Status: Acute (3) Thrombocytopenia Status: Acute IMPRESSION AND PLAN: 1. Thrombocytopenia, chronic, due to cirrhosis of the liver and portal hypertension and splenomegaly. Platelet count was worse at 44,000 on 03/03/2019. No signs of bleeding. I would continue to monitor and transfuse, if there is any evidence of bleeding or if surgical intervention is necessary. Plt worse at 36 on 03/13/19, Plt 40 on 03/14/19, s/p BM bx 03/14/19 to eval for primary bone marrow disorders. 2. Pancreatitis. Management per Gastroenterology. 3. Cholecystitis. Management per Gastroenterology. 4. Leukopenia due to splenomegaly. WBC was 3.4 on 03/02/2019 and it improved to 4.7 on 03/03/2019. Continue to monitor CBC. wbc now 5.2. Comment Review of Relevant I have reviewed the following items popeye (where applicable) has been applied. Labs Laboratory Tests Test 03/12/19 16:41 03/12/19 20:45 03/13/19 06:25 03/13/19 07:30 Glucose (Fingerstick) 294 mg/dL (70-99) 276 mg/dL (70-99) 368 mg/dL (70-99) White Blood Count 4.7 x10^3/uL (4.0-11.0) Red Blood Count 4.13 x10^6/uL (3.50-5.40) Hemoglobin 12.0 g/dL (12.0-15.5) Hematocrit 36.3 % (36.0-47.0) Mean Corpuscular Volume 88 fL (79-100) Mean Corpuscular Hemoglobin 29 pg (25-35) Mean Corpuscular Hemoglobin Concent 33 g/dL (31-37) Red Cell Distribution Width 15.7 % (11.5-14.5) Platelet Count 36 x10^3/uL (140-400) Neutrophils (%) (Auto) 51 % (31-73) Lymphocytes (%) (Auto) 34 % (24-48) Monocytes (%) (Auto) 12 % (0-9) Eosinophils (%) (Auto) 2 % (0-3) Basophils (%) (Auto) 1 % (0-3) Neutrophils # (Auto) 2.4 x10^3/uL (1.8-7.7) Lymphocytes # (Auto) 1.6 x10^3/uL (1.0-4.8) Monocytes # (Auto) 0.6 x10^3/uL (0.0-1.1) Eosinophils # (Auto) 0.1 x10^3/uL (0.0-0.7) Basophils # (Auto) 0.0 x10^3/uL (0.0-0.2) Sodium Level 135 mmol/L (136-145) Potassium Level 4.5 mmol/L (3.5-5.1) Chloride Level 102 mmol/L (98-107) Carbon Dioxide Level 26 mmol/L (21-32) Anion Gap 7 (6-14) Blood Urea Nitrogen 10 mg/dL (7-20) Creatinine 0.8 mg/dL (0.6-1.0) Estimated GFR (Cockcroft-Gault) 71.1 Glucose Level 346 mg/dL (70-99) Calcium Level 8.6 mg/dL (8.5-10.1) Phosphorus Level 3.9 mg/dL (2.6-4.7) Magnesium Level 1.9 mg/dL (1.8-2.4) Test 03/13/19 11:37 03/13/19 16:46 03/13/19 20:57 03/14/19 05:30 Glucose (Fingerstick) 365 mg/dL (70-99) 410 mg/dL (70-99) 413 mg/dL (70-99) White Blood Count 4.6 x10^3/uL (4.0-11.0) Red Blood Count 4.04 x10^6/uL (3.50-5.70) Hemoglobin 11.8 g/dL (12.0-15.5) Hematocrit 34.8 % (36.0-47.0) Mean Corpuscular Volume 87 fL (79-100) Mean Corpuscular Hemoglobin 29 pg (25-35) Mean Corpuscular Hemoglobin Concent 34 g/dL (31-37) Red Cell Distribution Width 15.0 % (11.5-14.5) Platelet Count 40 x10^3/uL (140-400) Neutrophils (%) (Auto) 49 % (31-73) Lymphocytes (%) (Auto) 35 % (24-48) Monocytes (%) (Auto) 14 % (0-9) Eosinophils (%) (Auto) 2 % (0-3) Basophils (%) (Auto) 1 % (0-3) Neutrophils # (Auto) 2.2 x10^3/uL (1.8-7.7) Lymphocytes # (Auto) 1.6 x10^3/uL (1.0-4.8) Monocytes # (Auto) 0.6 x10^3/uL (0.0-1.1) Eosinophils # (Auto) 0.1 x10^3/uL (0.0-0.7) Basophils # (Auto) 0.0 x10^3/uL (0.0-0.2) Absolute Reticulocyte Count 0.105 x10^6/uL (0.020-0.120) Percent Reticulocyte Count 2.6 % (0.5-2.3) Immature Reticulocyte Fraction 0.34 (0.20-0.60) Sodium Level 138 mmol/L (136-145) Potassium Level 4.2 mmol/L (3.5-5.1) Chloride Level 104 mmol/L (98-107) Carbon Dioxide Level 26 mmol/L (21-32) Anion Gap 8 (6-14) Blood Urea Nitrogen 11 mg/dL (7-20) Creatinine 0.8 mg/dL (0.6-1.0) Estimated GFR (Cockcroft-Gault) 71.1 Glucose Level 245 mg/dL (70-99) Calcium Level 8.8 mg/dL (8.5-10.1) Test 03/14/19 07:25 03/14/19 11:35 Glucose (Fingerstick) 278 mg/dL (70-99) 227 mg/dL (70-99) Laboratory Tests Test 03/13/19 16:46 03/13/19 20:57 03/14/19 05:30 03/14/19 07:25 Glucose (Fingerstick) 410 mg/dL (70-99) 413 mg/dL (70-99) 278 mg/dL (70-99) White Blood Count 4.6 x10^3/uL (4.0-11.0) Red Blood Count 4.04 x10^6/uL (3.50-5.70) Hemoglobin 11.8 g/dL (12.0-15.5) Hematocrit 34.8 % (36.0-47.0) Mean Corpuscular Volume 87 fL (79-100) Mean Corpuscular Hemoglobin 29 pg (25-35) Mean Corpuscular Hemoglobin Concent 34 g/dL (31-37) Red Cell Distribution Width 15.0 % (11.5-14.5) Platelet Count 40 x10^3/uL (140-400) Neutrophils (%) (Auto) 49 % (31-73) Lymphocytes (%) (Auto) 35 % (24-48) Monocytes (%) (Auto) 14 % (0-9) Eosinophils (%) (Auto) 2 % (0-3) Basophils (%) (Auto) 1 % (0-3) Neutrophils # (Auto) 2.2 x10^3/uL (1.8-7.7) Lymphocytes # (Auto) 1.6 x10^3/uL (1.0-4.8) Monocytes # (Auto) 0.6 x10^3/uL (0.0-1.1) Eosinophils # (Auto) 0.1 x10^3/uL (0.0-0.7) Basophils # (Auto) 0.0 x10^3/uL (0.0-0.2) Absolute Reticulocyte Count 0.105 x10^6/uL (0.020-0.120) Percent Reticulocyte Count 2.6 % (0.5-2.3) Immature Reticulocyte Fraction 0.34 (0.20-0.60) Sodium Level 138 mmol/L (136-145) Potassium Level 4.2 mmol/L (3.5-5.1) Chloride Level 104 mmol/L (98-107) Carbon Dioxide Level 26 mmol/L (21-32) Anion Gap 8 (6-14) Blood Urea Nitrogen 11 mg/dL (7-20) Creatinine 0.8 mg/dL (0.6-1.0) Estimated GFR (Cockcroft-Gault) 71.1 Glucose Level 245 mg/dL (70-99) Calcium Level 8.8 mg/dL (8.5-10.1) Test 03/14/19 11:35 Glucose (Fingerstick) 227 mg/dL (70-99) Microbiology 03/02/19 Urine Culture - Final, Complete 03/02/19 Urine Culture Result 1 (DONNA) - Final, Complete Medications Current Medications Sodium Chloride 1,000 ml @ 1,000 mls/hr 1X ONCE IV Last administered on 03/02/19at 14:15; Start 03/02/19 at 14:00; Stop 03/02/19 at 14:59; Status DC Morphine Sulfate (Morphine Sulfate) 4 mg 1X ONCE IV Last administered on 03/02/19at 14:14; Start 03/02/19 at 14:30; Stop 03/02/19 at 14:31; Status DC Ondansetron HCl (Zofran) 4 mg 1X ONCE IV Last administered on 03/02/19at 14:13; Start 03/02/19 at 14:30; Stop 03/02/19 at 14:31; Status DC Iohexol (Omnipaque 300 Mg/ml) 60 ml 1X ONCE IV Last administered on 03/02/19at 15:24; Start 03/02/19 at 15:45; Stop 03/02/19 at 15:46; Status DC Info (CONTRAST GIVEN -- Rx MONITORING) 1 each PRN DAILY PRN MC SEE COMMENTS; Start 03/02/19 at 15:15; Stop 03/04/19 at 15:14; Status DC Fentanyl Citrate (Fentanyl 2ml Vial) 75 mcg 1X ONCE IV Last administered on 03/02/19at 16:19; Start 03/02/19 at 16:45; Stop 03/02/19 at 16:46; Status DC Piperacillin Sod/ Tazobactam Sod 3.375 gm/Sodium Chloride 50 ml @ 100 mls/hr 1X ONCE IV Last administered on 03/02/19at 16:26; Start 03/02/19 at 17:00; Stop 03/02/19 at 17:29; Status DC Sodium Chloride 1,000 ml @ 1,000 mls/hr 1X ONCE IV Last administered on 03/02/19at 16:31; Start 03/02/19 at 16:30; Stop 03/02/19 at 17:29; Status DC Ondansetron HCl (Zofran) 4 mg PRN Q8HRS PRN IV NAUSEA/VOMITING; Start 03/02/19 at 17:00; Stop 03/02/19 at 19:48; Status DC Fentanyl Citrate (Fentanyl 2ml Vial) 50 mcg PRN Q2HR PRN IV PAIN Last administered on 03/02/19at 20:51; Start 03/02/19 at 17:00; Stop 03/03/19 at 16:59; Status DC Sodium Chloride 1,000 ml @ 100 mls/hr Q10H IV ; Start 03/02/19 at 16:48; Stop 03/03/19 at 16:47; Status Cancel Sodium Chloride (Normal Saline Flush) 3 ml QSHIFT PRN IV AFTER MEDS AND BLOOD DRAWS; Start 03/02/19 at 19:45 Sodium Chloride 1,000 ml @ 100 mls/hr Q10H IV Last administered on 03/06/19at 15:00; Start 03/02/19 at 21:00; Stop 03/08/19 at 13:48; Status DC Ondansetron HCl (Zofran) 4 mg PRN Q4HRS PRN IV NAUSEA/VOMITING, 1st CHOICE Last administered on 03/07/19at 08:25; Start 03/02/19 at 19:45 Acetaminophen (Tylenol) 650 mg PRN Q4HRS PRN PO TEMP OVER 100.4F OR MILD PAIN; Start 03/02/19 at 19:45; Stop 03/09/19 at 09:57; Status DC Clonidine HCl (Catapres) 0.1 mg PRN Q6HRS PRN PO SBP>160 OR DBP>90; Start at 19:45 Guaifenesin (Robitussin) 200 mg PRN Q4HRS PRN PO COUGH; Start 03/02/19 at 19:45 Lorazepam (Ativan) 0.5 mg PRN Q4HRS PRN PO ANXIETY / AGITATION; Start 03/02/19 at 19:45 Hydromorphone HCl (Dilaudid) 1 mg PRN Q2HRS PRN IV SEVERE PAIN 7-10 Last administered on 03/09/19 10:10; Start 03/02/19 at 19:45 Enoxaparin Sodium (Lovenox 40mg Syringe) 40 mg DAILY SQ Last administered on 03/09/19 09:00; Start 03/03/19 at 09:00 Metoclopramide HCl (Reglan Vial) 10 mg PRN Q6HRS PRN IV NAUSEA/VOMITING, 2nd CHOICE Last administered on 03/04/19 11:25; Start 03/03/19 at 12:00 Pantoprazole Sodium (PROTONIX VIAL for IV PUSH) 40 mg DAILYAC IVP Last administered on 03/09/19 08:23; Start 03/04/19 at 09:30; Stop 03/09/19 at 09:26; Status DC Potassium Chloride/Water 100 ml @ 100 mls/hr Q1H IV Last administered on 03/06/19 16:00; Start 03/06/19 at 13:00; Stop 03/06/19 at 16:59; Status DC Amino Acids/ Glycerin/ Electrolytes 1,000 ml @ 80 mls/hr [id number] IV Last administered on 03/07/19 11:00; Start 03/06/19 at 21:00; Stop 03/08/19 at 21:59; Status DC Magnesium Sulfate 50 ml @ 25 mls/hr 1X ONCE IV Last administered on 03/07/19 08:24; Start 03/07/19 at 08:30; Stop 03/07/19 at 10:29; Status DC Lidocaine/Sodium Bicarbonate (Buffered Lidocaine 1%) 3 ml 1X ONCE INJ Last administered on 03/08/19 09:55; Start 03/08/19 at 09:30; Stop 03/08/19 at 09:34; Status DC Atorvastatin Calcium (Lipitor) 20 mg QHS PO Last administered on 03/13/19 21:40; Start 03/08/19 at 21:00 Losartan Potassium (Cozaar) 100 mg DAILY PO Last administered on 03/13/19 08:40; Start 03/09/19 at 09:00 Insulin Human Lispro (HumaLOG) 0-5 UNITS TIDWMEALS SQ Last administered on 03/09/19at 18:01; Start 03/08/19 at 13:00; Stop 03/10/19 at 09:25; Status DC Dextrose (Dextrose 50%-Water Syringe) 12.5 gm PRN Q15MIN PRN IV SEE COMMENTS; Start 03/08/19 at 12:45 Info (Tpn Per Pharmacy) 1 each PRN DAILY PRN MC SEE COMMENTS Last administered on 03/13/19at 11:15; Start 03/08/19 at 13:45; Stop 03/14/19 at 10:17; Status DC Sodium Chloride 90 meq/Potassium Chloride 50 meq/ Potassium Phosphate 13.6 mmol/Magnesium Sulfate 10 meq/ Calcium Gluconate 10 meq/ Multivitamins 10 ml/Chromium/ Copper/Manganese/ Seleni/Zn 1 ml/ Total Parenteral Nutrition/Amino Acids/Dextrose/ Fat Emulsion Intravenous 1,512 ml @ 63 mls/hr TPN CONT IV Last administered on 03/08/19at 22:22; Start 03/08/19 at 22:00; Stop 03/09/19 at 21:59; Status DC Loperamide HCl (Imodium) 2 mg 1X ONCE PO Last administered on 03/08/19at 21:06; Start 03/08/19 at 19:45; Stop 03/08/19 at 19:46; Status DC Acetaminophen (Tylenol) 650 mg 1X ONCE PO ; Start 03/08/19 at 19:45; Stop 03/08/19 at 19:46; Status DC Hydromorphone HCl (Dilaudid) 1 mg 1X ONCE IVP ; Start 03/08/19 at 19:45; Stop 03/08/19 at 19:46; Status DC Pantoprazole Sodium (Protonix) 40 mg DAILYAC PO Last administered on 03/13/19at 08:40; Start 03/10/19 at 07:30 Sodium Chloride 90 meq/Potassium Chloride 50 meq/ Potassium Phosphate 13.6 mmol/Magnesium Sulfate 12 meq/ Calcium Gluconate 10 meq/ Multivitamins 10 ml/Chromium/ Copper/Manganese/ Seleni/Zn 1 ml/ Total Parenteral Nutrition/Amino Acids/Dextrose/ Fat Emulsion Intravenous 1,512 ml @ 63 mls/hr TPN CONT IV Last administered on 03/10/19at 03:21; Start 03/09/19 at 22:00; Stop 03/10/19 at 21:59; Status DC Insulin Human Lispro (HumaLOG) 0-7 UNITS TIDWMEALS SQ Last administered on 03/10/19at 12:32; Start 03/10/19 at 12:00; Stop 03/10/19 at 17:02; Status DC Insulin Human Lispro (HumaLOG) 10 units 1X STAT SQ Last administered on 03/10/19at 09:50; Start 03/10/19 at 09:24; Stop 03/10/19 at 09:29; Status DC Simethicone (Gas-X) 80 mg PRN AFTMEALHC PRN PO GAS / BLOATING; Start 03/10/19 at 09:30 Polyethylene Glycol (miraLAX PACKET) 17 gm DAILY PO Last administered on 03/13/19at 08:40; Start 03/11/19 at 09:00 Polyethylene Glycol (miraLAX PACKET) 17 gm PRN DAILY PRN PO CONSTIPATION; Start 03/10/19 at 09:30 Bisacodyl (Dulcolax Tab) 5 mg 1X ONCE PO Last administered on 03/10/19at 09:48; Start 03/10/19 at 09:30; Stop 03/10/19 at 09:34; Status DC Alteplase, Recombinant (Cathflo For Central Catheter Clearance) 1 mg 1X ONCE INT CAT Last administered on 03/10/19at 10:29; Start 03/10/19 at 10:30; Stop 03/10/19 at 10:31; Status DC Ondansetron HCl (Zofran Odt) 4 mg 1X ONCE PO Last administered on 03/10/19at 10:47; Start 03/10/19 at 10:45; Stop 03/10/19 at 10:46; Status DC Sodium Chloride 90 meq/Potassium Chloride 50 meq/ Potassium Phosphate 13.6 mmol/Magnesium Sulfate 12 meq/ Calcium Gluconate 10 meq/ Multivitamins 10 ml/Chromium/ Copper/Manganese/ Seleni/Zn 1 ml/ Total Parenteral Nutrition/Amino Acids/Dextrose/ Fat Emulsion Intravenous 1,512 ml @ 63 mls/hr TPN CONT IV Last administered on 03/11/19at 06:31; Start 03/10/19 at 22:00; Stop 03/11/19 at 21:59; Status DC Insulin Human Lispro (HumaLOG) 0-9 UNITS TIDWMEALS SQ Last administered on 03/13/19at 18:16; Start 03/10/19 at 17:00 Insulin Human Lispro (HumaLOG) 4 units STAT SQ ; Start 03/10/19 at 17:15; Stop 03/10/19 at 17:32; Status DC Insulin Human Lispro (HumaLOG) 4 units 1X ONCE SQ Last administered on 03/10/19at 17:27; Start 03/10/19 at 17:45; Stop 03/10/19 at 17:46; Status DC Insulin Human Lispro (HumaLOG) 10 units TIDAC SQ Last administered on 03/11/19at 12:50; Start 03/11/19 at 09:40; Stop 03/11/19 at 17:25; Status DC Sodium Chloride 90 meq/Potassium Chloride 50 meq/ Potassium Phosphate 13.6 mmol/Magnesium Sulfate 12 meq/ Calcium Gluconate 10 meq/ Multivitamins 10 ml/Chromium/ Copper/Manganese/ Seleni/Zn 1 ml/ Total Parenteral Nutrition/Amino Acids/Dextrose/ Fat Emulsion Intravenous 1,512 ml @ 63 mls/hr TPN CONT IV Last administered on 03/11/19at 22:00; Start 03/11/19 at 22:00; Stop 03/12/19 at 21:59; Status DC Insulin Glargine (Lantus) 20 units QHS SQ Last administered on 03/11/19at 21:33; Start 03/11/19 at 21:00; Stop 03/12/19 at 08:54; Status DC Insulin Human Lispro (HumaLOG) 6 units 1X ONCE SQ Last administered on 03/11/19at 13:00; Start 03/11/19 at 13:00; Stop 03/11/19 at 13:01; Status DC Insulin Human Lispro (HumaLOG) 15 units TIDAC SQ Last administered on 03/12/19at 16:45; Start 03/11/19 at 17:23; Stop 03/13/19 at 08:44; Status DC Insulin Glargine (Lantus) 20 units BID SQ Last administered on 03/14/19at 08:09; Start 03/12/19 at 09:30 Diclofenac Sodium (Voltaren) 1 idania BID TP Last administered on 03/13/19at 21:40; Start 03/12/19 at 13:00 Magnesium Oxide (Magnesium Oxide) 400 mg DAILY PO Last administered on 03/13/19at 08:40; Start 03/12/19 at 13:00 Sodium Chloride 90 meq/Potassium Chloride 50 meq/ Potassium Phosphate 13.6 mmol/Magnesium Sulfate 12 meq/ Calcium Gluconate 10 meq/ Multivitamins 10 ml/Chromium/ Copper/Manganese/ Seleni/Zn 1 ml/ Total Parenteral Nutrition/Amino Acids/Dextrose/ Fat Emulsion Intravenous 1,512 ml @ 63 mls/hr TPN CONT IV Last administered on 03/12/19at 20:49; Start 03/12/19 at 22:00; Stop 03/13/19 at 21:59; Status DC Insulin Human Lispro (HumaLOG) 20 units TIDAC SQ Last administered on 03/14/19at 08:10; Start 03/13/19 at 11:30 Sodium Chloride 90 meq/Potassium Chloride 50 meq/ Potassium Phosphate 13.6 mmol/Magnesium Sulfate 12 meq/ Calcium Gluconate 10 meq/ Multivitamins 10 ml/Chromium/ Copper/Manganese/ Seleni/Zn 1 ml/ Insulin Human Regular 15 unit/ Total Parenteral Nutrition/Amino Acids/Dextrose/ Fat Emuls... 1,512 ml @ 63 mls/hr TPN CONT IV ; Start 03/13/19 at 22:00; Stop 03/13/19 at 22:00; Status DC Sodium Chloride 90 meq/Potassium Chloride 50 meq/ Potassium Phosphate 13.6 mmol/Magnesium Sulfate 12 meq/ Calcium Gluconate 10 meq/ Multivitamins 10 ml/Chromium/ Copper/Manganese/ Seleni/Zn 1 ml/ Total Parenteral Nutrition/Amino Acids/Dextrose/ Fat Emulsion Intravenous 1,512 ml @ 63 mls/hr TPN CONT IV Last administered on 03/13/19at 22:00; Start 03/13/19 at 22:00; Stop 03/14/19 at 21:59 Insulin Human Lispro (HumaLOG) 25 units 1X ONCE SQ Last administered on 03/13/19at 22:01; Start 03/13/19 at 22:00; Stop 03/13/19 at 22:03; Status DC Lidocaine/Sodium Bicarbonate (Buffered Lidocaine 1%) 3 ml STK-MED ONCE .ROUTE ; Start 03/14/19 at 07:39; Stop 03/14/19 at 07:40; Status DC Midazolam HCl (Versed) 2 mg STK-MED ONCE .ROUTE ; Start 03/14/19 at 08:05; Stop 03/14/19 at 08:06; Status DC Fentanyl Citrate (Fentanyl 2ml Vial) 100 mcg STK-MED ONCE .ROUTE ; Start 03/14/19 at 08:05; Stop 03/14/19 at 08:06; Status DC Flumazenil (Romazicon) 0.5 mg STK-MED ONCE IV ; Start 03/14/19 at 08:05; Stop 03/14/19 at 08:06; Status DC Naloxone HCl (Narcan) 0.4 mg STK-MED ONCE .ROUTE ; Start 03/14/19 at 08:05; Stop 03/14/19 at 08:06; Status DC Lidocaine/Sodium Bicarbonate (Buffered Lidocaine 1%) 3 ml 1X ONCE IJ Last administered on 03/14/19at 08:39; Start 03/14/19 at 08:15; Stop 03/14/19 at 08:18; Status DC Midazolam HCl (Versed) 2 mg 1X ONCE IV Last administered on 03/14/19at 08:39; Start 03/14/19 at 08:15; Stop 03/14/19 at 08:18; Status DC Fentanyl Citrate (Fentanyl 2ml Vial) 100 mcg 1X ONCE IV Last administered on 03/14/19at 08:39; Start 03/14/19 at 08:15; Stop 03/14/19 at 08:18; Status DC Active Scripts Active Reported Vitamin D3 (Cholecalciferol (Vitamin D3)) 1,000 Unit Tablet 2,000 Unit PO DAILY Ferrous Sulfate 325 Mg Tablet 325 Mg PO DAILY Atorvastatin Calcium 20 Mg Tablet 20 Mg PO DAILY Glimepiride 2 Mg Tablet 2 Tab PO BID Losartan Potassium 100 Mg Tablet 100 Mg PO DAILY Protonix (Pantoprazole Sodium) 40 Mg Tablet.dr 40 Mg PO DAILYAC Vitals/I & O Vital Sign - Last 24 Hours 03/13/19 03/13/19 03/13/19 03/13/19 15:00 19:00 20:00 23:00 Temp 98.8 99.1 99.3 98.8 99.1 99.3 Pulse 81 91 93 Resp 16 18 18 B/P (MAP) 157/77 (103) 155/74 (101) 191/83 (119) Pulse Ox 97 96 94 O2 Delivery Room Air Room Air Room Air Room Air 03/14/19 03/14/19 03/14/19 03/14/19 03:15 07:00 08:00 08:36 Temp 98.6 98.3 98.6 98.3 Pulse 92 70 78 Resp 20 16 22 B/P (MAP) 158/72 (100) 135/64 (87) Pulse Ox 95 96 99 O2 Delivery Room Air Room Air Room Air Nasal Cannula O2 Flow Rate 2.0 03/14/19 03/14/19 03/14/19 08:39 08:43 08:47 Pulse 84 85 Resp 20 17 13 B/P (MAP) 133/80 (97) Pulse Ox 98 98 O2 Delivery Nasal Cannula Nasal Cannula O2 Flow Rate 2.0 2.0 Intake and Output 03/13/19 03/13/19 03/14/19 15:00 23:00 07:00 Intake Total 195 ml 450 ml 200 ml Balance 195 ml 450 ml 200 ml IONA PAREDES MD Mar 14, 2019 11:50
--- NOTE | 2019-03-14 12:37 | RAD ---
CT-guided bone marrow biopsy. 03/14/2019 12:32 PM Indication: Thrombocytopenia Discussion: The risks and benefits of the procedure, including but not limited to, bleeding and infection were discussed patient. Informed consent was obtained. The patient was brought to the CT scanner and placed in the prone position. A timeout procedure was performed. [employer] CT imaging of the pelvis demonstrated left ilium amenable to bone marrow biopsy. The overlying soft tissues were prepped and draped using maximum sterile barrier technique. 1% lidocaine without epinephrine was administered for local anesthesia. Under intermittent CT guidance, an OncControl needle was advanced into the bone marrow of the left iliac crest. 2 Aspirates and 1 core biopsy samples were obtained. Samples were delivered to pathology was present at the time of procedure. The needle was removed and manual pressure held to achieve hemostasis. No immediate complications were identified. The procedure was performed under conscious sedation including continuous cardiopulmonary monitoring via dedicated sedation nurse. Sedation time: 15 minutes Impression: Successful CT-guided bone marrow biopsy of the left iliac crest . PQRS Compliance Statement: One or more of the following individualized dose reduction techniques were utilized for this examination: 1. Automated exposure control 2. Adjustment of the mA and/or kV according to patient size 3. Use of iterative reconstruction technique
--- NOTE | 2019-03-14 12:47 | PDOC ---
PROGRESS NOTES Chief Complaint Chief Complaint Gallstone pancreatitis - not a great candidate for actigall given radiolucent stone presence and pancreatitis at initial presentation. Not a good surgical candidate given her clinical cirrhosis appearance and unremitting thrombocytopenia Thrombocytopenia Leukopenia Pain Diabetes Hypertension Hyperlipidemia Fatty liver History of Present Illness History of Present Illness Seen and examined today, c/o leg cramping, abdominal pain improved. Still with little appetite. Glycemic control has been extremely poor in the 300s and 400s. Advancing diet today. Unfortunately she does have cookies, butter and gravy with mashed potatoes despite low fat diet. Plan: Add lantus 20u QAM Mag oxide for cramps, can trial voltaren. 03/09/19 Patient seen and examined DW RN Reviewed KUB Ordered dilaudid Reviewed chart 03/10/19 patient seen and examined discussed liver test results continue to wait for swelling to reduce 03/11/19 Patient seen and examined Disussed glucose management with RN Patient was sitting up in bed and appears to improve Vitals Vitals Vital Signs Date Time Temp Pulse Resp B/P (MAP) Pulse Ox O2 Delivery O2 Flow Rate FiO2 03/14/19 11:43 69 140/75 03/14/19 08:47 13 98 Nasal Cannula 2.0 03/14/19 07:00 98.3 98.3 Physical Exam General: No acute distress Heart: Normal S1, Normal S2 Lungs: Clear Abdomen: Soft, Other (mild ttp upper abdomen ) Extremities: No clubbing, No cyanosis, Normal pulses Skin: No rashes, No breakdown, No significant lesion Labs LABS Laboratory Tests Test 03/13/19 16:46 03/13/19 20:57 03/14/19 05:30 03/14/19 07:25 Glucose (Fingerstick) 410 mg/dL (70-99) 413 mg/dL (70-99) 278 mg/dL (70-99) White Blood Count 4.6 x10^3/uL (4.0-11.0) Red Blood Count 4.04 x10^6/uL (3.50-5.70) Hemoglobin 11.8 g/dL (12.0-15.5) Hematocrit 34.8 % (36.0-47.0) Mean Corpuscular Volume 87 fL (79-100) Mean Corpuscular Hemoglobin 29 pg (25-35) Mean Corpuscular Hemoglobin Concent 34 g/dL (31-37) Red Cell Distribution Width 15.0 % (11.5-14.5) Platelet Count 40 x10^3/uL (140-400) Neutrophils (%) (Auto) 49 % (31-73) Lymphocytes (%) (Auto) 35 % (24-48) Monocytes (%) (Auto) 14 % (0-9) Eosinophils (%) (Auto) 2 % (0-3) Basophils (%) (Auto) 1 % (0-3) Neutrophils # (Auto) 2.2 x10^3/uL (1.8-7.7) Lymphocytes # (Auto) 1.6 x10^3/uL (1.0-4.8) Monocytes # (Auto) 0.6 x10^3/uL (0.0-1.1) Eosinophils # (Auto) 0.1 x10^3/uL (0.0-0.7) Basophils # (Auto) 0.0 x10^3/uL (0.0-0.2) Absolute Reticulocyte Count 0.105 x10^6/uL (0.020-0.120) Percent Reticulocyte Count 2.6 % (0.5-2.3) Immature Reticulocyte Fraction 0.34 (0.20-0.60) Sodium Level 138 mmol/L (136-145) Potassium Level 4.2 mmol/L (3.5-5.1) Chloride Level 104 mmol/L (98-107) Carbon Dioxide Level 26 mmol/L (21-32) Anion Gap 8 (6-14) Blood Urea Nitrogen 11 mg/dL (7-20) Creatinine 0.8 mg/dL (0.6-1.0) Estimated GFR (Cockcroft-Gault) 71.1 Glucose Level 245 mg/dL (70-99) Calcium Level 8.8 mg/dL (8.5-10.1) Test 03/14/19 11:35 Glucose (Fingerstick) 227 mg/dL (70-99) Assessment and Plan Assessmemt and Plan Problems Medical Problems: (1) Acute gallstone pancreatitis Status: Acute (2) Cholecystitis Status: Acute (3) Thrombocytopenia Status: Acute Comment Review of Relevant I have reviewed the following items popeye (where applicable) has been applied. Labs Laboratory Tests Test 03/12/19 16:41 03/12/19 20:45 03/13/19 06:25 03/13/19 07:30 Glucose (Fingerstick) 294 mg/dL (70-99) 276 mg/dL (70-99) 368 mg/dL (70-99) White Blood Count 4.7 x10^3/uL (4.0-11.0) Red Blood Count 4.13 x10^6/uL (3.50-5.40) Hemoglobin 12.0 g/dL (12.0-15.5) Hematocrit 36.3 % (36.0-47.0) Mean Corpuscular Volume 88 fL (79-100) Mean Corpuscular Hemoglobin 29 pg (25-35) Mean Corpuscular Hemoglobin Concent 33 g/dL (31-37) Red Cell Distribution Width 15.7 % (11.5-14.5) Platelet Count 36 x10^3/uL (140-400) Neutrophils (%) (Auto) 51 % (31-73) Lymphocytes (%) (Auto) 34 % (24-48) Monocytes (%) (Auto) 12 % (0-9) Eosinophils (%) (Auto) 2 % (0-3) Basophils (%) (Auto) 1 % (0-3) Neutrophils # (Auto) 2.4 x10^3/uL (1.8-7.7) Lymphocytes # (Auto) 1.6 x10^3/uL (1.0-4.8) Monocytes # (Auto) 0.6 x10^3/uL (0.0-1.1) Eosinophils # (Auto) 0.1 x10^3/uL (0.0-0.7) Basophils # (Auto) 0.0 x10^3/uL (0.0-0.2) Sodium Level 135 mmol/L (136-145) Potassium Level 4.5 mmol/L (3.5-5.1) Chloride Level 102 mmol/L (98-107) Carbon Dioxide Level 26 mmol/L (21-32) Anion Gap 7 (6-14) Blood Urea Nitrogen 10 mg/dL (7-20) Creatinine 0.8 mg/dL (0.6-1.0) Estimated GFR (Cockcroft-Gault) 71.1 Glucose Level 346 mg/dL (70-99) Calcium Level 8.6 mg/dL (8.5-10.1) Phosphorus Level 3.9 mg/dL (2.6-4.7) Magnesium Level 1.9 mg/dL (1.8-2.4) Test 03/13/19 11:37 03/13/19 16:46 03/13/19 20:57 03/14/19 05:30 Glucose (Fingerstick) 365 mg/dL (70-99) 410 mg/dL (70-99) 413 mg/dL (70-99) White Blood Count 4.6 x10^3/uL (4.0-11.0) Red Blood Count 4.04 x10^6/uL (3.50-5.70) Hemoglobin 11.8 g/dL (12.0-15.5) Hematocrit 34.8 % (36.0-47.0) Mean Corpuscular Volume 87 fL (79-100) Mean Corpuscular Hemoglobin 29 pg (25-35) Mean Corpuscular Hemoglobin Concent 34 g/dL (31-37) Red Cell Distribution Width 15.0 % (11.5-14.5) Platelet Count 40 x10^3/uL (140-400) Neutrophils (%) (Auto) 49 % (31-73) Lymphocytes (%) (Auto) 35 % (24-48) Monocytes (%) (Auto) 14 % (0-9) Eosinophils (%) (Auto) 2 % (0-3) Basophils (%) (Auto) 1 % (0-3) Neutrophils # (Auto) 2.2 x10^3/uL (1.8-7.7) Lymphocytes # (Auto) 1.6 x10^3/uL (1.0-4.8) Monocytes # (Auto) 0.6 x10^3/uL (0.0-1.1) Eosinophils # (Auto) 0.1 x10^3/uL (0.0-0.7) Basophils # (Auto) 0.0 x10^3/uL (0.0-0.2) Absolute Reticulocyte Count 0.105 x10^6/uL (0.020-0.120) Percent Reticulocyte Count 2.6 % (0.5-2.3) Immature Reticulocyte Fraction 0.34 (0.20-0.60) Sodium Level 138 mmol/L (136-145) Potassium Level 4.2 mmol/L (3.5-5.1) Chloride Level 104 mmol/L (98-107) Carbon Dioxide Level 26 mmol/L (21-32) Anion Gap 8 (6-14) Blood Urea Nitrogen 11 mg/dL (7-20) Creatinine 0.8 mg/dL (0.6-1.0) Estimated GFR (Cockcroft-Gault) 71.1 Glucose Level 245 mg/dL (70-99) Calcium Level 8.8 mg/dL (8.5-10.1) Test 03/14/19 07:25 03/14/19 11:35 Glucose (Fingerstick) 278 mg/dL (70-99) 227 mg/dL (70-99) Laboratory Tests Test 03/13/19 16:46 03/13/19 20:57 03/14/19 05:30 03/14/19 07:25 Glucose (Fingerstick) 410 mg/dL (70-99) 413 mg/dL (70-99) 278 mg/dL (70-99) White Blood Count 4.6 x10^3/uL (4.0-11.0) Red Blood Count 4.04 x10^6/uL (3.50-5.70) Hemoglobin 11.8 g/dL (12.0-15.5) Hematocrit 34.8 % (36.0-47.0) Mean Corpuscular Volume 87 fL (79-100) Mean Corpuscular Hemoglobin 29 pg (25-35) Mean Corpuscular Hemoglobin Concent 34 g/dL (31-37) Red Cell Distribution Width 15.0 % (11.5-14.5) Platelet Count 40 x10^3/uL (140-400) Neutrophils (%) (Auto) 49 % (31-73) Lymphocytes (%) (Auto) 35 % (24-48) Monocytes (%) (Auto) 14 % (0-9) Eosinophils (%) (Auto) 2 % (0-3) Basophils (%) (Auto) 1 % (0-3) Neutrophils # (Auto) 2.2 x10^3/uL (1.8-7.7) Lymphocytes # (Auto) 1.6 x10^3/uL (1.0-4.8) Monocytes # (Auto) 0.6 x10^3/uL (0.0-1.1) Eosinophils # (Auto) 0.1 x10^3/uL (0.0-0.7) Basophils # (Auto) 0.0 x10^3/uL (0.0-0.2) Absolute Reticulocyte Count 0.105 x10^6/uL (0.020-0.120) Percent Reticulocyte Count 2.6 % (0.5-2.3) Immature Reticulocyte Fraction 0.34 (0.20-0.60) Sodium Level 138 mmol/L (136-145) Potassium Level 4.2 mmol/L (3.5-5.1) Chloride Level 104 mmol/L (98-107) Carbon Dioxide Level 26 mmol/L (21-32) Anion Gap 8 (6-14) Blood Urea Nitrogen 11 mg/dL (7-20) Creatinine 0.8 mg/dL (0.6-1.0) Estimated GFR (Cockcroft-Gault) 71.1 Glucose Level 245 mg/dL (70-99) Calcium Level 8.8 mg/dL (8.5-10.1) Test 03/14/19 11:35 Glucose (Fingerstick) 227 mg/dL (70-99) Microbiology 03/02/19 Urine Culture - Final, Complete 03/02/19 Urine Culture Result 1 (DONNA) - Final, Complete Medications Current Medications Sodium Chloride 1,000 ml @ 1,000 mls/hr 1X ONCE IV Last administered on 03/02/19at 14:15; Start 03/02/19 at 14:00; Stop 03/02/19 at 14:59; Status DC Morphine Sulfate (Morphine Sulfate) 4 mg 1X ONCE IV Last administered on 03/02/19at 14:14; Start 03/02/19 at 14:30; Stop 03/02/19 at 14:31; Status DC Ondansetron HCl (Zofran) 4 mg 1X ONCE IV Last administered on 03/02/19at 14:13; Start 03/02/19 at 14:30; Stop 03/02/19 at 14:31; Status DC Iohexol (Omnipaque 300 Mg/ml) 60 ml 1X ONCE IV Last administered on 03/02/19at 15:24; Start 03/02/19 at 15:45; Stop 03/02/19 at 15:46; Status DC Info (CONTRAST GIVEN -- Rx MONITORING) 1 each PRN DAILY PRN MC SEE COMMENTS; Start 03/02/19 at 15:15; Stop 03/04/19 at 15:14; Status DC Fentanyl Citrate (Fentanyl 2ml Vial) 75 mcg 1X ONCE IV Last administered on 03/02/19at 16:19; Start 03/02/19 at 16:45; Stop 03/02/19 at 16:46; Status DC Piperacillin Sod/ Tazobactam Sod 3.375 gm/Sodium Chloride 50 ml @ 100 mls/hr 1X ONCE IV Last administered on 03/02/19at 16:26; Start 03/02/19 at 17:00; Stop 03/02/19 at 17:29; Status DC Sodium Chloride 1,000 ml @ 1,000 mls/hr 1X ONCE IV Last administered on 03/02/19at 16:31; Start 03/02/19 at 16:30; Stop 03/02/19 at 17:29; Status DC Ondansetron HCl (Zofran) 4 mg PRN Q8HRS PRN IV NAUSEA/VOMITING; Start 03/02/19 at 17:00; Stop 03/02/19 at 19:48; Status DC Fentanyl Citrate (Fentanyl 2ml Vial) 50 mcg PRN Q2HR PRN IV PAIN Last administered on 03/02/19at 20:51; Start 03/02/19 at 17:00; Stop 03/03/19 at 16:59; Status DC Sodium Chloride 1,000 ml @ 100 mls/hr Q10H IV ; Start 03/02/19 at 16:48; Stop 03/03/19 at 16:47; Status Cancel Sodium Chloride (Normal Saline Flush) 3 ml QSHIFT PRN IV AFTER MEDS AND BLOOD DRAWS; Start 03/02/19 at 19:45 Sodium Chloride 1,000 ml @ 100 mls/hr Q10H IV Last administered on 03/06/19at 15:00; Start 03/02/19 at 21:00; Stop 03/08/19 at 13:48; Status DC Ondansetron HCl (Zofran) 4 mg PRN Q4HRS PRN IV NAUSEA/VOMITING, 1st CHOICE Last administered on 03/07/19 08:25; Start 03/02/19 at 19:45 Acetaminophen (Tylenol) 650 mg PRN Q4HRS PRN PO TEMP OVER 100.4F OR MILD PAIN; Start 03/02/19 at 19:45; Stop 03/09/19 at 09:57; Status DC Clonidine HCl (Catapres) 0.1 mg PRN Q6HRS PRN PO SBP>160 OR DBP>90; Start 03/02/19 at 19:45 Guaifenesin (Robitussin) 200 mg PRN Q4HRS PRN PO COUGH; Start 03/02/19 at 19:45 Lorazepam (Ativan) 0.5 mg PRN Q4HRS PRN PO ANXIETY / AGITATION; Start 03/02/19 at 19:45 Hydromorphone HCl (Dilaudid) 1 mg PRN Q2HRS PRN IV SEVERE PAIN 7-10 Last administered on 03/09/19at 10:10; Start 03/02/19 at 19:45 Enoxaparin Sodium (Lovenox 40mg Syringe) 40 mg DAILY SQ Last administered on 03/09/19at 09:00; Start 03/03/19 at 09:00 Metoclopramide HCl (Reglan Vial) 10 mg PRN Q6HRS PRN IV NAUSEA/VOMITING, 2nd CHOICE Last administered on 03/04/19 11:25; Start 03/03/19 at 12:00 Pantoprazole Sodium (PROTONIX VIAL for IV PUSH) 40 mg DAILYAC IVP Last administered on 03/09/19 08:23; Start 03/04/19 at 09:30; Stop 03/09/19 at 09:26; Status DC Potassium Chloride/Water 100 ml @ 100 mls/hr Q1H IV Last administered on 03/06/19at 16:00; Start 03/06/19 at 13:00; Stop 03/06/19 at 16:59; Status DC Amino Acids/ Glycerin/ Electrolytes 1,000 ml @ 80 mls/hr [id number] IV Last administered on 03/07/19at 11:00; Start 03/06/19 at 21:00; Stop 03/08/19 at 21:59; Status DC Magnesium Sulfate 50 ml @ 25 mls/hr 1X ONCE IV Last administered on 03/07/19at 08:24; Start 03/07/19 at 08:30; Stop 03/07/19 at 10:29; Status DC Lidocaine/Sodium Bicarbonate (Buffered Lidocaine 1%) 3 ml 1X ONCE INJ Last administered on 03/08/19at 09:55; Start 03/08/19 at 09:30; Stop 03/08/19 at 09:34; Status DC Atorvastatin Calcium (Lipitor) 20 mg QHS PO Last administered on 03/13/19 21:40; Start 03/08/19 at 21:00 Losartan Potassium (Cozaar) 100 mg DAILY PO Last administered on 03/14/19at 11:43; Start 03/09/19 at 09:00 Insulin Human Lispro (HumaLOG) 0-5 UNITS TIDWMEALS SQ Last administered on 03/09/19 18:01; Start 03/08/19 at 13:00; Stop 03/10/19 at 09:25; Status DC Dextrose (Dextrose 50%-Water Syringe) 12.5 gm PRN Q15MIN PRN IV SEE COMMENTS; Start 03/08/19 at 12:45 Info (Tpn Per Pharmacy) 1 each PRN DAILY PRN MC SEE COMMENTS Last administered on 03/13/19at 11:15; Start 03/08/19 at 13:45; Stop 03/14/19 at 10:17; Status DC Sodium Chloride 90 meq/Potassium Chloride 50 meq/ Potassium Phosphate 13.6 mmol/Magnesium Sulfate 10 meq/ Calcium Gluconate 10 meq/ Multivitamins 10 ml/Chromium/ Copper/Manganese/ Seleni/Zn 1 ml/ Total Parenteral Nutrition/Amino Acids/Dextrose/ Fat Emulsion Intravenous 1,512 ml @ 63 mls/hr TPN CONT IV Last administered on 03/08/19at 22:22; Start 03/08/19 at 22:00; Stop 03/09/19 at 21:59; Status DC Loperamide HCl (Imodium) 2 mg 1X ONCE PO Last administered on 03/08/19at 21:06; Start 03/08/19 at 19:45; Stop 03/08/19 at 19:46; Status DC Acetaminophen (Tylenol) 650 mg 1X ONCE PO ; Start 03/08/19 at 19:45; Stop 03/08/19 at 19:46; Status DC Hydromorphone HCl (Dilaudid) 1 mg 1X ONCE IVP ; Start 03/08/19 at 19:45; Stop 03/08/19 at 19:46; Status DC Pantoprazole Sodium (Protonix) 40 mg DAILYAC PO Last administered on 03/14/19at 11:42; Start 03/10/19 at 07:30 Sodium Chloride 90 meq/Potassium Chloride 50 meq/ Potassium Phosphate 13.6 mmol/Magnesium Sulfate 12 meq/ Calcium Gluconate 10 meq/ Multivitamins 10 ml/Chromium/ Copper/Manganese/ Seleni/Zn 1 ml/ Total Parenteral Nutrition/Amino Acids/Dextrose/ Fat Emulsion Intravenous 1,512 ml @ 63 mls/hr TPN CONT IV Last administered on 03/10/19at 03:21; Start 03/09/19 at 22:00; Stop 03/10/19 at 21:59; Status DC Insulin Human Lispro (HumaLOG) 0-7 UNITS TIDWMEALS SQ Last administered on 03/10/19at 12:32; Start 03/10/19 at 12:00; Stop 03/10/19 at 17:02; Status DC Insulin Human Lispro (HumaLOG) 10 units 1X STAT SQ Last administered on 03/10/19at 09:50; Start 03/10/19 at 09:24; Stop 03/10/19 at 09:29; Status DC Simethicone (Gas-X) 80 mg PRN AFTMEALHC PRN PO GAS / BLOATING; Start 03/10/19 at 09:30 Polyethylene Glycol (miraLAX PACKET) 17 gm DAILY PO Last administered on 03/13/19at 08:40; Start 03/11/19 at 09:00 Polyethylene Glycol (miraLAX PACKET) 17 gm PRN DAILY PRN PO CONSTIPATION; Start 03/10/19 at 09:30 Bisacodyl (Dulcolax Tab) 5 mg 1X ONCE PO Last administered on 03/10/19at 09:48; Start 03/10/19 at 09:30; Stop 03/10/19 at 09:34; Status DC Alteplase, Recombinant (Cathflo For Central Catheter Clearance) 1 mg 1X ONCE INT CAT Last administered on 03/10/19at 10:29; Start 03/10/19 at 10:30; Stop 03/10/19 at 10:31; Status DC Ondansetron HCl (Zofran Odt) 4 mg 1X ONCE PO Last administered on 03/10/19at 10:47; Start 03/10/19 at 10:45; Stop 03/10/19 at 10:46; Status DC Sodium Chloride 90 meq/Potassium Chloride 50 meq/ Potassium Phosphate 13.6 mmol/Magnesium Sulfate 12 meq/ Calcium Gluconate 10 meq/ Multivitamins 10 ml/Chromium/ Copper/Manganese/ Seleni/Zn 1 ml/ Total Parenteral Nutrition/Amino Acids/Dextrose/ Fat Emulsion Intravenous 1,512 ml @ 63 mls/hr TPN CONT IV Last administered on 03/11/19at 06:31; Start 03/10/19 at 22:00; Stop 03/11/19 at 21:59; Status DC Insulin Human Lispro (HumaLOG) 0-9 UNITS TIDWMEALS SQ Last administered on 03/14/19at 11:57; Start 03/10/19 at 17:00 Insulin Human Lispro (HumaLOG) 4 units STAT SQ ; Start 03/10/19 at 17:15; Stop 03/10/19 at 17:32; Status DC Insulin Human Lispro (HumaLOG) 4 units 1X ONCE SQ Last administered on 03/10/19at 17:27; Start 03/10/19 at 17:45; Stop 03/10/19 at 17:46; Status DC Insulin Human Lispro (HumaLOG) 10 units TIDAC SQ Last administered on 03/11/19at 12:50; Start 03/11/19 at 09:40; Stop 03/11/19 at 17:25; Status DC Sodium Chloride 90 meq/Potassium Chloride 50 meq/ Potassium Phosphate 13.6 mmol/Magnesium Sulfate 12 meq/ Calcium Gluconate 10 meq/ Multivitamins 10 ml/Chromium/ Copper/Manganese/ Seleni/Zn 1 ml/ Total Parenteral Nutrition/Amino Acids/Dextrose/ Fat Emulsion Intravenous 1,512 ml @ 63 mls/hr TPN CONT IV Last administered on 03/11/19at 22:00; Start 03/11/19 at 22:00; Stop 03/12/19 at 21:59; Status DC Insulin Glargine (Lantus) 20 units QHS SQ Last administered on 03/11/19at 21:33; Start 03/11/19 at 21:00; Stop 03/12/19 at 08:54; Status DC Insulin Human Lispro (HumaLOG) 6 units 1X ONCE SQ Last administered on 03/11/19at 13:00; Start 03/11/19 at 13:00; Stop 03/11/19 at 13:01; Status DC Insulin Human Lispro (HumaLOG) 15 units TIDAC SQ Last administered on 03/12/19at 16:45; Start 03/11/19 at 17:23; Stop 03/13/19 at 08:44; Status DC Insulin Glargine (Lantus) 20 units BID SQ Last administered on 03/14/19at 08:09; Start 03/12/19 at 09:30 Diclofenac Sodium (Voltaren) 1 idania BID TP Last administered on 03/14/19at 11:43; Start 03/12/19 at 13:00 Magnesium Oxide (Magnesium Oxide) 400 mg DAILY PO Last administered on 03/14/19at 11:43; Start 03/12/19 at 13:00 Sodium Chloride 90 meq/Potassium Chloride 50 meq/ Potassium Phosphate 13.6 mmol /Magnesium Sulfate 12 meq/ Calcium Gluconate 10 meq/ Multivitamins 10 ml/Chromium/ Copper/Manganese/ Seleni/Zn 1 ml/ Total Parenteral Nutrition/Amino Acids/Dextrose/ Fat Emulsion Intravenous 1,512 ml @ 63 mls/hr TPN CONT IV Last administered on 03/12/19at 20:49; Start 03/12/19 at 22:00; Stop 03/13/19 at 21:59; Status DC Insulin Human Lispro (HumaLOG) 20 units TIDAC SQ Last administered on 03/14/19at 11:57; Start 03/13/19 at 11:30 Sodium Chloride 90 meq/Potassium Chloride 50 meq/ Potassium Phosphate 13.6 mmol/Magnesium Sulfate 12 meq/ Calcium Gluconate 10 meq/ Multivitamins 10 ml/Chromium/ Copper/Manganese/ Seleni/Zn 1 ml/ Insulin Human Regular 15 unit/ Total Parenteral Nutrition/Amino Acids/Dextrose/ Fat Emuls... 1,512 ml @ 63 mls/hr TPN CONT IV ; Start 03/13/19 at 22:00; Stop 03/13/19 at 22:00; Status DC Sodium Chloride 90 meq/Potassium Chloride 50 meq/ Potassium Phosphate 13.6 mmol/Magnesium Sulfate 12 meq/ Calcium Gluconate 10 meq/ Multivitamins 10 ml/Chromium/ Copper/Manganese/ Seleni/Zn 1 ml/ Total Parenteral Nutrition/Amino Acids/Dextrose/ Fat Emulsion Intravenous 1,512 ml @ 63 mls/hr TPN CONT IV Last administered on 03/13/19at 22:00; Start 03/13/19 at 22:00; Stop 03/14/19 at 21:59 Insulin Human Lispro (HumaLOG) 25 units 1X ONCE SQ Last administered on 03/13/19at 22:01; Start 03/13/19 at 22:00; Stop 03/13/19 at 22:03; Status DC Lidocaine/Sodium Bicarbonate (Buffered Lidocaine 1%) 3 ml STK-MED ONCE .ROUTE ; Start 03/14/19 at 07:39; Stop 03/14/19 at 07:40; Status DC Midazolam HCl (Versed) 2 mg STK-MED ONCE .ROUTE ; Start 03/14/19 at 08:05; Stop 03/14/19 at 08:06; Status DC Fentanyl Citrate (Fentanyl 2ml Vial) 100 mcg STK-MED ONCE .ROUTE ; Start 03/14/19 at 08:05; Stop 03/14/19 at 08:06; Status DC Flumazenil (Romazicon) 0.5 mg STK-MED ONCE IV ; Start 03/14/19 at 08:05; Stop 03/14/19 at 08:06; Status DC Naloxone HCl (Narcan) 0.4 mg STK-MED ONCE .ROUTE ; Start 03/14/19 at 08:05; Stop 03/14/19 at 08:06; Status DC Lidocaine/Sodium Bicarbonate (Buffered Lidocaine 1%) 3 ml 1X ONCE IJ Last administered on 03/14/19at 08:39; Start 03/14/19 at 08:15; Stop 03/14/19 at 08:18; Status DC Midazolam HCl (Versed) 2 mg 1X ONCE IV Last administered on 03/14/19at 08:39; Start 03/14/19 at 08:15; Stop 03/14/19 at 08:18; Status DC Fentanyl Citrate (Fentanyl 2ml Vial) 100 mcg 1X ONCE IV Last administered on 03/14/19at 08:39; Start 03/14/19 at 08:15; Stop 03/14/19 at 08:18; Status DC Active Scripts Active Reported Vitamin D3 (Cholecalciferol (Vitamin D3)) 1,000 Unit Tablet 2,000 Unit PO DAILY Ferrous Sulfate 325 Mg Tablet 325 Mg PO DAILY Atorvastatin Calcium 20 Mg Tablet 20 Mg PO DAILY Glimepiride 2 Mg Tablet 2 Tab PO BID Losartan Potassium 100 Mg Tablet 100 Mg PO DAILY Protonix (Pantoprazole Sodium) 40 Mg Tablet.dr 40 Mg PO DAILYAC Vitals/I & O Vital Sign - Last 24 Hours 03/13/19 03/13/19 03/13/19 03/13/19 15:00 19:00 20:00 23:00 Temp 98.8 99.1 99.3 98.8 99.1 99.3 Pulse 81 91 93 Resp 16 18 18 B/P (MAP) 157/77 (103) 155/74 (101) 191/83 (119) Pulse Ox 97 96 94 O2 Delivery Room Air Room Air Room Air Room Air 03/14/19 03/14/19 03/14/19 03/14/19 03:15 07:00 08:00 08:36 Temp 98.6 98.3 98.6 98.3 Pulse 92 70 78 Resp 20 16 22 B/P (MAP) 158/72 (100) 135/64 (87) Pulse Ox 95 96 99 O2 Delivery Room Air Room Air Room Air Nasal Cannula O2 Flow Rate 2.0 03/14/19 03/14/19 03/14/19 03/14/19 08:39 08:43 08:47 11:43 Pulse 84 85 69 Resp 20 17 13 B/P (MAP) 133/80 (97) 140/75 Pulse Ox 98 98 O2 Delivery Nasal Cannula Nasal Cannula O2 Flow Rate 2.0 2.0 Intake and Output 03/13/19 03/13/19 03/14/19 14:59 22:59 06:59 Intake Total 195 ml 450 ml 200 ml Balance 195 ml 450 ml 200 ml STEVE JONES MD Mar 14, 2019 12:47
--- NOTE | 2019-03-14 13:07 | PDOC ---
G I PROGRESS NOTE Reason for Follow-up Pancreatitis Subjective Pain decreased.Tolerating po Physical Exam Lungs clear CV S1 S1 Abd +BS, soft, distended, nontender Review of Relevant I have reviewed the following items popeye (where applicable) has been applied. Labs Laboratory Tests Test 03/12/19 16:41 03/12/19 20:45 03/13/19 06:25 03/13/19 07:30 Glucose (Fingerstick) 294 mg/dL (70-99) 276 mg/dL (70-99) 368 mg/dL (70-99) White Blood Count 4.7 x10^3/uL (4.0-11.0) Red Blood Count 4.13 x10^6/uL (3.50-5.40) Hemoglobin 12.0 g/dL (12.0-15.5) Hematocrit 36.3 % (36.0-47.0) Mean Corpuscular Volume 88 fL (79-100) Mean Corpuscular Hemoglobin 29 pg (25-35) Mean Corpuscular Hemoglobin Concent 33 g/dL (31-37) Red Cell Distribution Width 15.7 % (11.5-14.5) Platelet Count 36 x10^3/uL (140-400) Neutrophils (%) (Auto) 51 % (31-73) Lymphocytes (%) (Auto) 34 % (24-48) Monocytes (%) (Auto) 12 % (0-9) Eosinophils (%) (Auto) 2 % (0-3) Basophils (%) (Auto) 1 % (0-3) Neutrophils # (Auto) 2.4 x10^3/uL (1.8-7.7) Lymphocytes # (Auto) 1.6 x10^3/uL (1.0-4.8) Monocytes # (Auto) 0.6 x10^3/uL (0.0-1.1) Eosinophils # (Auto) 0.1 x10^3/uL (0.0-0.7) Basophils # (Auto) 0.0 x10^3/uL (0.0-0.2) Sodium Level 135 mmol/L (136-145) Potassium Level 4.5 mmol/L (3.5-5.1) Chloride Level 102 mmol/L (98-107) Carbon Dioxide Level 26 mmol/L (21-32) Anion Gap 7 (6-14) Blood Urea Nitrogen 10 mg/dL (7-20) Creatinine 0.8 mg/dL (0.6-1.0) Estimated GFR (Cockcroft-Gault) 71.1 Glucose Level 346 mg/dL (70-99) Calcium Level 8.6 mg/dL (8.5-10.1) Phosphorus Level 3.9 mg/dL (2.6-4.7) Magnesium Level 1.9 mg/dL (1.8-2.4) Test 03/13/19 11:37 03/13/19 16:46 03/13/19 20:57 03/14/19 05:30 Glucose (Fingerstick) 365 mg/dL (70-99) 410 mg/dL (70-99) 413 mg/dL (70-99) White Blood Count 4.6 x10^3/uL (4.0-11.0) Red Blood Count 4.04 x10^6/uL (3.50-5.70) Hemoglobin 11.8 g/dL (12.0-15.5) Hematocrit 34.8 % (36.0-47.0) Mean Corpuscular Volume 87 fL (79-100) Mean Corpuscular Hemoglobin 29 pg (25-35) Mean Corpuscular Hemoglobin Concent 34 g/dL (31-37) Red Cell Distribution Width 15.0 % (11.5-14.5) Platelet Count 40 x10^3/uL (140-400) Neutrophils (%) (Auto) 49 % (31-73) Lymphocytes (%) (Auto) 35 % (24-48) Monocytes (%) (Auto) 14 % (0-9) Eosinophils (%) (Auto) 2 % (0-3) Basophils (%) (Auto) 1 % (0-3) Neutrophils # (Auto) 2.2 x10^3/uL (1.8-7.7) Lymphocytes # (Auto) 1.6 x10^3/uL (1.0-4.8) Monocytes # (Auto) 0.6 x10^3/uL (0.0-1.1) Eosinophils # (Auto) 0.1 x10^3/uL (0.0-0.7) Basophils # (Auto) 0.0 x10^3/uL (0.0-0.2) Absolute Reticulocyte Count 0.105 x10^6/uL (0.020-0.120) Percent Reticulocyte Count 2.6 % (0.5-2.3) Immature Reticulocyte Fraction 0.34 (0.20-0.60) Sodium Level 138 mmol/L (136-145) Potassium Level 4.2 mmol/L (3.5-5.1) Chloride Level 104 mmol/L (98-107) Carbon Dioxide Level 26 mmol/L (21-32) Anion Gap 8 (6-14) Blood Urea Nitrogen 11 mg/dL (7-20) Creatinine 0.8 mg/dL (0.6-1.0) Estimated GFR (Cockcroft-Gault) 71.1 Glucose Level 245 mg/dL (70-99) Calcium Level 8.8 mg/dL (8.5-10.1) Test 03/14/19 07:25 03/14/19 11:35 Glucose (Fingerstick) 278 mg/dL (70-99) 227 mg/dL (70-99) Laboratory Tests Test 03/13/19 16:46 03/13/19 20:57 03/14/19 05:30 03/14/19 07:25 Glucose (Fingerstick) 410 mg/dL (70-99) 413 mg/dL (70-99) 278 mg/dL (70-99) White Blood Count 4.6 x10^3/uL (4.0-11.0) Red Blood Count 4.04 x10^6/uL (3.50-5.70) Hemoglobin 11.8 g/dL (12.0-15.5) Hematocrit 34.8 % (36.0-47.0) Mean Corpuscular Volume 87 fL (79-100) Mean Corpuscular Hemoglobin 29 pg (25-35) Mean Corpuscular Hemoglobin Concent 34 g/dL (31-37) Red Cell Distribution Width 15.0 % (11.5-14.5) Platelet Count 40 x10^3/uL (140-400) Neutrophils (%) (Auto) 49 % (31-73) Lymphocytes (%) (Auto) 35 % (24-48) Monocytes (%) (Auto) 14 % (0-9) Eosinophils (%) (Auto) 2 % (0-3) Basophils (%) (Auto) 1 % (0-3) Neutrophils # (Auto) 2.2 x10^3/uL (1.8-7.7) Lymphocytes # (Auto) 1.6 x10^3/uL (1.0-4.8) Monocytes # (Auto) 0.6 x10^3/uL (0.0-1.1) Eosinophils # (Auto) 0.1 x10^3/uL (0.0-0.7) Basophils # (Auto) 0.0 x10^3/uL (0.0-0.2) Absolute Reticulocyte Count 0.105 x10^6/uL (0.020-0.120) Percent Reticulocyte Count 2.6 % (0.5-2.3) Immature Reticulocyte Fraction 0.34 (0.20-0.60) Sodium Level 138 mmol/L (136-145) Potassium Level 4.2 mmol/L (3.5-5.1) Chloride Level 104 mmol/L (98-107) Carbon Dioxide Level 26 mmol/L (21-32) Anion Gap 8 (6-14) Blood Urea Nitrogen 11 mg/dL (7-20) Creatinine 0.8 mg/dL (0.6-1.0) Estimated GFR (Cockcroft-Gault) 71.1 Glucose Level 245 mg/dL (70-99) Calcium Level 8.8 mg/dL (8.5-10.1) Test 03/14/19 11:35 Glucose (Fingerstick) 227 mg/dL (70-99) Microbiology 03/02/19 Urine Culture - Final, Complete 03/02/19 Urine Culture Result 1 (DONNA) - Final, Complete Medications Current Medications Sodium Chloride 1,000 ml @ 1,000 mls/hr 1X ONCE IV Last administered on 03/02/19at 14:15; Start 03/02/19 at 14:00; Stop 03/02/19 at 14:59; Status DC Morphine Sulfate (Morphine Sulfate) 4 mg 1X ONCE IV Last administered on 03/02/19at 14:14; Start 03/02/19 at 14:30; Stop 03/02/19 at 14:31; Status DC Ondansetron HCl (Zofran) 4 mg 1X ONCE IV Last administered on 03/02/19at 14:13; Start 03/02/19 at 14:30; Stop 03/02/19 at 14:31; Status DC Iohexol (Omnipaque 300 Mg/ml) 60 ml 1X ONCE IV Last administered on 03/02/19at 15:24; Start 03/02/19 at 15:45; Stop 03/02/19 at 15:46; Status DC Info (CONTRAST GIVEN -- Rx MONITORING) 1 each PRN DAILY PRN MC SEE COMMENTS; Start 03/02/19 at 15:15; Stop 03/04/19 at 15:14; Status DC Fentanyl Citrate (Fentanyl 2ml Vial) 75 mcg 1X ONCE IV Last administered on 03/02/19at 16:19; Start 03/02/19 at 16:45; Stop 03/02/19 at 16:46; Status DC Piperacillin Sod/ Tazobactam Sod 3.375 gm/Sodium Chloride 50 ml @ 100 mls/hr 1X ONCE IV Last administered on 03/02/19at 16:26; Start 03/02/19 at 17:00; Stop 03/02/19 at 17:29; Status DC Sodium Chloride 1,000 ml @ 1,000 mls/hr 1X ONCE IV Last administered on at 16:31; Start 03/02/19 at 16:30; Stop 03/02/19 at 17:29; Status DC Ondansetron HCl (Zofran) 4 mg PRN Q8HRS PRN IV NAUSEA/VOMITING; Start 03/02/19 at 17:00; Stop 03/02/19 at 19:48; Status DC Fentanyl Citrate (Fentanyl 2ml Vial) 50 mcg PRN Q2HR PRN IV PAIN Last administered on 03/02/19at 20:51; Start 03/02/19 at 17:00; Stop 03/03/19 at 16:59; Status DC Sodium Chloride 1,000 ml @ 100 mls/hr Q10H IV ; Start 03/02/19 at 16:48; Stop 03/03/19 at 16:47; Status Cancel Sodium Chloride (Normal Saline Flush) 3 ml QSHIFT PRN IV AFTER MEDS AND BLOOD DRAWS; Start 03/02/19 at 19:45 Sodium Chloride 1,000 ml @ 100 mls/hr Q10H IV Last administered on 03/06/19at 15:00; Start 03/02/19 at 21:00; Stop 03/08/19 at 13:48; Status DC Ondansetron HCl (Zofran) 4 mg PRN Q4HRS PRN IV NAUSEA/VOMITING, 1st CHOICE Last administered on 03/07/19 08:25; Start 03/02/19 at 19:45 Acetaminophen (Tylenol) 650 mg PRN Q4HRS PRN PO TEMP OVER 100.4F OR MILD PAIN; Start 03/02/19 at 19:45; Stop 03/09/19 at 09:57; Status DC Clonidine HCl (Catapres) 0.1 mg PRN Q6HRS PRN PO SBP>160 OR DBP>90; Start 03/02/19 at 19:45 Guaifenesin (Robitussin) 200 mg PRN Q4HRS PRN PO COUGH; Start 03/02/19 at 19:45 Lorazepam (Ativan) 0.5 mg PRN Q4HRS PRN PO ANXIETY / AGITATION; Start 03/02/19 at 19:45 Hydromorphone HCl (Dilaudid) 1 mg PRN Q2HRS PRN IV SEVERE PAIN 7-10 Last administered on 03/09/19at 10:10; Start 03/02/19 at 19:45 Enoxaparin Sodium (Lovenox 40mg Syringe) 40 mg DAILY SQ Last administered on 03/09/19at 09:00; Start 03/03/19 at 09:00 Metoclopramide HCl (Reglan Vial) 10 mg PRN Q6HRS PRN IV NAUSEA/VOMITING, 2nd CHOICE Last administered on 03/04/19 11:25; Start 03/03/19 at 12:00 Pantoprazole Sodium (PROTONIX VIAL for IV PUSH) 40 mg DAILYAC IVP Last administered on 03/09/19 08:23; Start 03/04/19 at 09:30; Stop 03/09/19 at 09:26; Status DC Potassium Chloride/Water 100 ml @ 100 mls/hr Q1H IV Last administered on 03/06/19at 16:00; Start 03/06/19 at 13:00; Stop 03/06/19 at 16:59; Status DC Amino Acids/ Glycerin/ Electrolytes 1,000 ml @ 80 mls/hr [id number] IV Last administered on 03/07/19 11:00; Start 03/06/19 at 21:00; Stop 03/08/19 at 21:59; Status DC Magnesium Sulfate 50 ml @ 25 mls/hr 1X ONCE IV Last administered on 03/07/19 08:24; Start 03/07/19 at 08:30; Stop 03/07/19 at 10:29; Status DC Lidocaine/Sodium Bicarbonate (Buffered Lidocaine 1%) 3 ml 1X ONCE INJ Last administered on 03/08/19at 09:55; Start 03/08/19 at 09:30; Stop 03/08/19 at 09:34; Status DC Atorvastatin Calcium (Lipitor) 20 mg QHS PO Last administered on 03/13/19 21:40; Start 03/08/19 at 21:00 Losartan Potassium (Cozaar) 100 mg DAILY PO Last administered on 03/14/19 11:43; Start 03/09/19 at 09:00 Insulin Human Lispro (HumaLOG) 0-5 UNITS TIDWMEALS SQ Last administered on 03/09/19 18:01; Start 03/08/19 at 13:00; Stop 03/10/19 at 09:25; Status DC Dextrose (Dextrose 50%-Water Syringe) 12.5 gm PRN Q15MIN PRN IV SEE COMMENTS; Start 03/08/19 at 12:45 Info (Tpn Per Pharmacy) 1 each PRN DAILY PRN MC SEE COMMENTS Last administered on 03/13/19at 11:15; Start 03/08/19 at 13:45; Stop 03/14/19 at 10:17; Status DC Sodium Chloride 90 meq/Potassium Chloride 50 meq/ Potassium Phosphate 13.6 mmol/Magnesium Sulfate 10 meq/ Calcium Gluconate 10 meq/ Multivitamins 10 ml/Chromium/ Copper/Manganese/ Seleni/Zn 1 ml/ Total Parenteral Nutrition/Amino Acids/Dextrose/ Fat Emulsion Intravenous 1,512 ml @ 63 mls/hr TPN CONT IV Last administered on 03/08/19at 22:22; Start 03/08/19 at 22:00; Stop 03/09/19 at 21:59; Status DC Loperamide HCl (Imodium) 2 mg 1X ONCE PO Last administered on 03/08/19at 21:06; Start 03/08/19 at 19:45; Stop 03/08/19 at 19:46; Status DC Acetaminophen (Tylenol) 650 mg 1X ONCE PO ; Start 03/08/19 at 19:45; Stop 03/08/19 at 19:46; Status DC Hydromorphone HCl (Dilaudid) 1 mg 1X ONCE IVP ; Start 03/08/19 at 19:45; Stop 03/08/19 at 19:46; Status DC Pantoprazole Sodium (Protonix) 40 mg DAILYAC PO Last administered on 03/14/19at 11:42; Start 03/10/19 at 07:30 Sodium Chloride 90 meq/Potassium Chloride 50 meq/ Potassium Phosphate 13.6 mmol/Magnesium Sulfate 12 meq/ Calcium Gluconate 10 meq/ Multivitamins 10 ml/Chromium/ Copper/Manganese/ Seleni/Zn 1 ml/ Total Parenteral Nutrition/Amino Acids/Dextrose/ Fat Emulsion Intravenous 1,512 ml @ 63 mls/hr TPN CONT IV Last administered on 03/10/19at 03:21; Start 03/09/19 at 22:00; Stop 03/10/19 at 21:59; Status DC Insulin Human Lispro (HumaLOG) 0-7 UNITS TIDWMEALS SQ Last administered on 03/10/19at 12:32; Start 03/10/19 at 12:00; Stop 03/10/19 at 17:02; Status DC Insulin Human Lispro (HumaLOG) 10 units 1X STAT SQ Last administered on 03/10at 09:50; Start 03/10/19 at 09:24; Stop 03/10/19 at 09:29; Status DC Simethicone (Gas-X) 80 mg PRN AFTMEALHC PRN PO GAS / BLOATING; Start 03/10/19 at 09:30 Polyethylene Glycol (miraLAX PACKET) 17 gm DAILY PO Last administered on 03/13/19at 08:40; Start 03/11/19 at 09:00 Polyethylene Glycol (miraLAX PACKET) 17 gm PRN DAILY PRN PO CONSTIPATION; Start 03/10/19 at 09:30 Bisacodyl (Dulcolax Tab) 5 mg 1X ONCE PO Last administered on 03/10/19at 09:48; Start 03/10/19 at 09:30; Stop 03/10/19 at 09:34; Status DC Alteplase, Recombinant (Cathflo For Central Catheter Clearance) 1 mg 1X ONCE INT CAT Last administered on 03/10/19at 10:29; Start 03/10/19 at 10:30; Stop 03/10/19 at 10:31; Status DC Ondansetron HCl (Zofran Odt) 4 mg 1X ONCE PO Last administered on 03/10/19at 10:47; Start 03/10/19 at 10:45; Stop 03/10/19 at 10:46; Status DC Sodium Chloride 90 meq/Potassium Chloride 50 meq/ Potassium Phosphate 13.6 mmol/Magnesium Sulfate 12 meq/ Calcium Gluconate 10 meq/ Multivitamins 10 ml/Chromium/ Copper/Manganese/ Seleni/Zn 1 ml/ Total Parenteral Nutrition/Amino Acids/Dextrose/ Fat Emulsion Intravenous 1,512 ml @ 63 mls/hr TPN CONT IV Last administered on 03/11/19at 06:31; Start 03/10/19 at 22:00; Stop 03/11/19 at 21:59; Status DC Insulin Human Lispro (HumaLOG) 0-9 UNITS TIDWMEALS SQ Last administered on 03/14/19at 11:57; Start 03/10/19 at 17:00 Insulin Human Lispro (HumaLOG) 4 units STAT SQ ; Start 03/10/19 at 17:15; Stop 03/10/19 at 17:32; Status DC Insulin Human Lispro (HumaLOG) 4 units 1X ONCE SQ Last administered on 03/10/19at 17:27; Start 03/10/19 at 17:45; Stop 03/10/19 at 17:46; Status DC Insulin Human Lispro (HumaLOG) 10 units TIDAC SQ Last administered on 03/11/19at 12:50; Start 03/11/19 at 09:40; Stop 03/11/19 at 17:25; Status DC Sodium Chloride 90 meq/Potassium Chloride 50 meq/ Potassium Phosphate 13.6 mmol/Magnesium Sulfate 12 meq/ Calcium Gluconate 10 meq/ Multivitamins 10 ml/Chromium/ Copper/Manganese/ Seleni/Zn 1 ml/ Total Parenteral Nutrition/Amino Acids/Dextrose/ Fat Emulsion Intravenous 1,512 ml @ 63 mls/hr TPN CONT IV Last administered on 03/11/19at 22:00; Start 03/11/19 at 22:00; Stop 03/12/19 at 21:59; Status DC Insulin Glargine (Lantus) 20 units QHS SQ Last administered on 03/11/19at 21:33; Start 03/11/19 at 21:00; Stop 03/12/19 at 08:54; Status DC Insulin Human Lispro (HumaLOG) 6 units 1X ONCE SQ Last administered on 03/11/19at 13:00; Start 03/11/19 at 13:00; Stop 03/11/19 at 13:01; Status DC Insulin Human Lispro (HumaLOG) 15 units TIDAC SQ Last administered on 03/12/19at 16:45; Start 03/11/19 at 17:23; Stop 03/13/19 at 08:44; Status DC Insulin Glargine (Lantus) 20 units BID SQ Last administered on 03/14/19at 08:09; Start 03/12/19 at 09:30 Diclofenac Sodium (Voltaren) 1 idania BID TP Last administered on 03/14/19at 11:43; Start 03/12/19 at 13:00 Magnesium Oxide (Magnesium Oxide) 400 mg DAILY PO Last administered on 03/14/19at 11:43; Start 03/12/19 at 13:00 Sodium Chloride 90 meq/Potassium Chloride 50 meq/ Potassium Phosphate 13.6 mmol/Magnesium Sulfate 12 meq/ Calcium Gluconate 10 meq/ Multivitamins 10 ml/Chromium/ Copper/Manganese/ Seleni/Zn 1 ml/ Total Parenteral Nutrition/Amino Acids/Dextrose/ Fat Emulsion Intravenous 1,512 ml @ 63 mls/hr TPN CONT IV Last administered on 03/12/19at 20:49; Start 03/12/19 at 22:00; Stop 03/13/19 at 21:59; Status DC Insulin Human Lispro (HumaLOG) 20 units TIDAC SQ Last administered on 03/14/19at 11:57; Start 03/13/19 at 11:30 Sodium Chloride 90 meq/Potassium Chloride 50 meq/ Potassium Phosphate 13.6 mmol/Magnesium Sulfate 12 meq/ Calcium Gluconate 10 meq/ Multivitamins 10 ml/Chromium/ Copper/Manganese/ Seleni/Zn 1 ml/ Insulin Human Regular 15 unit/ Total Parenteral Nutrition/Amino Acids/Dextrose/ Fat Emuls... 1,512 ml @ 63 mls/hr TPN CONT IV ; Start 03/13/19 at 22:00; Stop 03/13/19 at 22:00; Status D C Sodium Chloride 90 meq/Potassium Chloride 50 meq/ Potassium Phosphate 13.6 mmol/Magnesium Sulfate 12 meq/ Calcium Gluconate 10 meq/ Multivitamins 10 ml/Chromium/ Copper/Manganese/ Seleni/Zn 1 ml/ Total Parenteral Nutrition/Amino Acids/Dextrose/ Fat Emulsion Intravenous 1,512 ml @ 63 mls/hr TPN CONT IV Last administered on 03/13/19at 22:00; Start 03/13/19 at 22:00; Stop 03/14/19 at 21:59 Insulin Human Lispro (HumaLOG) 25 units 1X ONCE SQ Last administered on 03/13/19at 22:01; Start 03/13/19 at 22:00; Stop 03/13/19 at 22:03; Status DC Lidocaine/Sodium Bicarbonate (Buffered Lidocaine 1%) 3 ml STK-MED ONCE .ROUTE ; Start 03/14/19 at 07:39; Stop 03/14/19 at 07:40; Status DC Midazolam HCl (Versed) 2 mg STK-MED ONCE .ROUTE ; Start 03/14/19 at 08:05; Stop 03/14/19 at 08:06; Status DC Fentanyl Citrate (Fentanyl 2ml Vial) 100 mcg STK-MED ONCE .ROUTE ; Start 03/14/19 at 08:05; Stop 03/14/19 at 08:06; Status DC Flumazenil (Romazicon) 0.5 mg STK-MED ONCE IV ; Start 03/14/19 at 08:05; Stop 03/14/19 at 08:06; Status DC Naloxone HCl (Narcan) 0.4 mg STK-MED ONCE .ROUTE ; Start 03/14/19 at 08:05; Stop 03/14/19 at 08:06; Status DC Lidocaine/Sodium Bicarbonate (Buffered Lidocaine 1%) 3 ml 1X ONCE IJ Last administered on 03/14/19at 08:39; Start 03/14/19 at 08:15; Stop 03/14/19 at 08:18; Status DC Midazolam HCl (Versed) 2 mg 1X ONCE IV Last administered on 03/14/19at 08:39; Start 03/14/19 at 08:15; Stop 03/14/19 at 08:18; Status DC Fentanyl Citrate (Fentanyl 2ml Vial) 100 mcg 1X ONCE IV Last administered on 7/29/19at 08:39; Start 03/14/19 at 08:15; Stop 03/14/19 at 08:18; Status DC Active Scripts Active Reported Vitamin D3 (Cholecalciferol (Vitamin D3)) 1,000 Unit Tablet 2,000 Unit PO DAILY Ferrous Sulfate 325 Mg Tablet 325 Mg PO DAILY Atorvastatin Calcium 20 Mg Tablet 20 Mg PO DAILY Glimepiride 2 Mg Tablet 2 Tab PO BID Losartan Potassium 100 Mg Tablet 100 Mg PO DAILY Protonix (Pantoprazole Sodium) 40 Mg Tablet.dr 40 Mg PO DAILYAC Vitals/I & O Vital Sign - Last 24 Hours 03/13/19 03/13/19 03/13/19 03/13/19 15:00 19:00 20:00 23:00 Temp 98.8 99.1 99.3 98.8 99.1 99.3 Pulse 81 91 93 Resp 16 18 18 B/P (MAP) 157/77 (103) 155/74 (101) 191/83 (119) Pulse Ox 97 96 94 O2 Delivery Room Air Room Air Room Air Room Air 03/14/19 03/14/19 03/14/19 03/14/19 03:15 07:00 08:00 08:36 Temp 98.6 98.3 98.6 98.3 Pulse 92 70 78 Resp 20 16 22 B/P (MAP) 158/72 (100) 135/64 (87) Pulse Ox 95 96 99 O2 Delivery Room Air Room Air Room Air Nasal Cannula O2 Flow Rate 2.0 03/14/19 03/14/19 03/14/19 03/14/19 08:39 08:43 08:47 11:43 Pulse 84 85 69 Resp 20 17 13 B/P (MAP) 133/80 (97) 140/75 Pulse Ox 98 98 O2 Delivery Nasal Cannula Nasal Cannula O2 Flow Rate 2.0 2.0 Intake and Output 03/13/19 03/13/19 03/14/19 15:00 23:00 07:00 Intake Total 195 ml 450 ml 200 ml Balance 195 ml 450 ml 200 ml Problem List Problems Medical Problems: (1) Acute gallstone pancreatitis Status: Acute (2) Cholecystitis Status: Acute (3) Thrombocytopenia Status: Acute Assessment Gallstone pancreatitis- with persistent thrombocytopenia, poor surgical candidate, promacta, doptelet, and/or multipleta are options to stabilize platelet counts prior to surgery if needed. CPM ERIKA DIEHL MD Mar 14, 2019 13:07
[2019-03-14] MEDS ORDERED: CONTRAST GIVEN. MC PRN (14:00)
[2019-03-14] MEDS ORDERED: IOHEXOL 300 MG/ML 100ML VIAL. IV ONE (14:00)
[2019-03-14] MEDS ORDERED: oxyCODONE/APAP 5/325 1 TAB TABLET PO PRN (14:45)
--- NOTE | 2019-03-14 14:52 | RAD ---
Exam performed: CT scan of the abdomen and pelvis with contrast Indication: Follow-up pancreatitis Date of Service: 03/14/2019. Comparison: CT abdomen and pelvis from 01/31/2019 Technique: Contiguous helical acquisitions are obtained through the abdomen and pelvis during intravenous administration of 75 cc of Omnipaque 300. In addition sagittal and coronal reformatted images are obtained and reviewed. CT scan abdomen and pelvis findings: The lung bases are clear. Visualized heart is normal. Increasing perihepatic and perisplenic ascites with increasing fluid in between the stomach and anterior margin of pancreas. There is inferior extension of fluid in bilateral paracolic gutters and into the pelvis. Peripancreatic stranding and fluid is redemonstrated. Pancreas enhances homogeneously. No walled off fluid collection is identified. Normal opacification of the portal vein without filling defect. Gallbladder is normal. Both adrenal glands and bilateral kidneys are symmetric. Nonobstructing bilateral renal calculi are redemonstrated.The aorta is normal in caliber, no aneurysm. No retroperitoneal lymphadenopathy is identified. The small bowel loops are nondilated and unremarkable . No bowel related stranding or mesenteric lymphadenopathy seen. Urinary bladder is decompressed. Uterus is anteverted. No adnexal masses identified. Bones unremarkable. Impression CT Abdomen and pelvis: 1. Ongoing findings consistent with pancreatitis with increasing perihepatic and perisplenic ascites as well as peripancreatic fluid with extension into the paracolic gutters bilaterally and pelvis. No pseudocyst is identified. No evidence of pancreatic necrosis or portal venous thrombosis seen 2. Bilateral nonobstructing renal calculi PQRS Compliance Statement: One or more of the following individualized dose reduction techniques were utilized for this examination: 1. Automated exposure control 2. Adjustment of the mA and/or kV according to patient size 3. Use of iterative reconstruction technique Electronically signed by: Deedee Marino MD (03/14/2019 2:49 PM) [facility]
--- NOTE | 2019-03-14 15:15 | NUR ---
SS following up with discharge planning. PT/OT recommending home healthcare at discharge. Pt is currently on room air and is receiving TPN. SS will continuing to follow for discharge planning.
[2019-03-14] MEDS: ATORVASTATIN CALCIUM 20 MG TABLET PO SCH (22:17)
[2019-03-15 03:00] VITALS: BP 133/55
[2019-03-15 03:16] LABS: BASO % 1 % (0-3); EOS # 0.1 x10^3/uL (0.0-0.7); EOS % 3 % (0-3); HEMOGLOBIN 11.6 g/dL (12.0-15.5); LYMPH # 1.7 x10^3/uL (1.0-4.8); LYMPH % 38 % (24-48); MEAN CORPUSCULAR HEMOGLOBIN 29 pg (25-35); MEAN CORPUSCULAR HGB CONC 33 g/dL (31-37); MEAN CORPUSCULAR VOLUME 88 fL (79-100); MONO # 0.6 x10^3/uL (0.0-1.1); MONO % 14 % (0-9); NEUT % 45 % (31-73); PLATELET COUNT 44 x10^3/uL (140-400); RED BLOOD COUNT 3.99 x10^6/uL (3.50-5.40); RED CELL DISTRIBUTION WIDTH 15.5 % (11.5-14.5); WHITE BLOOD COUNT 4.5 x10^3/uL (4.0-11.0)
[2019-03-15 03:48] LABS: CALCIUM 8.8 mg/dL (8.5-10.1); CREATININE 0.8 mg/dL (0.6-1.0); GFR 71.1; POTASSIUM 4.1 mmol/L (3.5-5.1)
[2019-03-15 07:00] VITALS: BP 117/56
[2019-03-15] MEDS: INSULIN LISPRO 300 UNITS/3 ML INSULN.PEN. SQ SCH ×6 (07:30→17:58)
[2019-03-15] MEDS: PANTOPRAZOLE 40 MG TABLET.DR. PO SCH (07:59)
[2019-03-15] MEDS: MAGNESIUM OXIDE 400 MG TABLET PO SCH (07:59)
[2019-03-15] MEDS: LOSARTAN POTASSIUM 50 MG TABLET. PO SCH (08:00)
[2019-03-15] MEDS: POLYETHYLENE GLYCOL 3350 17 GM PACKET. PO SCH (08:00)
[2019-03-15] MEDS: ENOXAPARIN 40 MG/0.4 ML SYRINGE. SQ SCH (08:02)
--- NOTE | 2019-03-15 09:01 | PDOC ---
PROGRESS NOTES Subjective Subjective HPI - f/u of Thrombocytopenia ROS - abd pain better, has back pain Objective Objective Vital Signs Date Time Temp Pulse Resp B/P (MAP) Pulse Ox O2 Delivery O2 Flow Rate FiO2 03/15/19 08:00 79 117/56 03/15/19 07:38 Room Air 03/15/19 07:00 98.5 18 96 98.5 03/14/19 08:47 2.0 Intake and Output 03/15/19 07:00 Intake Total 360 ml Balance 360 ml Intake Oral 360 ml # Voids 6 Physical Exam Heart: Normal S1, Normal S2 General: Alert, Oriented X3, No acute distress Lungs: Clear to auscultation, Normal air movement Neuro: Normal speech Psych/Mental Status: Mental status NL Assessment Assessment Problems Medical Problems: (1) Acute gallstone pancreatitis Status: Acute (2) Cholecystitis Status: Acute (3) Thrombocytopenia Status: Acute IMPRESSION AND PLAN: 1. Thrombocytopenia, chronic, due to cirrhosis of the liver and portal hypertension and splenomegaly. Platelet count was worse at 44,000 on 03/03/2019. No signs of bleeding. I would continue to monitor and transfuse, if there is any evidence of bleeding or if surgical intervention is necessary. Plt worse at 36 on 03/13/19, Plt 40 on 03/14/19, s/p BM bx 03/14/19 to eval for primary bone marrow disorders. Plt 44 on 03/15/19 2. Pancreatitis. Management per Gastroenterology. 3. Cholecystitis. Management per Gastroenterology. 4. Leukopenia due to splenomegaly. WBC was 3.4 on 03/02/2019 and it improved to 4.7 on 03/03/2019. Continue to monitor CBC. wbc now 4.5. Comment Review of Relevant I have reviewed the following items popeye (where applicable) has been applied. Labs Laboratory Tests Test 03/13/19 11:37 03/13/19 16:46 03/13/19 20:57 03/14/19 05:30 Glucose (Fingerstick) 365 mg/dL (70-99) 410 mg/dL (70-99) 413 mg/dL (70-99) White Blood Count 4.6 x10^3/uL (4.0-11.0) Red Blood Count 4.04 x10^6/uL (3.50-5.70) Hemoglobin 11.8 g/dL (12.0-15.5) Hematocrit 34.8 % (36.0-47.0) Mean Corpuscular Volume 87 fL (79-100) Mean Corpuscular Hemoglobin 29 pg (25-35) Mean Corpuscular Hemoglobin Concent 34 g/dL (31-37) Red Cell Distribution Width 15.0 % (11.5-14.5) Platelet Count 40 x10^3/uL (140-400) Neutrophils (%) (Auto) 49 % (31-73) Lymphocytes (%) (Auto) 35 % (24-48) Monocytes (%) (Auto) 14 % (0-9) Eosinophils (%) (Auto) 2 % (0-3) Basophils (%) (Auto) 1 % (0-3) Neutrophils # (Auto) 2.2 x10^3/uL (1.8-7.7) Lymphocytes # (Auto) 1.6 x10^3/uL (1.0-4.8) Monocytes # (Auto) 0.6 x10^3/uL (0.0-1.1) Eosinophils # (Auto) 0.1 x10^3/uL (0.0-0.7) Basophils # (Auto) 0.0 x10^3/uL (0.0-0.2) Absolute Reticulocyte Count 0.105 x10^6/uL (0.020-0.120) Percent Reticulocyte Count 2.6 % (0.5-2.3) Immature Reticulocyte Fraction 0.34 (0.20-0.60) Sodium Level 138 mmol/L (136-145) Potassium Level 4.2 mmol/L (3.5-5.1) Chloride Level 104 mmol/L (98-107) Carbon Dioxide Level 26 mmol/L (21-32) Anion Gap 8 (6-14) Blood Urea Nitrogen 11 mg/dL (7-20) Creatinine 0.8 mg/dL (0.6-1.0) Estimated GFR (Cockcroft-Gault) 71.1 Glucose Level 245 mg/dL (70-99) Calcium Level 8.8 mg/dL (8.5-10.1) Test 03/14/19 07:25 03/14/19 11:35 03/14/19 16:44 03/14/19 20:57 Glucose (Fingerstick) 278 mg/dL (70-99) 227 mg/dL (70-99) 216 mg/dL (70-99) 195 mg/dL (70-99) Test 03/15/19 03:10 03/15/19 07:27 White Blood Count 4.5 x10^3/uL (4.0-11.0) Red Blood Count 3.99 x10^6/uL (3.50-5.40) Hemoglobin 11.6 g/dL (12.0-15.5) Hematocrit 35.0 % (36.0-47.0) Mean Corpuscular Volume 88 fL (79-100) Mean Corpuscular Hemoglobin 29 pg (25-35) Mean Corpuscular Hemoglobin Concent 33 g/dL (31-37) Red Cell Distribution Width 15.5 % (11.5-14.5) Platelet Count 44 x10^3/uL (140-400) Neutrophils (%) (Auto) 45 % (31-73) Lymphocytes (%) (Auto) 38 % (24-48) Monocytes (%) (Auto) 14 % (0-9) Eosinophils (%) (Auto) 3 % (0-3) Basophils (%) (Auto) 1 % (0-3) Neutrophils # (Auto) 2.0 x10^3/uL (1.8-7.7) Lymphocytes # (Auto) 1.7 x10^3/uL (1.0-4.8) Monocytes # (Auto) 0.6 x10^3/uL (0.0-1.1) Eosinophils # (Auto) 0.1 x10^3/uL (0.0-0.7) Basophils # (Auto) 0.0 x10^3/uL (0.0-0.2) Sodium Level 138 mmol/L (136-145) Potassium Level 4.1 mmol/L (3.5-5.1) Chloride Level 104 mmol/L (98-107) Carbon Dioxide Level 26 mmol/L (21-32) Anion Gap 8 (6-14) Blood Urea Nitrogen 13 mg/dL (7-20) Creatinine 0.8 mg/dL (0.6-1.0) Estimated GFR (Cockcroft-Gault) 71.1 Glucose Level 193 mg/dL (70-99) Calcium Level 8.8 mg/dL (8.5-10.1) Glucose (Fingerstick) 141 mg/dL (70-99) Laboratory Tests Test 03/14/19 11:35 03/14/19 16:44 03/14/19 20:57 03/15/19 03:10 Glucose (Fingerstick) 227 mg/dL (70-99) 216 mg/dL (70-99) 195 mg/dL (70-99) White Blood Count 4.5 x10^3/uL (4.0-11.0) Red Blood Count 3.99 x10^6/uL (3.50-5.40) Hemoglobin 11.6 g/dL (12.0-15.5) Hematocrit 35.0 % (36.0-47.0) Mean Corpuscular Volume 88 fL (79-100) Mean Corpuscular Hemoglobin 29 pg (25-35) Mean Corpuscular Hemoglobin Concent 33 g/dL (31-37) Red Cell Distribution Width 15.5 % (11.5-14.5) Platelet Count 44 x10^3/uL (140-400) Neutrophils (%) (Auto) 45 % (31-73) Lymphocytes (%) (Auto) 38 % (24-48) Monocytes (%) (Auto) 14 % (0-9) Eosinophils (%) (Auto) 3 % (0-3) Basophils (%) (Auto) 1 % (0-3) Neutrophils # (Auto) 2.0 x10^3/uL (1.8-7.7) Lymphocytes # (Auto) 1.7 x10^3/uL (1.0-4.8) Monocytes # (Auto) 0.6 x10^3/uL (0.0-1.1) Eosinophils # (Auto) 0.1 x10^3/uL (0.0-0.7) Basophils # (Auto) 0.0 x10^3/uL (0.0-0.2) Sodium Level 138 mmol/L (136-145) Potassium Level 4.1 mmol/L (3.5-5.1) Chloride Level 104 mmol/L (98-107) Carbon Dioxide Level 26 mmol/L (21-32) Anion Gap 8 (6-14) Blood Urea Nitrogen 13 mg/dL (7-20) Creatinine 0.8 mg/dL (0.6-1.0) Estimated GFR (Cockcroft-Gault) 71.1 Glucose Level 193 mg/dL (70-99) Calcium Level 8.8 mg/dL (8.5-10.1) Test 03/15/19 07:27 Glucose (Fingerstick) 141 mg/dL (70-99) Microbiology 03/02/19 Urine Culture - Final, Complete 03/02/19 Urine Culture Result 1 (DONNA) - Final, Complete Medications Current Medications Sodium Chloride 1,000 ml @ 1,000 mls/hr 1X ONCE IV Last administered on 03/02/19at 14:15; Start 03/02/19 at 14:00; Stop 03/02/19 at 14:59; Status DC Morphine Sulfate (Morphine Sulfate) 4 mg 1X ONCE IV Last administered on 03/02/19at 14:14; Start 03/02/19 at 14:30; Stop 03/02/19 at 14:31; Status DC Ondansetron HCl (Zofran) 4 mg 1X ONCE IV Last administered on 03/02/19at 14:13; Start 03/02/19 at 14:30; Stop 03/02/19 at 14:31; Status DC Iohexol (Omnipaque 300 Mg/ml) 60 ml 1X ONCE IV Last administered on 03/02/19at 15:24; Start 03/02/19 at 15:45; Stop 03/02/19 at 15:46; Status DC Info (CONTRAST GIVEN -- Rx MONITORING) 1 each PRN DAILY PRN MC SEE COMMENTS; Start 03/02/19 at 15:15; Stop 03/04/19 at 15:14; Status DC Fentanyl Citrate (Fentanyl 2ml Vial) 75 mcg 1X ONCE IV Last administered on 03/02/19at 16:19; Start 03/02/19 at 16:45; Stop 03/02/19 at 16:46; Status DC Piperacillin Sod/ Tazobactam Sod 3.375 gm/Sodium Chloride 50 ml @ 100 mls/hr 1X ONCE IV Last administered on 03/02/19at 16:26; Start 03/02/19 at 17:00; Stop 03/02/19 at 17:29; Status DC Sodium Chloride 1,000 ml @ 1,000 mls/hr 1X ONCE IV Last administered on 03/02/19at 16:31; Start 03/02/19 at 16:30; Stop 03/02/19 at 17:29; Status DC Ondansetron HCl (Zofran) 4 mg PRN Q8HRS PRN IV NAUSEA/VOMITING; Start 03/02/19 at 17:00; Stop 03/02/19 at 19:48; Status DC Fentanyl Citrate (Fentanyl 2ml Vial) 50 mcg PRN Q2HR PRN IV PAIN Last administered on 03/02/19at 20:51; Start 03/02/19 at 17:00; Stop 03/03/19 at 16:59; Status DC Sodium Chloride 1,000 ml @ 100 mls/hr Q10H IV ; Start 03/02/19 at 16:48; Stop 03/03/19 at 16:47; Status Cancel Sodium Chloride (Normal Saline Flush) 3 ml QSHIFT PRN IV AFTER MEDS AND BLOOD DRAWS; Start 03/02/19 at 19:45 Sodium Chloride 1,000 ml @ 100 mls/hr Q10H IV Last administered on 03/06/19at 15:00; Start 03/02/19 at 21:00; Stop 03/08/19 at 13:48; Status DC Ondansetron HCl (Zofran) 4 mg PRN Q4HRS PRN IV NAUSEA/VOMITING, 1st CHOICE Last administered on 03/07/19at 08:25; Start 03/02/19 at 19:45 Acetaminophen (Tylenol) 650 mg PRN Q4HRS PRN PO TEMP OVER 100.4F OR MILD PAIN; Start 03/02/19 at 19:45; Stop 03/09/19 at 09:57; Status DC Clonidine HCl (Catapres) 0.1 mg PRN Q6HRS PRN PO SBP>160 OR DBP>90; Start 03/02/19 at 19:45 Guaifenesin (Robitussin) 200 mg PRN Q4HRS PRN PO COUGH; Start 03/02/19 at 19:45 Lorazepam (Ativan) 0.5 mg PRN Q4HRS PRN PO ANXIETY / AGITATION; Start 03/02/19 at 19:45 Hydromorphone HCl (Dilaudid) 1 mg PRN Q2HRS PRN IV SEVERE PAIN 7-10 Last administered on 03/09/19 10:10; Start 03/02/19 at 19:45 Enoxaparin Sodium (Lovenox 40mg Syringe) 40 mg DAILY SQ Last administered on 03/09/19 09:00; Start 03/03/19 at 09:00 Metoclopramide HCl (Reglan Vial) 10 mg PRN Q6HRS PRN IV NAUSEA/VOMITING, 2nd CHOICE Last administered on 03/04/19 11:25; Start 03/03/19 at 12:00 Pantoprazole Sodium (PROTONIX VIAL for IV PUSH) 40 mg DAILYAC IVP Last administered on 03/09/19 08:23; Start 03/04/19 at 09:30; Stop 03/09/19 at 09:26; Status DC Potassium Chloride/Water 100 ml @ 100 mls/hr Q1H IV Last administered on 03/06/19 16:00; Start 03/06/19 at 13:00; Stop 03/06/19 at 16:59; Status DC Amino Acids/ Glycerin/ Electrolytes 1,000 ml @ 80 mls/hr [id number] IV Last administered on 03/07/19 11:00; Start 03/06/19 at 21:00; Stop 03/08/19 at 21:59; Status DC Magnesium Sulfate 50 ml @ 25 mls/hr 1X ONCE IV Last administered on 03/07/19 08:24; Start 03/07/19 at 08:30; Stop 03/07/19 at 10:29; Status DC Lidocaine/Sodium Bicarbonate (Buffered Lidocaine 1%) 3 ml 1X ONCE INJ Last administered on 03/08/19 09:55; Start 03/08/19 at 09:30; Stop 03/08/19 at 09:34; Status DC Atorvastatin Calcium (Lipitor) 20 mg QHS PO Last administered on 03/14/19 22:17; Start 03/08/19 at 21:00 Losartan Potassium (Cozaar) 100 mg DAILY PO Last administered on 03/15/19 08:00; Start 03/09/19 at 09:00 Insulin Human Lispro (HumaLOG) 0-5 UNITS TIDWMEALS SQ Last administered on 03/09/19 18:01; Start 03/08/19 at 13:00; Stop 03/10/19 at 09:25; Status DC Dextrose (Dextrose 50%-Water Syringe) 12.5 gm PRN Q15MIN PRN IV SEE COMMENTS; Start 03/08/19 at 12:45 Info (Tpn Per Pharmacy) 1 each PRN DAILY PRN MC SEE COMMENTS Last administered on 03/13/19at 11:15; Start 03/08/19 at 13:45; Stop 03/14/19 at 10:17; Status DC Sodium Chloride 90 meq/Potassium Chloride 50 meq/ Potassium Phosphate 13.6 mmol/Magnesium Sulfate 10 meq/ Calcium Gluconate 10 meq/ Multivitamins 10 ml/Chromium/ Copper/Manganese/ Seleni/Zn 1 ml/ Total Parenteral Nutrition/Amino Acids/Dextrose/ Fat Emulsion Intravenous 1,512 ml @ 63 mls/hr TPN CONT IV Last administered on 03/08/19at 22:22; Start 03/08/19 at 22:00; Stop 03/09/19 at 21:59; Status DC Loperamide HCl (Imodium) 2 mg 1X ONCE PO Last administered on 03/08/19at 21:06; Start 03/08/19 at 19:45; Stop 03/08/19 at 19:46; Status DC Acetaminophen (Tylenol) 650 mg 1X ONCE PO ; Start 03/08/19 at 19:45; Stop 03/08/19 at 19:46; Status DC Hydromorphone HCl (Dilaudid) 1 mg 1X ONCE IVP ; Start 03/08/19 at 19:45; Stop 03/08/19 at 19:46; Status DC Pantoprazole Sodium (Protonix) 40 mg DAILYAC PO Last administered on 03/15/19at 07:59; Start 03/10/19 at 07:30 Sodium Chloride 90 meq/Potassium Chloride 50 meq/ Potassium Phosphate 13.6 mmol/Magnesium Sulfate 12 meq/ Calcium Gluconate 10 meq/ Multivitamins 10 ml/Chromium/ Copper/Manganese/ Seleni/Zn 1 ml/ Total Parenteral Nutrition/Amino Acids/Dextrose/ Fat Emulsion Intravenous 1,512 ml @ 63 mls/hr TPN CONT IV Last administered on 03/10/19at 03:21; Start 03/09/19 at 22:00; Stop 03/10/19 at 21:59; Status DC Insulin Human Lispro (HumaLOG) 0-7 UNITS TIDWMEALS SQ Last administered on 03/10/19at 12:32; Start 03/10/19 at 12:00; Stop 03/10/19 at 17:02; Status DC Insulin Human Lispro (HumaLOG) 10 units 1X STAT SQ Last administered on 03/10/19at 09:50; Start 03/10/19 at 09:24; Stop 03/10/19 at 09:29; Status DC Simethicone (Gas-X) 80 mg PRN AFTMEALHC PRN PO GAS / BLOATING; Start 03/10/19 at 09:30 Polyethylene Glycol (miraLAX PACKET) 17 gm DAILY PO Last administered on 03/13/19at 08:40; Start 03/11/19 at 09:00 Polyethylene Glycol (miraLAX PACKET) 17 gm PRN DAILY PRN PO CONSTIPATION; Start 03/10/19 at 09:30 Bisacodyl (Dulcolax Tab) 5 mg 1X ONCE PO Last administered on 03/10/19at 09:48; Start 03/10/19 at 09:30; Stop 03/10/19 at 09:34; Status DC Alteplase, Recombinant (Cathflo For Central Catheter Clearance) 1 mg 1X ONCE INT CAT Last administered on 03/10/19at 10:29; Start 03/10/19 at 10:30; Stop 03/10/19 at 10:31; Status DC Ondansetron HCl (Zofran Odt) 4 mg 1X ONCE PO Last administered on 03/10/19at 10:47; Start 03/10/19 at 10:45; Stop 03/10/19 at 10:46; Status DC Sodium Chloride 90 meq/Potassium Chloride 50 meq/ Potassium Phosphate 13.6 mmol/Magnesium Sulfate 12 meq/ Calcium Gluconate 10 meq/ Multivitamins 10 ml/Chromium/ Copper/Manganese/ Seleni/Zn 1 ml/ Total Parenteral Nutrition/Amino Acids/Dextrose/ Fat Emulsion Intravenous 1,512 ml @ 63 mls/hr TPN CONT IV Last administered on 03/11/19at 06:31; Start 03/10/19 at 22:00; Stop 03/11/19 at 21:59; Status DC Insulin Human Lispro (HumaLOG) 0-9 UNITS TIDWMEALS SQ Last administered on 03/14/19at 16:57; Start 03/10/19 at 17:00 Insulin Human Lispro (HumaLOG) 4 units STAT SQ ; Start 03/10/19 at 17:15; Stop 03/10/19 at 17:32; Status DC Insulin Human Lispro (HumaLOG) 4 units 1X ONCE SQ Last administered on 03/10/19at 17:27; Start 03/10/19 at 17:45; Stop 03/10/19 at 17:46; Status DC Insulin Human Lispro (HumaLOG) 10 units TIDAC SQ Last administered on 03/11/19at 12:50; Start 03/11/19 at 09:40; Stop 03/11/19 at 17:25; Status DC Sodium Chloride 90 meq/Potassium Chloride 50 meq/ Potassium Phosphate 13.6 mmo l/Magnesium Sulfate 12 meq/ Calcium Gluconate 10 meq/ Multivitamins 10 ml/Chromium/ Copper/Manganese/ Seleni/Zn 1 ml/ Total Parenteral Nutrition/Amino Acids/Dextrose/ Fat Emulsion Intravenous 1,512 ml @ 63 mls/hr TPN CONT IV Last administered on 03/11/19at 22:00; Start 03/11/19 at 22:00; Stop 03/12/19 at 21:59; Status DC Insulin Glargine (Lantus) 20 units QHS SQ Last administered on 03/11/19at 21:33; Start 03/11/19 at 21:00; Stop 03/12/19 at 08:54; Status DC Insulin Human Lispro (HumaLOG) 6 units 1X ONCE SQ Last administered on 03/11/19at 13:00; Start 03/11/19 at 13:00; Stop 03/11/19 at 13:01; Status DC Insulin Human Lispro (HumaLOG) 15 units TIDAC SQ Last administered on 03/12/19at 16:45; Start 03/11/19 at 17:23; Stop 03/13/19 at 08:44; Status DC Insulin Glargine (Lantus) 20 units BID SQ Last administered on 03/14/19at 22:21; Start 03/12/19 at 09:30 Diclofenac Sodium (Voltaren) 1 idania BID TP Last administered on 03/14/19at 22:22; Start 03/12/19 at 13:00 Magnesium Oxide (Magnesium Oxide) 400 mg DAILY PO Last administered on 03/15/19at 07:59; Start 03/12/19 at 13:00 Sodium Chloride 90 meq/Potassium Chloride 50 meq/ Potassium Phosphate 13.6 mmol/Magnesium Sulfate 12 meq/ Calcium Gluconate 10 meq/ Multivitamins 10 ml/Chromium/ Copper/Manganese/ Seleni/Zn 1 ml/ Total Parenteral Nutrition/Amino Acids/Dextrose/ Fat Emulsion Intravenous 1,512 ml @ 63 mls/hr TPN CONT IV Last administered on 03/12/19at 20:49; Start 03/12/19 at 22:00; Stop 03/13/19 at 21:59; Status DC Insulin Human Lispro (HumaLOG) 20 units TIDAC SQ Last administered on 03/14/19at 16:57; Start 03/13/19 at 11:30 Sodium Chloride 90 meq/Potassium Chloride 50 meq/ Potassium Phosphate 13.6 mmol/Magnesium Sulfate 12 meq/ Calcium Gluconate 10 meq/ Multivitamins 10 ml/Chromium/ Copper/Manganese/ Seleni/Zn 1 ml/ Insulin Human Regular 15 unit/ Total Parenteral Nutrition/Amino Acids/Dextrose/ Fat Emuls... 1,512 ml @ 63 mls/hr TPN CONT IV ; Start 03/13/19 at 22:00; Stop 03/13/19 at 22:00; Status DC Sodium Chloride 90 meq/Potassium Chloride 50 meq/ Potassium Phosphate 13.6 mmol/Magnesium Sulfate 12 meq/ Calcium Gluconate 10 meq/ Multivitamins 10 ml/Chromium/ Copper/Manganese/ Seleni/Zn 1 ml/ Total Parenteral Nutrition/Amino Acids/Dextrose/ Fat Emulsion Intravenous 1,512 ml @ 63 mls/hr TPN CONT IV Last administered on 03/13/19at 22:00; Start 03/13/19 at 22:00; Stop 03/14/19 at 21:59; Status DC Insulin Human Lispro (HumaLOG) 25 units 1X ONCE SQ Last administered on 03/13/19at 22:01; Start 03/13/19 at 22:00; Stop 03/13/19 at 22:03; Status DC Lidocaine/Sodium Bicarbonate (Buffered Lidocaine 1%) 3 ml STK-MED ONCE .ROUTE ; Start 03/14/19 at 07:39; Stop 03/14/19 at 07:40; Status DC Midazolam HCl (Versed) 2 mg STK-MED ONCE .ROUTE ; Start 03/14/19 at 08:05; Stop 03/14/19 at 08:06; Status DC Fentanyl Citrate (Fentanyl 2ml Vial) 100 mcg STK-MED ONCE .ROUTE ; Start 03/14/19 at 08:05; Stop 03/14/19 at 08:06; Status DC Flumazenil (Romazicon) 0.5 mg STK-MED ONCE IV ; Start 03/14/19 at 08:05; Stop 03/14/19 at 08:06; Status DC Naloxone HCl (Narcan) 0.4 mg STK-MED ONCE .ROUTE ; Start 03/14/19 at 08:05; Stop 03/14/19 at 08:06; Status DC Lidocaine/Sodium Bicarbonate (Buffered Lidocaine 1%) 3 ml 1X ONCE IJ Last administered on 03/14/19at 08:39; Start 03/14/19 at 08:15; Stop 03/14/19 at 08:18; Status DC Midazolam HCl (Versed) 2 mg 1X ONCE IV Last administered on 03/14/19at 08:39; Start 03/14/19 at 08:15; Stop 03/14/19 at 08:18; Status DC Fentanyl Citrate (Fentanyl 2ml Vial) 100 mcg 1X ONCE IV Last administered on 03/14/19at 08:39; Start 03/14/19 at 08:15; Stop 03/14/19 at 08:18; Status DC Iohexol (Omnipaque 300 Mg/ml) 75 ml 1X ONCE IV ; Start 03/14/19 at 14:00; Stop 03/14/19 at 14:01; Status DC Info (CONTRAST GIVEN -- Rx MONITORING) 1 each PRN DAILY PRN MC SEE COMMENTS; Start 03/14/19 at 14:00; Stop 03/16/19 at 13:59 Oxycodone/ Acetaminophen (Percocet 5/325) 1 tab PRN Q4HRS PRN PO PAIN Last administered on 03/14/19at 14:42; Start 03/14/19 at 14:45 Active Scripts Active Reported Vitamin D3 (Cholecalciferol (Vitamin D3)) 1,000 Unit Tablet 2,000 Unit PO DAILY Ferrous Sulfate 325 Mg Tablet 325 Mg PO DAILY Atorvastatin Calcium 20 Mg Tablet 20 Mg PO DAILY Glimepiride 2 Mg Tablet 2 Tab PO BID Losartan Potassium 100 Mg Tablet 100 Mg PO DAILY Protonix (Pantoprazole Sodium) 40 Mg Tablet.dr 40 Mg PO DAILYAC Vitals/I & O Vital Sign - Last 24 Hours 03/14/19 03/14/19 03/14/19 03/14/19 09:02 09:17 09:32 09:47 Pulse 81 77 74 69 B/P (MAP) 128/69 (88) 122/66 (84) 127/65 (85) 135/72 (93) Pulse Ox 92 95 95 98 O2 Delivery Room Air 03/14/19 03/14/19 03/14/19 03/14/19 10:02 10:32 11:03 11:43 Pulse 67 67 69 69 B/P (MAP) 120/67 (84) 126/66 (86) 140/75 (96) 140/75 Pulse Ox 94 97 97 O2 Delivery Room Air Room Air Room Air 03/14/19 03/14/19 03/14/19 03/14/19 12:03 13:02 14:42 15:00 Temp 97.9 97.9 Pulse 75 87 84 Resp 16 B/P (MAP) 139/85 (103) 144/84 (104) 122/50 (74) Pulse Ox 97 94 99 O2 Delivery Room Air Room Air Room Air Room Air 03/14/19 03/14/19 03/14/19 03/15/19 19:00 20:20 23:00 03:00 Temp 98.0 98.4 98.4 98.0 98.4 98.4 Pulse 88 75 77 Resp 16 16 16 B/P (MAP) 122/86 (98) 110/54 (72) 133/55 (81) Pulse Ox 94 97 97 O2 Delivery Room Air Room Air Room Air Room Air 03/15/19 03/15/19 03/15/19 07:00 07:38 08:00 Temp 98.5 98.5 Pulse 79 79 Resp 18 B/P (MAP) 117/56 (76) 117/56 Pulse Ox 96 O2 Delivery Room Air Room Air Intake and Output 03/14/19 03/14/19 03/15/19 15:00 23:00 07:00 Intake Total 120 ml 240 ml Balance 120 ml 240 ml IONA PAREDES MD Mar 15, 2019 09:01
--- NOTE | 2019-03-15 10:43 | PDOC ---
JOANNA MACDONALD [employer] 03/15/19 1043: SURGICAL PROGRESS NOTE Subjective some back pain reports some pain above picc line and maybe some swelling Vital Signs Vital Signs Date Time Temp Pulse Resp B/P (MAP) Pulse Ox O2 Delivery O2 Flow Rate FiO2 03/15/19 08:00 79 117/56 03/15/19 07:38 Room Air 03/15/19 07:00 98.5 18 96 98.5 03/14/19 08:47 2.0 I&O Intake and Output 03/15/19 06:59 Intake Total 360 ml Balance 360 ml Intake Oral 360 ml # Voids 6 General: Alert, Oriented X3, Cooperative, No acute distress Abdomen: Soft, No tenderness Labs Laboratory Tests Test 03/13/19 11:37 03/13/19 16:46 03/13/19 20:57 03/14/19 05:30 Glucose (Fingerstick) 365 mg/dL (70-99) 410 mg/dL (70-99) 413 mg/dL (70-99) White Blood Count 4.6 x10^3/uL (4.0-11.0) Red Blood Count 4.04 x10^6/uL (3.50-5.70) Hemoglobin 11.8 g/dL (12.0-15.5) Hematocrit 34.8 % (36.0-47.0) Mean Corpuscular Volume 87 fL (79-100) Mean Corpuscular Hemoglobin 29 pg (25-35) Mean Corpuscular Hemoglobin Concent 34 g/dL (31-37) Red Cell Distribution Width 15.0 % (11.5-14.5) Platelet Count 40 x10^3/uL (140-400) Neutrophils (%) (Auto) 49 % (31-73) Lymphocytes (%) (Auto) 35 % (24-48) Monocytes (%) (Auto) 14 % (0-9) Eosinophils (%) (Auto) 2 % (0-3) Basophils (%) (Auto) 1 % (0-3) Neutrophils # (Auto) 2.2 x10^3/uL (1.8-7.7) Lymphocytes # (Auto) 1.6 x10^3/uL (1.0-4.8) Monocytes # (Auto) 0.6 x10^3/uL (0.0-1.1) Eosinophils # (Auto) 0.1 x10^3/uL (0.0-0.7) Basophils # (Auto) 0.0 x10^3/uL (0.0-0.2) Absolute Reticulocyte Count 0.105 x10^6/uL (0.020-0.120) Percent Reticulocyte Count 2.6 % (0.5-2.3) Immature Reticulocyte Fraction 0.34 (0.20-0.60) Sodium Level 138 mmol/L (136-145) Potassium Level 4.2 mmol/L (3.5-5.1) Chloride Level 104 mmol/L (98-107) Carbon Dioxide Level 26 mmol/L (21-32) Anion Gap 8 (6-14) Blood Urea Nitrogen 11 mg/dL (7-20) Creatinine 0.8 mg/dL (0.6-1.0) Estimated GFR (Cockcroft-Gault) 71.1 Glucose Level 245 mg/dL (70-99) Calcium Level 8.8 mg/dL (8.5-10.1) Test 03/14/19 07:25 03/14/19 11:35 03/14/19 16:44 03/14/19 20:57 Glucose (Fingerstick) 278 mg/dL (70-99) 227 mg/dL (70-99) 216 mg/dL (70-99) 195 mg/dL (70-99) Test 03/15/19 03:10 03/15/19 07:27 White Blood Count 4.5 x10^3/uL (4.0-11.0) Red Blood Count 3.99 x10^6/uL (3.50-5.40) Hemoglobin 11.6 g/dL (12.0-15.5) Hematocrit 35.0 % (36.0-47.0) Mean Corpuscular Volume 88 fL (79-100) Mean Corpuscular Hemoglobin 29 pg (25-35) Mean Corpuscular Hemoglobin Concent 33 g/dL (31-37) Red Cell Distribution Width 15.5 % (11.5-14.5) Platelet Count 44 x10^3/uL (140-400) Neutrophils (%) (Auto) 45 % (31-73) Lymphocytes (%) (Auto) 38 % (24-48) Monocytes (%) (Auto) 14 % (0-9) Eosinophils (%) (Auto) 3 % (0-3) Basophils (%) (Auto) 1 % (0-3) Neutrophils # (Auto) 2.0 x10^3/uL (1.8-7.7) Lymphocytes # (Auto) 1.7 x10^3/uL (1.0-4.8) Monocytes # (Auto) 0.6 x10^3/uL (0.0-1.1) Eosinophils # (Auto) 0.1 x10^3/uL (0.0-0.7) Basophils # (Auto) 0.0 x10^3/uL (0.0-0.2) Sodium Level 138 mmol/L (136-145) Potassium Level 4.1 mmol/L (3.5-5.1) Chloride Level 104 mmol/L (98-107) Carbon Dioxide Level 26 mmol/L (21-32) Anion Gap 8 (6-14) Blood Urea Nitrogen 13 mg/dL (7-20) Creatinine 0.8 mg/dL (0.6-1.0) Estimated GFR (Cockcroft-Gault) 71.1 Glucose Level 193 mg/dL (70-99) Calcium Level 8.8 mg/dL (8.5-10.1) Glucose (Fingerstick) 141 mg/dL (70-99) Laboratory Tests Test 03/14/19 11:35 03/14/19 16:44 03/14/19 20:57 03/15/19 03:10 Glucose (Fingerstick) 227 mg/dL (70-99) 216 mg/dL (70-99) 195 mg/dL (70-99) White Blood Count 4.5 x10^3/uL (4.0-11.0) Red Blood Count 3.99 x10^6/uL (3.50-5.40) Hemoglobin 11.6 g/dL (12.0-15.5) Hematocrit 35.0 % (36.0-47.0) Mean Corpuscular Volume 88 fL (79-100) Mean Corpuscular Hemoglobin 29 pg (25-35) Mean Corpuscular Hemoglobin Concent 33 g/dL (31-37) Red Cell Distribution Width 15.5 % (11.5-14.5) Platelet Count 44 x10^3/uL (140-400) Neutrophils (%) (Auto) 45 % (31-73) Lymphocytes (%) (Auto) 38 % (24-48) Monocytes (%) (Auto) 14 % (0-9) Eosinophils (%) (Auto) 3 % (0-3) Basophils (%) (Auto) 1 % (0-3) Neutrophils # (Auto) 2.0 x10^3/uL (1.8-7.7) Lymphocytes # (Auto) 1.7 x10^3/uL (1.0-4.8) Monocytes # (Auto) 0.6 x10^3/uL (0.0-1.1) Eosinophils # (Auto) 0.1 x10^3/uL (0.0-0.7) Basophils # (Auto) 0.0 x10^3/uL (0.0-0.2) Sodium Level 138 mmol/L (136-145) Potassium Level 4.1 mmol/L (3.5-5.1) Chloride Level 104 mmol/L (98-107) Carbon Dioxide Level 26 mmol/L (21-32) Anion Gap 8 (6-14) Blood Urea Nitrogen 13 mg/dL (7-20) Creatinine 0.8 mg/dL (0.6-1.0) Estimated GFR (Cockcroft-Gault) 71.1 Glucose Level 193 mg/dL (70-99) Calcium Level 8.8 mg/dL (8.5-10.1) Test 03/15/19 07:27 Glucose (Fingerstick) 141 mg/dL (70-99) Problem List Problems Medical Problems: (1) Acute gallstone pancreatitis Status: Acute (2) Cholecystitis Status: Acute (3) Thrombocytopenia Status: Acute Assessment/Plan supportive measures for pancreatitis defer RUE imaging to [facility] [place] CHENG MD 03/15/19 1313: SURGICAL PROGRESS NOTE Assessment/Plan pt seen up to chair just finished a regular diet of lunch no new surgical recs f/u in office if released today JOANNA MACDONALD [employer] Mar 15, 2019 10:43 GE[place] CHENG MD Mar 15, 2019 13:13
[2019-03-15 11:00] VITALS: BP 109/69
[2019-03-15] MEDS: DICLOFENAC SODIUM 1% TOPICAL GEL 100GM TUBE. TP SCH (12:04)
[2019-03-15] MEDS: INSULIN GLARGINE 300 UNITS/3 ML INSULN.PEN. SQ SCH (12:10)
--- NOTE | 2019-03-15 13:02 | PDOC ---
PROGRESS NOTES Chief Complaint Chief Complaint Gallstone pancreatitis - not a great candidate for actigall given radiolucent stone presence and pancreatitis at initial presentation. Not a good surgical candidate given her clinical cirrhosis appearance and unremitting thrombocytopenia Thrombocytopenia Leukopenia Pain Diabetes Hypertension Hyperlipidemia Fatty liver History of Present Illness History of Present Illness Seen and examined today, c/o leg cramping, abdominal pain improved. Still with little appetite. Glycemic control has been extremely poor in the 300s and 400s. Advancing diet today. Unfortunately she does have cookies, butter and gravy with mashed potatoes despite low fat diet. Plan: Add lantus 20u QAM Mag oxide for cramps, can trial voltaren. 03/09/19 Patient seen and examined DW RN Reviewed KUB Ordered dilaudid Reviewed chart 03/10/19 patient seen and examined discussed liver test results continue to wait for swelling to reduce 03/11/19 Patient seen and examined Disussed glucose management with RN Patient was sitting up in bed and appears to improve Vitals Vitals Vital Signs Date Time Temp Pulse Resp B/P (MAP) Pulse Ox O2 Delivery O2 Flow Rate FiO2 03/15/19 11:00 98.8 91 18 109/69 (82) 96 Room Air 98.8 03/14/19 08:47 2.0 Physical Exam General: Alert, Oriented X3, Cooperative, No acute distress Heart: Normal S1, Normal S2 Lungs: Clear Abdomen: Soft, No tenderness Extremities: No clubbing, No cyanosis, Normal pulses Skin: No rashes, No breakdown, No significant lesion Labs LABS Laboratory Tests Test 03/14/19 16:44 03/14/19 20:57 03/15/19 03:10 03/15/19 07:27 Glucose (Fingerstick) 216 mg/dL (70-99) 195 mg/dL (70-99) 141 mg/dL (70-99) White Blood Count 4.5 x10^3/uL (4.0-11.0) Red Blood Count 3.99 x10^6/uL (3.50-5.40) Hemoglobin 11.6 g/dL (12.0-15.5) Hematocrit 35.0 % (36.0-47.0) Mean Corpuscular Volume 88 fL (79-100) Mean Corpuscular Hemoglobin 29 pg (25-35) Mean Corpuscular Hemoglobin Concent 33 g/dL (31-37) Red Cell Distribution Width 15.5 % (11.5-14.5) Platelet Count 44 x10^3/uL (140-400) Neutrophils (%) (Auto) 45 % (31-73) Lymphocytes (%) (Auto) 38 % (24-48) Monocytes (%) (Auto) 14 % (0-9) Eosinophils (%) (Auto) 3 % (0-3) Basophils (%) (Auto) 1 % (0-3) Neutrophils # (Auto) 2.0 x10^3/uL (1.8-7.7) Lymphocytes # (Auto) 1.7 x10^3/uL (1.0-4.8) Monocytes # (Auto) 0.6 x10^3/uL (0.0-1.1) Eosinophils # (Auto) 0.1 x10^3/uL (0.0-0.7) Basophils # (Auto) 0.0 x10^3/uL (0.0-0.2) Sodium Level 138 mmol/L (136-145) Potassium Level 4.1 mmol/L (3.5-5.1) Chloride Level 104 mmol/L (98-107) Carbon Dioxide Level 26 mmol/L (21-32) Anion Gap 8 (6-14) Blood Urea Nitrogen 13 mg/dL (7-20) Creatinine 0.8 mg/dL (0.6-1.0) Estimated GFR (Cockcroft-Gault) 71.1 Glucose Level 193 mg/dL (70-99) Calcium Level 8.8 mg/dL (8.5-10.1) Test 03/15/19 11:36 03/15/19 11:38 Glucose (Fingerstick) 360 mg/dL (70-99) 352 mg/dL (70-99) Assessment and Plan Assessmemt and Plan Problems Medical Problems: (1) Acute gallstone pancreatitis Status: Acute (2) Cholecystitis Status: Acute (3) Thrombocytopenia Status: Acute Comment Review of Relevant I have reviewed the following items popeye (where applicable) has been applied. Labs Laboratory Tests Test 03/13/19 16:46 03/13/19 20:57 03/14/19 05:30 03/14/19 07:25 Glucose (Fingerstick) 410 mg/dL (70-99) 413 mg/dL (70-99) 278 mg/dL (70-99) White Blood Count 4.6 x10^3/uL (4.0-11.0) Red Blood Count 4.04 x10^6/uL (3.50-5.70) Hemoglobin 11.8 g/dL (12.0-15.5) Hematocrit 34.8 % (36.0-47.0) Mean Corpuscular Volume 87 fL (79-100) Mean Corpuscular Hemoglobin 29 pg (25-35) Mean Corpuscular Hemoglobin Concent 34 g/dL (31-37) Red Cell Distribution Width 15.0 % (11.5-14.5) Platelet Count 40 x10^3/uL (140-400) Neutrophils (%) (Auto) 49 % (31-73) Lymphocytes (%) (Auto) 35 % (24-48) Monocytes (%) (Auto) 14 % (0-9) Eosinophils (%) (Auto) 2 % (0-3) Basophils (%) (Auto) 1 % (0-3) Neutrophils # (Auto) 2.2 x10^3/uL (1.8-7.7) Lymphocytes # (Auto) 1.6 x10^3/uL (1.0-4.8) Monocytes # (Auto) 0.6 x10^3/uL (0.0-1.1) Eosinophils # (Auto) 0.1 x10^3/uL (0.0-0.7) Basophils # (Auto) 0.0 x10^3/uL (0.0-0.2) Absolute Reticulocyte Count 0.105 x10^6/uL (0.020-0.120) Percent Reticulocyte Count 2.6 % (0.5-2.3) Immature Reticulocyte Fraction 0.34 (0.20-0.60) Sodium Level 138 mmol/L (136-145) Potassium Level 4.2 mmol/L (3.5-5.1) Chloride Level 104 mmol/L (98-107) Carbon Dioxide Level 26 mmol/L (21-32) Anion Gap 8 (6-14) Blood Urea Nitrogen 11 mg/dL (7-20) Creatinine 0.8 mg/dL (0.6-1.0) Estimated GFR (Cockcroft-Gault) 71.1 Glucose Level 245 mg/dL (70-99) Calcium Level 8.8 mg/dL (8.5-10.1) Test 03/14/19 11:35 03/14/19 16:44 03/14/19 20:57 03/15/19 03:10 Glucose (Fingerstick) 227 mg/dL (70-99) 216 mg/dL (70-99) 195 mg/dL (70-99) White Blood Count 4.5 x10^3/uL (4.0-11.0) Red Blood Count 3.99 x10^6/uL (3.50-5.40) Hemoglobin 11.6 g/dL (12.0-15.5) Hematocrit 35.0 % (36.0-47.0) Mean Corpuscular Volume 88 fL (79-100) Mean Corpuscular Hemoglobin 29 pg (25-35) Mean Corpuscular Hemoglobin Concent 33 g/dL (31-37) Red Cell Distribution Width 15.5 % (11.5-14.5) Platelet Count 44 x10^3/uL (140-400) Neutrophils (%) (Auto) 45 % (31-73) Lymphocytes (%) (Auto) 38 % (24-48) Monocytes (%) (Auto) 14 % (0-9) Eosinophils (%) (Auto) 3 % (0-3) Basophils (%) (Auto) 1 % (0-3) Neutrophils # (Auto) 2.0 x10^3/uL (1.8-7.7) Lymphocytes # (Auto) 1.7 x10^3/uL (1.0-4.8) Monocytes # (Auto) 0.6 x10^3/uL (0.0-1.1) Eosinophils # (Auto) 0.1 x10^3/uL (0.0-0.7) Basophils # (Auto) 0.0 x10^3/uL (0.0-0.2) Sodium Level 138 mmol/L (136-145) Potassium Level 4.1 mmol/L (3.5-5.1) Chloride Level 104 mmol/L (98-107) Carbon Dioxide Level 26 mmol/L (21-32) Anion Gap 8 (6-14) Blood Urea Nitrogen 13 mg/dL (7-20) Creatinine 0.8 mg/dL (0.6-1.0) Estimated GFR (Cockcroft-Gault) 71.1 Glucose Level 193 mg/dL (70-99) Calcium Level 8.8 mg/dL (8.5-10.1) Test 03/15/19 07:27 03/15/19 11:36 03/15/19 11:38 Glucose (Fingerstick) 141 mg/dL (70-99) 360 mg/dL (70-99) 352 mg/dL (70-99) Laboratory Tests Test 03/14/19 16:44 03/14/19 20:57 03/15/19 03:10 03/15/19 07:27 Glucose (Fingerstick) 216 mg/dL (70-99) 195 mg/dL (70-99) 141 mg/dL (70-99) White Blood Count 4.5 x10^3/uL (4.0-11.0) Red Blood Count 3.99 x10^6/uL (3.50-5.40) Hemoglobin 11.6 g/dL (12.0-15.5) Hematocrit 35.0 % (36.0-47.0) Mean Corpuscular Volume 88 fL (79-100) Mean Corpuscular Hemoglobin 29 pg (25-35) Mean Corpuscular Hemoglobin Concent 33 g/dL (31-37) Red Cell Distribution Width 15.5 % (11.5-14.5) Platelet Count 44 x10^3/uL (140-400) Neutrophils (%) (Auto) 45 % (31-73) Lymphocytes (%) (Auto) 38 % (24-48) Monocytes (%) (Auto) 14 % (0-9) Eosinophils (%) (Auto) 3 % (0-3) Basophils (%) (Auto) 1 % (0-3) Neutrophils # (Auto) 2.0 x10^3/uL (1.8-7.7) Lymphocytes # (Auto) 1.7 x10^3/uL (1.0-4.8) Monocytes # (Auto) 0.6 x10^3/uL (0.0-1.1) Eosinophils # (Auto) 0.1 x10^3/uL (0.0-0.7) Basophils # (Auto) 0.0 x10^3/uL (0.0-0.2) Sodium Level 138 mmol/L (136-145) Potassium Level 4.1 mmol/L (3.5-5.1) Chloride Level 104 mmol/L (98-107) Carbon Dioxide Level 26 mmol/L (21-32) Anion Gap 8 (6-14) Blood Urea Nitrogen 13 mg/dL (7-20) Creatinine 0.8 mg/dL (0.6-1.0) Estimated GFR (Cockcroft-Gault) 71.1 Glucose Level 193 mg/dL (70-99) Calcium Level 8.8 mg/dL (8.5-10.1) Test 03/15/19 11:36 03/15/19 11:38 Glucose (Fingerstick) 360 mg/dL (70-99) 352 mg/dL (70-99) Microbiology 03/02/19 Urine Culture - Final, Complete 03/02/19 Urine Culture Result 1 (DONNA) - Final, Complete Medications Current Medications Sodium Chloride 1,000 ml @ 1,000 mls/hr 1X ONCE IV Last administered on 03/02/19at 14:15; Start 03/02/19 at 14:00; Stop 03/02/19 at 14:59; Status DC Morphine Sulfate (Morphine Sulfate) 4 mg 1X ONCE IV Last administered on 03/02/19at 14:14; Start 03/02/19 at 14:30; Stop 03/02/19 at 14:31; Status DC Ondansetron HCl (Zofran) 4 mg 1X ONCE IV Last administered on 03/02/19at 14:13; Start 03/02/19 at 14:30; Stop 03/02/19 at 14:31; Status DC Iohexol (Omnipaque 300 Mg/ml) 60 ml 1X ONCE IV Last administered on 03/02/19at 15:24; Start 03/02/19 at 15:45; Stop 03/02/19 at 15:46; Status DC Info (CONTRAST GIVEN -- Rx MONITORING) 1 each PRN DAILY PRN MC SEE COMMENTS; Start 03/02/19 at 15:15; Stop 03/04/19 at 15:14; Status DC Fentanyl Citrate (Fentanyl 2ml Vial) 75 mcg 1X ONCE IV Last administered on 03/02/19at 16:19; Start 03/02/19 at 16:45; Stop 03/02/19 at 16:46; Status DC Piperacillin Sod/ Tazobactam Sod 3.375 gm/Sodium Chloride 50 ml @ 100 mls/hr 1X ONCE IV Last administered on 03/02/19at 16:26; Start 03/02/19 at 17:00; Stop 03/02/19 at 17:29; Status DC Sodium Chloride 1,000 ml @ 1,000 mls/hr 1X ONCE IV Last administered on 03/02/19at 16:31; Start 03/02/19 at 16:30; Stop 03/02/19 at 17:29; Status DC Ondansetron HCl (Zofran) 4 mg PRN Q8HRS PRN IV NAUSEA/VOMITING; Start 03/02/19 at 17:00; Stop 03/02/19 at 19:48; Status DC Fentanyl Citrate (Fentanyl 2ml Vial) 50 mcg PRN Q2HR PRN IV PAIN Last administered on 03/02/19at 20:51; Start 03/02/19 at 17:00; Stop 03/03/19 at 16:59; Status DC Sodium Chloride 1,000 ml @ 100 mls/hr Q10H IV ; Start 03/02/19 at 16:48; Stop 03/03/19 at 16:47; Status Cancel Sodium Chloride (Normal Saline Flush) 3 ml QSHIFT PRN IV AFTER MEDS AND BLOOD DRAWS; Start 03/02/19 at 19:45 Sodium Chloride 1,000 ml @ 100 mls/hr Q10H IV Last administered on 03/06/19at 15:00; Start 03/02/19 at 21:00; Stop 03/08/19 at 13:48; Status DC Ondansetron HCl (Zofran) 4 mg PRN Q4HRS PRN IV NAUSEA/VOMITING, 1st CHOICE Last administered on 03/07/19at 08:25; Start 03/02/19 at 19:45 Acetaminophen (Tylenol) 650 mg PRN Q4HRS PRN PO TEMP OVER 100.4F OR MILD PAIN; Start 03/02/19 at 19:45; Stop 03/09/19 at 09:57; Status DC Clonidine HCl (Catapres) 0.1 mg PRN Q6HRS PRN PO SBP>160 OR DBP>90; Start 03/02/19 at 19:45 Guaifenesin (Robitussin) 200 mg PRN Q4HRS PRN PO COUGH; Start 03/02/19 at 19:45 Lorazepam (Ativan) 0.5 mg PRN Q4HRS PRN PO ANXIETY / AGITATION; Start 03/02/19 at 19:45 Hydromorphone HCl (Dilaudid) 1 mg PRN Q2HRS PRN IV SEVERE PAIN 7-10 Last administered on 03/09/19 10:10; Start 03/02/19 at 19:45 Enoxaparin Sodium (Lovenox 40mg Syringe) 40 mg DAILY SQ Last administered on 03/09/19 09:00; Start 03/03/19 at 09:00 Metoclopramide HCl (Reglan Vial) 10 mg PRN Q6HRS PRN IV NAUSEA/VOMITING, 2nd CHOICE Last administered on 03/04/19 11:25; Start 03/03/19 at 12:00 Pantoprazole Sodium (PROTONIX VIAL for IV PUSH) 40 mg DAILYAC IVP Last administered on 03/09/19 08:23; Start 03/04/19 at 09:30; Stop 03/09/19 at 09:26; Status DC Potassium Chloride/Water 100 ml @ 100 mls/hr Q1H IV Last administered on 03/06/19 16:00; Start 03/06/19 at 13:00; Stop 03/06/19 at 16:59; Status DC Amino Acids/ Glycerin/ Electrolytes 1,000 ml @ 80 mls/hr [id number] IV Last administered on 03/07/19 11:00; Start 03/06/19 at 21:00; Stop 03/08/19 at 21:59; Status DC Magnesium Sulfate 50 ml @ 25 mls/hr 1X ONCE IV Last administered on 03/07/19 08:24; Start 03/07/19 at 08:30; Stop 03/07/19 at 10:29; Status DC Lidocaine/Sodium Bicarbonate (Buffered Lidocaine 1%) 3 ml 1X ONCE INJ Last administered on 03/08/19 09:55; Start 03/08/19 at 09:30; Stop 03/08/19 at 09:34; Status DC Atorvastatin Calcium (Lipitor) 20 mg QHS PO Last administered on 7/29/19at 22:17; Start 03/08/19 at 21:00 Losartan Potassium (Cozaar) 100 mg DAILY PO Last administered on 03/15/19at 08:00; Start 03/09/19 at 09:00 Insulin Human Lispro (HumaLOG) 0-5 UNITS TIDWMEALS SQ Last administered on 03/09/19at 18:01; Start 03/08/19 at 13:00; Stop 03/10/19 at 09:25; Status DC Dextrose (Dextrose 50%-Water Syringe) 12.5 gm PRN Q15MIN PRN IV SEE COMMENTS; Start 03/08/19 at 12:45 Info (Tpn Per Pharmacy) 1 each PRN DAILY PRN MC SEE COMMENTS Last administered on 03/13/19at 11:15; Start 03/08/19 at 13:45; Stop 03/14/19 at 10:17; Status DC Sodium Chloride 90 meq/Potassium Chloride 50 meq/ Potassium Phosphate 13.6 mmol/Magnesium Sulfate 10 meq/ Calcium Gluconate 10 meq/ Multivitamins 10 ml/Ch romium/ Copper/Manganese/ Seleni/Zn 1 ml/ Total Parenteral Nutrition/Amino Acids/Dextrose/ Fat Emulsion Intravenous 1,512 ml @ 63 mls/hr TPN CONT IV Last administered on 03/08/19at 22:22; Start 03/08/19 at 22:00; Stop 03/09/19 at 21:59; Status DC Loperamide HCl (Imodium) 2 mg 1X ONCE PO Last administered on 03/08/19at 21:06; Start 03/08/19 at 19:45; Stop 03/08/19 at 19:46; Status DC Acetaminophen (Tylenol) 650 mg 1X ONCE PO ; Start 03/08/19 at 19:45; Stop 03/08/19 at 19:46; Status DC Hydromorphone HCl (Dilaudid) 1 mg 1X ONCE IVP ; Start 03/08/19 at 19:45; Stop 03/08/19 at 19:46; Status DC Pantoprazole Sodium (Protonix) 40 mg DAILYAC PO Last administered on 03/15/19at 07:59; Start 03/10/19 at 07:30 Sodium Chloride 90 meq/Potassium Chloride 50 meq/ Potassium Phosphate 13.6 mmol/Magnesium Sulfate 12 meq/ Calcium Gluconate 10 meq/ Multivitamins 10 ml/Chromium/ Copper/Manganese/ Seleni/Zn 1 ml/ Total Parenteral Nutrition/Amino Acids/Dextrose/ Fat Emulsion Intravenous 1,512 ml @ 63 mls/hr TPN CONT IV [place] st administered on 03/10/19at 03:21; Start 03/09/19 at 22:00; Stop 03/10/19 at 21:59; Status DC Insulin Human Lispro (HumaLOG) 0-7 UNITS TIDWMEALS SQ Last administered on 03/10/19at 12:32; Start 03/10/19 at 12:00; Stop 03/10/19 at 17:02; Status DC Insulin Human Lispro (HumaLOG) 10 units 1X STAT SQ Last administered on 03/10/19at 09:50; Start 03/10/19 at 09:24; Stop 03/10/19 at 09:29; Status DC Simethicone (Gas-X) 80 mg PRN AFTMEALHC PRN PO GAS / BLOATING; Start 03/10/19 at 09:30 Polyethylene Glycol (miraLAX PACKET) 17 gm DAILY PO Last administered on 03/13/19at 08:40; Start 03/11/19 at 09:00 Polyethylene Glycol (miraLAX PACKET) 17 gm PRN DAILY PRN PO CONSTIPATION; Start 03/10/19 at 09:30 Bisacodyl (Dulcolax Tab) 5 mg 1X ONCE PO Last administered on 03/10/19at 09:48; Start 03/10/19 at 09:30; Stop 03/10/19 at 09:34; Status DC Alteplase, Recombinant (Cathflo For Central Catheter Clearance) 1 mg 1X ONCE INT CAT Last administered on 03/10/19at 10:29; Start 03/10/19 at 10:30; Stop 03/10/19 at 10:31; Status DC Ondansetron HCl (Zofran Odt) 4 mg 1X ONCE PO Last administered on 03/10/19at 10:47; Start 03/10/19 at 10:45; Stop 03/10/19 at 10:46; Status DC Sodium Chloride 90 meq/Potassium Chloride 50 meq/ Potassium Phosphate 13.6 mmol/Magnesium Sulfate 12 meq/ Calcium Gluconate 10 meq/ Multivitamins 10 ml/Chromium/ Copper/Manganese/ Seleni/Zn 1 ml/ Total Parenteral Nutrition/Amino Acids/Dextrose/ Fat Emulsion Intravenous 1,512 ml @ 63 mls/hr TPN CONT IV Last administered on 03/11/19at 06:31; Start 03/10/19 at 22:00; Stop 03/11/19 at 21:59; Status DC Insulin Human Lispro (HumaLOG) 0-9 UNITS TIDWMEALS SQ Last administered on 03/15/19at 12:11; Start 03/10/19 at 17:00 Insulin Human Lispro (HumaLOG) 4 units STAT SQ ; Start 03/10/19 at 17:15; Stop 03/10/19 at 17:32; Status DC Insulin Human Lispro (HumaLOG) 4 units 1X ONCE SQ Last administered on 03/10/19at 17:27; Start 03/10/19 at 17:45; Stop 03/10/19 at 17:46; Status DC Insulin Human Lispro (HumaLOG) 10 units TIDAC SQ Last administered on 03/11/19at 12:50; Start 03/11/19 at 09:40; Stop 03/11/19 at 17:25; Status DC Sodium Chloride 90 meq/Potassium Chloride 50 meq/ Potassium Phosphate 13.6 mmol/Magnesium Sulfate 12 meq/ Calcium Gluconate 10 meq/ Multivitamins 10 ml/Chromium/ Copper/Manganese/ Seleni/Zn 1 ml/ Total Parenteral Nutrition/Amino Acids/Dextrose/ Fat Emulsion Intravenous 1,512 ml @ 63 mls/hr TPN CONT IV Last administered on 03/11/19at 22:00; Start 03/11/19 at 22:00; Stop 03/12/19 at 21:59; Status DC Insulin Glargine (Lantus) 20 units QHS SQ Last administered on 03/11/19at 21:33; Start 03/11/19 at 21:00; Stop 03/12/19 at 08:54; Status DC Insulin Human Lispro (HumaLOG) 6 units 1X ONCE SQ Last administered on 03/11/19at 13:00; Start 03/11/19 at 13:00; Stop 03/11/19 at 13:01; Status DC Insulin Human Lispro (HumaLOG) 15 units TIDAC SQ Last administered on 03/12/19at 16:45; Start 03/11/19 at 17:23; Stop 03/13/19 at 08:44; Status DC Insulin Glargine (Lantus) 20 units BID SQ Last administered on 03/15/19at 12:10; Start 03/12/19 at 09:30 Diclofenac Sodium (Voltaren) 1 idania BID TP Last administered on 03/15/19at 12:04; Start 03/12/19 at 13:00 Magnesium Oxide (Magnesium Oxide) 400 mg DAILY PO Last administered on 03/15/19at 07:59; Start 03/12/19 at 13:00 Sodium Chloride 90 meq/Potassium Chloride 50 meq/ Potassium Phosphate 13.6 mmol/Magnesium Sulfate 12 meq/ Calcium Gluconate 10 meq/ Multivitamins 10 ml/Chromium/ Copper/Manganese/ Seleni/Zn 1 ml/ Total Parenteral Nutrition/Amino Acids/Dextrose/ Fat Emulsion Intravenous 1,512 ml @ 63 mls/hr TPN CONT IV Last administered on 03/12/19at 20:49; Start 03/12/19 at 22:00; Stop 03/13/19 at 21:59; Status DC Insulin Human Lispro (HumaLOG) 20 units TIDAC SQ Last administered on 03/15/19at 12:11; Start 03/13/19 at 11:30 Sodium Chloride 90 meq/Potassium Chloride 50 meq/ Potassium Phosphate 13.6 mmol/Magnesium Sulfate 12 meq/ Calcium Gluconate 10 meq/ Multivitamins 10 ml/Chromium/ Copper/Manganese/ Seleni/Zn 1 ml/ Insulin Human Regular 15 unit/ Total Parenteral Nutrition/Amino Acids/Dextrose/ Fat Emuls... 1,512 ml @ 63 mls/hr TPN CONT IV ; Start 03/13/19 at 22:00; Stop 03/13/19 at 22:00; Status DC Sodium Chloride 90 meq/Potassium Chloride 50 meq/ Potassium Phosphate 13.6 mmol/Magnesium Sulfate 12 meq/ Calcium Gluconate 10 meq/ Multivitamins 10 ml/Chromium/ Copper/Manganese/ Seleni/Zn 1 ml/ Total Parenteral Nutrition/Amino Acids/Dextrose/ Fat Emulsion Intravenous 1,512 ml @ 63 mls/hr TPN CONT IV Last administered on 03/13/19at 22:00; Start 03/13/19 at 22:00; Stop 03/14/19 at 21:59; Status DC Insulin Human Lispro (HumaLOG) 25 units 1X ONCE SQ Last administered on 03/13/19at 22:01; Start 03/13/19 at 22:00; Stop 03/13/19 at 22:03; Status DC Lidocaine/Sodium Bicarbonate (Buffered Lidocaine 1%) 3 ml STK-MED ONCE .ROUTE ; Start 03/14/19 at 07:39; Stop 03/14/19 at 07:40; Status DC Midazolam HCl (Versed) 2 mg STK-MED ONCE .ROUTE ; Start 03/14/19 at 08:05; Stop 03/14/19 at 08:06; Status DC Fentanyl Citrate (Fentanyl 2ml Vial) 100 mcg STK-MED ONCE .ROUTE ; Start 03/14/19 at 08:05; Stop 03/14/19 at 08:06; Status DC Flumazenil (Romazicon) 0.5 mg STK-MED ONCE IV ; Start 03/14/19 at 08:05; Stop 03/14/19 at 08:06; Status DC Naloxone HCl (Narcan) 0.4 mg STK-MED ONCE .ROUTE ; Start 03/14/19 at 08:05; Stop 03/14/19 at 08:06; Status DC Lidocaine/Sodium Bicarbonate (Buffered Lidocaine 1%) 3 ml 1X ONCE IJ Last administered on 03/14/19at 08:39; Start 03/14/19 at 08:15; Stop 03/14/19 at 08:18; Status DC Midazolam HCl (Versed) 2 mg 1X ONCE IV Last administered on 03/14/19at 08:39; Start 03/14/19 at 08:15; Stop 03/14/19 at 08:18; Status DC Fentanyl Citrate (Fentanyl 2ml Vial) 100 mcg 1X ONCE IV Last administered on 03/14/19at 08:39; Start 03/14/19 at 08:15; Stop 03/14/19 at 08:18; Status DC Iohexol (Omnipaque 300 Mg/ml) 75 ml 1X ONCE IV ; Start 03/14/19 at 14:00; Stop 03/14/19 at 14:01; Status DC Info (CONTRAST GIVEN -- Rx MONITORING) 1 each PRN DAILY PRN MC SEE COMMENTS; Start 03/14/19 at 14:00; Stop 03/16/19 at 13:59 Oxycodone/ Acetaminophen (Percocet 5/325) 1 tab PRN Q4HRS PRN PO PAIN Last administered on 03/14/19at 14:42; Start 03/14/19 at 14:45 Active Scripts Active Reported Vitamin D3 (Cholecalciferol (Vitamin D3)) 1,000 Unit Tablet 2,000 Unit PO DAILY Ferrous Sulfate 325 Mg Tablet 325 Mg PO DAILY Atorvastatin Calcium 20 Mg Tablet 20 Mg PO DAILY Glimepiride 2 Mg Tablet 2 Tab PO BID Losartan Potassium 100 Mg Tablet 100 Mg PO DAILY Protonix (Pantoprazole Sodium) 40 Mg Tablet.dr 40 Mg PO DAILYAC Vitals/I & O Vital Sign - Last 24 Hours 03/14/19 03/14/19 03/14/19 03/14/19 14:42 15:00 19:00 20:20 Temp 97.9 98.0 97.9 98.0 Pulse 84 88 Resp 16 16 B/P (MAP) 122/50 (74) 122/86 (98) Pulse Ox 99 94 O2 Delivery Room Air Room Air Room Air Room Air 03/14/19 03/15/19 03/15/19 03/15/19 23:00 03:00 07:00 07:38 Temp 98.4 98.4 98.5 98.4 98.4 98.5 Pulse 75 77 79 Resp 16 16 18 B/P (MAP) 110/54 (72) 133/55 (81) 117/56 (76) Pulse Ox 97 97 96 O2 Delivery Room Air Room Air Room Air Room Air 03/15/19 03/15/19 08:00 11:00 Temp 98.8 98.8 Pulse 79 91 Resp 18 B/P (MAP) 117/56 109/69 (82) Pulse Ox 96 O2 Delivery Room Air Intake and Output 03/14/19 03/14/19 03/15/19 14:59 22:59 06:59 Intake Total 120 ml 240 ml Balance 120 ml 240 ml STEVE JONES MD Mar 15, 2019 13:02
[2019-03-15 15:00] VITALS: BP 146/74
[2019-03-15] MEDS ORDERED: DICL100G18 TP (15:53)
[2019-03-15] MEDS ORDERED: INSU100I13 SQ (15:53)
[2019-03-15] MEDS ORDERED: POLY17PO28 PO (15:53)
[2019-03-15] MEDS ORDERED: TRAM-48 PO (15:53)
--- NOTE | 2019-03-15 15:54 | PDOC ---
G I PROGRESS NOTE Reason for Follow-up Pancreatitis/cirrhosis with ascites/thrombocytopenia Subjective Remains bloated and full Physical Exam Lungs dereased BS CV S1 S2 ABD distended, +BS Review of Relevant I have reviewed the following items popeye (where applicable) has been applied. Labs Laboratory Tests Test 03/13/19 16:46 03/13/19 20:57 03/14/19 05:30 03/14/19 07:25 Glucose (Fingerstick) 410 mg/dL (70-99) 413 mg/dL (70-99) 278 mg/dL (70-99) White Blood Count 4.6 x10^3/uL (4.0-11.0) Red Blood Count 4.04 x10^6/uL (3.50-5.70) Hemoglobin 11.8 g/dL (12.0-15.5) Hematocrit 34.8 % (36.0-47.0) Mean Corpuscular Volume 87 fL (79-100) Mean Corpuscular Hemoglobin 29 pg (25-35) Mean Corpuscular Hemoglobin Concent 34 g/dL (31-37) Red Cell Distribution Width 15.0 % (11.5-14.5) Platelet Count 40 x10^3/uL (140-400) Neutrophils (%) (Auto) 49 % (31-73) Lymphocytes (%) (Auto) 35 % (24-48) Monocytes (%) (Auto) 14 % (0-9) Eosinophils (%) (Auto) 2 % (0-3) Basophils (%) (Auto) 1 % (0-3) Neutrophils # (Auto) 2.2 x10^3/uL (1.8-7.7) Lymphocytes # (Auto) 1.6 x10^3/uL (1.0-4.8) Monocytes # (Auto) 0.6 x10^3/uL (0.0-1.1) Eosinophils # (Auto) 0.1 x10^3/uL (0.0-0.7) Basophils # (Auto) 0.0 x10^3/uL (0.0-0.2) Absolute Reticulocyte Count 0.105 x10^6/uL (0.020-0.120) Percent Reticulocyte Count 2.6 % (0.5-2.3) Immature Reticulocyte Fraction 0.34 (0.20-0.60) Sodium Level 138 mmol/L (136-145) Potassium Level 4.2 mmol/L (3.5-5.1) Chloride Level 104 mmol/L (98-107) Carbon Dioxide Level 26 mmol/L (21-32) Anion Gap 8 (6-14) Blood Urea Nitrogen 11 mg/dL (7-20) Creatinine 0.8 mg/dL (0.6-1.0) Estimated GFR (Cockcroft-Gault) 71.1 Glucose Level 245 mg/dL (70-99) Calcium Level 8.8 mg/dL (8.5-10.1) Test 03/14/19 11:35 03/14/19 16:44 03/14/19 20:57 03/15/19 03:10 Glucose (Fingerstick) 227 mg/dL (70-99) 216 mg/dL (70-99) 195 mg/dL (70-99) White Blood Count 4.5 x10^3/uL (4.0-11.0) Red Blood Count 3.99 x10^6/uL (3.50-5.40) Hemoglobin 11.6 g/dL (12.0-15.5) Hematocrit 35.0 % (36.0-47.0) Mean Corpuscular Volume 88 fL (79-100) Mean Corpuscular Hemoglobin 29 pg (25-35) Mean Corpuscular Hemoglobin Concent 33 g/dL (31-37) Red Cell Distribution Width 15.5 % (11.5-14.5) Platelet Count 44 x10^3/uL (140-400) Neutrophils (%) (Auto) 45 % (31-73) Lymphocytes (%) (Auto) 38 % (24-48) Monocytes (%) (Auto) 14 % (0-9) Eosinophils (%) (Auto) 3 % (0-3) Basophils (%) (Auto) 1 % (0-3) Neutrophils # (Auto) 2.0 x10^3/uL (1.8-7.7) Lymphocytes # (Auto) 1.7 x10^3/uL (1.0-4.8) Monocytes # (Auto) 0.6 x10^3/uL (0.0-1.1) Eosinophils # (Auto) 0.1 x10^3/uL (0.0-0.7) Basophils # (Auto) 0.0 x10^3/uL (0.0-0.2) Sodium Level 138 mmol/L (136-145) Potassium Level 4.1 mmol/L (3.5-5.1) Chloride Level 104 mmol/L (98-107) Carbon Dioxide Level 26 mmol/L (21-32) Anion Gap 8 (6-14) Blood Urea Nitrogen 13 mg/dL (7-20) Creatinine 0.8 mg/dL (0.6-1.0) Estimated GFR (Cockcroft-Gault) 71.1 Glucose Level 193 mg/dL (70-99) Calcium Level 8.8 mg/dL (8.5-10.1) Test 03/15/19 07:27 03/15/19 11:36 03/15/19 11:38 Glucose (Fingerstick) 141 mg/dL (70-99) 360 mg/dL (70-99) 352 mg/dL (70-99) Laboratory Tests Test 03/14/19 16:44 03/14/19 20:57 03/15/19 03:10 03/15/19 07:27 Glucose (Fingerstick) 216 mg/dL (70-99) 195 mg/dL (70-99) 141 mg/dL (70-99) White Blood Count 4.5 x10^3/uL (4.0-11.0) Red Blood Count 3.99 x10^6/uL (3.50-5.40) Hemoglobin 11.6 g/dL (12.0-15.5) Hematocrit 35.0 % (36.0-47.0) Mean Corpuscular Volume 88 fL (79-100) Mean Corpuscular Hemoglobin 29 pg (25-35) Mean Corpuscular Hemoglobin Concent 33 g/dL (31-37) Red Cell Distribution Width 15.5 % (11.5-14.5) Platelet Count 44 x10^3/uL (140-400) Neutrophils (%) (Auto) 45 % (31-73) Lymphocytes (%) (Auto) 38 % (24-48) Monocytes (%) (Auto) 14 % (0-9) Eosinophils (%) (Auto) 3 % (0-3) Basophils (%) (Auto) 1 % (0-3) Neutrophils # (Auto) 2.0 x10^3/uL (1.8-7.7) Lymphocytes # (Auto) 1.7 x10^3/uL (1.0-4.8) Monocytes # (Auto) 0.6 x10^3/uL (0.0-1.1) Eosinophils # (Auto) 0.1 x10^3/uL (0.0-0.7) Basophils # (Auto) 0.0 x10^3/uL (0.0-0.2) Sodium Level 138 mmol/L (136-145) Potassium Level 4.1 mmol/L (3.5-5.1) Chloride Level 104 mmol/L (98-107) Carbon Dioxide Level 26 mmol/L (21-32) Anion Gap 8 (6-14) Blood Urea Nitrogen 13 mg/dL (7-20) Creatinine 0.8 mg/dL (0.6-1.0) Estimated GFR (Cockcroft-Gault) 71.1 Glucose Level 193 mg/dL (70-99) Calcium Level 8.8 mg/dL (8.5-10.1) Test 03/15/19 11:36 03/15/19 11:38 Glucose (Fingerstick) 360 mg/dL (70-99) 352 mg/dL (70-99) Microbiology 03/02/19 Urine Culture - Final, Complete 03/02/19 Urine Culture Result 1 (DONNA) - Final, Complete Medications Current Medications Sodium Chloride 1,000 ml @ 1,000 mls/hr 1X ONCE IV Last administered on 03/02/19at 14:15; Start 03/02/19 at 14:00; Stop 03/02/19 at 14:59; Status DC Morphine Sulfate (Morphine Sulfate) 4 mg 1X ONCE IV Last administered on 03/02/19at 14:14; Start 03/02/19 at 14:30; Stop 03/02/19 at 14:31; Status DC Ondansetron HCl (Zofran) 4 mg 1X ONCE IV Last administered on 03/02/19at 14:13; Start 03/02/19 at 14:30; Stop 03/02/19 at 14:31; Status DC Iohexol (Omnipaque 300 Mg/ml) 60 ml 1X ONCE IV Last administered on 03/02/19at 15:24; Start 03/02/19 at 15:45; Stop 03/02/19 at 15:46; Status DC Info (CONTRAST GIVEN -- Rx MONITORING) 1 each PRN DAILY PRN MC SEE COMMENTS; Start 03/02/19 at 15:15; Stop 03/04/19 at 15:14; Status DC Fentanyl Citrate (Fentanyl 2ml Vial) 75 mcg 1X ONCE IV Last administered on 03/02/19at 16:19; Start 03/02/19 at 16:45; Stop 03/02/19 at 16:46; Status DC Piperacillin Sod/ Tazobactam Sod 3.375 gm/Sodium Chloride 50 ml @ 100 mls/hr 1X ONCE IV Last administered on 03/02/19at 16:26; Start 03/02/19 at 17:00; Stop 03/02/19 at 17:29; Status DC Sodium Chloride 1,000 ml @ 1,000 mls/hr 1X ONCE IV Last administered on 03/02/19at 16:31; Start 03/02/19 at 16:30; Stop 03/02/19 at 17:29; Status DC Ondansetron HCl (Zofran) 4 mg PRN Q8HRS PRN IV NAUSEA/VOMITING; Start 03/02/19 at 17:00; Stop 03/02/19 at 19:48; Status DC Fentanyl Citrate (Fentanyl 2ml Vial) 50 mcg PRN Q2HR PRN IV PAIN Last administered on 03/02/19at 20:51; Start 03/02/19 at 17:00; Stop 03/03/19 at 16:59; Status DC Sodium Chloride 1,000 ml @ 100 mls/hr Q10H IV ; Start 03/02/19 at 16:48; Stop 03/03/19 at 16:47; Status Cancel Sodium Chloride (Normal Saline Flush) 3 ml QSHIFT PRN IV AFTER MEDS AND BLOOD DRAWS; Start 03/02/19 at 19:45 Sodium Chloride 1,000 ml @ 100 mls/hr Q10H IV Last administered on 03/06/19at 15:00; Start 03/02/19 at 21:00; Stop 03/08/19 at 13:48; Status DC Ondansetron HCl (Zofran) 4 mg PRN Q4HRS PRN IV NAUSEA/VOMITING, 1st CHOICE Last administered on 03/07/19 08:25; Start 03/02/19 at 19:45 Acetaminophen (Tylenol) 650 mg PRN Q4HRS PRN PO TEMP OVER 100.4F OR MILD PAIN; Start 03/02/19 at 19:45; Stop 03/09/19 at 09:57; Status DC Clonidine HCl (Catapres) 0.1 mg PRN Q6HRS PRN PO SBP>160 OR DBP>90; Start 03/02/19 at 19:45 Guaifenesin (Robitussin) 200 mg PRN Q4HRS PRN PO COUGH; Start 03/02/19 at 19:45 Lorazepam (Ativan) 0.5 mg PRN Q4HRS PRN PO ANXIETY / AGITATION; Start 03/02/19 at 19:45 Hydromorphone HCl (Dilaudid) 1 mg PRN Q2HRS PRN IV SEVERE PAIN 7-10 Last administered on 03/09/19at 10:10; Start 03/02/19 at 19:45 Enoxaparin Sodium (Lovenox 40mg Syringe) 40 mg DAILY SQ Last administered on 03/09/19 09:00; Start 03/03/19 at 09:00 Metoclopramide HCl (Reglan Vial) 10 mg PRN Q6HRS PRN IV NAUSEA/VOMITING, 2nd CHOICE Last administered on 03/04/19 11:25; Start 03/03/19 at 12:00 Pantoprazole Sodium (PROTONIX VIAL for IV PUSH) 40 mg DAILYAC IVP Last administered on 03/09/19 08:23; Start 03/04/19 at 09:30; Stop 03/09/19 at 09:26; Status DC Potassium Chloride/Water 100 ml @ 100 mls/hr Q1H IV Last administered on 03/06/19 16:00; Start 03/06/19 at 13:00; Stop 03/06/19 at 16:59; Status DC Amino Acids/ Glycerin/ Electrolytes 1,000 ml @ 80 mls/hr [id number] IV Last administered on 03/07/19 11:00; Start 03/06/19 at 21:00; Stop 03/08/19 at 21:59; Status DC Magnesium Sulfate 50 ml @ 25 mls/hr 1X ONCE IV Last administered on 7/22/19at 08:24; Start 03/07/19 at 08:30; Stop 03/07/19 at 10:29; Status DC Lidocaine/Sodium Bicarbonate (Buffered Lidocaine 1%) 3 ml 1X ONCE INJ Last administered on 03/08/19at 09:55; Start 03/08/19 at 09:30; Stop 03/08/19 at 09:34; Status DC Atorvastatin Calcium (Lipitor) 20 mg QHS PO Last administered on 03/14/19 22:17; Start 03/08/19 at 21:00 Losartan Potassium (Cozaar) 100 mg DAILY PO Last administered on 03/15/19 08:00; Start 03/09/19 at 09:00 Insulin Human Lispro (HumaLOG) 0-5 UNITS TIDWMEALS SQ Last administered on 03/09/19 18:01; Start 03/08/19 at 13:00; Stop 03/10/19 at 09:25; Status DC Dextrose (Dextrose 50%-Water Syringe) 12.5 gm PRN Q15MIN PRN IV SEE COMMENTS; Start 03/08/19 at 12:45 Info (Tpn Per Pharmacy) 1 each PRN DAILY PRN MC SEE COMMENTS Last administered on 03/13/19at 11:15; Start 03/08/19 at 13:45; Stop 03/14/19 at 10:17; Status DC Sodium Chloride 90 meq/Potassium Chloride 50 meq/ Potassium Phosphate 13.6 mmol/Magnesium Sulfate 10 meq/ Calcium Gluconate 10 meq/ Multivitamins 10 ml/Ch romium/ Copper/Manganese/ Seleni/Zn 1 ml/ Total Parenteral Nutrition/Amino Acids/Dextrose/ Fat Emulsion Intravenous 1,512 ml @ 63 mls/hr TPN CONT IV Last administered on 03/08/19at 22:22; Start 03/08/19 at 22:00; Stop 03/09/19 at 21:59; Status DC Loperamide HCl (Imodium) 2 mg 1X ONCE PO Last administered on 03/08/19at 21:06; Start 03/08/19 at 19:45; Stop 03/08/19 at 19:46; Status DC Acetaminophen (Tylenol) 650 mg 1X ONCE PO ; Start 03/08/19 at 19:45; Stop 03/08/19 at 19:46; Status DC Hydromorphone HCl (Dilaudid) 1 mg 1X ONCE IVP ; Start 03/08/19 at 19:45; Stop 03/08/19 at 19:46; Status DC Pantoprazole Sodium (Protonix) 40 mg DAILYAC PO Last administered on 03/15/19at 07:59; Start 03/10/19 at 07:30 Sodium Chloride 90 meq/Potassium Chloride 50 meq/ Potassium Phosphate 13.6 mmol/Magnesium Sulfate 12 meq/ Calcium Gluconate 10 meq/ Multivitamins 10 ml/Chromium/ Copper/Manganese/ Seleni/Zn 1 ml/ Total Parenteral Nutrition/Amino Acids/Dextrose/ Fat Emulsion Intravenous 1,512 ml @ 63 mls/hr TPN CONT IV [place] st administered on 03/10/19at 03:21; Start 03/09/19 at 22:00; Stop 03/10/19 at 21:59; Status DC Insulin Human Lispro (HumaLOG) 0-7 UNITS TIDWMEALS SQ Last administered on 03/10/19at 12:32; Start 03/10/19 at 12:00; Stop 03/10/19 at 17:02; Status DC Insulin Human Lispro (HumaLOG) 10 units 1X STAT SQ Last administered on 03/10/19at 09:50; Start 03/10/19 at 09:24; Stop 03/10/19 at 09:29; Status DC Simethicone (Gas-X) 80 mg PRN AFTMEALHC PRN PO GAS / BLOATING; Start 03/10/19 at 09:30 Polyethylene Glycol (miraLAX PACKET) 17 gm DAILY PO Last administered on 03/13/19at 08:40; Start 03/11/19 at 09:00 Polyethylene Glycol (miraLAX PACKET) 17 gm PRN DAILY PRN PO CONSTIPATION; Start 03/10/19 at 09:30 Bisacodyl (Dulcolax Tab) 5 mg 1X ONCE PO Last administered on 03/10/19at 09:48; Start 03/10/19 at 09:30; Stop 03/10/19 at 09:34; Status DC Alteplase, Recombinant (Cathflo For Central Catheter Clearance) 1 mg 1X ONCE INT CAT Last administered on 03/10/19at 10:29; Start 03/10/19 at 10:30; Stop 03/10/19 at 10:31; Status DC Ondansetron HCl (Zofran Odt) 4 mg 1X ONCE PO Last administered on 03/10/19at 10:47; Start 03/10/19 at 10:45; Stop 03/10/19 at 10:46; Status DC Sodium Chloride 90 meq/Potassium Chloride 50 meq/ Potassium Phosphate 13.6 mmol/Magnesium Sulfate 12 meq/ Calcium Gluconate 10 meq/ Multivitamins 10 ml/Chromium/ Copper/Manganese/ Seleni/Zn 1 ml/ Total Parenteral Nutrition/Amino Acids/Dextrose/ Fat Emulsion Intravenous 1,512 ml @ 63 mls/hr TPN CONT IV Last administered on 03/11/19at 06:31; Start 03/10/19 at 22:00; Stop 03/11/19 at 21:59; Status DC Insulin Human Lispro (HumaLOG) 0-9 UNITS TIDWMEALS SQ Last administered on 03/15/19at 12:11; Start 03/10/19 at 17:00 Insulin Human Lispro (HumaLOG) 4 units STAT SQ ; Start 03/10/19 at 17:15; Stop 03/10/19 at 17:32; Status DC Insulin Human Lispro (HumaLOG) 4 units 1X ONCE SQ Last administered on 03/10/19at 17:27; Start 03/10/19 at 17:45; Stop 03/10/19 at 17:46; Status DC Insulin Human Lispro (HumaLOG) 10 units TIDAC SQ Last administered on 03/11/19at 12:50; Start 03/11/19 at 09:40; Stop 03/11/19 at 17:25; Status DC Sodium Chloride 90 meq/Potassium Chloride 50 meq/ Potassium Phosphate 13.6 mmol/Magnesium Sulfate 12 meq/ Calcium Gluconate 10 meq/ Multivitamins 10 ml/Chromium/ Copper/Manganese/ Seleni/Zn 1 ml/ Total Parenteral Nutrition/Amino Acids/Dextrose/ Fat Emulsion Intravenous 1,512 ml @ 63 mls/hr TPN CONT IV Last administered on 03/11/19at 22:00; Start 03/11/19 at 22:00; Stop 03/12/19 at 21:59; Status DC Insulin Glargine (Lantus) 20 units QHS SQ Last administered on 03/11/19at 21:33; Start 03/11/19 at 21:00; Stop 03/12/19 at 08:54; Status DC Insulin Human Lispro (HumaLOG) 6 units 1X ONCE SQ Last administered on 03/11/19at 13:00; Start 03/11/19 at 13:00; Stop 03/11/19 at 13:01; Status DC Insulin Human Lispro (HumaLOG) 15 units TIDAC SQ Last administered on 03/12/19at 16:45; Start 03/11/19 at 17:23; Stop 03/13/19 at 08:44; Status DC Insulin Glargine (Lantus) 20 units BID SQ Last administered on 03/15/19at 12:10; Start 03/12/19 at 09:30 Diclofenac Sodium (Voltaren) 1 idania BID TP Last administered on 03/15/19at 12:04; Start 03/12/19 at 13:00 Magnesium Oxide (Magnesium Oxide) 400 mg DAILY PO Last administered on 03/15/19at 07:59; Start 03/12/19 at 13:00 Sodium Chloride 90 meq/Potassium Chloride 50 meq/ Potassium Phosphate 13.6 mmol/Magnesium Sulfate 12 meq/ Calcium Gluconate 10 meq/ Multivitamins 10 ml/Chromium/ Copper/Manganese/ Seleni/Zn 1 ml/ Total Parenteral Nutrition/Amino Acids/Dextrose/ Fat Emulsion Intravenous 1,512 ml @ 63 mls/hr TPN CONT IV Last administered on 03/12/19at 20:49; Start 03/12/19 at 22:00; Stop 03/13/19 at 21:59; Status DC Insulin Human Lispro (HumaLOG) 20 units TIDAC SQ Last administered on 03/15/19at 12:11; Start 03/13/19 at 11:30 Sodium Chloride 90 meq/Potassium Chloride 50 meq/ Potassium Phosphate 13.6 mmol/Magnesium Sulfate 12 meq/ Calcium Gluconate 10 meq/ Multivitamins 10 ml/Chromium/ Copper/Manganese/ Seleni/Zn 1 ml/ Insulin Human Regular 15 unit/ Total Parenteral Nutrition/Amino Acids/Dextrose/ Fat Emuls... 1,512 ml @ 63 mls/hr TPN CONT IV ; Start 03/13/19 at 22:00; Stop 03/13/19 at 22:00; Status DC Sodium Chloride 90 meq/Potassium Chloride 50 meq/ Potassium Phosphate 13.6 mmol/Magnesium Sulfate 12 meq/ Calcium Gluconate 10 meq/ Multivitamins 10 ml/Chromium/ Copper/Manganese/ Seleni/Zn 1 ml/ Total Parenteral Nutrition/Amino Acids/Dextrose/ Fat Emulsion Intravenous 1,512 ml @ 63 mls/hr TPN CONT IV Last administered on 03/13/19at 22:00; Start 03/13/19 at 22:00; Stop 03/14/19 at 21:59; Status DC Insulin Human Lispro (HumaLOG) 25 units 1X ONCE SQ Last administered on 03/13/19at 22:01; Start 03/13/19 at 22:00; Stop 03/13/19 at 22:03; Status DC Lidocaine/Sodium Bicarbonate (Buffered Lidocaine 1%) 3 ml STK-MED ONCE .ROUTE ; Start 03/14/19 at 07:39; Stop 03/14/19 at 07:40; Status DC Midazolam HCl (Versed) 2 mg STK-MED ONCE .ROUTE ; Start 03/14/19 at 08:05; Stop 03/14/19 at 08:06; Status DC Fentanyl Citrate (Fentanyl 2ml Vial) 100 mcg STK-MED ONCE .ROUTE ; Start 03/14/19 at 08:05; Stop 03/14/19 at 08:06; Status DC Flumazenil (Romazicon) 0.5 mg STK-MED ONCE IV ; Start 03/14/19 at 08:05; Stop 03/14/19 at 08:06; Status DC Naloxone HCl (Narcan) 0.4 mg STK-MED ONCE .ROUTE ; Start 03/14/19 at 08:05; Stop 03/14/19 at 08:06; Status DC Lidocaine/Sodium Bicarbonate (Buffered Lidocaine 1%) 3 ml 1X ONCE IJ Last administered on 03/14/19at 08:39; Start 03/14/19 at 08:15; Stop 03/14/19 at 08:18; Status DC Midazolam HCl (Versed) 2 mg 1X ONCE IV Last administered on 03/14/19at 08:39; Start 03/14/19 at 08:15; Stop 03/14/19 at 08:18; Status DC Fentanyl Citrate (Fentanyl 2ml Vial) 100 mcg 1X ONCE IV Last administered on 03/14/19at 08:39; Start 03/14/19 at 08:15; Stop 03/14/19 at 08:18; Status DC Iohexol (Omnipaque 300 Mg/ml) 75 ml 1X ONCE IV ; Start 03/14/19 at 14:00; Stop 03/14/19 at 14:01; Status DC Info (CONTRAST GIVEN -- Rx MONITORING) 1 each PRN DAILY PRN MC SEE COMMENTS; Start 03/14/19 at 14:00; Stop 03/16/19 at 13:59 Oxycodone/ Acetaminophen (Percocet 5/325) 1 tab PRN Q4HRS PRN PO PAIN Last administered on 03/14/19at 14:42; Start 03/14/19 at 14:45 Active Scripts Active Reported Vitamin D3 (Cholecalciferol (Vitamin D3)) 1,000 Unit Tablet 2,000 Unit PO DAILY Ferrous Sulfate 325 Mg Tablet 325 Mg PO DAILY Atorvastatin Calcium 20 Mg Tablet 20 Mg PO DAILY Glimepiride 2 Mg Tablet 2 Tab PO BID Losartan Potassium 100 Mg Tablet 100 Mg PO DAILY Protonix (Pantoprazole Sodium) 40 Mg Tablet.dr 40 Mg PO DAILYAC Vitals/I & O Vital Sign - Last 24 Hours 03/14/19 03/14/19 03/14/19 03/15/19 19:00 20:20 23:00 03:00 Temp 98.0 98.4 98.4 98.0 98.4 98.4 Pulse 88 75 77 Resp 16 16 16 B/P (MAP) 122/86 (98) 110/54 (72) 133/55 (81) Pulse Ox 94 97 97 O2 Delivery Room Air Room Air Room Air Room Air 03/15/19 03/15/19 03/15/19 03/15/19 07:00 07:38 08:00 11:00 Temp 98.5 98.8 98.5 98.8 Pulse 79 79 91 Resp 18 18 B/P (MAP) 117/56 (76) 117/56 109/69 (82) Pulse Ox 96 96 O2 Delivery Room Air Room Air Room Air Intake and Output 03/14/19 03/14/19 03/15/19 14:59 22:59 06:59 Intake Total 120 ml 240 ml Balance 120 ml 240 ml Problem List Problems Medical Problems: (1) Acute gallstone pancreatitis Status: Acute (2) Cholecystitis Status: Acute (3) Thrombocytopenia Status: Acute Assessment Cirrhosis-with ascites,thrombocytopenia, paracentesis would be helpful to assess source of ascites- pancreatic versus liver, decreased plt counts woudl require platelet transfusions prior to intervention, can be coordinated with hematology as o/p as she is being discharged today, trail of aldactone 100 mg daily is also recommended for management of the ascites ERIKA DIEHL MD Mar 15, 2019 15:54
--- NOTE | 2019-03-15 15:55 | SNU/HH DC ---
DISCHARGE WITH HOME HEALTH DISCHARGE INFORMATION: Discharge Date: Mar 15, 2019 Final Diagnosis: Problems Medical Problems: (1) Acute gallstone pancreatitis Status: Acute (2) Cholecystitis Status: Acute (3) Thrombocytopenia Status: Acute Condition on Discharge: Stable CODE STATUS: Code Status: Full HOME HEALTH: Face to Face: I certify this patient is under my care and that I, or a nurse practitioner or physician's recruitment assistant working with me, had a face to face encounter that meets the physician face to face encounter requirements with this patient on 03/15 Medical Complications: DM, Other (pancreatiits) Usp For: Assess/Skilled Observatio, Pain Management RN For Eval/Treatment: Yes Physical Therapy For: Evalulation/Treatment Pt Meets Homebound Status: Unsteady balance w/ amb,, Extreme weakness w/ amb., Limited distance walking POST DISCHARGE ORDERS: DIET AFTER DISCHARGE: ADA FOLLOW-UP: Follow up with: primary care Follow Up With: GI doctors here or a liver specialist TREATMENT/EQUIPMENT ORDERS: Adaptive Equipment Issued: None CERTIFICATION STATEMENT: Certification Statement: Certification Statement: Based on the above finding, I certify that this patient is confined to the home and needs intermittent [facility] care, physical therapy and/or speech therapy, or continues to need occupational therapy.~ This patient is under my care, and I have initiated the establishment of the plan of care.~ This patient will be followed by myself or a community physician who will periodically review the plan of care. Home Meds Active Scripts Tramadol Hcl (ULTRAM) 50 Mg Tablet, 50 MG PO Q4HRS PRN for PAIN, #35 TAB 0 Refills Prov:STEVE JONES MD 03/15/19 Insulin Glargine,Hum.rec.anlog (LANTUS SOLOSTAR) 100 Unit/1 Ml Insuln.pen, 40 UNITS SQ DAILY for diabetes for 30 Days, EACH 1 Refill Prov:STEVE JONES MD 03/15/19 Polyethylene Glycol 3350 (POLYETHYLENE GLYCOL 3350) 17 Gm Powd.pack, 17 GM PO DAILY for constipation, #30 PKT Prov:STEVE JONES MD 03/15/19 Diclofenac Sodium (VOLTAREN) 100 Gm Gel..gram., 1 RAYMON TP BID for pain for 14 Days, #28 EACH Prov:STEVE JONES MD 03/15/19 Reported Medications Cholecalciferol (Vitamin D3) (VITAMIN D3) 1,000 Unit Tablet, 2000 UNIT PO DAILY for vitamin supplement, TAB 03/03/19 Ferrous Sulfate (FERROUS SULFATE) 325 Mg Tablet, 325 MG PO DAILY for anemia, TAB 03/03/19 Atorvastatin Calcium (ATORVASTATIN CALCIUM) 20 Mg Tablet, 20 MG PO DAILY for FOR CHOLESTEROL, #30 TAB 0 Refills 03/03/19 Glimepiride (GLIMEPIRIDE) 2 Mg Tablet, 2 TAB PO BID for diabetic, #90 TAB 1 Refill 03/03/19 Losartan Potassium (LOSARTAN POTASSIUM) 100 Mg Tablet, 100 MG PO DAILY for HYPERTENSION, TAB 03/03/19 Pantoprazole Sodium (PROTONIX ) 40 Mg Tablet., 40 MG PO DAILYAC for GERD, TAB 03/03/19 STEVE JONES MD Mar 15, 2019 15:55
--- NOTE | 2019-03-15 16:13 | NUR ---
SS following up with discharge planning. Discharge orders received for home healthcare. SS phoned and faxed discharge orders and referral to [facility], ; fax [phone]. Pt's RN notified.
--- NOTE | 2019-03-15 19:35 | NUR ---
Pt discharged home with home health. Discharge orders faxed to home [facility]. PICC removed without complications. Discharge instructions and prescriptions discussed. Pt daughter verbalized understanding. Pt assisted to wheelchair and was taken to main entrance and was secured in car with family.
== END 2019-03-15 18:24 | disposition home health service (06) | DRG 444 ==
LOC: ER 12:33 → 4 NORTH 16:32
PROVIDERS: ADMIT Family Medicine; ATTEND Family Medicine
PROC: 02HV33Z Insertion of Infusion Device into Superior Vena Cava, Percutaneous Approach (ICD-10-PCS; principal; 2019-03-08)
PROC: B5181ZA Fluoroscopy of Superior Vena Cava using Low Osmolar Contrast, Guidance (ICD-10-PCS; 2019-03-08)
PROC: B548ZZA Ultrasonography of Superior Vena Cava, Guidance (ICD-10-PCS; 2019-03-08)
PROC: 07DR3ZX Extraction of Iliac Bone Marrow, Percutaneous Approach, Diagnostic (ICD-10-PCS; 2019-03-14)
DX: K80.00 Calculus of gallbladder with acute cholecystitis without obstruction (principal); K85.10 Biliary acute pancreatitis without necrosis or infection; R18.8 Other ascites; N39.0 Urinary tract infection, site not specified; K76.6 Portal hypertension; K56.7 Ileus, unspecified; K74.60 Unspecified cirrhosis of liver; K75.81 Nonalcoholic steatohepatitis (NASH); D72.819 Decreased white blood cell count, unspecified; D69.59 Other secondary thrombocytopenia; E11.9 Type 2 diabetes mellitus without complications; E78.00 Pure hypercholesterolemia, unspecified; E78.5 Hyperlipidemia, unspecified; E87.6 Hypokalemia; I10 Essential (primary) hypertension; K21.9 Gastro-esophageal reflux disease without esophagitis; Z83.3 Family history of diabetes mellitus; Z88.8 Allergy status to other drugs, medicaments and biological substances
CPT/HCPCS: 36415; 36569; 38222; 74018; 74022; 74177; 76705; 76937; 77001; 77012; 80048; 80053; 81001; 82962; 83690; 83735; 84100; 84478; 85025; 85027; 85045; 85610; 85730; 87086; 88184; 88185; 88237; 96361; 96365; 96375; 99152; C1751; C1892; C9113; J0610; J1170; J1650; J1815; J2250; J2270; J2405; J2543; J2765; J3010; J3475; J3480; J7030; Q0162; Q9967; 97110; 97116; 97530; 97535; 99285-25

== ENCOUNTER 2019-09-14 08:58 | Emergency (ER) | payer MEDICARE, OTHER ==
[~2019-09-14] VITALS: Ht 162.6 cm; Wt 86.0 kg
[~2019-09-14 08:58] MED LIST changes: +ATOR20TA58 PO; +CHOL10003 PO; +DICL100G18 TP; +FERR325T14 PO; +GLIM2TAB7 PO; +INSU100I13 SQ; +LOSA100T14 PO; +PANT40TA77 PO; +POLY17PO28 PO; -REGADENOSON 0.4 MG/5 ML DISP.SYRIN. IV ONE; +TRAM-48 PO
[2019-09-14] MEDS ORDERED: IV NORMAL SALINE 1000ML BAG 1,000 ML IV SCH (10:35)
--- NOTE | 2019-09-14 10:41 | PHYS DOC ---
Past Medical History Past Medical History: Diabetes-Type II, High Cholesterol, Hypertension, Other Additional Past Medical Histor: FATTY LIVER Past Surgical History: No Surgical History Alcohol Use: None Drug Use: None Adult General Chief Complaint Chief Complaint: ABDOMINAL PAIN HPI HPI Patient is a 69-year-old female, with a past history of diabetes, fatty liver disease/mass, prior episode of gallstone pancreatitis, and other health problems, who presents to the emergency department for evaluation. She states that earlier this morning she developed some generalized lower abdominal pain, and 4 episodes of loose, nonbloody stool, along with a few episodes of emesis. She denies any chest pain or shortness of breath, dizziness or lightheadedness. There are no alleviating or exacerbating factors to her symptoms. She denies any recent travel. Review of Systems Review of Systems Constitutional: Denies fever or chills [] Eyes: Denies change in visual acuity, redness, or eye pain [] HENT: Denies nasal congestion or sore throat [] Respiratory: Denies cough or shortness of breath [] Cardiovascular: The patient denies any shortness of breath, chest pain, palpitations, or orthopnea [] GI: No additional information not addressed in HPI [] : Denies dysuria or hematuria [] Musculoskeletal: Denies back pain or joint pain [] Integument: Denies rash or skin lesions [] Neurologic: Denies headache, focal weakness or sensory changes [] Endocrine: Denies polyuria or polydipsia [] All other systems were reviewed and found to be within normal limits, except as documented in this note. Current Medications Current Medications Current Medications Medications (Trade) Dose Ordered Sig/[facility] Start Time Stop Time Status Last Admin Dose Admin Ceftriaxone Sodium (Rocephin) 1 gm 1X ONCE 09/14/19 15:15 09/14/19 15:16 DC 09/14/19 15:33 1 GM Info (CONTRAST GIVEN -- Rx MONITORING) 1 each PRN DAILY PRN 09/14/19 12:30 09/16/19 12:29 Iohexol (Omnipaque 300 Mg/ml) 60 ml 1X ONCE 09/14/19 12:30 09/14/19 12:31 DC 09/14/19 12:30 60 ML Morphine Sulfate (Morphine Sulfate) 4 mg PRN Q15MIN PRN 09/14/19 10:45 09/15/19 10:44 09/14/19 11:57 4 MG Ondansetron HCl (Zofran) 4 mg 1X ONCE 09/14/19 11:15 09/14/19 11:16 DC 09/14/19 11:58 4 MG Sodium Chloride 1,000 ml @ 1,000 mls/hr Q1H 09/14/19 10:35 09/14/19 11:34 DC 09/14/19 11:57 1,000 MLS/HR Allergies Allergies Allergies Coded Allergies Type Severity Reaction Last Updated Verified acetaminophen Allergy Intermediate Patient has cirrhosis 03/15/19 Yes Physical Exam Physical Exam PHYSICAL EXAM: CONSTITUTIONAL: Well developed, well nourished HEAD: normocephalic, atraumatic EENT: PERRL, EOMI. Conjunctivae normal color, sclerae non-icteric; moist mucous membranes. NECK: Supple, non-tender; no meningismus. LUNGS: Lungs CTA, breathing even and unlabored. Normal air movement. HEART: Regular rate and rhythm, no murmur CHEST: No deformity; non-tender ABDOMEN: The abdomen is soft, mildly distended, with normal bowel sounds, without any rebound or guarding, there is diffuse tenderness to palpation in the mid to lower abdomen, the upper abdomen is relatively non-tender, no masses or bruits. EXTREM: Normal ROM; no deformity, no calf tenderness. Normal pulses palpable in all extremities. There is no pedal edema. SKIN: No rash; no diaphoresis NEURO: Alert; normal speech and cognition; CN's grossly intact; strength grossly intact without focal deficit. BACK: No CVA TTP. Current Patient Data Vital Signs Vital Signs Date Time Temp Pulse Resp B/P (MAP) Pulse Ox O2 Delivery O2 Flow Rate FiO2 09/14/19 15:12 108 18 125/58 (80) 96 Room Air 09/14/19 11:50 100.0 100.0 Lab Values Laboratory Tests Test 09/14/19 11:52 09/14/19 13:10 White Blood Count 11.3 x10^3/uL (4.0-11.0) H Red Blood Count 4.56 x10^6/uL (3.50-5.40) Hemoglobin 11.5 g/dL (12.0-15.5) L Hematocrit 36.1 % (36.0-47.0) Mean Corpuscular Volume 79 fL (79-100) Mean Corpuscular Hemoglobin 25 pg (25-35) Mean Corpuscular Hemoglobin Concent 32 g/dL (31-37) Red Cell Distribution Width 15.2 % (11.5-14.5) H Platelet Count 62 x10^3/uL (140-400) L Neutrophils (%) (Auto) 86 % (31-73) H Lymphocytes (%) (Auto) 6 % (24-48) L Monocytes (%) (Auto) 7 % (0-9) Eosinophils (%) (Auto) 0 % (0-3) Basophils (%) (Auto) 0 % (0-3) Neutrophils # (Auto) 9.7 x10^3/uL (1.8-7.7) H Lymphocytes # (Auto) 0.7 x10^3/uL (1.0-4.8) L Monocytes # (Auto) 0.8 x10^3/uL (0.0-1.1) Eosinophils # (Auto) 0.0 x10^3/uL (0.0-0.7) Basophils # (Auto) 0.0 x10^3/uL (0.0-0.2) Segmented Neutrophils % 75 % (35-66) H Band Neutrophils % 12 % (0-9) H Lymphocytes % 6 % (24-48) L Monocytes % 5 % (0-10) Eosinophils % 1 % (0-5) Metamyelocytes % 1 % (0-0) H Platelet Estimate Decreased (ADEQUATE) Sodium Level 143 mmol/L (136-145) Potassium Level 4.1 mmol/L (3.5-5.1) Chloride Level 107 mmol/L (98-107) Carbon Dioxide Level 23 mmol/L (21-32) Anion Gap 13 (6-14) Blood Urea Nitrogen 13 mg/dL (7-20) Creatinine 1.1 mg/dL (0.6-1.0) H Estimated GFR (Cockcroft-Gault) 49.2 BUN/Creatinine Ratio 12 (6-20) Glucose Level 216 mg/dL (70-99) H Lactic Acid Level 2.7 mmol/L (0.4-2.0) H Calcium Level 9.2 mg/dL (8.5-10.1) Total Bilirubin 1.0 mg/dL (0.2-1.0) Aspartate Amino Transferase (AST) 60 U/L (15-37) H Alanine Aminotransferase (ALT) 51 U/L (14-59) Alkaline Phosphatase 134 U/L (46-116) H Troponin I Quantitative 0.024 ng/mL (0.000-0.055) Total Protein 7.0 g/dL (6.4-8.2) Albumin 3.1 g/dL (3.4-5.0) L Albumin/Globulin Ratio 0.8 (1.0-1.7) L Lipase 243 U/L (73-393) Urine Collection Type Unknown Urine Color Yellow Urine Clarity Hazy Urine pH 6.0 Urine Specific [place] <=1.005 Urine Protein Negative mg/dL (NEG-TRACE) Urine Glucose (UA) Negative mg/dL (NEG) Urine Ketones (Stick) 15 mg/dL (NEG) Urine Blood Moderate (NEG) Urine Nitrite Positive (NEG) Urine Bilirubin Negative (NEG) Urine Urobilinogen Dipstick 0.2 mg/dL (0.2 mg/dL) Urine Leukocyte Esterase Large (NEG) Urine RBC 3-5 /HPF (0-2) Urine WBC 11-20 /HPF (0-4) Urine Squamous Epithelial Cells Many /LPF Urine Bacteria Many /HPF (0-FEW) Urine Mucus Mod /LPF Laboratory Tests 09/14/19 11:52 Laboratory Tests 09/14/19 11:52 EKG EKG []Normal sinus rhythm at a rate of 115 beats for minute, normal axis, right bundle-branch block with otherwise normal intervals, there are no acute ischemic ST/T changes present, or old EKGs available for comparison. Radiology/Procedures Radiology/Procedures PROCEDURE: CT ABD PELV W/ IV CONTRST ONLY Examination: CT ABD PELV W/ IV CONTRST ONLY History: Abdominal pain, nausea vomiting, diarrhea Comparison/Correlation: 03/14/2019 CT abdomen and pelvis with contrast Findings: Axial images of the abdomen and pelvis were obtained following IV contrast. Sagittal and coronal reformatted images were provided. Coronary arterial calcification is evident. Subtle nodular contour of the liver is present. Small amount of perihepatic ascites is present fluid extends into the right flank region and right iliac fossa. Spleen is at the upper limits of normal. Pancreas, and adrenal glands are normal. Punctate calcific density within the gallbladder noted. Mild gallbladder distention noted. Right renal upper pole calyceal calculus measuring 0.8 cm diameter is present. Additional right upper pole calyceal calculus measuring 0.7 cm diameter is present. At the inferior pole of the right kidney, there is a 0.45 cm diameter calyceal calculus. Left renal upper pole calyceal calculus measuring 0.8 cm diameter is present bilaterally. No hydronephrosis. No hydroureter. Circumferential wall thickening and edema of the ascending colon is notable. Appendix is not identified. There is no bowel obstruction. Moderate quantity of stool in the colon is present. Urinary bladder is unremarkable. Uterus is unremarkable. Moderate L5-S1 disc space narrowing is present. Neural foraminal narrowing is notable at this level bilaterally. Impression: Ascending colitis. Associated ascites. No loculated collection identified. Cholelithiasis. Bilateral nonobstructive renal calculi. Subtle nodular contour of the liver which raises question of early cirrhosis. Significant L5-S1 neural foraminal narrowing bilaterally. [] Course & Med Decision Making Course & Med Decision Making Pertinent Labs and Imaging studies reviewed. (See chart for details) [] 3:20 PM: The patient's condition remains stable. I discussed test results in detail with the patient and her family, the need for close GI follow-up for further outpatient evaluation, and return precautions in detail. Dragon Disclaimer Dragon Disclaimer This electronic medical record was generated, in whole or in part, using a voice recognition dictation system. Departure Departure Impression: Primary Impression: Colitis Additional Impression: Urinary tract infection Disposition: 01 HOME, SELF-CARE Condition: STABLE Referrals: UNKNOWN PCP NAME (PCP) MOISE CONNER MD Patient Instructions: Colitis, Urinary Tract Infection Additional Instructions: Return to medical care for any new or worsening symptoms, development of increasing pain, vomiting, fever, dizziness, lightheadedness, or any other new, or concerning symptoms. Further outpatient follow-up with gastroenterology is warranted. Please use the phone number provided Schedule follow-up appointment. Scripts Ondansetron (ONDANSETRON ODT) 4 Mg Tab.rapdis 1 TAB PO PRN Q6-8HRS, #15 TAB Prov: ALDA KNIGHT MD 09/14/19 Metronidazole (FLAGYL) 500 Mg Tablet 1 TAB PO BID, #14 TAB Prov: ALDA KNIGHT MD 09/14/19 Ciprofloxacin Hcl (CIPRO) 500 Mg Tablet 1 TAB PO BID, #14 TAB Prov: ALDA KNIGHT MD 09/14/19 Problem Qualifiers ALDA KNIGHT MD Sep 14, 2019 10:41
[2019-09-14] MEDS ORDERED: MORPHINE SULFATE 4 MG/ML VIAL. IV/SQ PRN (10:45)
[2019-09-14] MEDS ORDERED: ONDANSETRON PF 4 MG/2 ML VIAL. IV ONE (11:15)
[2019-09-14 12:03] LABS: BASO % 0 % (0-3); EOS % 0 % (0-3); HEMATOCRIT 36.1 % (36.0-47.0); HEMOGLOBIN 11.5 g/dL (12.0-15.5); LYMPH # 0.7 x10^3/uL (1.0-4.8); LYMPH % 6 % (24-48); MEAN CORPUSCULAR HEMOGLOBIN 25 pg (25-35); MEAN CORPUSCULAR HGB CONC 32 g/dL (31-37); MEAN CORPUSCULAR VOLUME 79 fL (79-100); MONO # 0.8 x10^3/uL (0.0-1.1); MONO % 7 % (0-9); NEUT # 9.7 x10^3/uL (1.8-7.7); NEUT % 86 % (31-73); PLATELET COUNT 62 x10^3/uL (140-400); RED BLOOD COUNT 4.56 x10^6/uL (3.50-5.40); RED CELL DISTRIBUTION WIDTH 15.2 % (11.5-14.5); WHITE BLOOD COUNT 11.3 x10^3/uL (4.0-11.0)
[2019-09-14 12:14] LABS: CALCIUM 9.2 mg/dL (8.5-10.1); CREATININE 1.1 mg/dL (0.6-1.0); GFR 49.2; POTASSIUM 4.1 mmol/L (3.5-5.1)
[2019-09-14 12:20] LABS: ALBUMIN 3.1 g/dL (3.4-5.0); ALBUMIN/GLOBULIN RATIO 0.8 (1.0-1.7)
[2019-09-14] MEDS ORDERED: CONTRAST GIVEN. MC PRN (12:30)
[2019-09-14] MEDS ORDERED: IOHEXOL 300 MG/ML 100ML VIAL. IV ONE (12:30)
--- NOTE | 2019-09-14 12:34 | EKG ---
[facility] [address] [place] [id number] Test Date: 2019-09-14 Test Time: 11:44:42 Pat Name: JUAN LANE Department: Room: Gender: F Outpatient Dietitian: : 1950 Requested By: ALDA KNIGHT Order Number: [id number] Reading MD: Measurements Intervals [place] Rate: 115 P: -21 MD: 134 QRS: 62 QRSD: 126 T: 11 QT: 356 QTc: 494 Interpretive Statements SINUS TACHYCARDIA NON SPECIFIC INTRAVENTRICULAR BLOCK RVH WITH REPOLARIZATION ABNORMALITY QRS(T) CONTOUR ABNORMALITY CONSIDER ANTEROSEPTAL MYOCARDIAL DAMAGE ABNORMAL ECG RI6.01 No previous ECG available for comparison
--- NOTE | 2019-09-14 13:21 | RAD ---
Examination: CT ABD PELV W/ IV CONTRST ONLY History: Abdominal pain, nausea vomiting, diarrhea Comparison/Correlation: 03/14/2019 CT abdomen and pelvis with contrast Findings: Axial images of the abdomen and pelvis were obtained following IV contrast. Sagittal and coronal reformatted images were provided. Coronary arterial calcification is evident. Subtle nodular contour of the liver is present. Small amount of perihepatic ascites is present fluid extends into the right flank region and right iliac fossa. Spleen is at the upper limits of normal. Pancreas, and adrenal glands are normal. Punctate calcific density within the gallbladder noted. Mild gallbladder distention noted. Right renal upper pole calyceal calculus measuring 0.8 cm diameter is present. Additional right upper pole calyceal calculus measuring 0.7 cm diameter is present. At the inferior pole of the right kidney, there is a 0.45 cm diameter calyceal calculus. Left renal upper pole calyceal calculus measuring 0.8 cm diameter is present bilaterally. No hydronephrosis. No hydroureter. Circumferential wall thickening and edema of the ascending colon is notable. Appendix is not identified. There is no bowel obstruction. Moderate quantity of stool in the colon is present. Urinary bladder is unremarkable. Uterus is unremarkable. Moderate L5-S1 disc space narrowing is present. Neural foraminal narrowing is notable at this level bilaterally. Impression: Ascending colitis. Associated ascites. No loculated collection identified. Cholelithiasis. Bilateral nonobstructive renal calculi. Subtle nodular contour of the liver which raises question of early cirrhosis. Significant L5-S1 neural foraminal narrowing bilaterally. PQRS Compliance Statement: One or more of the following individualized dose reduction techniques were utilized for this examination: 1. Automated exposure control 2. Adjustment of the mA and/or kV according to patient size 3. Use of iterative reconstruction technique Electronically signed by: Navi Salgado MD (09/14/2019 1:19 PM) [facility]
[2019-09-14 13:27] LABS: % BANDS 12 % (0-9); % EOS 1 % (0-5); % LYMPHS 6 % (24-48); % METAS 1 % (0-0); % MONOS 5 % (0-10); % SEGS 75 % (35-66)
[2019-09-14 13:29] LABS: PLT ESTIMATE DECREASED (ADEQUATE)
[2019-09-14 14:12] LABS: CLARITY,URINE HAZY; COLOR,URINE YELLOW
[2019-09-14 14:15] LABS: BACTERIA,URINE MANY /HPF (0-FEW); BILIRUBIN,URINE NEGATIVE (NEG); NITRITE,URINE POSITIVE (NEG); PROTEIN,URINE NEGATIVE (NEG-TRACE); SQUAMOUS EPITHELIAL CELL,UR MANY /LPF; UROBILINOGEN,URINE 0.2 mg/dL (0.2 mg/dL)
[2019-09-14] MEDS ORDERED: cefTRIAXone IV Push 1 GM VIAL. IVP ONE (15:15)
[2019-09-14] MEDS ORDERED: CIPR500T94 PO (15:24)
[2019-09-14] MEDS ORDERED: ONDA4TAB12 PO (15:24)
[2019-09-14] MEDS ORDERED: METR500T PO (15:24)
[2019-09-14 15:42] VITALS: BP 120/57
--- NOTE | 2019-09-19 14:25 | NUR ---
left v/m reguarding lab results. -jr
== END 2019-09-14 15:45 | disposition home or self-care (01) ==
LOC: ER 08:58
DX: K52.9 Noninfective gastroenteritis and colitis, unspecified (principal); N39.0 Urinary tract infection, site not specified; E78.00 Pure hypercholesterolemia, unspecified; I10 Essential (primary) hypertension; E11.9 Type 2 diabetes mellitus without complications; Z88.6 Allergy status to analgesic agent
CPT/HCPCS: 36415; 74177; 80053; 81001; 83605; 83690; 84484; 85007; 85025; 87086; 87186; 93005; 96361; 96374; 96375; 99285; J0696; J2270; J2405; J7030; Q9967

== ENCOUNTER → 2020-07-10 | Outpatient (CLI) | payer OTHER ==
[~2020-07-10] MED LIST changes: +CIPR500T94 PO; -DICL100G18 TP; +DICL100G54 TP; +METR500T PO; +ONDA4TAB12 PO
--- NOTE | 2020-07-10 11:52 | RAD ---
Transabdominal abdominal ultrasound and transabdominal pelvic ultrasound without comparison for pelvic pain. TECHNIQUE AND FINDINGS: Real-time grayscale and color Doppler evaluation of the abdominal and pelvic organs is performed from a transabdominal approach. PELVIS: Cervix is normal. The endometrium measures 6 mm. The uterus measures 7.5 x 3.6 x 2.8 cm. No focal myometrial abnormalities are identified. Bilateral ovaries are not seen. There is pelvic ascites. No adnexal masses are seen. ABDOMEN: The liver appears cirrhotic. No definite focal parenchymal abnormalities are seen. There is perihepatic ascites. No intra or extrahepatic biliary ductal dilatation. Common bile duct measures 5 mm in thickness. Portal vein is patent and hepatopedal. Midline structures including the aorta, the IVC, and the pancreas are obscured. Spleen is enlarged measuring 15.4 cm. The right kidney measures 10.4 x 5.0 cm and the left measures 9.4 x 5.0 cm. No hydronephrosis or perinephric fluid involving either kidney. 4 quadrant abdominal ascites is present. The gallbladder is fluid distended and grossly unremarkable. IMPRESSION: 1. Cirrhosis and abdominal ascites. 2. No evidence of acute cholecystitis. 3. No sonographically discernible pelvic abnormality. The ovaries are not identified. Electronically signed by: Jose Ramon Epstein MD (07/10/2020 11:49 AM) [id number]
== END ==
LOC: US 10:02
PROVIDERS: ATTEND Family Medicine
DX: K74.69 Other cirrhosis of liver (principal); R10.2 Pelvic and perineal pain; R18.8 Other ascites
CPT/HCPCS: 76700; 76856